=== PATIENT | female | born 1995 | race Caucasian/White ===

== ENCOUNTER 2017-12-28 11:54 | Emergency (ER) | payer OTHER ==
[2017-12-28] MEDS ORDERED: TRAMADOL HCL 50 MG TAB ONE (13:04)
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
[2017-12-28 14:42] VITALS: TEMP 97.6
[2017-12-28 14:45] VITALS: BP 138/78; O2SAT 97
== END 2017-12-28 14:22 | disposition home or self-care (01) ==
LOC: ER 11:54
DX: S43.402A Unspecified sprain of left shoulder joint, initial encounter (principal); S50.12XA Contusion of left forearm, initial encounter; Y08.89XA Assault by other specified means, initial encounter; Y93.9 Activity, unspecified; Y92.9 Unspecified place or not applicable
CPT/HCPCS: 99284

== ENCOUNTER 2018-05-11 20:25 | Emergency (ER) | payer OTHER ==
[2018-05-11 21:06] LABS: Urine Specific Gravity >1.030 (1.005-1.030)
[2018-05-11 21:06] LABS: Urine Blood 2+ (NEG); Urine Glucose NEGATIVE (NEG); Urine Protein 1+ (NEG); Urine Specific Gravity >1.030 (1.005-1.030); Urine pH 5.5 (5.0-7.0)
[2018-05-11] MEDS ORDERED: ONDANSETRON 4 MG/2 ML VIAL ONE (21:12)
[2018-05-11] MEDS ORDERED: NA CHLORIDE 0.9% 1,000 ML ONE (21:12)
[2018-05-11 21:21] LABS: Absolute Lymphocytes (CBC) 0.9 K/uL (0.7-4.9); Absolute Monocytes 0.4 K/uL (0.1-1.3); Absolute Neutrophil 8.8 K/uL (1.8-8.0); Basophils % 0.4 % (0-1.3); Eosinophils % 0.3 % (0-4.4); Hematocrit 40.9 % (36.0-45.0); Lymphocytes % 8.4 % (15.3-44.8); MCV 81.4 fL (80-100); Monocytes % 3.9 % (3.3-12.3); RBC Red Blood Cell Count 5.03 M/uL (3.86-4.86)
[2018-05-11 21:50] LABS: Anisocytosis SLIGHT; Blood Morphology Comment NOTED (NOT SEEN); Platelet Estimate ADEQ; Urine White Blood Cell Casts OK
--- NOTE | 2018-05-11 22:09 | EDPHYS ---
Physician Documentation [facility] Name: Zaina Roberson Age: 22 yrs Sex: Female : 1995 Arrival Date: 05/11/2018 Time: 20:26 Bed 13 Private MD: ED Physician Young Law HPI: 05/11 20:41 This 22 yrs old Female presents to ER via Ambulatory with complaints of kav Vomiting. 20:41 The patient presents to the emergency department with nausea, that is moderate, kav vomiting. Onset: The symptoms/episode began/occurred acutely, 1 day(s) ago. Possible causes: . The symptoms are aggravated by nothing. The symptoms are alleviated by nothing. Severity of symptoms: At their worst the symptoms were moderate just prior to arrival. The patient has experienced similar episodes in the past, multiple times, and the symptoms today are exactly the same. The patient has been recently seen by a physician:. Patient reports that she has had the same symptoms with each of her other three pregnancies.. 20:55 Patient reports vomiting x 8 today and has been vomiting for the past 24 hours. kav RISK MANAGEMENT INTERNSHIP: 20:33 LMP 02/28/2018 bb 20:53 4, Full Term 3, Premature 0, 0, Living 3, LMP 02/28/2018, kav Verified, EDC 12/05/2018, Gestational age from LMP: 10 weeks 3 days Historical: - Allergies: 20:33 NKDA; bb - Home Meds: 20:33 None [Active]; bb - PMHx: 20:33 None; bb - PSHx: 20:33 Cholecystectomy; bb - Immunization history:: Flu vaccine is not up to date. - Social history:: Smoking status: Patient/guardian denies using tobacco. - Ebola Screening: : Patient denies travel to an Ebola-affected area in the 21 days before illness onset. - Family history:: not pertinent. - Hospitalizations: : No recent hospitalization is reported. ROS: 20:53 Constitutional: Negative for fever, chills, and weight loss, Eyes: Negative for injury, kav pain, redness, and discharge, ENT: Negative for injury, pain, and discharge, Neck: Negative for injury, pain, and swelling, Cardiovascular: Negative for chest pain, palpitations, and edema, Respiratory: Negative for shortness of breath, cough, wheezing, and pleuritic chest pain, Back: Negative for injury and pain, : Negative for injury, bleeding, discharge, and swelling, MS/Extremity: Negative for injury and deformity, Skin: Negative for injury, rash, and discoloration, Neuro: Negative for headache, weakness, numbness, tingling, and seizure, Psych: Negative for depression, anxiety, suicide ideation, homicidal ideation, and hallucinations, Allergy/Immunology: Negative for hives, rash, and allergies, Endocrine: Negative for neck swelling, polydipsia, polyuria, polyphagia, and marked weight changes, Hematologic/Lymphatic: Negative for swollen nodes, abnormal bleeding, and unusual bruising. 20:53 Abdomen/GI: Positive for vomiting, Negative for diarrhea, abdominal cramps. Exam: 20:53 Constitutional: This is a well developed, well nourished patient who is awake, alert, kav and in no acute distress. Head/Face: Normocephalic, atraumatic. Eyes: Pupils equal round and reactive to light, extra-ocular motions intact. Lids and lashes normal. Conjunctiva and sclera are non-icteric and not injected. Cornea within normal limits. Periorbital areas with no swelling, redness, or edema. ENT: Nares patent. No nasal discharge, no septal abnormalities noted. Tympanic membranes are normal and external auditory canals are clear. Oropharynx with no redness, swelling, or masses, exudates, or evidence of obstruction, uvula midline. Mucous membranes moist. Neck: Trachea midline, no thyromegaly or masses palpated, and no cervical lymphadenopathy. Supple, full range of motion without nuchal rigidity, or vertebral point tenderness. No Meningismus. Chest/axilla: Normal chest wall appearance and motion. Nontender with no deformity. No lesions are appreciated. Cardiovascular: Regular rate and rhythm with a normal S1 and S2. No gallops, murmurs, or rubs. Normal PMI, no JVD. No pulse deficits. Respiratory: Lungs have equal breath sounds bilaterally, clear to auscultation and percussion. No rales, rhonchi or wheezes noted. No increased work of breathing, no retractions or nasal flaring. Back: No spinal tenderness. No costovertebral tenderness. Full range of motion. Skin: Warm, dry with normal turgor. Normal color with no rashes, no lesions, and no evidence of cellulitis. MS/ Extremity: Pulses equal, no cyanosis. Neurovascular intact. Full, normal range of motion. Neuro: Awake and alert, GCS 15, oriented to person, place, time, and situation. Cranial nerves II-XII grossly intact. Motor strength 5/5 in all extremities. Sensory grossly intact. Cerebellar exam normal. Normal gait. Psych: Awake, alert, with orientation to person, place and time. Behavior, mood, and affect are within normal limits. 20:53 Abdomen/GI: Inspection: abdomen appears normal, Bowel sounds: normal, Palpation: abdomen is soft and non-tender, in all quadrants. Vital Signs: 20:33 BP 131 / 91; Pulse 115; Resp 20; Temp 98.2; Pulse Ox 98% on R/A; Weight 114.31 kg (R); bb Height 5 ft. 5 in. (165.10 cm) (R); Pain 10/10; 22:01 BP 115 / 70; Pulse 88; Resp 18; Pulse Ox 100% on R/A; tl2 20:33 Body Mass Index 41.93 (114.31 kg, 165.10 cm) bb MDM: 20:36 Medical screening is not applicable. ka 22:09 Data reviewed: vital signs, nurses notes, lab test result(s). Counseling: I had a [facility] detailed discussion with the patient and/or guardian regarding: the historical points, exam findings, and any diagnostic results supporting the discharge/admit diagnosis, lab results, the need for outpatient follow up, an OB/Gyne specialist. 05/11 20:40 Order name: Quantitative Hcg; Complete Time: 22:08 [facility] 05/11 20:40 Order name: Abo/rh Typing; Complete Time: 21:55 [facility] 05/11 20:40 Order name: Basic Metabolic Panel; Complete Time: 22:08 [facility] 05/11 20:40 Order name: CBC with Diff; Complete Time: 21:55 [facility] 05/11 20:51 Order name: Urine Dipstick--Ancillary (enter results); Complete Time: 21:21 ok 05/11 20:58 Order name: Urine --Ancillary (enter results); Complete Time: 21:21 ok 05/11 20:40 Order name: Urine Test (obtain specimen); Complete Time: 20:58 kav 05/11 20:40 Order name: IV Saline Lock; Complete Time: 20:58 kav 05/11 20:40 Order name: Labs collected and sent; Complete Time: 20:59 kav 05/11 20:40 Order name: NPO; Complete Time: 20:59 kav 05/11 21:25 Order name: CBC Smear Scan; Complete Time: 21:55 [facility] 05/11 20:40 Order name: Urine Dipstick-Ancillary (obtain specimen); Complete Time: 21:02 kav Administered Medications: 21:10 Drug: NS 0.9% 1000 ml Route: IV; Rate: 1000 ml; Site: right antecubital; tl2 22:37 Follow up: IV Status: Completed infusion; IV Intake: 1000ml tl2 21:10 Drug: Zofran 4 mg Route: IVP; Site: right antecubital; tl2 21:30 Follow up: Response: No adverse reaction; Nausea is decreased tl2 22:15 Drug: Phenergan 25 mg Route: IVP; Site: right antecubital; tl2 22:37 Follow up: Response: No adverse reaction; Nausea is decreased tl2 Disposition: 05/12 06:41 Co-signature as Attending Physician, Young Law MD I agree with the assessment and riley plan of care. PA/ALLIANCE CONSULTANT's history reviewed, patient interviewed, and examined. Disposition: 05/11/18 22:08 Discharged to Home. Impression: Hyperemesis gravidarum with metabolic disturbance. - Condition is Stable. - Discharge Instructions: Hyperemesis Gravidarum, Eating Plan for Hyperemesis Gravidarum. - Prescriptions for Diclegis 10- 10 mg Oral tablet,delayed release (DR/EC) - take 1 tablet by ORAL route once daily; 30 tablet. - Medication Reconciliation Form, Thank You Letter form. - Follow up: Zay Sher; When: 2 - 3 days; Reason: Recheck today's complaints, Continuance of care, Re-evaluation by your physician. - Problem is new. - Symptoms have improved. Signatures: Dispatcher [employer] Young Santoyo MD MD cha Vern, Katherine, RIB TRIM SEPARATOR RIB TRIM SEPARATOR kaYasmine Melvin RN RN Beatriz Guerrero RN RN tl2 Corrections: (The following items were deleted from the chart) 05/11 20:53 20:51 4, Full Term 3, Premature 0, 0, Living 3 kav kav 20:54 20:52 4, Full Term 3, Premature 0, 0, Living 3, LMP 02/28/2018 kav kav 22:38 22:08 05/11/2018 22:08 Discharged to Home. Impression: Hyperemesis gravidarum with tl2 metabolic disturbance. Condition is Stable. Discharge Instructions: Hyperemesis Gravidarum, Eating Plan for Hyperemesis Gravidarum. Forms are Medication Reconciliation Form, Thank You Letter, Antibiotic Education, Prescription Opioid Use. Follow up: Zay Sher; When: 2 - 3 days; Reason: Recheck today's complaints, Continuance of care, Re-evaluation by your physician. Problem is new. Symptoms have improved. kav
--- NOTE | 2018-05-11 22:09 | ER ---
Nurse's Notes [facility] Name: Zaina Roberson Age: 22 yrs Sex: Female : 1995 Arrival Date: 05/11/2018 Time: 20:26 Bed 13 Private MD: Diagnosis: Hyperemesis gravidarum with metabolic disturbance Presentation: 05/11 20:31 Presenting complaint: Patient states: "I started throwing up yesterday after breakfast bb and it's been non-stop, its getting progressively worse and now its just stomach acid and I have diarrhea now." Reports upper abdominal pain "from throwing up" Reports fever last night of 102.3, but has not run fever since. Patients states that she is currently 11 weeks . Reports that she has had some spotting since she started vomiting. Transition of care: patient was not received from another setting of care. Onset of symptoms was May 10, 2018. Risk Assessment: Do you want to hurt yourself or someone else? Patient reports no desire to harm self or others. Initial Sepsis Screen: Does the patient meet any 2 criteria? No. Patient's initial sepsis screen is negative. Does the patient have a suspected source of infection? Yes: Acute abdominal pain. Care prior to arrival: None. 20:31 Method Of Arrival: Ambulatory bb 20:31 Acuity: SAFIA 3 bb Triage Assessment: 20:33 General: Appears in no apparent distress. uncomfortable, Behavior is calm, cooperative, bb appropriate for age. Pain: Complains of pain in right upper quadrant and left upper quadrant Pain currently is 10 out of 10 on a pain scale. Neuro: Level of Consciousness is awake, alert, obeys commands. Cardiovascular: Patient's skin is warm and dry. Respiratory: Airway is patent Respiratory effort is even, unlabored, Respiratory pattern is regular, symmetrical. GI: Reports upper abdominal pain, diarrhea, nausea, vomiting. 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 - Social history:: Smoking status: Patient/guardian denies using tobacco. - Ebola Screening: : Patient denies travel to an Ebola-affected area in the 21 days before illness onset. - Family history:: not pertinent. - Hospitalizations: : No recent hospitalization is reported. Screenin:00 Abuse screen: Denies threats or abuse. Nutritional screening: No deficits noted. tl2 Tuberculosis screening: No symptoms or risk factors identified. Fall Risk None identified. Assessment: 21:00 General: Appears in no apparent distress. uncomfortable, Behavior is calm, cooperative, tl2 appropriate for age. Pain: Denies pain. Neuro: Level of Consciousness is awake, alert, obeys commands, Oriented to person, place, time, situation. Cardiovascular: Denies chest pain. Respiratory: Airway is patent Respiratory effort is even, unlabored, Respiratory pattern is regular, symmetrical. GI: Reports diarrhea, nausea, vomiting. GI: Abdomen is non-distended. : No signs and/or symptoms were reported regarding the genitourinary system. Derm: Skin is pink, warm \\T\\ dry. 22:01 Reassessment: Patient appears in no apparent distress at this time. Pt c/o nausea has tl2 returned and she feels light headed. VSS. Will notify DIRECTOR OF ELEMENTARY EDUCATION. 22:36 Reassessment: Patient appears in no apparent distress at this time. Patient and/or tl2 family updated on plan of care and expected duration. Pain level reassessed. Patient is alert, oriented x 3, equal unlabored respirations, skin warm/dry/pink. Pt verbalized understanding of discharge instructions, need for follow up and prescription usage Patient states feeling better. Vital Signs: 20:33 BP 131 / 91; Pulse 115; Resp 20; Temp 98.2; Pulse Ox 98% on R/A; Weight 114.31 kg (R); bb Height 5 ft. 5 in. (165.10 cm) (R); Pain 10/10; 22:01 BP 115 / 70; Pulse 88; Resp 18; Pulse Ox 100% on R/A; tl2 20:33 Body Mass Index 41.93 (114.31 kg, 165.10 cm) bb ED Course: 20:26 Patient arrived in ED. ag3 20:32 Triage completed. bb 20:33 Arm band placed on Patient placed in an exam room. bb 20:36 [facility] kav 20:36 Young Law MD is Attending Physician. kav 20:58 Beatriz Golden, IRVING is Primary Nurse. tl2 21:00 Patient has correct armband on for positive identification. Bed in low position. Call tl2 light in reach. Side rails up X 1. 21:00 Inserted saline lock: 22 gauge in right antecubital area, using aseptic technique. tl2 Blood collected. 22:08 Zay Sher MD is Referral Physician. kav 22:36 No provider procedures requiring assistance completed. IV discontinued, intact, tl2 bleeding controlled, No redness/swelling at site. Pressure dressing applied. Administered Medications: 21:10 Drug: NS 0.9% 1000 ml Route: IV; Rate: 1000 ml; Site: right antecubital; tl2 22:37 Follow up: IV Status: Completed infusion; IV Intake: 1000ml tl2 21:10 Drug: Zofran 4 mg Route: IVP; Site: right antecubital; tl2 21:30 Follow up: Response: No adverse reaction; Nausea is decreased tl2 22:15 Drug: Phenergan 25 mg Route: IVP; Site: right antecubital; tl2 22:37 Follow up: Response: No adverse reaction; Nausea is decreased tl2 Intake: 22:37 IV: 1000ml; Total: 1000ml. tl2 Outcome: 22:08 Discharge ordered by MD. kav 22:36 Discharged to home ambulatory, with family. tl2 22:36 Condition: stable 22:36 Discharge instructions given to patient, Instructed on discharge instructions, follow up and referral plans. medication usage, Demonstrated understanding of instructions, follow-up care, medications, Prescriptions given X 1. 22:38 Patient left the ED. tl2 Signatures: Christine Boateng FNP FNP kav Ballard, Brenda, RN RN bb Knox, Taylor, RN RN tl2 Salina Duran ag3 Corrections: (The following items were deleted from the chart) 20:34 20:31 Presenting complaint: Patient states: "I started throwing up yesterday after bb breakfast and it's been non-stop, its getting progressively worse and now its just stomach acid and I have diarrhea now." Reports upper abdominal pain "from throwing up" Reports fever last night of 102.3, but has not run fever since bb 20:53 20:51 4, Full Term 3, Premature 0, 0, Living [address] [facility] 20:54 20:52 4, Full Term 3, Premature 0, 0, Living 3, LMP 02/28/2018 [facility]
[2018-05-11] MEDS ORDERED: PROMETHAZINE 25 MG/ML VIAL ONE (22:22)
[2018-05-11 22:46] VITALS: TEMP 98.2
[2018-05-11 22:47] VITALS: BP 115/70; O2SAT 100
== END 2018-05-11 22:38 | disposition home or self-care (01) ==
LOC: ER 20:25
DX: O21.1 Hyperemesis gravidarum with metabolic disturbance (principal); Z3A.10 10 weeks gestation of pregnancy
CPT/HCPCS: 36415; 80048; 81003; 81025; 84702; 85025; 86900; 86901; 96361; 96374; 96375; 99284; J2405; J2550; J7030

== ENCOUNTER 2018-11-16 20:40 | Inpatient (IN) | payer OTHER ==
[2018-11-16] MEDS ORDERED: HYDRALAZINE HCL 20 MG/ML VIAL IV PRN (23:15)
[2018-11-17] MEDS ORDERED: LIDOCAINE 1% MPF 30 ML VIAL ONE (00:48)
[2018-11-17] MEDS ORDERED: OXYTOCIN/LR 20 UNIT/1,000 ML BAG IV ONE (00:49)
[2018-11-17] MEDS ORDERED: CARBOPROST TROME 250 MCG/ML IM ONE (00:49)
[2018-11-17] MEDS ORDERED: DOCUSATE NA/SENNA CONC 1 TAB PO PRN (00:52)
[2018-11-17] MEDS ORDERED: BISACODYL 10 MG RECTAL SUPP RECT PRN (00:52)
[2018-11-17] MEDS ORDERED: Oxycodone HCl/Acetaminophen 1 TAB TAB PO PRN ×2 (00:52)
[2018-11-17] MEDS ORDERED: ACETAMINOPHEN 500 MG TAB PO PRN (00:52)
[2018-11-17] MEDS ORDERED: DIPHENHYDRAMINE 25 MG TAB/CAP PO PRN (00:52)
[2018-11-17] MEDS ORDERED: OXYTOCIN/LR 20 UNIT/1,000 ML BAG IV SCH (01:00)
[2018-11-17] MEDS ORDERED: MEPERIDINE HCL 25 MG/0.5 ML ONE (01:01)
[2018-11-17 01:51] LABS: Urine Appearance CLOUDY; Urine Bilirubin NEGATIVE (NEG); Urine Blood 1+ (NEG); Urine Color YELLOW; Urine Glucose NEGATIVE (NEG); Urine Protein 3+ (NEG); Urine Urobilinogen 0.2 mg/dL (0.2-1.0); Urine pH 5.5 (5.0-7.0)
[2018-11-17 01:56] LABS: Urine Microscopic Reflex ORDER UMIC; Urine Protein 3+ (NEG)
[2018-11-17 01:57] LABS: Absolute Lymphocytes (CBC) 2.2 K/uL (0.7-4.9); Basophils % 0.6 % (0-1.3); Eosinophils % 0.8 % (0-4.4); Hematocrit 36.7 % (36.0-45.0); Lymphocytes % 15.5 % (15.3-44.8); MPV 10.9 fL (7.6-11.3); Monocytes % 4.7 % (3.3-12.3); RBC Red Blood Cell Count 4.22 M/uL (3.86-4.86)
[2018-11-17 01:57] LABS: Urine Blood ND (NEG); Urine Glucose ND (NEG)
[2018-11-17 02:32] LABS: Urine Bacteria 20-50 /HPF (<20); Urine Culture Reflex Order REFLEXED
[2018-11-17] MEDS ORDERED: HYDRALAZINE HCL 20 MG/ML VIAL IV ONE (02:44)
[2018-11-17] MEDS: IBUPROFEN 200 MG TAB PO PRN ×2 (03:55→11:18)
[2018-11-17 04:58] VITALS: BMI 46.7
--- NOTE | 2018-11-17 05:11 | PREOPHP ---
Date of Admission: 11/16/2018 A 23-year-old multiparous female, scheduled for induction on ; came in early labor; 3.5 to 4 cm; after 2 hours of observation, was admitted. Sharath irregularly at that time. Noted to have initial blood pressure of 165 systolic on admission. Rh positive. Immune to Rubella. Negative bet a strep screen. FHTs normal, reactive. All other situations without change. Family History: Noncontributory. Allergies: NO ALLERGIES. Physical Examination: Basically unchanged. Admitted for delivery. ALVERTO/BRAYDEN Voice ID: [id number]
--- NOTE | 2018-11-17 05:20 | DN ---
Surgeon: Zay Sher MD A 23-year-old multiparous female scheduled for induction later this week. Came in, in early labor. Went through a very active labor phase. Went from 4 cm to complete and precipitously delivered of a 6 pound 12 ounce female, Apgars 9 and 10. Very small first-degree laceration requiring 1 stitch of 2 -0 chromic, local infiltration. Schultze delivery of the placenta, which was inspected and noted to be intact and normal. Less than 200 cc blood loss. The patient reported severe cramping and was giv en 25 mg of Demerol. After delivery, the baby clamped in the cord. Tolerated all procedures well. Rh positive. Immune to Rubella. Negative beta strep screen. Final Diagnoses: Term intrauterine . Vaginal delivery. ALVERTO/BRAYDEN Voice ID: [id number] Report ID: [id number]
[2018-11-17] MEDS ORDERED: Ringers Lactate 1,000 ML IV ONE ×3 (06:04→12:26)
[2018-11-17] MEDS: PHENOBARBITAL 32.4 MG TABLET PO SCH ×2 (06:10→13:58)
[2018-11-17] MEDS ORDERED: OXYTOCIN 10 UNIT/ML ML IV ONE (07:14)
[2018-11-17] MEDS ORDERED: MORPHINE SULFATE/PF 1 MG/ML (10 ML AMP) ONE (07:14)
[2018-11-17] MEDS ORDERED: Phenylephrine HCl 10 MG/ML 1 ML VIAL ONE (07:14)
[2018-11-17] MEDS ORDERED: FENTANYL CITR 250 MCG/5 ML ONE (07:14)
[2018-11-17] MEDS ORDERED: NS 0.9% VIAL 0 ML ONE (07:15)
[2018-11-17] MEDS: HYDRALAZINE HCL 20 MG/ML VIAL IV PRN ×3 (07:16→20:25)
[2018-11-17] MEDS ORDERED: PROMETHAZINE 25 MG/ML VIAL IM ONE ×2 (08:03→21:10)
[2018-11-17] MEDS ORDERED: cloNIDine HCl 0.1 MG TAB PO ONE (08:21)
[2018-11-17] MEDS ORDERED: PROMETHAZINE 25 MG/ML VIAL ONE (08:25)
[2018-11-17] MEDS ORDERED: KETOROLAC 30 MG/ML INJ IV ONE (11:59)
--- NOTE | 2018-11-17 14:12 | PN ---
The patient did quite well after the delivery, which is at 12:24 but then around 2 o'clock last night began to have a headache. She says headache has intensified. Her blood pressure is now better afte r the clonidine 0.1 mg but the headache persists. She was given 25 mg Demerol at the time of deliver y because of cramping. She has been given Motrin. She has also been given Toradol 30 mg IV and her headache continues. We have ordered 2 Percocet and if that does not help, we will get a neurology co nsult. Neurologically she looks fine. Her pupils are equally round, reactive to light and accommoda tion. All of her facial muscles are normal. She has no complaints of chest pain, leg pain or any ot her type of problems. Mild nausea. She is quite conversant and alert. She has no history of migrai carlos, nonetheless we will get a neurology consult if her headache persist. It is frontal, bilateral. No visual disturbances. As I said there are no problems with her facial nerves and she can speak wi thout any problems. Followup according to response to treatment. ALVERTO/BRAYDEN Voice ID: [id number] Report ID: [id number]
--- NOTE | 2018-11-17 14:27 | PN ---
Subjective: The patient continues to show mild blood pressure elevation. No RELAY ADJUSTER symptoms. Her refl exes are normal. There was minimal pretibial edema. This is the same other pregnancies. Whether or not she has 2 preeclampsia remains to be seen but we discussed this morning and we will k eep her on phenobarbital for 3-4 days, probably let her go home tomorrow and then come to my office o n Friday for blood pressure check. She has no complaints or problems this morning. Full dismissal i nstructions given but will go over it again tomorrow. She still has her IV, will keep that until she ambulates and see what her blood pressure does. She may need another dose of Apresoline if she need s something on a continual basis. We will probably put her on Aldomet for the next week or so until her blood pressure is moderate, but right now, the last blood pressure was under 160 systolic and she seems to be doing quite well. ALVERTO/BRAYDEN Voice ID: [id number] Report ID: [id number]
[2018-11-17 14:37] LABS: Absolute Lymphocytes (CBC) 2.1 K/uL (0.7-4.9); Basophils % 0.6 % (0-1.3); Eosinophils % 0.8 % (0-4.4); Hematocrit 31.3 % (36.0-45.0); Lymphocytes % 20.2 % (15.3-44.8); MPV 9.5 fL (7.6-11.3); Monocytes % 4.7 % (3.3-12.3); RBC Red Blood Cell Count 3.65 M/uL (3.86-4.86)
[2018-11-17 14:48] LABS: Protime INR 0.85
[2018-11-17 14:51] LABS: Potassium 4.7 mmol/L (3.5-5.1)
--- NOTE | 2018-11-17 15:11 | P.CNS ---
Date of Consult: 11/17/18 Reason for Consult: Right sided Numbness Requesting Physician: Christiano Centeno Primary Care Provider: Dr Sher Chief Complaint: Right leg Numbness History of Present Illness: This is a 23-year-old female, who was admitted to the hospital in labor and delivery, status post at 12:15pm, with 1st degree tear. Pt did not receive any epidural during delivery, now with left-sided leg numbness that started around 2 o'clock. Patient was getting infusion of phenobarbital right before which she started noticing that she was having some left-sided numbness to the leg. Patient has been getting treated for preeclampsia during this . Initially on presentation her blood pressure was elevated and patient was given a pass away in and clonidine which brought her blood pressure down to less than 120/80 At around 10 o'clock. Patient delivered her baby at around 12:15 p.m. without any epidural and was spontaneous vaginal delivery. Patient did have first-degree laceration here which was repaired at bedside. Patient was given local anesthesia for that. Blood loss was 500 mL for last. Patient was doing fine until she started having some left-sided numbness on the leg starting at 2 o'clock p.m.. Denies any other associated symptoms. Allergies No Known Drug Allergies Allergy (Verified 11/17/18 05:42) Unknown No Known Allergies Allergy (Uncoded 08/21/15 00:09) Unknown Home Medications: NK [No Home Meds] 11/17/18 - Past Medical/Surgical History Diabetic: No -: Gallstones -: [facility] 04/2014 lap kody -: NVD 08/27/13, 06/28/15, 01/11/17 - Family History Mother Medical History: Hypertension, Lung disease, Diabetes Notes: has insulin pump - Social History Smoking Status: Never smoker Alcohol use: No CD- Drugs: No Caffeine use: Yes Place of Residence: Home Review of Systems 10-point ROS is otherwise unremarkable Physical Examination Temp Pulse Resp BP Pulse Ox 98.0 F 69 18 132/74 11/17/18 14:00 11/17/18 14:00 11/17/18 14:00 11/17/18 14:00 General: Alert, In no apparent distress HEENT: Atraumatic, PERRLA, Mucous membr. moist/pink, EOMI, Sclerae nonicteric Neck: Supple, 2+ carotid pulse no bruit, No LAD, Without JVD or thyroid abnormality Respiratory: Clear to auscultation bilaterally, Normal air movement Cardiovascular: Regular rate/rhythm, Normal S1 S2 Gastrointestinal: Normal bowel sounds, Tenderness Musculoskeletal: No tenderness Integumentary: No rashes Neurological: Normal speech, Normal strength at 5/5 x4 extr, Normal tone, Sensation intact, Normal affect, Other (Shakes noted and Unable to asscess gait as pt recently delievered Baby) Lymphatics: No axilla or inguinal lymphadenopathy Laboratory Data (last 24 hrs) 11/17/18 14:25: PT 10.1, INR 0.85, APTT 26.1 11/17/18 14:25: Sodium 142, Potassium 4.7, BUN 13, Creatinine 0.85, Glucose 75 11/17/18 14:25: WBC 10.3 D, Hgb 10.1 L, Hct 31.3 L, Plt Count 262 11/17/18 00:15: WBC 13.9 H, Hgb 11.8 L, Hct 36.7, Plt Count 302 - Problems (1) Left leg numbness Current Visit: Yes Status: Acute Plan: Patient left leg numbness status post delivery. Possible CVA versus TIA -with history of preeclampsia with elevated blood pressure, thalamic stroke is a high on the differential -head CT pending at this time. Code stroke was called. -will get brain MRI, carotid Doppler, ESR and CRP -Consult neurology at this time. Appreciate recommendation -patient started on aspirin, Lipitor, no TPA due to contraindications due to recent vaginal delivery -will await further recommendations at this time (2) Preeclampsia Current Visit: Yes Status: Acute Plan: Patient with history of preeclampsia. -currently blood pressure within normal ranges -patient status post spontaneous vaginal delivery -will hold phenobarbital as patient's symptoms got worse after phenobarbital administration Qualifiers: Trimester: unspecified trimester Qualified Code(s): O14.90 - Unspecified pre-eclampsia, unspecified trimester (3) (spontaneous vaginal delivery) Current Visit: Yes Status: Acute Plan: Patient is currently status post vaginal delivery states that her delivery was complicated with preeclampsia with elevated blood pressure and headaches. Conclusions/Impression: Will rule out acute CVA versus TIA versus medication side effect. Patient given aspirin 325 x 1 and then 81 mg after that along with Lipitor and folic acid. No TPA given his NIH scale 1 and patient has medical contraindication to TPA at this time. Will await results from brain MRI and carotid Doppler further treatment. Permissive HTN with Goal BP of 160/90
--- NOTE | 2018-11-17 15:42 | RAD REPORT ---
EXAM DESCRIPTION: MRI - Brain W/Wo Cont - 11/17/2018 3:30 pm CLINICAL HISTORY: headache and numbness Headache, drowsiness, CVA symptomology COMPARISON: MRA Head Wo Cont dated 11/17/2018; MRA Neck W/Wo Cont dated 11/17/2018 TECHNIQUE: Multi-sequence, multiplanar MR imaging of the brain was performed with contrast. FINDINGS: No intracranial hemorrhage, hydrocephalus, or extra-axial fluid collection. No edema or sh ift of midline structures. No intracranial mass. DWI is negative for acute CVA. The midline structures are normally formed. Small mucous retention cyst versus polyps are present in both maxillary antra. Post-contrast images show no abnormal enhancement to suggest tumor or infection. IMPRESSION: Negative for acute CVA or other acute intracranial abnormality. No pathologic post-contrast enhancement suspected.
--- NOTE | 2018-11-17 15:46 | RAD REPORT ---
EXAM DESCRIPTION: MRI - MRA Head Wo Cont - 11/17/2018 3:31 pm CLINICAL HISTORY: headache and numbness CVA COMPARISON: HEAD BRAIN W O CONTRAST dated 10/05/2013 FINDINGS: 3D noncontrast [id number] MR angiography of the skull [place] of [place] was performed. No aneurysm, flow-limiting stenosis or vascular malformation is seen. Forward flow seen in left-sided dominant vertebral arteries. The visualized dural venous sinuses appear patent. IMPRESSION: No significant flow abnormality of the [place] of [place] is identified.
--- NOTE | 2018-11-17 15:50 | RAD REPORT ---
EXAM DESCRIPTION: MRI - MRA Neck W/Wo Cont - 11/17/2018 3:30 pm CLINICAL HISTORY: headache and numbness Headache, drowsiness, CVA symptomology. COMPARISON: No comparisons FINDINGS: Contrast enhance 2D [id number] MR angiography of the neck vessels was performed. A left aortic arch is noted with a 3 vessel origins of the great vessels. Both common carotid arteries and subclavian arteries are widely patent. Both internal carotid arteries are normal without evidence of flow abnormality or stenosis. IMPRESSION: No flow abnormality of the neck vessels identified.
--- NOTE | 2018-11-17 16:02 | RAD REPORT ---
EXAM DESCRIPTION: US - CP - 11/17/2018 3:55 pm CLINICAL HISTORY: Right Sided Numbness Headache, drowsiness CVA symptomology COMPARISON: <Comparisons> TECHNIQUE: Real-time sonographic evaluation of both carotid systems was performed. Doppler interroga tion was performed with waveform tracing bilaterally. FINDINGS: Normal high resistance waveforms are noted in both external carotid arteries. The common c arotid arteries and internal carotid arteries show normal low resistance waveforms. No significant plaque formation is seen. Peak systolic and end diastolic velocity values and the ICA/ CCA ratios are in the non-hemodynamically significant range. Antegrade flow seen in both vertebral arteries. IMPRESSION: No significant atherosclerotic changes noted. No evidence of a hemodynamically significant stenosis.
--- NOTE | 2018-11-17 16:20 | RAD REPORT ---
EXAM DESCRIPTION: RAD - Chest Single View - 11/17/2018 4:01 pm CLINICAL HISTORY: CODE STROKE Chest pain. COMPARISON: <Comparisons> FINDINGS: Portable technique limits examination quality. The lungs are grossly clear. Cardiac silhouette is mildly prominent. No displaced fractures.
[2018-11-17] MEDS ORDERED: MORPHINE 4 MG/ML SYR IV ONE (16:25)
--- NOTE | 2018-11-17 16:28 | EKG ---
Test Date: 2018-11-17 Test Time: 14:26:15 Paper Sealer: LEONID-Kenny MEASUREMENT RESULTS: Intervals: Rate: 75 AL: 124 QRSD: 62 QT: 372 QTc: 415 [place]: P: 31 AL: 124 QRS: 78 T: 53 INTERPRETIVE STATEMENTS: Normal sinus rhythm with sinus arrhythmia Low voltage QRS Borderline ECG Compared to ECG 10/30/2014 22:48:48 Low QRS voltage now present Electronically Signed On 11-17-18 16:27:16 CDT by Miles George
[2018-11-17] MEDS ORDERED: MORPHINE 4 MG/ML SYR ONE (16:34)
[2018-11-17] MEDS: AMLODIPINE 10 MG TAB PO SCH (17:18)
--- NOTE | 2018-11-17 17:20 | PN ---
The patient has had a complete neurological workup. Hospitalist, Dr. Hassan has seen the patient. Ap parently at this point, it is not thought the patient has any type of neoplasm or stroke. Numbness h as apparently gone now. She is quite conversant. Does not seem to be any pain, but says that her he adache is still extreme. We will give her 4 mg of morphine IV. If she is still having problems afte r this, we have already called Dr. Centeno who had the nurses call a code stroke, which apparently h as been called off now. The patient was moved out of the unit, now is back on the unit. Her blood p ressures have started to creep back up slightly, so we will see what the effect of morphine has, but if still no benefit, I thinks she needs to be seen by neurologist, which we asked for in the first pl valentin. ALVERTO/BRAYDEN Voice ID: [id number] Report ID: [id number]
[2018-11-17] MEDS ORDERED: HYDRALAZINE HCL 20 MG/ML VIAL ONE (20:31)
[2018-11-17] MEDS ORDERED: ATORVASTATIN 40 MG TAB PO SCH (21:00)
[2018-11-17] MEDS ORDERED: METHYLDOPA 250 MG TABLET PO SCH (21:00)
[2018-11-17] MEDS ORDERED: OXYTOCIN/LR 1,000 ML IV SCH (23:15)
[2018-11-18] MEDS: IBUPROFEN 200 MG TAB PO PRN (01:06)
[2018-11-18] MEDS ORDERED: Ringers Lactate 1,000 ML IV ONE (01:17)
[2018-11-18 07:12] VITALS: BP 136/81; TEMP 97.8
--- NOTE | 2018-11-18 07:50 | DS ---
Zaina Roberson is a 23-year-old, 4, para 3, at approximately 38 weeks and 2/3 days, came in a ctive labor, rapidly advancing, precipitously delivered a 5 pounds, 12 ounces female. Apgars 9 and 1 0. No episiotomy. Small first-degree laceration requiring 1 suture of 2-0 chromic under local infil tration. Rh positive, immune to Rubella. Negative beta strep screen. Was given 25 mg after deliver y the baby and delivery of the placenta as she says she was having cramping. within the n ext few hours developed a severe headache, was noted also to have elevated blood pressures. Was give n apresoline twice then clonidine at 0.1 one time. Headache persisted when the patient then started complaining of arm tingling and numbness. Dr. Ezio Centeno was consulted, he said to call a Code stroke, this was done. The patient subsequently had MRI, CAT scan, everything negative. Blood press ures have moderated. Headache is gone, numbness is gone. The patient seemed to be fully resolved. She seemed to have the same problem with the last only she was complaining of leg numbness at that point. In any event, we will dismiss the patient this morning to return to my office Friday, which is approximately 48 hours from now. For blood pressure determination, she is on Norvasc 10 mg a day. She is pumping her breast and discarding the milk, which she was doing previously anyway. S he is also dismissed with tramadol, although she may elect to take Motrin instead. No complaints or problems voiced by the patient this morning. Final Diagnoses: Term intrauterine , precipitous vaginal delivery, headache of unknown etio logy, hypertension not thought to be preeclampsia, now resolving. LULIC/MODL Voice ID: [id number] Report ID: [id number]
[2018-11-18] MEDS ORDERED: ASPIRIN 325 MG TAB PO SCH (09:00)
[2018-11-18] MEDS: AMLODIPINE 10 MG TAB PO SCH (09:00)
[2018-11-18] MEDS ORDERED: FOLIC ACID 1 MG TABLET PO SCH (09:00)
[2018-11-18] MEDS ORDERED: ASPIRIN EC 81 MG TAB PO SCH (09:00)
[2018-11-18] MEDS ORDERED: AMLODIPINE 10 MG TAB PO SCH (09:00)
--- NOTE | 2018-11-18 14:58 | CON ---
Reason For Consultation: Consultation called by Dr. Sher because of headache and right leg numbness . History Of Present Illness: Ms. Roberson is a 23-year-old patient who just delivered by spont aneous vaginal delivery a healthy baby at 12:15 on 11/16/2018. Prior to delivery, she had preeclamps ia with blood pressures significantly elevated over 160 systolic and she did have medications which a ctually dropped her blood pressure to less than 120/80 within a short time. She did not receive an e pidural and she delivered the baby. She did okay until she developed the left-sided numbness which w as around 2 p.m. after delivery was at 12:15 and her blood pressure dropped around 10. She does give a history of migraines, typically one-sided perhaps left head with nausea and occasional vomiting an d pounding pain rated 8-10/10. She was given morphine 4 mg. She did receive Percocet as well and To radol and blood pressure was managed with Norvasc. She has been on aspirin 81 mg daily along with Li pitor 4 mg for stroke risk reduction. She does report today that her headache is still there, but mu ch improved from yesterday. At around 7 this morning, pain was rated at 0/10. She actually was disc harged from the hospital and is told to follow up with Dr. Centeno in 1 month. Past Medical History: Gallstones. Past Surgical History: Laparoscopic cholecystectomy in 2013, spontaneous vaginal delivery in 2013, 2 , and 2017. Family History: Positive for hypertension, lung disease, diabetes mellitus. Social History: No alcohol, tobacco, or IV drug use. Allergies: NO KNOWN DRUG ALLERGIES. Medications: She is currently on the aspirin and statin for stroke risk reduction, but prior to hosp italization, she was on no medications. Review of Systems: A 10-point review of systems is negative. Physical Examination: Vital Signs: Blood pressure 136/81, pulse 76, respiratory rate 18, temperature 97.8, oxygen saturati on 97% room air. General: Ms. Roberson is standing in her room, ready to be discharged. She is in no acute distress. HEENT: She is normocephalic, atraumatic. Sclerae anicteric. Oropharynx is pink and moist. Neck: Supple. Chest: Clear. Heart: Regular. Extremities: Show no clubbing, cyanosis, or edema. Neuro: She is morbidly obese with a BMI of 46.8, height of 5 feet 5 inches, weight 281 pounds. Ms. Roberson has no focal cranial nerves, motor, sensory, coordination, gait, or reflex deficits. Laboratory Studies: Complete blood count with differential is remarkable for a slightly low hemoglob in of 10.1, white blood cell count 10.3, platelets are 262. INR 0.85. Chemistries show slightly low calcium of 8.2, glucose 75, chloride 111, otherwise unremarkable. Urinalysis shows 3+ protein under preeclampsia, white blood cells are 5-10, blood +1. Her brain MRI was unremarkable for any acute is chemic or hemorrhagic event. MRA of the head was unremarkable. She had a carotid artery ultrasound, which showed no evidence of hemodynamically significant stenosis and neck MR angiogram was also unre markable. Assessment: Ms. Roberson is a 23-year-old patient with preeclampsia, history of migraine that is uncha nged and blood pressure from a very high level to a less than 120 systolic and likely precipitated ce rebral arterial spasms and a transient focal neurological deficit. She is now resolved in her defici t but still has a slight headache with her history of migraine, not unexpected. Plan: 1.After discharge, followup [facility] in 1 month. Will evaluate and treat for migraine accordingly with prophylactic medication and abortive medication as needed. 2.Continue aspirin and Lipitor. Will re-evaluate in 1 month followup. 3.The patient was instructed to maintain a blood pressure diary and bring that back to clinic in followup and follow up in clinic in 1 month. MEGHAN/BRAYDEN Voice ID: [id number] Report ID: [id number]
[2018-11-19 12:06] LABS: HBsAG Nonreactive (Nonreactive)
== END 2018-11-18 09:00 | disposition home or self-care (01) | DRG 807 ==
LOC: L&D 20:40 → 2ND-WC 23:34
PROVIDERS: ADMIT Specialist; ATTEND Specialist
PROC: 10E0XZZ Delivery of Products of Conception, External Approach (ICD-10-PCS; principal; 2018-11-17)
PROC: 0HQ9XZZ Repair Perineum Skin, External Approach (ICD-10-PCS; 2018-11-17)
DX: O70.0 First degree perineal laceration during delivery (principal); Z37.0 Single live birth; O16.4 Unspecified maternal hypertension, complicating childbirth; Z3A.38 38 weeks gestation of pregnancy; O75.89 Other specified complications of labor and delivery; R51 Headache; R20.0 Anesthesia of skin
CPT/HCPCS: 36415; 70544; 70549; 70553; 71045; 80048; 81003; 81015; 85025; 85610; 85730; 86901; 87086; 87088; 87340; 93005; 93880; A9577; J0360; J2175; J2370; J2550; J2590; J3010

== ENCOUNTER 2019-06-14 13:19 | Emergency (ER) | payer OTHER, SELFPAY ==
[2019-06-14 14:06] LABS: Urine Blood NEGATIVE (NEG); Urine Glucose NEGATIVE (NEG); Urine Protein NEGATIVE (NEG); Urine Specific Gravity 1.025 (1.005-1.030)
--- NOTE | 2019-06-14 14:26 | RAD REPORT ---
EXAM DESCRIPTION: RAD - Foot Left 3 View - 06/14/2019 2:13 pm CLINICAL HISTORY: Left Foot pain FINDINGS: No fracture or dislocation is seen.
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
[2019-06-14] MEDS ORDERED: KETOROLAC 30 MG/ML INJ ONE (14:43)
[2019-06-14 16:53] VITALS: TEMP 97.8; O2SAT 99
[2019-06-14 16:55] VITALS: BP 142/97
== END 2019-06-14 15:02 | disposition home or self-care (01) ==
LOC: ER 13:19 → EEVIPCON 13:19 → ER 15:02
DX: S90.32XA Contusion of left foot, initial encounter (principal); S93.602A Unspecified sprain of left foot, initial encounter; Y04.8XXA Assault by other bodily force, initial encounter; Y93.89 Activity, other specified; Y92.9 Unspecified place or not applicable; Z04.71 Encounter for examination and observation following alleged adult physical abuse
CPT/HCPCS: 81003; 81025; 96372; 99284

== ENCOUNTER 2020-01-20 09:45 | Emergency (ER) | payer OTHER, SELFPAY ==
--- OUTSIDE RECORDS SUMMARY | 2020-01-20 09:51 | XMS REPORT | Summary of Care ---
:1995 Author Organization [facility] Address [address] [place] [id number] Care Team Providers Name Role Phone Anthony White Primary Care Provider Reason for Visit Reason Onset Date Comments Abdominal Pain 01/11/2020 Vomiting 01/11/2020 Dizziness 01/11/2020 Encounter Details Date Type Department Care Team Description 01/11/2020 Nurse Triage [facility] Libia Sheikh, RN Abdominal Pain; [address] [place] [address] Vomiting; [place] [phone] Allergies No Known Allergiesdocumented as of this encounter (statuses as of 01/11/2020) Medications No known medicationsdocumented as of this encounter (statuses as of 01/11/2020) Active Problems No known active problemsdocumented as of this encounter (statuses as of 01/11/2020) Social History Tobacco Use Types Packs/Day Years Used Date Never Assessed Sex Assigned at Date Recorded Not on file documented as of this encounter Last Filed Vital Signs Not on filedocumented in this encounter Miscellaneous Notes Telephone Encounter - Libia Sheikh, RN - 01/11/2020 12:11 PM CDT Reason for Disposition Lightheadedness or dizziness (e.g., feels like passing out) Protocols used: - ABDOMINAL PAIN LESS THAN 20 WEEKS [id number] Telephone Encounter - Libia Sheikh, RN - 01/11/2020 12:11 PM CDTNurse's Note: "dizziness" per patient. 1211 Called patient. States she was supposed to be seen on . Today at work she has been having lightheadedness and dizziness. She's also been throwing up and having abdominal pain. After assessment and triage, patient advised to be taken to the ER for evaluation. Triage Assessment Last Clinic Visit: 12/06/2019 for vaginal bleeding Primary Symptom: dizziness (intermittent) Onset / Duration: this morning Location / Description: neuro Pain / Severity: 12/09, lower abdomen Associated Symptoms: vomiting x 5 today Fever / Method: denies Hydration: has had to drink 6-16 oz water bottles/last void at 1130 Treatment so far: denies Effect on ADL's: some change Gestational Weeks: lmp 2018, bled on December 05 for 2 days, has tested positive since November 27 Rupture Membranes: n/a Bleeding / Spotting / Pads per hour: denies Movement: n/a Para / : EDC: n/a Pre-existing condition / Immunocompromised: denies [facility] Access Center HERMELINDA Day, RN- Telephone Encounter - Libia Sheikh RN - 01/11/2020 12:11 PM CDTRegarding: Pt 5 weeks , cramping, light headed, dizzy ----- Message from Lydnsey Novoa sent at 01/11/2020 12:05 PM CDT ----- Zaina Roberson is a 24 year old female documented in this encounter Plan of Treatment Date Type Specialty Care Team Description 01/13/2020 [facility] Initial Visit [facility] Margot Rodriguez, ELECTROMECHANICAL INSPECTOR [address] [place], [place] [address] [phone] Health Maintenance Due Date Last Done Comments VARICELLA VACCINES (1 of 2 - 1995 2-dose childhood series) HPV VACCINES (1 - 2-dose series) 2005 Depression Screening 2006 DTaP,Tdap,and Td Vaccines (1 - 2013 Tdap) PAP SMEAR 2015 INFLUENZA VACCINE (#1) 2020 PNEUMOCOCCAL 0-64 YEARS COMBINED Aged Out No longer eligible based on SERIES patient's age to complete this topic documented as of this encounter Results Not on filedocumented in this encounter Insurance Payer Benefit Plan / Subscriber ID Effective Dates Phone Addre ss Type Group [employer] MEDICAID OF [id number] 2020-Present [phone] Medicaid [place] [id number] [place] [phone] documented as of this encounter
--- OUTSIDE RECORDS SUMMARY | 2020-01-20 09:51 | XMS REPORT | Summary of Care ---
:1995 Author Organization [facility] Address [address] [place] [id number] Care Team Providers Name Role Phone Anthony White Primary Care Provider Reason for Referral (Routine) Status Reason Specialty Diagnoses / Referred By Referred To Procedures Contact Contact New Request Maternal Diagnoses Nausea and vomiting during History of pre-eclampsia in prior , currently History of delivery, currently Margot Rodriguez Medicine Procedures CONSULT/REFERRAL MATERNAL MEDICINE FACULTY/FELLOW Preferred location: [facility] [address] [place] [address] [place] [phone] (Routine) Status Reason Specialty Diagnoses / Referred By Referred To Procedures Contact Contact New Request Maternal Diagnoses Supervision of high risk in first trimester Margot Rodriguez Medicine Procedures CONSULT MATERNAL MEDICINE ULTRASOUND Preferred Location: [facility] [address] [place] [address] [place] [phone] Reason for Visit Reason Comments Initial Visit (Routine) Status Reason Specialty Diagnoses / Referred By Referred To Procedures Contact Contact New Request OG-OBSTETRICS & Diagnoses Vaginal bleeding Agustina Ford, GYNECOLOGY / OB Procedures Discharge Follow-Up: Specialty Service OG-OBSTETRICS & GYNECOLOGY; 1 Week CONSULT/REFERRAL FINISHED STOCK INSPECTOR [facility] Satellites [address] [place] [address]. [place] [address] Encounter Details Date Type Department Care Team Description 01/13/2020 [facility] Margot Irnea pervision of high risk in first trimester (Primary Dx); Visit [place], LAYER OUT Multiparity; [address] Tubal ligation status; Street [address] Obesity affecting , antepartum; [place] Screening for v iral disease; [phone] Nausea and vomiting during ; [phone] History of pre-eclampsia in prior pregna ncy, currently ; [phone] History of pret erm delivery, currently (Fax) Allergies No Known Allergiesdocumented as of this encounter (statuses as of 01/13/2020) Medications Medication Sig Dispensed Refills Start Date End Date Status vit Take by 0 Active calc,iron,folic mouth. ( VITAMIN ORAL) ondansetron (ZOFRAN Take 1 tablet 14 tablet 0 01/11/202001/12 Discontinued ODT) 4 mg by mouth every 0 disintegrating 8 (eight) tabletIndications: hours as Nausea needed for Nausea and Vomiting (N/V). documented as of this encounter (statuses as of 01/13/2020) Active Problems Estimated Date of Delivery Comments Yes 09/11/2020 Based on last menstr ual period of 12/06/2019 (Within Days) No known active problemsdocumented as of this encounter (statuses as of 01/13/2020) Social History Tobacco Use Types Packs/Day Years Used Date Former Smoker Started: 2013 Smokeless Tobacco: Never Used Tobacco Cessation: Counseling Given: Yes Alcohol Use Drinks/Week oz/Week Comments Not Currently Estimated Date of Delivery Comments Yes 09/11/2020 Based on last menstr ual period of 12/06/2019 (Within Days) Sex Assigned at Date Recorded Not on file COVID-19 Exposure Response Date Recorded In the last month, have you been in contact with No / Unsure 01/13/2020 10:10 AM CDT someone who was confirmed or suspected to have Coronavirus / COVID-19? documented as of this encounter Last Filed Vital Signs Vital Sign Reading Time Taken Comments Blood Pressure 117/86 01/13/2020 10:14 AM CDT Pulse 78 01/13/2020 10:09 AM CDT Temperature 36.7 C (98 F) 01/13/2020 10:09 AM CDT Respiratory Rate 16 01/13/2020 10:09 AM CDT Oxygen Saturation - - Inhaled Oxygen Concentration - - Weight 123.1 kg (271 lb 6 oz) 01/13/2020 10:09 AM CDT Height 172.7 cm (5' 8") 01/13/2020 10:09 AM CDT Body Mass Index 41.26 01/13/2020 10:09 AM CDT documented in this encounter Progress Notes Margot Rodriguez, LAYER OUT - 01/13/2020 9:45 AM CDT Chief complaint: Chief Complaint Patient presents with Initial Visit CC: Initial Visit Zaina Roberson is a 24 year old, , /White female. Patient's last menstrual period was 12/06/2019 (within days). Unsure of exact LMP, was nursing and no regular menses. She is 5w3d with a susptected intrauterine . Her Estimated Date of Delivery: 09/11/20. She is being seen today for her first obstetrical visit. She complains today of nausea, vomiting, dizziness. Was seen in ER and prescribed zofran. Has not been taking. Able to keep down water but no appetite for food. Reports with previous pregnancies she only had relief from nausea with scopolamine patch. H/o preeclampsia with last . H/o PPROM at 36 weeks. Denies current physical, emotional or sexual abuse. Patient denies recent foreign travel. OB History T3 L4 SAB0 TAB0 Ectopic0 Multiple0 Live Births4 Name of Baby 1: Not recorded Date: 08/27/13 GA: 37w0d Delivery: Normal Spontaneous Vaginal Apgar1: Not recorded Apgar5: Not recorded Living: Living Name of Baby 2: Not recorded Date: 06/28/15 GA: 37w0d Delivery: Normal Spontaneous Vaginal Apgar1: Not recorded Apgar5: Not recorded Living: Living Name of Baby 3: Not recorded Date: 01/11/17 GA: 36w6d Delivery: Normal Spontaneous Vaginal Apgar1: Not recorded Apgar5: Not recorded Living: Living Name of Baby 4: Not recorded Date: 11/17/18 GA: 37w0d Delivery: Normal Spontaneous Vaginal Apgar1: Not recorded Apgar5: Not recorded Living: Living Name of Baby 5: Not recorded Date: Not recorded GA: Not recorded Delivery: Not recorded Apgar1: Not recorded Apgar5: Not recorded Living: Not recorded Histories OB History Para Term AB Living 5 4 3 1 4 SAB TAB Ectopic Multiple Live Births 4 # Outcome Date GA Lbr Gold/2nd Weight Sex Delivery Anes PTL Lv 5 Current 4 Term 11/17/18 37w0d 5 lb 12 oz (2.608 kg) F NORMAL SPONT TOR Complications: Preeclampsia 3 01/11/17 36w6d 6 lb 2 oz (2.778 kg) F NORMAL SPONT TOR 2 Term 06/28/15 37w0d 7 lb 1 oz (3.204 kg) M NORMAL SPONT TOR 1 Term 08/27/13 37w0d 7 lb 3 oz (3.26 kg) F NORMAL SPONT TOR Past Medical History: Diagnosis Date Asthma as a child Depression 2019 Pap smear abnormality of cervix 2013 Family History Problem Relation Age of Onset Asthma Mother Depression Mother Diabetes Mother No Significant Medical Problems Father Asthma Sister ADHD Brother Other - see comments Maternal Aunt liver disease Family Status Relation Name Status Mo Alive Fa Alive Sis Alive Bro Alive MAunt Past Surgical History: Procedure Laterality Date CHOLECYSTECTOMY 2012 REMOVAL OF KIDNEY STONE 2016 Social History Socioeconomic History Marital status: Spouse name: Not on file Number of children: Not on file Years of education: Not on file Highest education level: Not on file Occupational History Not on file Social Needs Financial resource strain: Not on file Food insecurity Worry: Not on file Inability: Not on file Transportation needs Medical: Not on file Non-medical: Not on file Tobacco Use Smoking status: Former Smoker Start date: 2013 Smokeless tobacco: Never Used Substance and Sexual Activity Alcohol use: Not Currently Drug use: Never Sexual activity: Not on file Lifestyle Physical activity Days per week: Not on file Minutes per session: Not on file Stress: Not on file Relationships Social connections Talks on phone: Not on file Gets together: Not on file Attends confucianism service: Not on file Active member of club or organization: Not on file Attends meetings of clubs or organizations: Not on file Relationship status: Not on file Intimate partner violence Fear of current or ex partner: Not on file Emotionally abused: Not on file Physically abused: Not on file Forced sexual activity: Not on file Other Topics Concern Not on file Social History Narrative Patient lives with mother and children. Gnosticist preference is Yazidism. Patient has 2 inside dogs. Social History Substance and Sexual Activity Sexual Activity Not on file Genetic Screen Autism / Mental Retardation: No Edy Disease: No Congenital Heart Defect: No Cystic Fibrosis: No Down Syndrome: No Familial Dysautonomia: No Hemophilia or other Blood Disorders: No [place] Chorea: No Maternal Metabolic Disorder--specify (eg. Type 1 Diabetes, PKU): No Muscular Dystrophy: No Neural Tube Defect: No Recurrent Loss or a Stillbirth: No Sickle Cell Disease or Trait: No Hector Sachs: No Teratological Substances (specify type & strength/dose) since LMP: No Thalassemia: No Other Inherited Genetic or Chromosomal Disorder (specify): No No Significant History of Genetic Disorders: No Significant History of Genetic Disorders Labs Labs are pending. Radiology Radiology pending. Allergies Zaina has No Known Allergies. Medications Zaina has a current medication list which includes the following prescription(s): vit calc,iron,folic. Review of Systems Constitutional: Negative. Negative for appetite change, fatigue and fever. HENT: Negative. Eyes: Negative. Negative for visual disturbance. Respiratory: Negative. Breasts: Negative. Cardiovascular: Negative. Negative for palpitations and leg swelling. Gastrointestinal: Positive for nausea and vomiting. Negative for abdominal pain, constipation and diarrhea. Genitourinary: Negative. Negative for dysuria, vaginal bleeding, vaginal discharge and pelvic pain. Musculoskeletal: Negative. Skin: Negative. Negative for rash. Neurological: Positive for dizziness and light-headedness. Negative for headaches. Psychiatric/Behavioral: Negative. Endocrine: Endocrine negative BP 117/86 | Pulse 78 | Temp 36.7 C (98 F) (Oral) | Resp 16 | Ht 5' 8" (1.727 m) | Wt 271 lb6 oz (123.1 kg) | LMP 12/06/2019 (Within Days) | BMI 41.26 kg/m Pregravid BMI: 41.22 Physical Exam Vitals reviewed. Constitutional: She is oriented to person, place, and time. She appears well- developed and well-nourished. Her body habitus is obese. See flowsheet Neck: No thyroid nodules and no thyromegaly palpated. Cardiovascular: Regular rate and rhythm. No murmur auscultated. No peripheral edema present. Pulmonary/Chest: Breath sounds clear to auscultation. Normal inspiratory effort. Abdominal: Abdomen is soft. No mass palpated. No tenderness present. There is no hepatosplenomegaly. Neuro/Psychiatric: She has a normal mood and affect. She is oriented to person, place, and time. Skin: Skin normal. No lesion and no rash present. Breast: Right breast exhibits no mass, no nipple discharge and no tenderness. Left breast exhibits no mass, no nipple discharge and no tenderness. Normal left breast and normal right breast External genitalia: Normal external genitalia appropriate for age. No labial lesion. Bladder: No tenderness. Normal bladder Vagina:Normal vagina. No lesion inspected. No abnormal vaginal discharge found. No lesions in thevagina. Cervix: Normal cervix. No lesion. No tenderness and no discharge present. Uterus: Uterus is normal size, normal position and non-tender. Normal uterus Adnexa: Right adnexa without tenderness. Left adnexa without tenderness. Normal left adnexa and normal right adnexa PHYSICAL: General Exam: HEENT: Normal Thyroid: Normal Lymph Node: Normal Neurological: Normal Heart: Normal Lungs: Normal Breasts: Normal Abdomen: Normal Skin: Normal Extremities: Normal Pelvic Exam: Vulva: Normal Vagina: Normal Cervix: Normal Membrane status: Intact Uterus: 6 Weeks Adnexa: Normal Rectum: Normal Spines: Average Subpubic Arch: Normal Assessment/Plan 1. Supervision of high risk in first trimester 5w3d by estimated LMP New OB packet reviewed TWG discussed Discussed recommendation for social distancing and PPE use Initiate Vitamins Increase Fluid Intake. Minimum of 8 water bottles daily. Dating US ordered - GLUCOSE 1 HOUR POST PRANDIAL; Future - POCT TEST - POCT URINALYSIS W/O SPECIFIC GRAVITY - GLUCOSE 1 HOUR POST PRANDIAL - CBC WITH DIFF - HEPATITIS B SURFACE ANTIGEN - HIV 1/2 AG-AB WITH REFLEX - WORKUP, BLOOD BANK - GALV ONLY - SYPHILIS IGG/IGM - RUBELLA SCREEN (CARMENZA) IGG - URINE CULTURE - VZV ANTIBODY SCREEN - POCT URINALYSIS W/O SPECIFIC GRAVITY; Standing - CONSULT MATERNAL MEDICINE ULTRASOUND Preferred Location: [place] - PAP Smear-Liquid Based - GC & CHLAMYDIA AMPLIFIED ASSAY 2. Multiparity Desires BTL 3. Tubal ligation status Sign consents at 28 weeks 4. Obesity affecting , antepartum The patient is asked to make an attempt to improve diet and exercise patterns to aid in medical management of this problem. 5. Screening for viral disease Per guidelines - SARS-COV-2 IGG 6. Nausea and vomiting during Home remedies reviewed and Rx sent. Instructed to take OTC vitamin B6 and doxylamine BID. Referral to [facility] for request for scopolamine patch - CONSULT/REFERRAL MATERNAL MEDICINE FACULTY/FELLOW Preferred location: [place] 7. History of pre-eclampsia in prior , currently Baseline PIH labs ordered Referral to [facility] for consult on daily LDA - COMP. METABOLIC PANEL (53090) - CREATININE U 24 HR; Future - PROTEIN QUANT U/24H; Future - CONSULT/REFERRAL MATERNAL MEDICINE FACULTY/FELLOW Preferred location: [place] 8. History of delivery, currently 2/2 PPROM at 36 weeks Referral to [facility] for consult on kenny and serial cervical lengths - CONSULT/REFERRAL MATERNAL MEDICINE FACULTY/FELLOW Preferred location: [place] Return to clinic in 4 weeks. Discussed treatment options. Reviewed patient instructions and provided printed copy. at 5w3d This visit did not involve counseling and coordination that comprised more than 50% of the visit time. Florecita Haro LVN - 01/13/2020 9:45 AM CDTPatient is 24 year old female here for current . Patient is . 1) Previous delivery methods vaginal 2) Patient is experiencing mild cramping 3) Patient is not experiencing bleeding. 4) LMP 12/06/2019 5) Last Pap was:2017 ROR signed today Results:abnormal 6) Have you had a flu vaccine this season?yes 7) PPD candidate? no 8) Patient complains of nausea. 9) Patient denies history of physical, emotional, or sexual abuse. Patient states she currently feels safe at home. NOB packet given and reviewed with patient. documented in this encounter Plan of Treatment Name Type Priority Associated Diagnoses Order S chedule GLUCOSE 1 HOUR POST LAB Routine Supervision of high r isk Expected: 01/13/2020, PRANDIAL in first Expires: 01/12/2021 trimester CBC WITH DIFF LAB Routine Supervision of high risk Or dered: 01/13/2020 in first trimester HEPATITIS B SURFACE LAB Routine Supervision of high r isk Ordered: 01/13/2020 ANTIGEN in first trimester HIV 1/2 AG-AB WITH LAB Routine Supervision of high ri sk Ordered: 01/13/2020 REFLEX in first trimester WORKUP, BLOOD LAB Routine Supervision of hig h risk Ordered: 01/13/2020 BANK in first trimester GALV ONLY - SYPHILIS LAB Routine Supervision of high risk Ordered: 01/13/2020 IGG/IGM in first trimester RUBELLA SCREEN (CARMENZA) LAB Routine Supervision of hig h risk Ordered: 01/13/2020 IGG in first trimester URINE CULTURE LAB Routine Supervision of high risk Or dered: 01/13/2020 in first trimester VZV ANTIBODY SCREEN LAB Routine Supervision of high r isk Ordered: 01/13/2020 in first trimester POCT URINALYSIS W/O LAB Routine Supervision of high r isk 20 Occurrences starting SPECIFIC GRAVITY in first 01/12 until trimester 01/12/2021 SARS-COV-2 IGG LAB Routine Screening for viral Ordere d: 01/13/2020 disease COMP. METABOLIC PANEL LAB Routine History of pre-ecla mpsia Ordered: 01/13/2020 (20257) in prior , currently CREATININE U 24 HR LAB Routine History of pre-eclamps ia Expected: 01/13/2020, in prior , Expires: 01/12/2021 currently PROTEIN QUANT U/24H LAB Routine History of pre-eclamp juan j Expected: 01/13/2020, in prior , Expires: 01/12/2021 currently PAP Smear-Liquid Based LAB Routine Supervision of hig h risk Ordered: 01/13/2020 in first trimester GC & CHLAMYDIA LAB Routine Supervision of high risk O rdered: 01/13/2020 AMPLIFIED ASSAY in first trimester Health Maintenance Due Date Last Done Comments PAP SMEAR 2015 INFLUENZA VACCINE (#1) 2020 HPV VACCINES (1 - 2-dose series) 01/03/2021 Postponed from 2005 ( or Ekta astfeeding) DTaP,Tdap,and Td Vaccines (1 - 01/12/2021 P ostponed from 2013 Tdap) (Alternative Johnathon delines) Depression Screening 01/12/2021 01/13/2020 VARICELLA VACCINES (1 of 2 - 01/12/2021 Pos tponed from 1995 2-dose childhood series) (Pregna nt or ) PNEUMOCOCCAL 0-64 YEARS COMBINED Aged Out No longer eligible based on SERIES patient's age to complete this topic documented as of this encounter Procedures Procedure Name Priority Date/Time Associated Diagnosis Comme nts POCT URINALYSIS W/O Routine 01/13/2020 10:11 Supervision of hi gh Results for this SPECIFIC GRAVITY AM CDT risk in proced ure are in first trimester the results section. POCT TEST Routine 01/13/2020 10:11 Supervision of hi gh Results for this AM CDT risk in procedure are in first trimester the results section. documented in this encounter Results POCT URINALYSIS W/O SPECIFIC GRAVITY (01/13/2020 10:11 AM CDT) Pathologist Sig nature POCT PH U 7 5 - 8 mg/dl POCT U LEUK EST trace Negative - Negative POCT U NIT neg Negative - Negative POCT U PROT trace Negative - Negative POCT U GLU neg Negative - Negative POCT U KETONE neg Negative - Negative POCT U BLD trace Negative - Negative Specimen Urine - URINE, CLEAN CATCH POCT TEST (01/13/2020 10:11 AM CDT) Pathologist Sig nature POCT PREG Positive On board controls acceptable Yes with C Line POCT PREG LOT # POCT PREG TEST DATE Specimen Urine - URINE, CLEAN CATCH documented in this encounter Visit Diagnoses Diagnosis Supervision of high risk in fi rst trimester - Primary Unspecified high-risk Multiparity Tubal ligation status Obesity affecting , antepartum Screening for viral disease Special screening examination for unspec ified viral disease Nausea and vomiting during History of pre-eclampsia in prior pregna ncy, currently with other poor obstetric hist ory History of delivery, currently p regnant with history of pre-term labor documented in this encounter Insurance Payer Benefit Plan / Subscriber ID Effective Dates Phone Addre ss Type Group [facility] MEDICAID OF [id number] 2020-Present [phone] [address] Medicaid [place] [address] [place] [address] documented as of this encounter Advance Directives Name Relationship Healthcare Agent Relationship Co mmunication Keke Dang Mother Health Care Agent
--- OUTSIDE RECORDS SUMMARY | 2020-01-20 09:51 | XMS REPORT | Continuity of Care Document ---
:1995 Author Organization [facility] t Address [address] [place] [address] Care Team Providers Name Role Phone Lab Attending Clinician Unavailable Michael ZUNIGA, Leslie Attending Clinician Ina Rodriguez DO Attending Clinician Aguilar VILLATORO D Attending Clinician Unavailable Logan ZUNIGA Attending Clinician Problems This patient has no known problems. Allergies, Adverse Reactions, Alerts This patient has no known allergies or adverse reactions. Medications This patient has no known medications. Procedures This patient has no known procedures. Encounters Start End Encounter Admission Attending Care Care Encounter Source Date/Time Date/Time Type Type Clinicians Facility Department ID 2020-01-17 2020-01-17 M[facility], [facility] [id number] 09:51:45 10:06:45 Visit [facility] HEEL CASER [id number] [facility] [id number] MATERNAL [id number] & CHILD 107 [facility] 2020-01-13 2020-01-13 [facility] [id number] 09:53:02 10:23:02 Margot Nelson HEEL CASER [id number] Visit [facility] [id number] MATERNAL [id number] & CHILD 107 [facility] 2020-01-11 2020-01-11 [facility] [id number] 14:45:00 18:12:00 Nancy Woodson [id number] [place] [id number] 2020-01-11 2020-01-11 Nurse BRISA Sheikh [id number] 00:00:00 00:00:00 Triage Libia FIERRO [id number] [facility] [id number] 2019-12-06 2019-12-06 Emergency Logan [facility] [id number] 12:49:46 14:26:00 Agustina Woodson [id number] [place] [id number] [place] [id number] Results This patient has no known results.
--- OUTSIDE RECORDS SUMMARY | 2020-01-20 09:51 | XMS REPORT | Summary of Care ---
:1995 Author Organization [facility] Address [address] [place] [address] Care Team Providers Name Role Phone Anthony White Primary Care Provider Reason for Visit Reason Comments LAB Encounter Details Date Type Department Care Team Description 01/17/2020 [facility], FORGING DIE SINKER [address] [place], [place] [id number] [facility] [address] prior pre gnancy, [place] [address] Allergies No Known Allergiesdocumented as of this encounter (statuses as of 01/17/2020) Medications Medication Sig Dispensed Refills Start Date End Date Status vit Take by mouth. 0 A ctive calc,iron,folic ( VITAMIN ORAL) documented as of this encounter (statuses as of 01/17/2020) Active Problems Estimated Date of Delivery Comments Yes 09/11/2020 Based on last menstr ual period of 12/06/2019 (Within Days) No known active problemsdocumented as of this encounter (statuses as of 01/17/2020) Social History Tobacco Use Types Packs/Day Years Used Date Former Smoker Started: 2013 Smokeless Tobacco: Never Used Alcohol Use Drinks/Week oz/Week Comments Not Currently Estimated Date of Delivery Comments Yes 09/11/2020 Based on last menstr ual period of 12/06/2019 (Within Days) Sex Assigned at Date Recorded Not on file COVID-19 Exposure Response Date Recorded In the last month, have you been in contact with No / Unsure 01/17/2020 10:19 AM CDT someone who was confirmed or suspected to have Coronavirus / COVID-19? documented as of this encounter Last Filed Vital Signs Not on filedocumented in this encounter Plan of Treatment Date Type Specialty Care Team Description 01/31/2020 Routine Visit [facility]ell[facility] Bartolo, Pato Padgett p Mfm 02/10/2020 Routine Visit [facility]ell[facility] Margot Rodriguez , FORGING DIE SINKER [address] [place], [place] [address] [phone] 02/14/2020 [place] R[place] Visit Maternal Medicine Name Type Priority Associated Diagnoses Date/Ti me CREATININE U 24 HR LAB Routine History of pre-eclamps ia in 01/17/2020 10:02 AM CDT prior , currently PROTEIN QUANT U/24H LAB Routine History of pre-eclamp juan j in 01/17/2020 10:02 AM CDT prior , currently Health Maintenance Due Date Last Done Comments PAP SMEAR 2015 INFLUENZA VACCINE (#1) 2020 HPV VACCINES (1 - 2-dose series) 01/03/2021 Postponed from 2005 ( or Ekta astfeeding) DTaP,Tdap,and Td Vaccines (1 - 01/12/2021 P ostponed from 2013 Tdap) (Alternative Johnathon delines) Depression Screening 01/12/2021 01/13/2020 PNEUMOCOCCAL 0-64 YEARS COMBINED Aged Out No longer eligible based on SERIES patient's age to complete this topic documented as of this encounter Results Not on filedocumented in this encounter Visit Diagnoses Diagnosis History of pre-eclampsia in prior pregna ncy, currently with other poor obstetric hist ory documented in this encounter Insurance Payer Benefit Plan / Subscriber ID Effective Dates Phone Addre ss Type Group [facility] MEDICAID OF [id number] 2020-Present [phone] [address] Medicaid [place] [id number] [place] [id number] documented as of this encounter Advance Directives Name Relationship Healthcare Agent Relationship Co mmunication Keke Dang Mother Health Care Agent
--- OUTSIDE RECORDS SUMMARY | 2020-01-20 09:51 | XMS REPORT | Summary of Care ---
:1995 Author Organization [facility] - [facility] Address [address] [place], [place] [id number] Care Team Providers Name Role Phone Anthony White Primary Care Provider Reason for Visit Reason Comments Nausea Auth/Cert Status Reason Specialty Diagnoses / Referred By Referred To Procedures Contact Contact Emergency Medicine Adc Em ergency Dept [address] [place] [address] Fax: Encounter Details Date Type Department Care Team Description 01/11/2020 Emergency ADC-Emergency Nancy Rodriguez DO Nausea (Primary Dx) Department [address] [place], [place] [id number] Drive [phone] [place] [id number] [phone] Allergies No Known Allergiesdocumented as of this encounter (statuses as of 01/11/2020) Medications Medication Sig Dispensed Refills Start Date End Date Status ondansetron (ZOFRAN Take 1 tablet by 14 tablet 0 01/11/2020 Active ODT) 4 mg mouth every 8 disintegrating (eight) hours as tabletIndications: needed for Nausea Nausea and Vomiting (N/V). documented as of [...] been in contact with No / Unsure 01/11/2020 2:41 PM CDT someone who was confirmed or suspected to have Coronavirus / COVID-19? documented as of this encounter Last Filed Vital Signs Vital Sign Reading Time Taken Comments Blood Pressure 148/99 01/11/2020 2:43 PM CDT Pulse 99 01/11/2020 2:43 PM CDT Temperature 37.2 C (99 F) 01/11/2020 2:43 PM CDT Respiratory Rate 17 01/11/2020 2:43 PM CDT Oxygen Saturation 99% 01/11/2020 2:43 PM CDT Inhaled Oxygen Concentration - - Weight 124.3 kg (274 lb) 01/11/2020 2:43 PM CDT Height - - Body Mass Index 45.6 12/06/2019 12:42 PM CDT documented in this encounter ED Notes Khushboo Obrien RN - 01/11/2020 2:41 PM CDTNausea since this morning. States she has positive home tests. She [facility] states "they are using December 05 as my LMP because I bled a little that day only. I haven't been able to get an ultrasound yet." She does not appear in any distress. ancy Rodriguez DO - 01/11/2020 2:30 PM CDT [facility] Emergency Department Note Patient Name: Zaina Roberson Date of : 1995 24 year old female Treatment Room: [address] Primary Care Physician: Ayesha White Patient Escorted by: Self [9] Mode of Arrival: Personal means [1] EMS Treatment Prior to ED Arrival: Travel and Exposure Screening: Symptoms Does patient have any of these symptoms?: (not recorded) Exposure Screening Has patient had contact with someone with a communicable disease in the last month?: (not recorded) Diseases exposed to:: (not recorded) Is Patient ?: (not recorded) Exposure Date: (not recorded) Chief Complaint: Chief Complaint Patient presents with Nausea History of Present Illness: Patient presents for eval for nausea for several days. Now feeling lightheaded and weak with no energy. No vaginal bleeding or discharge. Unsure about LMP - states had a baby in 2019 and has not had a menstrual cycle since. States she recently took a test and it was positive. No abdominal pain. No cough or URI sx. No sick contacts. Here for eval. Past Medical History/Immunizations: History reviewed. No pertinent past medical history. Tetanus received in last 5 years: Yes Childhood immunizations: Up-to-date Allergies: No Known Allergies Past Social History: Substance & Sexual Activity No substance use or sexual activity history on file. Past Surgical History: History reviewed. No pertinent surgical history. Review of Systems: Review of Systems Constitutional: Negative for chills and fever. Respiratory: Negative for shortness of breath. Cardiovascular: Negative for chest pain. Gastrointestinal: Positive for nausea and vomiting. Negative for abdominal pain. Genitourinary: Negative for dysuria, vaginal bleeding and vaginal discharge. Musculoskeletal: Negative for arthralgias, neck pain and neck stiffness. Skin: Negative for wound. Neurological: Negative for dizziness. Psychiatric/Behavioral: Negative for agitation. Physical Exam: ED Triage Vitals [01/11/20 1443] Weight 124.3 kg (274 lb) Actual or estimated Actual Height BP (!) 148/99 Pulse 99 Resp 17 Temp 37.2 C (99 F) Temp source Oral SpO2 99 % Measured on Room air Physical Exam Vitals signs and nursing note reviewed. Constitutional: Appearance: Normal appearance. She is obese. Comments: obese HENT: Head: Normocephalic and atraumatic. Cardiovascular: Rate and Rhythm: Normal rate. Pulmonary: Effort: Pulmonary effort is normal. No respiratory distress. Abdominal: General: Abdomen is flat. There is no distension. Palpations: There is no mass. Tenderness: There is no abdominal tenderness. Hernia: No hernia is present. Musculoskeletal: Normal range of motion. Skin: General: Skin is warm. Neurological: General: No focal deficit present. Mental Status: She is alert and oriented to person, place, and time. Radiology: No results found for this visit on 01/11/20. Lab Results (24h): Recent Results (from the past 24 hour(s)) POCT Test Collection Time: 01/11/20 2:51 PM Result Value Ref Range POCT PREG positive On board controls acceptable with C Line present POCT PREG LOT # [id number] POCT PREG TEST DATE 12-30-2020 Orders and Treatments: Orders Placed This Encounter Procedures POCT Test Urinalysis Orders Placed This Encounter Medications ondansetron (ZOFRAN-ODT) disintegrating tablet 4 mg ED COURSE patient presents for eval for n/v for several days. Last vomited at 1130 and had food at 1400. Novaginal bleeding or abdominal pain. Unsure of LMP but states she had a positive test at home. VSS here in the EC. Abdomen obese but soft and not tender. UPT negative on 12/05 and positive today 01/10. Will check UA. Will give zofran. Anticipate discharge home later. 1739 - patient states she is feeling better. Given po challenge and she vomited it up. Will give IV fluids and reglan. 1809 - patient states she needs to go and get her daughter. Has not received IV fluids yet. Is going AMA. MDM: Coding Diagnosis/Impression: ICD-10-CM ICD-9-CM 1. Nausea R11.0 787.02 Disposition/Condition: ED Disposition None Discharge Medications: Patient's Medications No medications on file Follow-up: Electronically signed by: Nancy Rodriguez DO 01/11/2020 3:17 PM documented in this encounter Miscellaneous Notes ED Nurse Note - Vaughn Paez, RN - 01/11/2020 6:11 PM CDTStates "My daughter got hurt at daycare and I am the only one who can pick her up so I got to go". Signed AMA paper work. documented in this encounter Plan of Treatment Date Type Specialty Care Team Description 01/13/2020 Office Visit [facility] [place] Room 01/13/2020 Initial Visit [facility] Margot Rodriguez, AUTOMATIC LATHE SETTER [address] [place], [place] [address] [phone] Name Type Priority Associated Diagnoses Date/Ti me TOTAL [facility] (QUANTITATIVE) LAB STAT Nausea 5:51 PM CDT Name Type Priority Associated Diagnoses Order S chedule [facility] Routine Nausea ONCE for 1 Occu rrences (QUANTITATIVE) starting 12/31 until 01/11/2020 Health Maintenance Due Date Last Done Comments [...] encounter Procedures Procedure Name Priority Date/Time Associated Comments Diagnosis URINALYSIS STAT 01/11/2020 2:59 PM Nausea Results for this CDT procedure are i n the results section. POCT TEST ERICKA 01/11/2020 2:51 PM Nausea R esults for this CDT procedure are i n the results section. documented in this encounter Results Urinalysis (01/11/2020 2:59 PM CDT) Pathologist Sig nature APPEARANCE Hazy (A) Clear [facility] COLOR Yellow Yellow [facility] PH 5.0 4.8 - 8.0 [facility] SP GRAVITY 1.029 1.003 - 1.030 [facility] GLU U QUAL Normal Normal [facility] BLOOD Negative Negative [facility] KETONES Negative Negative [facility] PROTEIN Negative Negative [facility] UROBILIN Normal Normal [facility] BILIRUBIN Negative Negative [facility] NITRITE Negative Negative [facility] LEUK HEIDI Negative Negative [facility] RBC/HPF 2 0 - 3 HPF [facility] WBC/HPF 2 0 - 5 HPF [facility] BACTERIA Negative Negative [facility] MUCOUS Marked (A) Negative LPF [facility] SQ EPITH 5 HPF [facility] Specimen Urine - URINE, CLEAN CATCH Performing Organization Address City/State/Zipcode Phone Number [facility] CLIA: [id number] [place], [place] [id number] LABORAT[address] POCT Test (01/11/2020 2:51 PM CDT) Pathologist Sig nature POCT PREG positive On board controls acceptable present with C Line POCT PREG LOT # [id number] POCT PREG TEST DATE 12-30-2020 Specimen Urine - URINE, CLEAN CATCH documented in this encounter Visit Diagnoses Diagnosis Nausea - Primary Nausea alone documented in this encounter Administered Medications Medication Order MAR Action Action Date Dose Rate Site metoclopramide HCl (REGLAN) Given 01/11/2020 5:50 PM CDT 10 mg injection 10 mg 10 mg, Slow IV Push, ONCE, 1 dose, 01/11/20 at 1845, ERICKA NaCl 0.9% (NS) bolus infusion New Bag 01/11/2020 5:51 PM CDT 1,000 mL 999 mL/hr 1,000 mL at 999 mL/hr, 1,000 mL, IV Infusion, ONCE, 1 dose, 01/11/20 at 1745, ERICKA ondansetron (ZOFRAN-ODT) disintegrating tablet Given 0 01/11/2020 2:58 PM CDT 4 mg 4 mg 4 mg, Oral, ONCE, 1 dose, 01/11/20 at 1600, Routine documented in this encounter Insurance Payer Benefit Plan / Subscriber ID Effective Dates Phone Addre ss Type Group [facility] MEDICAID OF [id number] 2020-Present [phone] [place] [address] [place] [address] documented as of this encounter
--- OUTSIDE RECORDS SUMMARY | 2020-01-20 09:51 | XMS REPORT | Summary of Care ---
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 (Primary Dx) [address] [place], [place] [address] [phone] [place] [address] Allergies No Known Allergiesdocumented as of this encounter (statuses as of 12/06/2019) Medications No known medicationsdocumented as of this encounter (statuses as of 12/06/2019) Active Problems No known active problemsdocumented as of this encounter (statuses as of 12/06/2019) Social History Tobacco Use Types Packs/Day Years Used Date Never Assessed Sex Assigned at Date Recorded Not on file Job Start Date Occupation Industry Not on file Not on file Not on file Travel History Travel Start Travel End No recent travel history available. COVID-19 Exposure Response Date Recorded In the last month, have you been in contact with No / Unsure 12/06/2019 12:28 PM CDT someone who was confirmed or suspected to have Coronavirus / COVID-19? documented as of this encounter Last Filed Vital Signs Vital Sign Reading Time Taken Comments Blood Pressure 139/105 12/06/2019 12:42 PM CDT Pulse 78 12/06/2019 12:42 PM CDT Temperature 36.9 C (98.4 F) 12/06/2019 12:42 PM CDT Respiratory Rate 16 12/06/2019 12:42 PM CDT Oxygen Saturation - - Inhaled Oxygen Concentration - - Weight 113.4 kg (250 lb) 12/06/2019 12:42 PM CDT Height 165.1 cm (5' 5") 12/06/2019 12:42 PM CDT Body Mass Index 41.6 12/06/2019 12:42 PM CDT documented in this encounter Discharge Instructions Agustina Clarke FNP - 12/06/2019DIAGNOSIS 1. Vaginal bleeding NO LIFE-THREATENING FINDINGS ON TODAY'S EXAM. PROCEDURES IN THE ER TODAY: MEDICATIONS ADMINISTERED IN THE ER TODAY: none YOUR PRESCRIPTIONS AND EBGQ-ALI-OOPHIVA MEDICATION RECOMMENDATIONS: Motrin or Tylenol for cramping SPECIAL CARE INSTRUCTIONS: Follow up with OBGYN FOLLOW-UP RECOMMENDATIONS: RECOMMEND FOLLOW-UP WITH A PRIMARY CARE PROVIDER OR SPECIALIST IN 2-5 DAYS, ESPECIALLY IF NO IMPROVEMENT IN SYMPTOMS. TO FOLLOW-UP WITHIN THE [facility], TRY THESE OPTIONS (CLINIC APPOINTMENTS AVAILABLE ON [id number] BASIS): 1. SCHEDULE AN APPOINTMENT ONLINE AT [email or web address] 2. OR CALL THE [facility] AT OR 3. OR CALL YOUR [facility] PHYSICIAN'S OFFICE DIRECTLY IF YOU ARE ALREADY AN ESTABLISHED [facility] PATIENT. OR, YOU MAY FOLLOW-UP WITH A PROVIDER OF YOUR CHOICE, SUCH : 1. A PHYSICIAN OF YOUR CHOICE 2. [facility], . LOCATIONS IN [facility] 3. [facility], [address] [facility], [place], [place]; [phone] RETURN TO ER FOR WORSENING OF SYMPTOMS. documented in this encounter Plan of Treatment Health Maintenance Due Date Last Done Comments VARICELLA VACCINES (1 of 2 - 1995 2-dose childhood series) DTaP,Tdap,and Td Vaccines (1 - 2005 Tdap) HPV VACCINES (1 - Female 2-dose 2005 series) Depression Screening 2006 PAP SMEAR 2015 INFLUENZA VACCINE (#1) 2020 PNEUMOCOCCAL 0-64 YEARS COMBINED Aged Out No longer eligible based on SERIES patient's age to complete this topic documented as of this encounter Procedures Procedure Name Priority Date/Time Associated Diagnosis Comme nts POCT TEST ERICKA 12/06/2019 12:50 PM Vaginal bleedi ng Results for this CDT procedure are i n the results section. NOTICE OF PRIVACY Routine 12/06/2019 12:28 PM PRACTICES CDT documented in this encounter Results POCT TEST (12/06/2019 12:50 PM CDT) Pathologist Sig nature POCT PREG negative On board controls acceptable present with C Line POCT PREG LOT # [id number] POCT PREG TEST DATE 12/30/2020 Specimen Urine - URINE, CLEAN CATCH documented in this encounter Visit Diagnoses Diagnosis Vaginal bleeding - Primary Other specified noninflammatory disorder of vagina documented in this encounter
[2020-01-20] MEDS ORDERED: PROMETHAZINE INJ 25 MG/ML AMP ONE (10:49)
[2020-01-20] MEDS ORDERED: NA CHLORIDE 0.9% 1,000 ML ONE (10:50)
[2020-01-20 11:10] LABS: Absolute Lymphocytes (CBC) 1.8 K/uL (0.7-4.9); Basophils % 0.7 % (0-1.3); Hematocrit 39.4 % (36.0-45.0); Lymphocytes % 23.5 % (15.3-44.8); RBC Red Blood Cell Count 4.88 M/uL (3.86-4.86)
--- NOTE | 2020-01-20 11:32 | RAD REPORT ---
EXAM DESCRIPTION: US - Transvaginal OB - 01/20/2020 11:18 am CLINICAL HISTORY: Abd cramping, ;Vaginal bleeding COMPARISON: OB Complete dated 09/23/2018 FINDINGS: A single gestational sac is seen within the uterus. The shape of the sac is within normal limits for gestational age. Within the sac is a single pole with crown-rump length of 2 mm, cor relating to estimated gestational age of 6 weeks 0 days. Estimated date of delivery is 09/14/2020. Heart rate is 104 BPM. The placenta is not yet developed due to early gestational age. The maternal adnexa are within normal limits. Right ovary shows normal blood flow. Left ovary obscure d by bowel gas. IMPRESSION: Single live early intrauterine gestation with estimated gestational age of 6 weeks 0 day s, ISH 09/14/2020. Nonvisualization of the left ovary due to bowel gas.
[2020-01-20 12:11] LABS: Urine Blood TRACE (NEG); Urine Glucose NEGATIVE (NEG); Urine Protein NEGATIVE (NEG); Urine Specific Gravity >1.030 (1.005-1.030); Urine pH 5.5 (5.0-7.0)
--- NOTE | 2020-01-20 12:16 | EDPHYS ---
Physician Documentation [facility] Name: Zaina Roberson Age: 24 yrs Sex: Female : 1995 Arrival Date: 01/20/2020 Time: 09:48 Bed 6 Private MD: ED Physician Young Law HPI: 01/19 12:33 This 24 yrs old Female presents to ER via Ambulatory with complaints of kb Vaginal Bleeding, Abdominal Cramping. 12:33 The patient presents with vaginal bleeding that is spotting. The patient has kb experienced similar episodes in the past. The patient has not recently seen a physician. 12:33 The patient presents to the emergency department with abdominal pain, of the right kb lower quadrant and left lower quadrant, that started today, described as crampy, nausea and vomiting, vaginal bleeding, described as spotting. course: care: at a clinic, Leakage of Fluid: none appreciated, Ultrasound: the patient has not had an ultrasound. Previous pregnancies: in previous pregnancies patient has had. Associated signs and symptoms: Pertinent positives: abdominal pain, nausea, vaginal bleeding, vomiting. Pt reports nausea and vomiting for a while. States its the same as all of her previous pregnancies and zofran isn't helping. States she woke up with spotting and lower abd cramping this morning so she came to get checked out. Number of weeks is unknown. Pt has been her child at home so her cycles have not been regular. States she has an US scheduled for 02/10/20 by OB to determine gestational age. PHYSICAL METEOROLOGIST: 12:33 5, 0, Living 4, LMP 12/06/2019 kb Historical: - Allergies: 10:21 NKDA; em - Home Meds: 10:21 None [Active]; em - PMHx: 10:21 None; em - PSHx: 10:21 Cholecystectomy; kidney stone removal; em - Immunization history:: Adult Immunizations up to date. - Social history:: Smoking status: Patient denies any tobacco usage or history of. ROS: 12:32 Constitutional: Negative for fever, chills, and weight loss, Cardiovascular: Negative kb for chest pain, palpitations, and edema, Respiratory: Negative for shortness of breath, cough, wheezing, and pleuritic chest pain, Back: Negative for injury and pain, MS/Extremity: Negative for injury and deformity, Skin: Negative for injury, rash, and discoloration, Neuro: Negative for headache, weakness, numbness, tingling, and seizure. 12:32 Abdomen/GI: Positive for abdominal pain, nausea and vomiting. 12:32 : Positive for vaginal bleeding. Exam: 12:32 Constitutional: This is a well developed, well nourished patient who is awake, alert, kb and in no acute distress. Head/Face: Normocephalic, atraumatic. Chest/axilla: Normal chest wall appearance and motion. Nontender with no deformity. No lesions are appreciated. Cardiovascular: Regular rate and rhythm with a normal S1 and S2. No gallops, murmurs, or rubs. Normal PMI, no JVD. No pulse deficits. Respiratory: Lungs have equal breath sounds bilaterally, clear to auscultation and percussion. No rales, rhonchi or wheezes noted. No increased work of breathing, no retractions or nasal flaring. Back: No spinal tenderness. No costovertebral tenderness. Full range of motion. Skin: Warm, dry with normal turgor. Normal color with no rashes, no lesions, and no evidence of cellulitis. MS/ Extremity: Pulses equal, no cyanosis. Neurovascular intact. Full, normal range of motion. Neuro: Awake and alert, GCS 15, oriented to person, place, time, and situation. Cranial nerves II-XII grossly intact. Motor strength 5/5 in all extremities. Sensory grossly intact. Cerebellar exam normal. Normal gait. 12:32 Abdomen/GI: Inspection: abdomen appears normal, Bowel sounds: normal, in all quadrants, Palpation: soft, in all quadrants, moderate abdominal tenderness, in the right lower quadrant and left lower quadrant. Vital Signs: 10:16 BP 118 / 74; Pulse 96; Resp 20; Temp 98.7; Pulse Ox 97% on R/A; Weight 122.92 kg; em Height 5 ft. 6 in. (167.64 cm); Pain 0/10; 11:30 BP 112 / 68; Pulse 87; Resp 18; Temp 98.2; Pulse Ox 99% on R/A; ph 10:16 Body Mass Index 43.74 (122.92 kg, 167.64 cm) em MDM: 10:04 Patient medically screened. [facility] 12:32 Data reviewed: vital signs, nurses notes. Data interpreted: Pulse oximetry: on room air kb is 97 %. Interpretation: normal. Counseling: I had a detailed discussion with the patient and/or guardian regarding: the historical points, exam findings, and any diagnostic results supporting the discharge/admit diagnosis, lab results, radiology results, the need for outpatient follow up, an OB/Gyne specialist, to return to the emergency department if symptoms worsen or persist or if there are any questions or concerns that arise at home. ED course: Pt has follow up with Dr Saravia on Friday. 01/19 10:30 Order name: Quantitative Hcg; Complete Time: 11:49 kb 01/19 10:30 Order name: Abo/rh Typing; Complete Time: 11:49 kb 01/19 10:30 Order name: Basic Metabolic Panel; Complete Time: 11:49 kb 01/19 10:30 Order name: CBC with Diff; Complete Time: 11:13 kb 01/19 10:51 Order name: Urine Dipstick--Ancillary (enter results); Complete Time: 12:13 dh3 01/19 10:51 Order name: Urine --Ancillary (enter results); Complete Time: 12:13 dh3 01/19 09:51 Order name: Urine Test (obtain specimen); Complete Time: 10:27 kb 01/19 09:51 Order name: Urine Dipstick-Ancillary (obtain specimen); Complete Time: 10:27 kb 01/19 10:30 Order name: IV Saline Lock; Complete Time: 10:54 kb 01/19 10:30 Order name: Labs collected and sent; Complete Time: 10:54 kb 01/19 10:30 Order name: NPO; Complete Time: 10:41 kb 01/19 10:30 Order name: US Transvaginal Ob; Complete Time: 11:40 kb Administered Medications: 10:54 Drug: Phenergan 6.25 mg Route: IVP; Site: right antecubital; ph 12:46 Follow up: Response: No adverse reaction; Nausea is decreased ph 10:54 Drug: NS 0.9% 1000 ml Route: IV; Rate: 1000 ml; Site: right antecubital; ph 12:46 Follow up: Response: No adverse reaction; IV Status: Completed infusion; IV Intake: ph 1000ml Disposition: 01/20 10:51 Co-signature as Attending Physician, Young Thanh MD I agree with the assessment and riley plan of care. Disposition: 01/20/20 12:15 Discharged to Home. Impression: Less than 8 weeks gestation of , Threatened , Vomiting of , unspecified. - Condition is Stable. - Discharge Instructions: Morning Sickness, Jhhv-lr-Nooz, First Trimester of , Ukyo-[id number], Threatened Miscarriage, Eobi-az-Cajh. - Medication Reconciliation Form, Thank You Letter, Antibiotic Education, Prescription Opioid Use, Work release form form. - Follow up: Emergency Department; When: As needed; Reason: Worsening of condition. Follow up: Private Physician; When: 2 - 3 days; Reason: Recheck today's complaints, Continuance of care, Re-evaluation by your physician. Signatures: Dispatcher [employer] EDAna Caldera, FORESTRY ENGINEER-C EFRAIN-Young Adame MD MD cha Munoz, Edgar, RN RN Lynda Mcghee RN RN Corrections: (The following items were deleted from the chart) 01/19 12:48 12:15 01/20/2020 12:15 Discharged to Home. Impression: Less than 8 weeks gestation of ph ; Threatened ; Vomiting of , unspecified. Condition is Stable. Forms are Medication Reconciliation Form, Thank You Letter, Antibiotic Education, Prescription Opioid Use. Follow up: Emergency Department; When: As needed; Reason: Worsening of condition. Follow up: Private Physician; When: 2 - 3 days; Reason: Recheck today's complaints, Continuance of care, Re-evaluation by your physician. kb
--- NOTE | 2020-01-20 12:16 | ER ---
Nurse's Notes [facility] Name: Zaina Roberson Age: 24 yrs Sex: Female : 1995 Arrival Date: 01/20/2020 Time: 09:48 Bed 6 Private MD: Diagnosis: Less than 8 weeks gestation of ;Threatened ;Vomiting of , unspecified Presentation: 01/19 10:16 Chief complaint: Patient states: was seen at [facility] for morning sickness on , discharged home with zofran but has not helped, nausea has not improved, also reports spotting that started today, also reports cramping, denies pain. Coronavirus screen: Client denies travel out of the [place] in the last 14 days. Ebola Screen: Patient negative for fever greater than or equal to 101.5 degrees Fahrenheit, and additional compatible Ebola Virus Disease symptoms Patient denies exposure to infectious person. Patient denies travel to an Ebola-affected area in the 21 days before illness onset. No symptoms or risks identified at this time. Initial Sepsis Screen: Does the patient meet any 2 criteria? No. Patient's initial sepsis screen is negative. Does the patient have a suspected source of infection? No. Patient's initial sepsis screen is negative. Risk Assessment: Do you want to hurt yourself or someone else? Patient reports no desire to harm self or others. Onset of symptoms was January 20, 2020. 10:16 Method Of Arrival: Ambulatory em 10:16 Acuity: SAFIA 3 em GRISTMILLER: 12:33 5, 0, Living 4, LMP 12/06/2019 kb Historical: - Allergies: 10:21 NKDA; em - Home Meds: 10:21 None [Active]; em - PMHx: 10:21 None; em - PSHx: 10:21 Cholecystectomy; kidney stone removal; em - Immunization history:: Adult Immunizations up to date. - Social history:: Smoking status: Patient denies any tobacco usage or history of. Screenin:21 Abuse screen: Denies threats or abuse. Nutritional screening: No deficits noted. em Tuberculosis screening: No symptoms or risk factors identified. Fall Risk None identified. Assessment: 10:52 General: Appears in no apparent distress. comfortable, well groomed, Behavior is calm, ph cooperative, appropriate for age, Denies fever, feeling ill. Pain: Complains of pain in suprapubic area Quality of pain is described as crampy. Neuro: Level of Consciousness is awake, alert, obeys commands, Oriented to person, place, time, situation, Reports dizziness. Cardiovascular: Capillary refill < 3 seconds in bilateral fingers Patient's skin is warm and dry. Respiratory: Airway is patent Respiratory effort is even, unlabored. GI: Reports nausea, vomiting. : Reports cramping, vaginal bleeding that is light flow, spotty. Derm: Skin is intact, is healthy with good turgor, Skin is pink, warm \T\ dry. Musculoskeletal: Circulation, motion, and sensation intact. Range of motion: intact in all extremities. 12:00 Reassessment: Patient appears in no apparent distress at this time. Patient and/or ph family updated on plan of care and expected duration. Pain level reassessed. Patient is alert, oriented x 3, equal unlabored respirations, skin warm/dry/pink. Vital Signs: 10:16 BP 118 / 74; Pulse 96; Resp 20; Temp 98.7; Pulse Ox 97% on R/A; Weight 122.92 kg; em Height 5 ft. 6 in. (167.64 cm); Pain 0/10; 11:30 BP 112 / 68; Pulse 87; Resp 18; Temp 98.2; Pulse Ox 99% on R/A; ph 10:16 Body Mass Index 43.74 (122.92 kg, 167.64 cm) em ED Course: 09:48 Patient arrived in ED. ds1 09:50 Ana Curry FNP-C [facility]. kb 09:50 Young Law MD is Attending Physician. kb 10:11 Darren Almeida, [place] is Primary Nurse. em 10:21 Triage completed. em 10:21 Arm band placed on. em 10:21 Patient has correct armband on for positive identification. em 10:45 Initial lab(s) drawn, by me, sent to lab. Inserted saline lock: 20 gauge in right ph antecubital area, using aseptic technique. Blood collected. 10:54 Lynda Mcghee, RN is Primary Nurse. ph 11:19 US Transvaginal Ob In Process Unspecified. EDMS 12:40 No provider procedures requiring assistance completed. IV discontinued, intact, ph bleeding controlled, No redness/swelling at site. Pressure dressing applied. Administered Medications: 10:54 Drug: Phenergan 6.25 mg Route: IVP; Site: right antecubital; ph 12:46 Follow up: Response: No adverse reaction; Nausea is decreased ph 10:54 Drug: NS 0.9% 1000 ml Route: IV; Rate: 1000 ml; Site: right antecubital; ph 12:46 Follow up: Response: No adverse reaction; IV Status: Completed infusion; IV Intake: ph 1000ml Intake: 12:46 IV: 1000ml; Total: 1000ml. ph Outcome: 12:15 Discharge ordered by . kb 12:48 Discharged to home ambulatory. ph 12:48 Condition: good 12:48 Discharge instructions given to patient, Instructed on discharge instructions, follow up and referral plans. Demonstrated understanding of instructions, follow-up care. 12:48 Patient left the ED. ph Signatures: Dispatcher [employer] Ana Duke, SEAN ZUNIGA-Darren Iqbal, RN RN Lucy Ballard ds1 Lynda Mcghee RN RN ph
[2020-01-20 13:08] VITALS: BP 118/74; TEMP 98.7; O2SAT 97
== END 2020-01-20 12:48 | disposition home or self-care (01) ==
LOC: ER 09:45
DX: O20.0 Threatened abortion (principal); Z3A.01 Less than 8 weeks gestation of pregnancy
CPT/HCPCS: 36415; 76817; 80048; 81003; 81025; 84702; 85025; 86900; 86901; 96361; 96374; 99284; J2550; J7030

== ENCOUNTER 2021-09-01 18:30 | Emergency (ER) | payer OTHER ==
--- OUTSIDE RECORDS SUMMARY | 2021-09-01 18:40 | XMS REPORT | Continuity of Care Document ---
:1995 Author Organization [facility] t Address [address] [place] [address] Care Team Providers Name Role Phone Pcp, Does Not Have A Primary Care Physician RAMON HUBER Attending Clinician Unavailable Ramon Huber MD Attending Clinician Pob, Lab Main Attending Clinician Unavailable PERCY Attending Clinician Unavailable NA GRAVES Attending Clinician Unavailable LINDA GENE Attending Clinician Unavailable LINDA GENE Attending Clinician Unavailable BRIDGETT Attending Clinician Unavailable Anthony YA Attending Clinician Unavailable GELA Attending Clinician Unavailable KAVITA Attending Clinician Unavailable PADDY Attending Clinician Unavailable Nik BRANDON Attending Clinician Unavailable Leslie SANDOVAL Attending Clinician Unavailable Yael Attending Clinician Unavailable Lori ZUNIGA, N Attending Clinician Ina Sandoval DO Attending Clinician Ina SANDOVAL Attending Clinician Unavailable Kenny Sheikh RN Attending Clinician Unavailable Logan ZUNIGA Attending Clinician RAMON HUBER Admitting Clinician Unavailable Mary BENTON Admitting Clinician Unavailable KEESHA Admitting Clinician Unavailable Payers Payer Name Policy Type Policy Number Effective Date Expiration Date [facility] [id number] 2020 [facility] MEDICAID 00:00:00 [place]ID OF [place] [id number] 2020 00:00:00 Advance Directives Directive Decision Effective Termination Comments Source Date Date Healthcare Agents on N/A [facility] Agent Medical RelationshipCommunicationTracy Branch Hi[facility]sMetherHealth [facility] [phone] (Mobile) Problems Condition Condition Condition Status Onset Resolution Last Treating Co mments Source Name Details Category Date Date Treatment Clinician Date Disease Active U nivers depression depression 4-19 it y of 00:00: [place] [address] Medical Branch Headache Headache Disease Active Unive rs due to due to 3-12 ity of intracran[place] disease 00 Me dical Branch 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 00:00: [place] ventricle ventricle 00 Medi asad Branch Other Other Disease Active Univers headache headache 2-27 ity of syndrome syndrome 00:00: [place] [address] Medical [place] Chronic Chronic Disease Active Univers hypertensi hypertensi 2-01 it y of on on 00:00: [address] Papanicola Papanicola Disease Active U nivers ou smear ou smear 8-31 ity of of cervix [place] low with low 00 Medica l 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) Morbid Morbid Disease Active Univers obesity obesity 8-24 ity of with body [place] mass index mass index 00 Me dical of of Branch 40.0-49.9 40.0-49.9 Multiparit Multiparit Disease Active 2019- U nivers y y 8-18 ity of 00:00: [address] Allergies, Adverse Reactions, Alerts Allergy Allergy Status Severity Reaction(s) Onset Inactive Treating Comm ents Source Name Type Date Date Clinician NO KNOWN Drug Active Univers ALLERGIE Class ity of S [facility] Social History Social Habit Start Date Stop Date Quantity Comments Source Exposure to [facility] sure [facility] SARS-CoV-2 [facility] (event) Branch History of Smoker Almo of tobacco use [facility] Alcohol intake 2021-03-21 2021-03-21 Ex-drinker University 00:00:00 00:00:00 (finding) [facility] Tobacco use and 2020-01-13 2020-01-13 Never used Universit y of exposure 00:00:00 00:00:00 [facility] Sex Ass[birth year] At [birth year] Universit y of 00:00:00 00:00:00 [facility] Smoking Status Start Date Stop Date Source Former smoker 2020-01-13 00:00:00 2020-01-13 00:00:00 [facility] Medications Ordered Filled Start Stop Current Ordering Indication Dosage Frequency Signature Comments Components Source Medication Medication Date Date Medication? Clinician (SIG) Name Name cassandrax:diph 2020- No [id number] 15mL Take 15 mL Univers enhydrAMINE 7-31 10-20 by mouth 4 i ty of :lidocaine 00:00[place] 2 % viscous 00 :00 times Medical 1:1:1 daily as Branch needed (pharyngit is). SERTraline Yes [id number] 25mg Take 1 U nivers (ZOLOFT) 25 5-26 tablet by ity of mg tablet 00:00: mouth [place] 00 daily. Medical Branch SERTraline Yes [id number] 25mg Take 1 U nivers (ZOLOFT) 25 5-26 tablet by ity of mg tablet 00:00: [facility] 00 daily. Medical Branch SERTraline Yes [id number] 25mg Take 1 U nivers (ZOLOFT) 25 5-26 tablet by ity of mg tablet 00:00: mouth [place] 00 daily. Medical Branch 2020- No [id number] 1{tbl} Take 1 Univers vitamin 3-18 10-20 tablet by ity of w/FA tablet 00:00[place] daily. [facility] Immunizations Ordered Filled Immunization Date Status Comments Sourc e Immunization Name Name TDAP 2020-06-21 Completed University of 00:00:00 [facility] TDAP 2020-06-21 Completed University 00:00:00 [facility] TDAP 2020-06-21 [facility] Vital Signs Vital Name Observation Time Observation Value Comments Source Systolic blood 2021-03-21 20:11:00 129 mm[Hg] Univer sity of pressure [facility] Diastolic blood 2021-03-21 20:11:00 87 mm[Hg] Unive rsity of pressure [facility] Heart rate 2021-03-21 20:11:00 88 /min [facility] Body temperature 2021-03-21 20:11:00 36.89 Crissy [facility] Respiratory rate 2021-03-21 20:11:00 18 /min [facility] Body height 2021-03-21 20:11:00 165.1 cm [facility] Body weight 2021-03-21 20:11:00 124.286 kg [facility] BMI 2021-03-21 20:11:00 45.60 kg/m2 [facility] Procedures This patient has no known procedures. 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 2021-04-01 Outpatient P [facility] [id number] Univers 06:10:40 ity of [facility] 2021-04-01 Outpatient P [facility] [id number] Univers 05:44:28 ity of [facility] 2021-04-01 Outpatient P [facility] [id number] Univers 01:55:36 ity of [facility] 2021-04-01 Outpatient [facility] [id number] Univers 01:36:48 ity of [facility] 2021-04-01 Outpatient P [facility] [id number] Univers 01:30:33 ity of [facility] 2021-03-31 Outpatient P [facility] [id number] Univers 19:31:52 ity of [facility] 2021-03-31 Outpatient P [facility] [id number] Univers 19:22:14 ity of [facility] 2021-03-31 Outpatient P [facility] [id number] Univers 11:20:46 ity of [facility] 2021-03-31 Outpatient P [facility] [id number] Univers 11:16:36 ity of [facility] 2021-04-05 2021-04-05 Outpatient R [facility] [id number] Univers 15:15:00 15:15:[id number] [facility] 2021-04-03 2021-04-03 Outpatient THOMAS HUBER [facility] [id number] Univers 14:30:00 14:30:[id number] [facility] 2021-03-26 2021-03-26 Telephone Thomas Huber [facility] [id number] Univers 00:00:00 00:00:00 Ramon Woodson [id number] i ty of [id number] Profess[place] [phone] Ar dical nal 134 [facility] 2021-03-21 2021-03-21 [employer] Yessi, Adc Lab Main [facility] [id number] Univers 16:11:30 16:26:30 Visit Thomas Huber Ramon Woodson [id number] ity of [place] [id number] [phone] Ar dical nal 353 [facility] 2021-03-21 2021-03-21 Office Naomi HuberFormerly [facility] [id number] Univers 14:49:10 15:45:16 Visit Ramon Woodson [id number] i ty of [place] [id number] [phone] Ar dical nal [address] [place] [address] 2021-03-21 2021-03-21 Outpatient R THOMAS HUBER [facility] [id number] Univers 15:00:00 15:00:[id number] [facility] 2021-03-21 2021-03-21 Outpatient R THOMAS HUBER [facility] [id number] Univers 15:00:00 15:00:[address] [facility] 2021-01-24 2021-01-24 Outpatient Frida GREER [facility] [id number] Univers 08:15:00 08:15:00 JODI [id number] [facility] [place] [facility] 2021-01-24 2021-01-24 Outpatient Frida GREER [facility] [id number] Univers 08:15:00 08:15:00 [facility] 2020-11-23 2020-11-23 Outpatient THOMAS HUBER [facility] [id number] Univers 09:30:00 09:30:[id number] [facility] 2020-11-23 2020-11-23 Outpatient R THOMAS HUBER [facility] [id number] Univers 09:30:00 09:30:[address] [facility] 2020-10-25 2020-10-25 Outpatient R CECILE [facility] [id number] Univers 15:00:00 15:00:[id number] [facility] 2020-10-25 2020-10-25 Outpatient R CECILE [facility] [id number] Univers 15:00:00 15:00:[address] [facility] 2020-10-16 2020-10-16 Outpatient R CECILE [facility] [id number] Univers 15:00:00 15:00:[id number] [facility] 2020-10-16 2020-10-16 Outpatient R CECILE [facility] [id number] Univers 15:00:00 15:00:[address] [facility] 2020-10-09 2020-10-09 Outpatient R ELY [facility] [id number] Univers 09:00:00 09:00:00 CATHY [id number] [facility] 2020-10-09 2020-10-09 Outpatient R CECILE [facility] [id number] Univers 08:15:00 08:15:[address] [facility] 2020-10-03 2020-10-03 Outpatient ROBY PIZANO [facility] [id number] Univers 09:40:00 09:40:[id number] [facility] 2020-10-03 2020-10-03 Outpatient ROBY PIZANO [facility] [id number] Univers 09:40:00 09:40:00 [facility] 2020-09-27 2020-09-27 Outpatient Frida GREER [facility] [id number] Univers 08:15:00 08:15:[id number] [facility] 2020-09-27 2020-09-27 Outpatient Frida PERCY [facility] [id number] Univers 08:15:00 08:15:[address] [facility] 2020-09-21 2020-09-21 [id number] Univers 14:15:00 14:15:[id number] [facility] 2020-09-21 2020-09-21 [id number] Univers 14:15:00 14:15:[address] [facility] 2020-09-19 2020-09-19 Outpatient Frida HUBERTHOMAS [facility] [id number] Univers 08:00:00 08:00:[id number] [facility] 2020-09-19 2020-09-19 Outpatient Frida HUBER THOMAS [facility] [id number] Univers 08:00:00 08:00:[address] [facility] 2020-09-18 2020-09-18 Outpatient R CECILE THOMAS [facility] [id number] Univers 13:15:00 13:15:[id number] [facility] 2020-09-18 2020-09-18 Outpatient Frida HUBERTHOMAS [facility] [id number] Univers 13:15:00 13:15:[address] [facility] 2020-09-11 2020-09-11 Outpatient R CECILETHOMAS [facility] [id number] Univers 13:00:00 13:00:[id number] [facility] 2020-09-11 2020-09-11 Outpatient R CECILE THOMAS [facility] [id number] Univers 13:00:00 13:00:[address] [facility] 2020-09-01 2020-09-01 Outpatient [facility] [id number] Univers 15:00:00 15:00:[id number] [facility] 2020-08-28 2020-08-28 Outpatient ROBY PIZANO [facility] [id number] Univers 10:00:00 10:00:[id number] [facility] 2020-08-28 2020-08-28 Outpatient ROBY PIZANO [facility] [id number] Univers 10:00:00 10:00:00 LINDA, [facility] 2020-08-25 2020-08-25 Outpatient Frida GREER [facility] [id number] Univers 08:00:00 08:00:[id number] [facility] 2020-08-25 2020-08-25 Outpatient Frida GREER [facility] [id number] Univers 08:00:00 [facility]00[facility] [place] [facility] 2020-08-14 2020-08-14 Outpatient Frida HUBER THOMAS [facility] [id number] Univers 14:30:00 14:30:00 [facility] 2020-08-10 2020-08-10 Outpatient Frida HUBER THOMAS [facility] [id number] Univers 09:00:00 09:00:00 [id number] [facility] 2020-08-10 2020-08-10 Outpatient Frida HUBER THOMAS [facility] [id number] Univers 09:00:00 09:00:00 [facility] 2020-08-09 2020-08-09 Outpatient Frida GREER [facility] [id number] Univers 14:45:00 14:45:00 General acute hospital 2020-08-09 2020-08-09 Outpatient Frida GREER [facility] [id number] Univers 08:30:00 08:30:00 HUMAIR [id number] [facility] 2020-08-08 2020-08-08 Outpatient BHAKTI [facility] [id number] Univers 11:00:00 11:00:00 JANNIE [id number] [facility] 2020-08-07 2020-08-07 Outpatient PITA CAM [facility] [id number] Univers 13:15:00 13:15:00 [facility] 2020-08-07 2020-08-07 Outpatient [facility] [id number] Univers 10:00:00 10:00:00 [id number] ity of [facility] 2020-08-04 2020-08-04 Outpatient [facility] [id number] Univers 15:00:00 15:00:00 [id number] ity of [facility] 2020-08-04 2020-08-04 Outpatient R [facility] [id number] Univers 15:00:00 15:00:00 ity of [facility] 2020-08-03 2020-08-03 Outpatient [facility] [id number] Univers 09:00:00 09:00:00 [id number] ity of [facility] 2020-08-03 2020-08-03 Outpatient R THOMAS HUBER [facility] [id number] Univers 09:00:00 09:00:00 ity of [facility] 2020-07-31 2020-07-31 Outpatient R [facility] [id number] Univers 09:00:00 09:00:00 [id number] ity of [facility] 2020-07-31 2020-07-31 Outpatient R [facility] [id number] Univers 09:00:00 09:00:00 ity of [facility] 2020-07-27 2020-07-27 Outpatient R [facility] [id number] Univers 15:00:00 15:00:[id number] [facility] 2020-07-27 2020-07-27 Outpatient R [facility] [id number] Univers 15:00:00 15:00:00 ity of [facility] 2020-07-24 2020-07-24 Outpatient R [facility] [id number] Univers 10:00:00 10:00:00 [id number] ity of [facility] 2020-07-24 2020-07-24 Outpatient R [facility] [id number] Univers 10:00:00 10:00:00 ity of [facility] 2020-07-19 2020-07-19 Outpatient R [facility] [id number] Univers 08:00:00 08:00:[id number] [facility] 2020-07-17 2020-07-17 Outpatient R [facility] [id number] Univers 08:00:00 08:00:[id number] [facility] 2020-07-17 2020-07-17 Outpatient R [facility] [id number] Univers 08:00:00 08:00:[address] [facility] 2020-07-10 2020-07-10 Outpatient R GELA, [facility] [id number] Univers 15:45:00 15:45:[id number] [facility] 2020-07-07 2020-07-07 Outpatient R [facility] [id number] Univers 15:00:00 15:00:[id number] [facility] 2020-07-07 2020-07-07 Outpatient P [facility] [id number] Univers 15:00:00 15:00:[address] [facility] 2020-07-03 2020-07-03 Outpatient R CECILE THOMAS [facility] [id number] Univers 13:00:00 13:00:[id number] [facility] 2020-07-03 2020-07-03 Outpatient R CECILE THOMAS [facility] [id number] Univers 13:00:00 13:00:[address] [facility] 2020-06-30 2020-06-30 Outpatient R [facility] [id number] Univers 16:00:00 16:00:[id number] [facility] 2020-06-30 2020-06-30 Outpatient R KAVITA [facility] [id number] Univers 16:00:00 16:00:00 HAY ity o f [facility] 2020-06-21 2020-06-21 Outpatient R GELA [facility] [id number] Univers 09:00:00 09:00:[id number] [facility] 2020-06-21 2020-06-21 Outpatient R GELA [facility] [id number] Univers 09:00:00 09:00:00 [facility] 2020-06-07 2020-06-07 Outpatient R PERCY [facility] [id number] Univers 13:30:00 13:30:[id number] [facility] 2020-06-07 2020-06-07 Outpatient R PERCY [facility] [id number] Univers 13:30:00 13:30:00 HUMAIR ity of [facility] 2020-06-05 2020-06-05 Outpatient R [facility] [id number] Univers 09:00:00 09:00:00 [id number] ity of [facility] 2020-06-05 2020-06-05 Outpatient P [facility] [id number] Univers 09:00:00 09:00:00 ity of [facility] 2020-05-24 2020-05-24 Outpatient R CECILE THOMAS [facility] [id number] Univers 09:45:00 09:45:00 [id number] ity of [facility] 2020-05-24 2020-05-24 Outpatient R CECILE THOMAS [facility] [id number] Univers 09:45:00 09:45:00 ity of [facility] 2020-05-18 2020-05-18 Outpatient R [facility] [id number] Univers 13:45:00 13:45:00 [id number] ity of [facility] 2020-05-18 2020-05-18 Outpatient P [facility] [id number] Univers 13:45:00 13:45:00 ity of [facility] 2020-04-26 2020-04-26 Outpatient R [facility] [id number] Univers 10:00:00 10:00:00 ity of [facility] 2020-04-26 2020-04-26 Outpatient R [facility] [id number] Univers 09:40:00 09:40:00 [id number] ity of [facility] 2020-04-26 2020-04-26 Outpatient R PADDY [facility] [id number] Univers 09:40:00 09:40:[address] [facility] 2020-04-25 2020-04-25 Outpatient R GELA [facility] [id number] Univers 11:15:00 11:15:[address] [facility] 2020-04-25 2020-04-25 Outpatient R GELA [facility] [id number] Univers 11:15:00 11:15:00 ROBERT [id number] ity of [facility] 2020-04-24 2020-04-24 Outpatient R [facility] [id number] Univers 09:15:00 09:15:00 [id number] ity of [facility] 2020-04-24 2020-04-24 Outpatient P [facility] [id number] Univers 09:15:00 09:15:00 ity of [facility] 2020-04-03 2020-04-03 Outpatient R [facility] [id number] Univers 10:30:00 10:30:00 ity of [facility] 2020-04-03 2020-04-03 Outpatient P PHIL BRANDON [facility] [id number] Univers 10:30:00 10:30:00 ity of [facility] 2020-03-28 2020-03-28 Outpatient R [facility] [id number] Univers 09:45:00 09:45:00 [id number] ity of [facility] 2020-03-28 2020-03-28 Outpatient R [facility] [id number] Univers 09:45:00 09:45:00 ity of [facility] 2020-03-27 2020-03-27 Outpatient R GELA, [facility] [id number] Univers 11:15:00 11:15:[id number] [facility] 2020-03-27 2020-03-27 Outpatient R JETAYDEE, [facility] [id number] Univers 11:15:00 11:15:[address] [facility] 2020-03-22 2020-03-22 Outpatient R GELA, [facility] [id number] Univers 09:15:00 09:15:[id number] [facility] 2020-03-22 2020-03-22 Outpatient R GELA [facility] [id number] Univers 09:15:00 09:15:[address] [facility] 2020-03-13 2020-03-13 Outpatient R [facility] [id number] Univers 08:30:00 08:30:[id number] [facility] 2020-03-13 2020-03-13 Outpatient R THOMAS HUBER [facility] [id number] Univers 08:30:00 08:30:[address] [facility] 2020-03-08 2020-03-08 Outpatient R GELA [facility] [id number] Univers 10:15:00 10:15:00 ROBERT ity of [facility] 2020-03-08 2020-03-08 Outpatient R GELA [facility] [id number] Univers 10:15:00 10:15:[address] [facility] 2020-02-28 2020-02-28 Outpatient R CECILE THOMAS [facility] [id number] Univers 08:30:00 08:30:00 [id number] ity of [facility] 2020-02-28 2020-02-28 Outpatient R CECILE [facility] [id number] Univers 08:30:00 08:30:[address] [facility] 2020-02-14 2020-02-14 Outpatient R [facility] [id number] Univers 13:30:00 13:30:[id number] [facility] 2020-02-14 2020-02-14 Outpatient P [facility] [id number] Univers 13:30:00 13:30:00 ity of [facility] 2020-02-10 2020-02-10 Outpatient R LORI [facility] [id number] Univers 08:45:00 08:45:[address] [facility] 2020-02-10 2020-02-10 Outpatient R LORI [facility] [id number] Univers 08:45:00 08:45:[address] [facility] 2020-01-31 2020-01-31 Outpatient R [facility] [id number] Univers 08:00:00 08:00:[id number] [facility] 2020-01-31 2020-01-31 Outpatient R [facility] [id number] Univers 08:00:00 08:00:00 ity of [facility] 2020-01-24 2020-01-24 Outpatient R CECILE THOMAS [facility] [id number] Univers 08:00:00 08:00:[id number] [facility] 2020-01-24 2020-01-24 Outpatient R CECILE [facility] [id number] Univers 08:00[facility]00 [facility] 2020-01-19 Outpatient R CECILE THOMAS [facility] [id number] Univers 10:00:00 10:00:00 [id number] [facility] 2020-01-19 2020-01-19 Outpatient R THOMAS HUBER [facility] [id number] Univers 10:00:00 10:00:00 [facility] 2020-01-17 2020-01-17 Vp [employer] [facility], [facility] [id number] 09:51:45 10:06:[address] [facility]BU[facility] SPECIAL[facility] [id number] REGIONAL [id number] MATERNAL [id number] & CHILD 107 [facility] 2020-01-17 2020-01-17 Outpatient R [facility] [id number] Univers 08:15:00 08:15:00 [id number] [facility] 2020-01-17 2020-01-17 [facility] [id number] Univers 08:15:00 08:15:[address] [facility] 2020-01-13 2020-01-13 [facility] [id number] 09:53:02 10:23:02 Margot Nelson CARBURETOR SPECIALIST [id number] Visit REGIONAL [id number] MATERNAL [id number] & CHILD 107 [facility] 2020-01-13 2020-01-13 Outpatient [facility] [id number] Univers 09:45:00 09:45:[address] [facility] 2020-01-11 2020-01-11 Emergency [facility] [id number] 14:45:00 18:12:00 Nancy Woodson [id number] [place] [id number] [place] [id number] 2020-01-11 2020-01-11 Emergency X [facility] ERT [id number] Univers 14:45:00 14:45:[address] [facility] 2020-01-11 2020-01-11 Nurse BRISA Sheikh [id number] 00:00:00 00:00:00 Triage Libia FIERRO [id number] [facility] [id number] 2019-12-06 2019-12-06 Emergency [place], [facility] [id number] 12:49:46 14:26:00 Agustina [place] [id number] [place] [id number] [place] [id number] 2019-12-06 2019-12-06 Emergency X [facility] ERT [id number] Univers 12:28:00 12:28:00 [facility] Results This patient has no known results.
[2021-09-01 20:41] LABS: SARS-COV-2 RT PCR POSITIVE (NEGATIVE)
--- NOTE | 2021-09-01 20:44 | EDPHYS ---
Physician Documentation [facility] Name: Zaina Roberson Age: 26 yrs Sex: Female : 1995 Arrival Date: 09/01/2021 Time: 18:42 Bed 1 Private MD: ED Physician Ashok Ramos HPI: 09/01 19:17 This 26 yrs old Female presents to ER via Ambulatory with complaints of covid exposure. kb 19:17 The patient or guardian reports rhinorrhea. Onset: The symptoms/episode began/occurred kb yesterday. Severity of symptoms: At their worst the symptoms were very mild, in the emergency department the symptoms are unchanged. Modifying factors: The symptoms are alleviated by nothing, the symptoms are aggravated by nothing. Associated signs and symptoms: Pertinent positives: rhinorrhea, Pertinent negatives: chest pain, diarrhea, ear ache, fever, nausea, sore throat, vomiting. The patient has not experienced similar symptoms in the past. The patient has not recently seen a physician. Pt reports covid exposure. states she has had runny nose and congestion since yesterday. 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 - Social history:: Smoking status: Patient denies any tobacco usage or history of. Patient/guardian denies using alcohol. ROS: 19:17 Constitutional: Negative for fever, chills, and weight loss. kb 19:17 ENT: Positive for rhinorrhea, sinus congestion. 19:17 All other systems are negative. Exam: 19:17 Constitutional: This is a well developed, well nourished patient who is awake, alert, kb and in no acute distress. Head/Face: Normocephalic, atraumatic. ENT: Moist Mucous membranes Cardiovascular: Regular rate and rhythm with a normal S1 and S2. No gallops, murmurs, or rubs. No pulse deficits. Respiratory: Respirations even and unlabored. No increased work of breathing. Talking in full sentences Skin: Warm, dry with normal turgor. Normal color. MS/ Extremity: Pulses equal, no cyanosis. Neurovascular intact. Full, normal range of motion. Neuro: Awake and alert, GCS 15, oriented to person, place, time, and situation. Moves all extremities. Normal gait. Psych: Awake, alert, with orientation to person, place and time. Behavior, mood, and affect are within normal limits. Vital Signs: 18:47 Pulse 98; Resp 18; Temp 97.0; Pulse Ox 100% ; Weight 102.06 kg; Height 5 ft. 5 in. ss (165.10 cm); Pain 0/10; 18:47 Body Mass Index 37.44 (102.06 kg, 165.10 cm) ss MDM: 18:56 Patient medically screened. kb 19:17 Data reviewed: vital signs, nurses notes. Data interpreted: Pulse oximetry: on room air kb is 100 %. Interpretation: normal. 19:38 Transition of care: After a detail discussion of the patient's case, care is kb transferred to Patrick Rosa NP. 20:43 Counseling: I had a detailed discussion with the patient and/or guardian regarding: the pm1 historical points, exam findings, and any diagnostic results supporting the discharge/admit diagnosis, lab results, the need for outpatient follow up, to return to the emergency department if symptoms worsen or persist or if there are any questions or concerns that arise at home. 09/01 18:58 Order name: COVID-19/FLU A+B (Document "Date of Onset" if Symptomatic); Complete Time: kb 20:43 Administered Medications: No medications were administered Disposition: 09/02 10:50 Co-signature as Attending Physician, Ashok Ramos MD. rn Disposition Summary: 09/01/21 20:44 Discharge Ordered Location: Home pm1 Problem: new pm1 Symptoms: have improved pm1 Condition: Stable pm1 Diagnosis - Coronavirus infection, unspecified pm1 Followup: kb - With: Emergency Department - When: As needed - Reason: Worsening of condition Followup: kb - With: Private Physician - When: 2 - 3 days - Reason: Recheck today's complaints, Continuance of care, Re-evaluation by your physician Discharge Instructions: - Discharge Summary Sheet pm1 - COVID-19 pm1 - COVID-19 Frequently Asked Questions pm1 - 10 Things You Can Do to Manage Your COVID-19 Symptoms at Home - [facility] pm1 - COVID-19: Quarantine vs. Isolation - [facility] pm1 Forms: - Medication Reconciliation Form pm1 - Thank You Letter pm1 - Antibiotic Education pm1 - Prescription Opioid Use pm1 Signatures: Dispatcher [employer] EDAna Caldera, HOT DOG VENDER-C EFRAIN-Ashok Cordoba MD MD rn Smirch, Shelby, RN RN ss Marinas, Patrick, PAOLA GARMENT MENDER pm1
--- NOTE | 2021-09-01 20:44 | ER ---
Nurse's Notes [facility] Name: Zaina Roberson Age: 26 yrs Sex: Female : 1995 Arrival Date: 09/01/2021 Time: 18:42 Bed 1 Private MD: Diagnosis: Coronavirus infection, unspecified Presentation: 09/01 18:46 Chief complaint: Patient states: COVID exposure - congestion, runny nose, coughing. ss Coronavirus screen: Client presents with at least one sign or symptom that may indicate coronavirus-19. Standard/surgical mask placed on the client. Ebola Screen: No symptoms or risks identified at this time. Initial Sepsis Screen: Does the patient meet any 2 criteria? No. Patient's initial sepsis screen is negative. Does the patient have a suspected source of infection? No. Patient's initial sepsis screen is negative. Risk Assessment: Do you want to hurt yourself or someone else? Patient reports no desire to harm self or others. Onset of symptoms was September 01, 2021. 18:46 Method Of Arrival: Ambulatory ss 18:46 Acuity: SAFIA 4 Triage Assessment: 18:47 General: Appears in no apparent distress. comfortable, Behavior is calm, cooperative, ss appropriate for age. Pain: Denies pain. EENT: No signs and/or symptoms were reported regarding the EENT system. Neuro: Level of Consciousness is awake, alert, obeys commands, Oriented to person, place, time, situation. Respiratory: Airway is patent Respiratory effort is even, unlabored, Respiratory pattern is regular, symmetrical. 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 - Social history:: Smoking status: Patient denies any tobacco usage or history of. Patient/guardian denies using alcohol. Screenin:19 Abuse screen: Denies threats or abuse. Nutritional screening: No deficits noted. ag7 Tuberculosis screening: No symptoms or risk factors identified. Fall Risk No fall in past 12 months (0 pts). No secondary diagnosis (0 pts). No IV (0 pts). Ambulatory Aid- None/Bed Rest/Nurse Assist (0 pts). Gait- Normal/Bed Rest/Wheelchair (0 pts) Mental Status- Oriented to own ability (0 pts). Total Brewster Fall Scale indicates No Risk (0-24 pts). Assessment: 19:16 General: Appears in no apparent distress. obese, well nourished, Behavior is calm, ag7 cooperative, appropriate for age. Pain: Denies pain. Neuro: Level of Consciousness is awake, alert, obeys commands, Oriented to person, place, time, situation, Appropriate for age. Cardiovascular: Heart tones S1 S2 present Respiratory: Airway is patent Trachea midline Respiratory effort is even, unlabored, Respiratory pattern is regular, symmetrical. EENT: no reported symptoms, The patient state, she may have been exposed from her .. Reports coughing. 20:13 Reassessment: No changes from previously documented assessment. Patient and/or family ag7 updated on plan of care and expected duration. Pain level reassessed. Patient is alert, oriented x 3, equal unlabored respirations, skin warm/dry/pink. Vital Signs: 18:47 Pulse 98; Resp 18; Temp 97.0; Pulse Ox 100% ; Weight 102.06 kg; Height 5 ft. 5 in. ss (165.10 cm); Pain 0/10; 18:47 Body Mass Index 37.44 (102.06 kg, 165.10 cm) ED Course: 18:42 Patient arrived in ED. am2 18:47 Triage completed. ss 18:47 Arm band placed on right wrist. ss 18:56 Ana Curry FNP-C is PHCP. kb 18:56 Ashok Ramos MD is Attending Physician. kb 19:03 Fadumo Walter, IRVING is Primary Nurse. ag7 19:19 Patient has correct armband on for positive identification. Bed in low position. Call ag7 light in reach. 19:40 PHCP role handed off by Ana Curry FNP-C kb 19:40 Patrick Rosa NP is PHCP. kb Administered Medications: No medications were administered Outcome: 20:44 Discharge ordered by MD. pm1 21:02 Patient left the ED. tw5 Signatures: Ana Curry FNP-C FNP-Ckb Smirch, Shelby, IRVING RN Patrick Rosa, PAOLA MORTGAGE OPERATIONS MANAGER pm1 Kya Webber am2 Zaina Tsang tw5 Fadumo Walter RN RN ag7 Corrections: (The following items were deleted from the chart) 18:54 18:47 Temp 97.0F; 102.06 kg; Height 5 ft. 5 in.; BMI: 37.4; Pain 0/10; [facility] [place] 19:31 19:16 EENT: no reported symptoms, The patient state, she may have been exposed from her ag7 .. ag7
[2021-09-01 21:18] VITALS: TEMP 97; O2SAT 100
== END 2021-09-01 21:02 | disposition home or self-care (01) ==
LOC: ER 18:30
DX: U07.1 COVID-19 (principal)
CPT/HCPCS: 0240U; 99281

== ENCOUNTER 2022-07-21 10:53 | Emergency (ER) | payer BC, OTHER ==
[2022-07-21 11:56] LABS: SARS-COV-2 RT PCR NEGATIVE (NEGATIVE)
--- NOTE | 2022-07-21 12:17 | EDPHYS ---
Physician Documentation [facility] Name: Zaina Roberson Age: 27 yrs Sex: Female : 1995 Arrival Date: 07/21/2022 Time: 10:56 Bed 12 Private MD: ED Physician True Sal HPI: 07/21 11:00 This 27 yrs old Female presents to ER via Ambulatory with complaints of Nasal jh7 Congestion, Sinus Pain, hoarse voice. 11:00 The patient or guardian reports cough, hoarse voice. Onset: The symptoms/episode jh7 began/occurred 2 day(s) ago. Associated signs and symptoms: Pertinent positives: rhinorrhea, sore throat, Pertinent negatives: chest pain, diarrhea, fever, vomiting. Historical: - Allergies: 11:04 NKDA; aa5 - PMHx: 11:04 None; aa5 - PSHx: 11:04 Cholecystectomy; tubal ligation; aa5 - Immunization history:: Adult Immunizations unknown. - Social history:: Smoking status: Patient denies any tobacco usage or history of. ROS: 11:00 Constitutional: Negative for fever, chills, and weight loss, Eyes: Negative for injury, jh7 pain, redness, and discharge, Neck: Negative for injury, pain, and swelling, Cardiovascular: Negative for chest pain, palpitations, and edema, Abdomen/GI: Negative for abdominal pain, nausea, vomiting, diarrhea, and constipation, Back: Negative for injury and pain, MS/Extremity: Negative for injury and deformity, Skin: Negative for injury, rash, and discoloration, Neuro: Negative for headache, weakness, numbness, tingling, and seizure. 11:00 ENT: Positive for hoarseness, nasal discharge, sore throat. 11:00 Respiratory: Positive for cough, Negative for shortness of breath, wheezing. 11:00 All other systems are negative. Exam: 11:00 Constitutional: This is a well developed, well nourished patient who is awake, alert, jh7 and in no acute distress. Head/Face: Normocephalic, atraumatic. Eyes: Pupils equal round and reactive to light, extra-ocular motions intact. Lids and lashes normal. Conjunctiva and sclera are non-icteric and not injected. Cornea within normal limits. Periorbital areas with no swelling, redness, or edema. Cardiovascular: Regular rate and rhythm with a normal S1 and S2. No gallops, murmurs, or rubs. Normal PMI, no JVD. No pulse deficits. Respiratory: Lungs have equal breath sounds bilaterally, clear to auscultation and percussion. No rales, rhonchi or wheezes noted. No increased work of breathing, no retractions or nasal flaring. Skin: Warm, dry with normal turgor. Normal color with no rashes, no lesions, and no evidence of cellulitis. MS/ Extremity: Pulses equal, no cyanosis. Neurovascular intact. Full, normal range of motion. Neuro: Awake and alert, GCS 15, oriented to person, place, time, and situation. Normal gait. 11:00 ENT: Nose: nasal drainage, that is clear, Posterior pharynx: post nasal drainage, Voice: is hoarse. Vital Signs: 11:03 BP 127 / 73; Pulse 92; Resp 18 S; Temp 98.2(TE); Pulse Ox 100% on R/A; Weight 108.86 kg aa5 (R); Height 5 ft. 6 in. (167.64 cm) (R); 11:03 Body Mass Index 38.74 (108.86 kg, 167.64 cm) aa5 MDM: 10:[address] [facility] 12:15 Differential Diagnosis: Influenza Upper Respiratory Infection Pharyngitis Viral 7 Syndrome. Data reviewed: vital signs, nurses notes. I considered the following discharge prescriptions or medication management in the emergency department I discussed and recommended Over The Counter medications. Counseling: I had a detailed discussion with the patient and/or guardian regarding: the historical points, exam findings, and any diagnostic results supporting the discharge/admit diagnosis, to return to the emergency department if symptoms worsen or persist or if there are any questions or concerns that arise at home. 07/21 11:05 Order name: Strep 7 07/21 11:05 Order name: COVID-19/FLU A+B 7 07/21 11:50 Order name: Group A Streptococcus Rapid Sc; Complete Time: 12:10 EDMS 07/21 11:56 Order name: COVID-19/FLU A+B; Complete Time: 12:10 EDMS Administered Medications: No medications were administered Disposition: 13:38 Co-signature as Attending Physician, True Sal MD I agree with the assessment and kdr plan of care. Disposition Summary: 07/21/22 12:16 Discharge Ordered Location: Home [facility] Problem: [facility] Symptoms: are unchanged [facility] Condition: Stable [facility] Diagnosis - Acute upper respiratory infection, unspecified [facility] Followup: [facility] - With: Private Physician - When: 2 - 3 days - Reason: Recheck today's complaints Discharge Instructions: - Discharge Summary Sheet [facility] - Upper Respiratory Infection, Adult [facility] Forms: - Medication Reconciliation Form 7 - Work release form iw - Thank You Letter [facility] Prescriptions: - ProAir HFA 90 mcg/actuation Inhalation HFA aerosol inhaler - inhale 2 puff by INHALATION route every 4-6 hours As needed; 1 Inhaler; [facility] Refills: 0, Product Selection Permitted - Tessalon Perles 100 mg Oral Capsule - take 1 capsule by ORAL route every 8 hours As needed; 15 capsule; Refills: 0, jh7 Product Selection Permitted Signatures: Dispatcher [employer] EDTrue Waller MD MD [facility] Daniela Bartlett RN RN aa5 Leidy Gonzalez FNP NEUROLOGY SPECIALIST [facility]
--- NOTE | 2022-07-21 12:17 | ER ---
Nurse's Notes [facility] Name: Zaina Roberson Age: 27 yrs Sex: Female : 1995 Arrival Date: 07/21/2022 Time: 10:56 Bed 12 Private MD: Diagnosis: Acute upper respiratory infection, unspecified Presentation: 07/21 11:03 Chief complaint: Patient states: nasal congestion, cough, sore throat x 2 days. Pt aa5 denies fever. Coronavirus screen: congestion, cough unrelated to allergies. Ebola Screen: Patient denies travel to an Ebola-affected area in the 21 days before illness onset. Risk Assessment: Do you want to hurt yourself or someone else? Patient reports no desire to harm self or others. Onset of symptoms was July 2022. 11:03 Acuity: SAFIA 4 aa5 11:03 Method Of Arrival: Ambulatory aa5 11:03 Initial Sepsis Screen: Does the patient meet any 2 criteria? No. Patient's initial aa5 sepsis screen is negative. Does the patient have a suspected source of infection? No. Patient's initial sepsis screen is negative. Historical: - Allergies: 11:04 NKDA; aa5 - PMHx: 11:04 None; aa5 - PSHx: 11:04 Cholecystectomy; tubal ligation; aa5 - Immunization history:: Adult Immunizations unknown. - Social history:: Smoking status: Patient denies any tobacco usage or history of. Screenin:14 [facility] ED Fall Risk Assessment (Adult) History of falling in the last 3 months, mb9 including since admission No falls in past 3 months (0 pts) Confusion or Disorientation No (0 pts) Intoxicated or Sedated No (0 pts) Impaired Gait No (0 pts) Mobility Assist Device Used No (0 pt) Altered Elimination No (0 pt) Score/Fall Risk Level 0 - 2 = Low Risk Oriented to surroundings, Maintained a safe environment, Educated pt \T\ family on fall prevention, incl call for assistance when getting out of bed. Abuse screen: Denies threats or abuse. Nutritional screening: No deficits noted. Tuberculosis screening: No symptoms or risk factors identified. Assessment: 12:14 General: Appears in no apparent distress. Behavior is calm, cooperative. Pain: mb9 Complains of pain in throat Quality of pain is described as throbbing, Is intermittent. Neuro: Level of Consciousness is awake, alert, obeys commands. Cardiovascular: Capillary refill < 3 seconds is brisk Patient's skin is warm and dry. Respiratory: Reports cough that is non-productive, pain with cough Airway is patent Respiratory effort is even, unlabored, Respiratory pattern is regular, symmetrical. EENT: Throat is reddened. Derm: Skin is pink, warm \T\ dry. Musculoskeletal: Range of motion: intact in all extremities. Vital Signs: 11:03 BP 127 / 73; Pulse 92; Resp 18 S; Temp 98.2(TE); Pulse Ox 100% on R/A; Weight 108.86 kg aa5 (R); Height 5 ft. 6 in. (167.64 cm) (R); 11:03 Body Mass Index 38.74 (108.86 kg, 167.64 cm) [facility] ED Course: 10:56 Patient arrived in ED. am2 10:57 Leidy Gonzalez [facility]NP [facility] 10:57 True Sal MD is Attending Physician. [facility] 11:01 Arm band placed on. [facility] 11:04 Triage completed. [facility] 12:00 Bed in low position. Call light in reach. Side rails up X 1. Client placed on mb9 continuous cardiac and pulse oximetry monitoring. NIBP monitoring applied. 12:16 No provider procedures requiring assistance completed. Patient did not have IV access mb9 during this emergency room visit. 12:35 Olga Rodriguez, RN is Primary Nurse. iw Administered Medications: No medications were administered Medication: 12:16 VIS not applicable for this client. mb9 Outcome: 12:16 Discharge ordered by . [facility] 12:35 Patient left the ED. iw Signatures: Olga Rodriguez, RN RN iw Daniela Bartlett RN RN 5 Kya Webber formerly [facility] Leidy Gonzalez FNP MARKETING PROGRAM COORDINATOR [facility] Ivette Arita RN RN mb9 Corrections: (The following items were deleted from the chart) 11:06 11:03 108.86 kg Reported; Height 5 ft. 6 in. Reported; BMI: 38.7; 5 5 11:07 11:03 Pulse 92bpm; Resp 18bpm; Spontaneous; Pulse Ox 100% RA; Temp 98.2F Temporal; aa5 108.86 kg Reported; Height 5 ft. 6 in. Reported; BMI: 38.7; aa5
[2022-07-21 12:46] VITALS: BP 127/73; TEMP 98.2; O2SAT 100
== END 2022-07-21 12:35 | disposition home or self-care (01) ==
LOC: ER 10:53
DX: J06.9 Acute upper respiratory infection, unspecified (principal); Z20.822 Contact with and (suspected) exposure to COVID-19
CPT/HCPCS: 87070; 87081; 0240U; 99281

== ENCOUNTER 2022-12-31 20:50 | Emergency (ER) | payer OTHER ==
--- OUTSIDE RECORDS SUMMARY | 2022-12-31 20:53 | XMS REPORT | Continuity of Care Document ---
:1995 Author Organization [facility] t Address [address] [facility] [place] [address] Care Team Providers Name Role Phone THOMAS HUBER Primary Care Physician Unavailable THOMAS HUBER Attending Clinician Unavailable Thomas Huber MD Attending Clinician Pob, [facility] Lab Main Attending Clinician Unavailable Doctor Unassigned, [place] Attending Clinician Unavailable WOODY HAGEN Attending Clinician Unavailable Nicho SILVER RECOVERY OPERATOR, Danette Snell Attending Clinician Marcial Muñoz CRNA Attending Clinician Poli Massey MD, Laz Attending Clinician Only, [facility] Test Attending Clinician Unavailable ABEL SHEPPARD Attending Clinician Unavailable ABEL SHEPPARD Attending Clinician Unavailable Woody Hagen MD Attending Clinician Pita Urias MD Attending Clinician PITA URIAS Attending Clinician Unavailable Abel Sheppard MD Attending Clinician Evan Orellana DO Attending Clinician Zully Campos MD Attending Clinician Celso Ch MD Attending Clinician CELSO CH Attending Clinician Unavailable CELSO CH Attending Clinician Unavailable Room, [facility] Nst Attending Clinician Unavailable Ultrasound, [facility] Mfm Attending Clinician Unavailable Jerome Paul MD, [place] Attending Clinician [phone] Lisa Naidu MD Attending Clinician Robert Ren PA-C Attending Clinician Visit, [facility] Nurse Attending Clinician Unavailable Satish Walls MD Attending Clinician SATISH WALLS Attending Clinician Unavailable ROBERT REN Attending Clinician Unavailable 1, [facility] Usg Room Attending Clinician Unavailable Alanna Graves Attending Clinician Unavailable Lab, [facility] Fam Pob I Attending Clinician Unavailable Ivana Valverde Attending Clinician PERLITA THOMASON Attending Clinician Unavailable GARRY MENDEZ Attending Clinician Unavailable Garry Mendez MD Attending Clinician 2, [facility] Lab Attending Clinician Unavailable ALEXIS SANDOVAL Attending Clinician Unavailable Alexis Price Attending Clinician Lab, [facility] Attending Clinician Unavailable Nancy Sandoval DO Attending Clinician NANCY SANDOVAL Attending Clinician Unavailable Aguilar VILLATORO, Libia Cox Attending Clinician Unavailable Agustina Ruelas Attending Clinician THOMAS HUBER Admitting Clinician Unavailable ZULLY CAMPOS Admitting Clinician Unavailable Thomas Huber MD Admitting Clinician Zully Campos MD Admitting Clinician Lisa Naidu MD Admitting Clinician Payers Payer Name Policy Type Policy Number Effective Date Expiration Date Formerly [facility] [id number] 2020 [facility] MEDICAID 00:00:00 [place]ICAID OF [place] [id number] 2020 00:00:00 Problems Condition Condition Condition Status Onset Resolution Last Treating Co mments Source Name Details Category Date Date Treatment Clinician Date Disease Active U nivers depression depression 4-19 it y of 00:00: [place] 00 Medical Branch Headache Headache Disease Active Unive rs due to due to 3-12 [place] of [place] 00 Mi dical Branch 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 00:00: [place] ventricle ventricle 00 Medi asad Branch Other Other Disease Active Univers headache headache 2-27 ity of syndrome syndrome 00:00: [address] Chronic Chronic Disease Active Univers hypertensi hypertensi 2-01 it y of on on 00:00: [address] Papanicola Papanicola Disease Active U nivers [...] Branch 40.0-49.9 40.0-49.9 Multiparit Multiparit Disease Active U nivers y y 8-18 ity of 00:00: [address] Allergies, Adverse Reactions, Alerts Allergy Allergy Status Severity Reaction(s) Onset Inactive Treating Comm ents Source Name Type Date Date Clinician NO KNOWN Drug Active Univers ALLERGIE Class ity of S [facility] Social History Social Habit Start Date Stop Date Quantity Comments Source Exposure to Not sure [place] of SARS-CoV-2 [facility] (event) Branch History of Smoker University of tobacco use [facility] Alcohol intake 2021-03-21 2021-03-21 Ex-drinker University 00:00:00 00:00:00 (finding) [facility] Tobacco use and 2020-01-13 2020-01-13 Never used Universit y of exposure 00:00:00 00:00:00 [facility] Sex Ass[birth year] At [birth year] Universit y of 00:00:00 00:00:00 [facility] Smoking Status Start Date Stop Date Source Former smoker 2020-01-13 00:00:00 2020-01-13 00:00:00 Universi ty [facility] Medications Ordered Filled Start Stop Current Ordering Indication Dosage Frequency Signature Comments Components Source Medication Medication Date Date Medication? Clinician (SIG) Name Name maalox:diph 2020- No [id number] 15mL Take 15 mL Univers enhydrAMINE 7-31 10-20 by mouth 4 i ty of :lidocaine 00:00[place] 00[place] 2 % viscous 00 :00 times Medical 1:1:1 daily as Branch needed (pharyngit is). SERTraline Yes [id number] 25mg Take 1 U nivers (ZOLOFT) 25 5-26 tablet by ity of mg tablet 00:00: mouth [place] 00 daily. Medical Branch SERTraline Yes [id number] 25mg Take 1 U nivers (ZOLOFT) 25 5-26 tablet by ity of mg tablet 00:00: mouth [place] 00 daily. Medical Branch SERTraline Yes [id number] 25mg Take 1 U nivers (ZOLOFT) 25 5-26 tablet by ity of mg tablet 00:00: mouth [place] 00 daily. Medical Branch 202- No [id number] 1{tbl} Take 1 Univers vitamin 3-18 10-20 tablet by ity of w/FA tablet 00:00[place] :00 daily. [facility] Immunizations Ordered Filled Immunization Date Status Comments [facility] Immunization Name Name TDAP 2020-06-21 Completed [facility] 00:00:00 [facility] TDAP 2020-06-21 Completed [facility] 00:00:00 [facility] TDAP 2020-06-21 Completed [facility] 00:00:00 [facility] Vital Signs Vital Name Observation Time Observation Value Comments Source Systolic blood 2021-03-21 20:11:00 129 mm[Hg] Univer sity of pressure [facility] Diastolic blood 2021-03-21 20:11:00 87 mm[Hg] [facility] Heart rate 2021-03-21 20:11:00 88 /min [facility] Body temperature 2021-03-21 20:11:00 36.89 [facility] Respiratory rate 2021-03-21 20:11:00 18 /min [facility] Body height 2021-03-21 20:11:00 165.1 cm [facility] Body weight 2021-03-21 20:11:00 124.286 kg [facility] BMI 2021-03-21 20:11:00 45.60 kg/m2 Universi ty of [facility] Procedures This patient has no known procedures. Encounters Start End Encounter Admission Attending Care Care Encounter Source Date/Time Date/Time Type Type Clinicians Facility Department ID 2021-04-02 Emergency [facility] [id number] Univers 12:12:16 ity of [facility] 2021-04-01 Outpatient R THOMAS HUBER [facility] CHIEF SERVICE DISPATCHER [id number] Univers 16:27:17 ity of [facility] 2021-04-01 Outpatient P [facility] [id number] Univers 06:10:40 ity of [facility] 2021-04-01 Outpatient P [facility] [id number] Univers 05:44:28 ity of [facility] 2021-04-01 Outpatient [facility] [id number] Univers 01:36:48 ity of [facility] 2021-03-31 Outpatient P [facility] [id number] Univers 19:31:52 ity [facility] 2021-03-31 Outpatient P [facility] [id number] Univers 19:22:14 ity of [facility] 2021-03-31 Outpatient P [facility] [id number] Univers 11:20:46 ity of [facility] 2021-03-31 Outpatient P [facility] [id number] Univers 11:16:36 ity [facility] 2021-03-26 2021-03-26 Telephone Thomas Huber [facility] 1.2.840.114 [id number] Univers 00:00:00 00:00:00 Yosef Woodson 350.1.13.10 i ty [place] [phone] Mi dical nal [address] [facility] 2021-03-21 2021-03-21 Cuff Setter Overlock Yessi, Prabhakar Lab Main [facility] 1.2.8 40.114 [id number] Univers 16:11:30 16:26:30 Visit Thomas Huber [id number] ity of [place] [id number] [phone] Mi dical nal [address] [facility] 2021-03-21 2021-03-21 Office Thomas Huber [facility] 1.2.265.981 [id number] Univers 14:49:10 15:45:16 Visit Yosef Kandice 350.1.13.10 i ty [id number] Profess[place] [phone] [facility] [address] [facility] 2021-03-21 2021-03-21 Outpatient R THOMAS HUBER [facility] [id number] Univers 15:00:00 15:00:00 ity of [facility] 2021-03-21 2021-03-21 Orders Doctor BRISA 1.2.840.114 [id number] Univers 00:00:00 00:00:00 Only Unassigned, SRI 350.1.13.10 ity of [facility] 4.2.7.2.686 Ravindra as [phone] [facility] [address] [place] 2021-01-24 2021-01-24 Outpatient R PERCY [facility] [id number] Univers 08:15:00 08:15:00 HUMAIR ity [facility] 2020-12-30 2020-12-30 Emergency [facility] 1.2.614.043 [id number] Univers 13:10:00 15:36:00 Danette Snell Kandice [id number] ity [facility] 4.2.7.2.686 [place] [phone] [facility] [address] [place] 2020-11-23 2020-11-23 Outpatient R THOMAS HUBER [facility] [id number] Univers 09:30:00 09:30:00 ity of [facility] 2020-10-25 2020-10-25 Office [facility] [id number] Univers 14:39:08 16:21:33 Visit Yosef Kandice 350.1.13.10 i ty [place] 4[place] Profess[place] [phone] [address] 2020-10-25 2020-10-25 Outpatient R THOMAS HUBER [facility] [id number] Univers 15:00:00 15:00:00 ity [facility] 2020-10-20 2020-10-20 Case Thomas Hbuer [facility] [id number] Univers 00:00:00 00:00:00 Management [place] [id number] ity [place] 4[place].7.2.[place] [phone] [address] 2020-10-18 2020-10-18 Orders Doctor BRISA 1.2.840.114 [id number] Univers 00:00:00 00:00:00 Only Unassigned, SRI 350.1.13.10 ity of [place] [facility] 4.2.7.2.686 Ravindra as [phone] [address] 2020-10-16 2020-10-16 Outpatient R THOMAS HUBER [facility] [id number] Univers 15:00:00 15:00:00 ity of [facility] 2020-10-13 2020-10-13 Telephone Thomas Huber [facility] 1.2.840.114 [id number] Univers 00:00:00 00:00:00 Cam [place] [id number] i ty [place] 4[place] [phone] Mi dic[address] 2020-10-12 2020-10-12 Telephone Thomas Huber [facility] 1.2.840.114 [id number] Univers 00:00:00 00:00:00 Cam [place] 350.1.13.10 i ty [place] 4[place].2.[place] [phone] Mi dic[address] 2020-10-10 2020-10-10 [facility] 1.2.840.114 [id number] Univers 06:27:00 10:28:00 Encounter Cam [place] [id number] ity [place] 4[place]2.[place].2.[place] Surgical [phone] [address] 2020-10-10 2020-10-10 Surgery [facility] 1.2.532.888 [id number] Univers 07:30:00 09:35:00 Cam [place] 350.1.13.10 i ty [place] 4[place].2.[place] [phone] [facility] 020 Branch 2020-10-10 2020-10-10 Anesthesia Marcial Muñoz [facility] 1.2.840.11 [id number] Univers 07:19:00 08:45:00 Event Laz [place] 350.1.13.10 ity [place] 4[place]2.[place].2.[place] [phone] [facility] 020 Branch 2020-10-09 2020-10-09 Cuff Setter Overlock Yessi, Adc Lab Main [facility] 1.2.8 40.114 [id number] Univers 08:15:53 08:30:53 Visit Thomas Huber 350.1.13.10 ity of [place] 4[place].7.2.[place] [phone] Mi dical [facility] 2020-10-09 2020-10-09 Laboratory Only, Adc Test [facility] 1.2.840. 114 [id number] Univers 08:14:50 08:29:50 Only Thomas Huber [id number] ity [place] 4.2.7.2.686 [place] [phone] [facility] [address] [place] 2020-10-09 2020-10-09 Outpatient R THOMAS HUBER [facility] [id number] Univers 08:15:00 08:15:00 ity of [facility] 2020-10-09 2020-10-09 Orders Doctor BRISA 1.2.840.114 [id number] Univers 00:00:00 00:00:00 Only Unassigned, SRI 350.1.13.10 ity of [place] [facility] 4.2.7.2.686 Ravindra as [phone] [facility] 009 Branch 2020-10-06 2020-10-06 Telephone Thomas Huber [facility] 1.2.840.114 [id number] Univers 00:00:00 00:00:00 Yosef Woodson 350.1.13.10 i ty [place] 4[place] [phone] Mi dical nal [address] [place] [address] 2020-10-03 2020-10-03 Outpatient R ABEL SHEPPARD [facility] [id number] Univers 09:40:00 09:40:00 ABEL SHEPPARD ity of [facility] 2020-10-03 2020-10-03 Telephone Thomas Huber [facility] 1.2.840.114 [id number] Univers 00:00:00 00:00:00 Cam [place] 350.1.13.10 i ty of [place] 4[place].7.2.[place] [phone] Mi dical nal [address] [place] [address] 2020-10-02 2020-10-02 Telephone Thomas Huber [facility] 1.2.840.114 [id number] Univers 00:00:00 00:00:00 Cam [place] 350.1.13.10 i ty [place] 4[place]2.7.2.[place] [phone] Mi dic[address] 2020-09-27 2020-09-27 Office Thomas Huber [facility] 1.2.363.226 [id number] Univers 15:09:45 16:42:32 Visit Cam [place] 350.1.13.10 i ty [place] 4[place]2.7.2.[place] [phone] [address] 2020-09-27 2020-09-27 Office Percy [facility] 1.2.840.114 [id number] Univers 08:09:42 09:39:41 Visit [facility] 350.1.13.10 it y of [place] 4.2.7.2.[place] C[place] [phone] [address] 2020-09-27 2020-09-27 Outpatient R PERCY [facility] [id number] Univers 08:15:00 08:15:00 HUMAIR ity of [facility] 2020-09-27 2020-09-27 Orders Doctor LEDEZMA 1.2.840.114 [id number] Univers 00:00:00 00:00:00 Only Unassigned, SRI 350.1.13.10 ity of [place] [facility] 4.2.7.2.686 Ravindra as [phone] [facility] 009 Branch 2020-09-21 2020-09-21 Office [facility] 1.2.840.114 [id number] Univers 14:15:57 14:30:57 Visit Health 350.1.13.10 it y of [place]2.7.2.[place] [phone] [facility] [address] [place] Office Building 2020-09-21 2020-09-21 [facility] [id number] Univers 14:15:00 14:15:00 ity of [facility] 2020-09-21 2020-09-21 Telephone [facility] 1.2.840.114 [id number] Univers 00:00:00 00:00:00 Health 350.1.13.10 it [place] of [place]2.[place].2.[place] [phone] [facility] [address] [place] Office Building 2020-09-19 2020-09-19 Hospital Thomas Huber [facility] 1.2.840.114 [id number] Univers 07:56:23 23:59:00 Encounter Cam [place] 350.1.13.10 ity of [place] 4.2.7.2.686 [place] [phone] [facility] [address] [place] 2020-09-19 2020-09-19 Outpatient R THOMAS HUBER [facility] [id number] Univers 08:00:00 08:00:00 ity of [facility] 2020-09-18 2020-09-18 Routine [facility] 1.2.695.954 [id number] Univers 12:58:14 13:45:31 Cam [place] 350.1.13.10 ity of Visit [place].2.7.2.[address] [facility] [phone] [facility] 134 Branch Building 2020-09-18 2020-09-18 Outpatient R THOMAS HUBER [facility] [id number] Univers 13:15:00 13:15:00 ity of [facility] 2020-09-18 2020-09-18 Telephone Thomas Huber [facility] 1.2.840.114 [id number] Univers 00:00:00 00:00:00 Yosef [place] 350.1.13.10 i ty of [place] 4[place]2.[place].2.[place] [phone] Mi dical nal 134 [facility] 2020-09-11 2020-09-11 Outpatient R THOMAS HUBER [facility] [id number] Univers 13:00:00 13:00:00 ity of [facility] 2020-08-28 2020-08-28 Office Silver [facility] 1.2.840.114 [id number] Univers 09:49:56 10:44:06 Visit Abel Woodson 350.1.13.10 ity of [place] 4.2.7.2.[place] [phone] [facility] nal 092 [facility] 2020-08-28 2020-08-28 Outpatient R ABEL SHEPPARD [facility] [id number] Univers 10:00:00 10:00:00 ABEL SHEPPARD [facility] 2020-08-28 2020-08-28 Orders Doctor BRISA 1.2.840.114 [id number] Univers 00:00:00 00:00:00 Only Unassigned, SRI 350.1.13.10 ity of [place] [facility] 4.2.7.2.686 Ravindra as [phone] [facility] [address] [place] 2020-08-25 2020-08-25 Office Percy [facility] 1.2.840.114 [id number] Univers 07:55:02 09:02:52 Visit [facility] 350.1.13.10 it y of [place] 4[place]2.7.2.[place] [phone] [facility] 136 [address] 2020-08-25 2020-08-25 Outpatient R PERCY [facility] [id number] Univers 08:00:00 08:00:00 [facility] 2020-08-23 2020-08-23 Telephone Cecile Thomas [facility] 1.2.840.114 [id number] Univers 00:00:00 00:00:00 Cam [place] 350.1.13.10 i ty [place] 4.2.7.2.[place] [phone] Mi dical nal 134 [facility] 2020-08-23 2020-08-23 Case Thomas Huber [facility] 1.2.468.345 [id number] Univers 00:00:00 00:00:00 Management Cam [place] 350.1.13.10 ity of [place] 4.2.7.2.[place] [phone] Mi dical nal 134 [facility] 2020-08-22 2020-08-22 Telephone Thomas Huber [facility] 1.2.840.114 [id number] Univers 00:00:00 00:00:00 Cam [place] 350.1.13.10 i ty of [place] 4[place]2.7.2.[place] [phone] Mi dical nal 134 [facility] 2020-08-22 2020-08-22 Patient Esteban [facility] 1.2.840.114 [id number] Univers 00:00:00 00:00:00 Outreach Evan PRIMARY 350.1.13.10 i ty of [facility] 4.2.7.2.[place] [phone] Mi dical [address] [place] 2020-08-19 2020-08-19 Refill Thomas Huber [facility] 1.2.269.794 [id number] Univers 00:00:00 00:00:00 Cam [place] 350.1.13.10 i ty of [place] 4.2.7.2.[place] [phone] Mi dical nal 134 [facility] 2020-08-14 2020-08-17 [facility] 1.2.840.114 [id number] Univers 16:59:00 11:45:00 Encounter Cam [place] 350.1.13.10 ity of [place] 4.2.7.2.686 [place] [phone] [facility] [address] [place] 2020-08-17 2020-08-17 Case Thomas Huber [facility] 1.2.248.690 [id number] Univers 00:00:00 00:00:00 Management Cam [place] 350.1.13.10 ity of [place] 4.2.7.2.[place] [phone] Mi dical nal [address] [place] [address] 2020-08-15 2020-08-15 Telephone Thomas Huber [place] 1.2.840.114 [id number] Univers 00:00:00 00:00:00 Cam [place] 350.1.13.10 i ty of [place] 4.2.7.2.[place] [phone] Mi dical nal [address] [place] [address] 2020-08-14 2020-08-14 [facility] 1.2.057.733 [id number] Univers 14:05:11 16:10:05 [place] 350.1.13.10 ity of Visit [place] 4.2.7.2.[place] [phone] [address] 2020-08-14 2020-08-14 Outpatient R THOMAS HUBER [facility] [id number] Univers 14:30:00 14:30:00 ity of [facility] 2020-08-14 2020-08-14 Orders Doctor BRISA 1.2.840.114 [id number] Univers 00:00:00 00:00:00 Only Unassigned, SRI 350.1.13.10 ity of [place] [facility] 4.2.7.2.686 Ravindra as [phone] [facility] [address] [place] 2020-08-10 2020-08-11 [facility] 1.[facility].840 .114 [id number] Univers 12:29:00 21:17:00 Encounter Celso Ch 350.1.13.10 ity of HOSPITAL 4.2.7.2.686 Ravindra as [phone] [facility] [address] [place] 2020-08-10 2020-08-11 Outpatient P CELSO CH [facility] SHARYN [id number] Univers 12:29:00 21:17:00 CELSO CH ity of [facility] 2020-08-11 2020-08-11 Telephone [facility] 1.2.840.114 [id number] Univers 00:00:00 00:00:00 Cam [place] 350.1.13.10 i ty of [place] 4.2.7.2.[place] [phone] Mi dical nal [address] [place] [address] 2020-08-11 2020-08-11 Telephone Thomas Huber [facility] 1.2.840.114 [id number] Univers 00:00:00 00:00:00 Cam [place] 350.1.13.10 i ty of [place] 4.2.7.2.[place] [phone] Mi dical [address] 2020-08-11 2020-08-11 Telephone Thomas Huber [facility] 1.2.840.114 [id number] Univers 00:00:00 00:00:00 Cam [place] 350.1.13.10 i ty of [place] 4.2.7.2.[place] [phone] [address] 2020-08-10 2020-08-10 Outpatient R THOMAS HUBER [facility] [id number] Univers 09:00:00 09:00:00 ity of [facility] 2020-08-10 2020-08-10 Case [facility] [id number] Univers 00:00:00 00:00:00 Management Cam [place] 350.1.13.10 ity of [place] 4.2.7.2.[place] [phone] Mi dic[address] 2020-08-10 2020-08-10 Orders Doctor BRISA 1.2.840.114 [id number] Univers 00:00:00 00:00:00 Only Unassigned, SRI 350.1.13.10 ity of [place] [facility] 4.2.7.2.686 Ravindra as [phone] [address] 2020-08-09 2020-08-09 Office Percy [facility] 1.2.840.114 [id number] Univers 14:34:33 15:43:43 Visit [facility] 350.1.13.10 it y of [place].2.[place] [phone] [facility] [address] 2020-08-09 2020-08-09 Outpatient R PERCY [facility] [id number] Univers 14:45:00 14:45:00 HUMAIR ity of [facility] 2020-08-07 2020-08-07 Office [facility] 1.2.840.114 [id number] Univers 13:12:16 14:08:38 Visit Health 350.1.13.10 it y [place].2.[place] [phone] [place] [address] [address] Office Building 2020-08-07 2020-08-07 Outpatient R BIRD URIASHI [facility] [id number] Univers 13:15:00 13:15:00 ity of [facility] 2020-08-07 2020-08-07 Routine Room, [facility] 1.2.840.1 [id number] Univers 09:46:28 10:52:33 Thomas Huber 350.1.13.10 ity of Visit [place] 4.2.7.2.[place] [phone] Mi dical nal [address] [place] [address] 2020-08-04 2020-08-04 Cuff Setter Overlock Ultrasound, [facility] 1.2 .840.114 [id number] Univers 14:50:34 15:20:34 Visit Jacque Kebede 350.1 .13.10 ity of [place] 4.2.7.2.[place] [phone] Mi dical nal [facility] Branch Building 2020-08-04 2020-08-04 Outpatient R [facility] [id number] Univers 15:00:00 15:00:00 ity of [facility] 2020-08-04 2020-08-04 Case Thomas Huber [facility] 1.2.632.452 [id number] Univers 00:00:00 00:00:00 Management Yosef Woodson 350.1.13.10 ity of [place] 4.2.7.2.[place] [phone] Mi dical nal 134 [address] Building 2020-08-03 2020-08-03 Routine Room, [facility] 1.2.840.1 [id number] Univers 08:42:32 10:10:58 Thomas Huber Yosef [place] 350.1.13.10 ity of [place] [phone] Mi dical nal 134 [facility] 2020-08-03 2020-08-03 Outpatient R THOMAS HUBER [facility] [id number] Univers 09:00:00 09:00:00 ity of [facility] 2020-08-02 2020-08-02 Telephone [facility] 1.2.840.114 [id number] Univers 00:00:00 00:00:00 Cam Kandice 350.1.13.10 i ty of [place] [phone] Mi dical nal 134 [facility] 2020-08-02 2020-08-02 Orders Doctor BRISA 1.2.840.114 [id number] Univers 00:00:00 00:00:00 Only Unassigned, SRI 350.1.13.10 ity of [place] [facility] 4.2.7.2.686 Ravindra as [phone] [facility] [address] [place] 2020-07-31 2020-07-31 [facility] 1.2.840.114 [id number] Univers 11:15:27 23:59:00 Encounter Yosef [place] 350.1.13.10 ity of [place] [phone] [facility] [address] [place] 2020-07-31 2020-07-31 Outpatient R THOMAS HUBER [facility] [id number] Univers 11:15:27 23:59:00 ity of [facility] 2020-07-31 2020-07-31 Routine Room, [facility] 1.2.840.1 14 [id number] Univers 08:58:13 10:44:17 Thomas Huber Yosef [place] 350.1.13.10 ity of [place] [phone] Mi dical nal 134 [facility] 2020-07-31 2020-07-31 Orders Doctor BRISA 1.2.840.114 [id number] Univers 00:00:00 00:00:00 Only Unassigned, SRI 350.1.13.10 ity of [place] [facility] 4.2.7.2.686 Ravindra as [phone] [facility] [address] [place] 2020-07-28 2020-07-30 [facility] Thomas Huber [facility] 1.2.840.114 [id number] Univers 09:50:00 11:30:00 Encounter Fish, Lisaabdirashid [place] 350.1.13.10 ity of [place] [phone] [facility] [address] [place] 2020-07-28 2020-07-28 Telephone [facility] 1.2.840.114 [id number] Univers 00:00:00 00:00:00 Cam [place] 350.1.13.10 i ty of [place] [phone] Mi dical nal [address] [place] [address] 2020-07-28 2020-07-28 Telephone [facility] 1.2.840.114 [id number] Univers 00:00:00 00:00:00 Cam [place] 350.1.13.10 i ty of [place] [phone] Mi dical nal 134 [facility] 2020-07-28 2020-07-28 Telephone [facility] 1.2.840.114 82 [id number] Univers 00:00:00 00:00:00 Cam [place] 350.1.13.10 i ty of [place] [phone] Mi dical nal 134 [facility] 2020-07-27 2020-07-27 [facility] Thomas Huber [facility] 1.2.840.114 [id number] Univers 16:44:00 23:55:00 Encounter Yosef [place] 350.1.13.10 ity of [place] [phone] [facility] [address] [place] 2020-07-27 2020-07-27 Outpatient P THOMAS HUBER [facility] SHARYN [id number] Univers 16:44:00 23:55:00 ity of [facility] 2020-07-27 2020-07-27 Routine Room, [facility] 1.2.840.1 14 [id number] Univers 14:50:23 16:18:54 Robert Ren 350.1.13.10 ity of [place] [phone] Mi dical nal 134 [facility] 2020-07-27 2020-07-27 Outpatient R [facility] [id number] Univers 15:00:00 15:00:00 ity of [facility] 2020-07-24 2020-07-24 Routine Thomas Huber [facility] 1.2.772.737 [id number] Univers 09:34:57 10:48:17 Yosef [place] 350.1.13.10 ity of [place] [phone] Mi dical nal [address] [place] [address] 2020-07-24 2020-07-24 Outpatient R [facility] [id number] Univers 10:00:00 10:00:00 ity of [facility] 2020-07-21 2020-07-21 Orders Doctor LEDEZMA 1.2.840.114 [id number] Univers 00:00:00 00:00:00 Only Unassigned, SRI 350.1.13.10 ity of [place] [facility] 4.2.7.2.686 Ravindra as [phone] [facility] [address] [place] 2020-07-21 2020-07-21 Case Thomas Huber [facility] 1.2.823.746 [id number] Univers 00:00:00 00:00:00 Management Yosef [place] 350.1.13.10 it[place] of [place] [phone] Mi dical nal 134 [facility] 2020-07-17 2020-07-17 Outpatient R [facility] [id number] Univers 08:00:00 08:00:00 ity of [facility] 2020-07-13 2020-07-13 Telephone Thomas Huber [facility] 1.2.840.114 [id number] Univers 00:00:00 00:00:00 Cam [place] 350.1.13.10 i ty of [place] [phone] Mi dical nal 134 [facility] 2020-07-10 2020-07-10 Orders Doctor BRISA 1.2.840.114 [id number] Univers 00:00:00 00:00:00 Only Unassigned, SRI 350.1.13.10 ity of [place] [facility] 4.2.7.2.686 Ravindra as [phone] [address] 2020-07-07 2020-07-07 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 Overlock Freddy, Adc [facility] 1.2 .840.114 [id number] Univers 14:48:36 15:18:36 Visit Thomas Huber Yosef [place] 350.1.13.10 ity of [place] [phone] Mi dical nal 134 [facility] 2020-07-07 2020-07-07 Outpatient P [facility] [id number] Univers 15:00:00 15:00:00 ity of [facility] 2020-07-03 2020-07-03 Routine Thomas Huber [facility] 1.2.298.200 [id number] Univers 13:00:47 13:40:01 Cam [place] 350.1.13.10 ity of [place] [phone] Mi dical nal 134 [facility] 2020-07-03 2020-07-03 Cuff Setter Overlock Yessi, Adc [facility] Main [facility] 1.2.8 40.114 [id number] Univers 12:51:19 13:06:19 Visit Thomas Huber Yosef [place] 350.1.13.10 ity of [place] [phone] Mi dical nal 353 [facility] 2020-07-03 2020-07-03 Outpatient R THOMAS HUBER [facility] [id number] Univers 13:00:00 13:00:00 ity of [facility] 2020-06-30 2020-06-30 Nurse Visit, [facility] Nurse [facility] 1.2.840.1 14 [id number] Univers 15:40:48 16:10:48 Visit Satish Walls 350.1.13.10 ity of [place] [phone] [facility] nal 059 [facility] 2020-06-30 2020-06-30 Outpatient R KAVITA [facility] [id number] Univers 16:00:00 16:00:00 SATISH guevara o f [facility] 2020-06-26 2020-06-26 Hospital Thomas Huber [facility] 1.2.840.114 [id number] Univers 12:05:00 17:49:00 Encounter Yosef [place] 350.1.13.10 ity of [place] [phone] [facility] [address] [place] 2020-06-26 2020-06-26 Telephone Thomas Huber [facility] 1.2.840.114 [id number] Univers 00:00:00 00:00:00 Yosef [place]son 350.1.13.10 i ty of [place] [phone] Mi dical nal 134 [facility] 2020-06-21 2020-06-21 Cuff Setter Overlock Yessi, Prabhakar Lab Main [facility] 1.2.8 40.114 [id number] Univers 10:23:29 10:38:29 Visit Robert Ren 350.1.13.10 it[place] of [place] [phone] Mi dical nal 353 [facility] 2020-06-21 2020-06-21 Routine Gela [facility] 1.2.575.438 [id number] Univers 09:04:16 09:51:29 Robert [place] 350.1.13.10 ity of [place] [phone] Mi dical nal 134 [facility] 2020-06-21 2020-06-21 Outpatient R GELA [facility] [id number] Univers 09:00:00 09:00:00 ROBERT ity of [facility] 2020-06-21 2020-06-21 Orders Doctor BRISA 1.2.840.114 [id number] Univers 00:00:00 00:00:00 Only Unassigned, SRI 350.1.13.10 ity of [place] [facility] 4.2.7.2.686 Ravindra as [phone] [facility] [address] [place] 2020-06-07 2020-06-07 Office Percy [facility] 1.2.840.114 [id number] Univers 13:17:24 14:20:00 Visit [facility] 350.1.13.10 it y of [place] [phone] [facility] [address] [place] 2020-06-07 2020-06-07 Outpatient R PERCY [facility] [id number] Univers 13:30:00 13:30:00 [facility] 2020-06-05 2020-06-05 Cuff Setter Overlock 1, [facility] Us Room UNIVERSIT 1 .2.840.114 [id number] Univers 08:57:30 09:57:30 Visit Zully Campos [facility] 350.1.13.10 ity of CL[place] [phone] [facility] [address] 2020-06-05 2020-06-05 Outpatient P [facility] [id number] Univers 09:00:00 09:00:00 ity of [facility] 2020-05-24 2020-05-24 Routine Thomas Huber [facility] 1.2.289.473 [id number] Univers 09:41:08 10:44:24 Cam [place] 350.1.13.10 ity of [place] [phone] Mi dical nal 134 [facility] 2020-05-24 2020-05-24 Outpatient R THOMAS HUBER [facility] [id number] Univers 09:45:00 09:45:00 ity of [facility] 2020-05-24 2020-05-24 Orders Doctor BRISA 1.2.840.114 [id number] Univers 00:00:00 00:00:00 Only Unassigned, SRI 350.1.13.10 ity of [place] [facility] 4.2.7.2.686 Ravindra as [phone] [facility] [address] [place] 2020-05-18 2020-05-18 [facility] 1.2.840.114 [id number] Univers 13:45:00 14:00:00 ne Visit Alanna DIRECTOR OF REGULATORY AFFAIRS 350.1.13.10 i ty of [facility] 4.2.7.2.686 Ravindra as MATERNAL [phone] Med ical & CHILD 109 [facility] 2020-05-18 2020-05-18 Outpatient P [facility] [id number] Univers 13:45:00 13:45:00 ity of [facility] 2020-05-16 2020-05-16 [facility] Thomas Huber [facility] 1.2.840.114 [id number] Univers 06:48:00 10:10:00 Encounter Cam Kandice 350.1.13.10 ity of [place] 4.2.7.2.686 [facility] [phone] [facility] [address] [place] 2020-04-26 2020-04-26 Laboratory Lab, Adc Fam Pob I [facility] 1.2. 840.114 [id number] Univers 09:55:06 10:15:06 Only [facility] 350.1.13.10 ity of [place] 4.2.7.2.686 Ravindra as Professio [phone] Mi dical nal [address] [place] [address] 2020-04-26 2020-04-26 Outpatient R [facility] [id number] Univers 10:00:00 10:00:00 ity of [facility] 2020-04-26 2020-04-26 [facility] [id number] Univers 09:40:00 09:40:00 PERLITA ity of [facility] 2020-04-25 2020-04-25 Routine Gela [facility] 1.2.732.826 [id number] Univers 11:09:08 11:46:35 Robert [place] 350.1.13.10 ity of [place] [phone] [address] 2020-04-25 2020-04-25 Outpatient R GELA [facility] [id number] Univers 11:15:00 11:15:00 ROBERT ity Formerly [facility] 2020-04-24 2020-04-24 Cuff Setter Overlock 1, [facility] Us Room UNIVERSIT 1 .2.840.114 [id number] Univers 09:00:59 10:53:51 Visit Celso Ch [facility] 350.1.13.10 ity of CL[place] [phone] [address] 2020-04-24 2020-04-24 Outpatient P [facility] [id number] Univers 09:15:00 09:15:00 ity of [facility] 2020-04-19 2020-04-19 Telephone Cecile Thomas [facility] 1.2.840.114 [id number] Univers 00:00:00 00:00:00 Cam [place] 350.1.13.10 i ty of [place] [phone] [address] 2020-04-05 2020-04-05 Telephone Thomas Huber [facility] 1.2.840.114 [id number] Univers 00:00:00 00:00:00 Cam [place] 350.1.13.10 i ty of [place] [phone] [address] 2020-04-03 2020-04-03 Outpatient P GARRY MENDEZ [facility] [id number] Univers 10:30:00 10:30:00 ity [facility] 2020-04-03 2020-04-03 Telemedici Alanna Graves [facility] 1.2.8 40.114 [id number] Univers 10:00:14 10:15:14 ne Visit Garry Mendez Nik DIRECTOR OF REGULATORY AFFAIRS 350.1.13.10 ity of [facility] 4.2.7.2.686 Ravindra as MATERNAL [phone] [facility] ical & CHILD [address] [place] [address] 2020-03-29 2020-03-29 Telephone Naomi Huberen [facility] 1.2.840.114 [id number] Univers 00:00:00 00:00:00 Yosef Woodson 350.1.13.10 i ty of [place] [phone] Mi dical nal 134 [facility] 2020-03-28 2020-03-28 Cuff Setter Overlock 2, Adc Lab [facility] 1.2.840.114 [id number] Univers 10:36:42 10:51:42 Visit HuberNaomiartem [place] 350.1.13.10 ity of [place] [phone] Mi dical nal 353 [facility] 2020-03-28 2020-03-28 Outpatient R [facility] [id number] Univers 09:45:00 09:45:00 ity of [facility] 2020-03-27 2020-03-27 Office [facility] 1.2.337.946 [id number] Univers 14:52:43 16:31:25 Visit Yosef Woodson 350.1.13.10 i ty of [place] [phone] Mi dical nal [address] [place] [address] 2020-03-27 2020-03-27 Outpatient R GELA [facility] [id number] Univers 11:15:00 11:15:00 ROBERT ity of [facility] 2020-03-27 2020-03-27 Orders Doctor BRISA 1.2.840.114 [id number] Univers 00:00:00 00:00:00 Only Unassigned, SRI 350.1.13.10 ity of [place] [facility] 4.2.7.2.686 Ravindra as [phone] [address] 2020-03-24 2020-03-24 Telephone Naomi Huberen [facility] 1.2.840.114 [id number] Univers 00:00:00 00:00:00 Yosef [place]son 350.1.13.10 i ty of [place] [phone] Mi dic[address] 2020-03-24 2020-03-24 Telephone Gela [facility] 1.2.840.114 79 [id number] Univers 00:00:00 00:00:00 Robert [place] 350.1.13.10 i ty of [place] [phone] [address] 2020-03-22 2020-03-22 Routine [facility] 1.2.840.425 [id number] Univers 08:50:58 09:46:40 Robert [place] 350.1.13.10 ity of [place] [phone] [address] 2020-03-22 2020-03-22 Outpatient R GELA [facility] [id number] Univers 09:15:00 09:15:00 ROBERT ity of [facility] 2020-03-20 2020-03-20 Telephone Thomas Huber [facility] 1.2.840.114 [id number] Univers 00:00:00 00:00:00 Yosef [place]son 350.1.13.10 i ty of [place] [phone] [address] 2020-03-13 2020-03-13 Outpatient R THOMAS HUBER [facility] [id number] Univers 08:30:00 08:30:00 ity of [facility] 2020-03-13 2020-03-13 Orders Doctor BRISA 1.2.840.114 [id number] Univers 00:00:00 00:00:00 Only Unassigned, SRI 350.1.13.10 ity of [place] [facility] 4.2.7.2.686 Ravindra as [phone] [address] 2020-03-08 2020-03-08 Routine [facility] 1.2.964.479 [id number] Univers 10:13:22 10:51:38 Robert [place] 350.1.13.10 ity of [place] [phone] Mi dical nal 134 [facility] 2020-03-08 2020-03-08 Outpatient Frida REN [facility] [id number] Univers 10:15:00 10:15:00 ROBERT ity of [facility] 2020-03-08 2020-03-08 Telephone [facility] 1.2.840.114 [id number] Univers 00:00:00 00:00:00 Cam [place] 350.1.13.10 i ty of [place].2.[place] [phone] Mi dical nal [address] [place] [address] 2020-03-06 2020-03-06 Telephone Thomas Huber [facility] 1.2.840.114 [id number] Univers 00:00:00 00:00:00 Cam [place] 350.1.13.10 i ty of [place].2.[place] [phone] Mi dical nal 134 [facility] 2020-02-29 2020-02-29 Telephone Thomas Huber [facility] 1.2.840.114 [id number] Univers 00:00:00 00:00:00 Cam [place] 350.1.13.10 i ty of [place].2.[place] [phone] Mi dical nal 134 [facility] 2020-02-28 2020-02-28 Cuff Setter Overlock 2, Adc Lab [facility] 1.2.840.114 [id number] Univers 09:13:47 09:28:47 Visit Thomas Huber [place] 350.1.13.10 ity of [place].2.[place] [phone] Mi dicgaby nal 353 [facility] 2020-02-28 2020-02-28 Routine Thomas Huber [facility] 1.2.972.359 [id number] Univers 08:29:25 09:10:07 Yosef [place] 350.1.13.10 ity of [place].2.[place] [phone] Mi dic[address] 2020-02-28 2020-02-28 Outpatient R THOMAS HUBER [facility] [id number] Univers 08:30:00 08:30:00 ity Formerly [facility] 2020-02-28 2020-02-28 Orders Doctor BRISA 1.2.840.114 [id number] Univers 00:00:00 00:00:00 Only Unassigned, SRI 350.1.13.10 ity of [place] [facility] 4.2.7.2.686 Ravindra as [phone] [address] 2020-02-16 2020-02-16 Orders Doctor BRISA 1.2.840.114 [id number] Univers 00:00:00 00:00:00 Only Unassigned, SRI 350.1.13.10 ity of [place] [facility] 4.2.7.2.686 Ravindra as [phone] [address] 2020-02-14 2020-02-14 Outpatient P [facility] [id number] Univers 13:30:00 13:30:00 ity Formerly [facility] 2020-02-10 2020-02-10 [facility] [id number] Univers 08:45:00 08:45:00 ALEXIS ity Formerly [facility] 2020-02-03 2020-02-03 Telephone [facility] 1.2.840.114 [id number] Univers 00:00:00 00:00:00 Cam [place] 350.1.13.10 i ty of [place] [phone] [address] 2020-02-03 2020-02-03 Refill [facility] 1.2.009.781 [id number] Univers 00:00:00 00:00:00 Cam [place] 350.1.13.10 i ty of [place].2.[place] [phone] [address] 2020-01-31 2020-01-31 Outpatient R [facility] [id number] Univers 08:00:00 08:00:00 ity [facility]ly [facility] 2020-01-31 2020-01-31 Telephone [facility] 1.2.840.114 [id number] Univers 00:00:00 00:00:00 Alexis Nelson DIRECTOR OF REGULATORY AFFAIRS 350.1.13.10 it y of REGIONAL 4.2.7.2.686 Ravindra as MATERNAL [phone] Med ical & CHILD [address] [place] [address] 2020-01-24 2020-01-24 Cuff Setter Overlock 2, Adc Lab [facility] 1.2.840.114 [id number] Univers 09:15:54 09:30:54 Visit Thomas Huber Yosef [place] 350.1.13.10 ity of [place] [phone] [facility] 353 [facility] 2020-01-24 2020-01-24 Initial [facility] 1.2.279.349 [id number] Univers 08:03:13 09:12:06 Yosef Woodson 350.1.13.10 ity of [place] [phone] [facility] 134 [facility] 2020-01-24 2020-01-24 Outpatient R THOMAS HUBER [facility] [id number] Univers 08:00:00 08:00:00 ity of [facility] 2020-01-24 2020-01-24 Orders Doctor BRISA 1.2.840.114 [id number] Univers 00:00:00 00:00:00 Only Unassigned, SRI 350.1.13.10 ity of [place] [facility] 4.2.7.2.686 Ravindra as [phone] [address] 2020-01-24 2020-01-24 Telephone [facility] 1.2.840.114 [id number] Univers 00:00:00 00:00:00 Yosef [place] 350.1.13.10 i ty of [place] [phone] [facility] 134 [facility] 2020-01-19 2020-01-[address] [facility] [id number] Univers 10:00:00 10:00:00 ity of [facility] 2020-01-17 2020-01-17 Cuff Setter Overlock Lab, [facility] 1.2.840. 114 [id number] Univers 09:51:45 10:06:45 Visit Alexis Sandoval DIRECTOR OF REGULATORY AFFAIRS 350.1.13.10 ity of [facility] 4.2.7.2.686 Ravindra as MATERNAL [phone] Med ical & CHILD [address] [place] [address] 2020-01-17 2020-01-17 Cuff Setter Overlock Lab, [facility] 1.2.840.114 [id number] 09:51:45 10:06:45 [facility]OR OF REGUL[facility] AFFAIRS 350.1.13.10 REGIONAL 4.2.7.2.686 MATERNAL [phone] & CHILD [address] [place] [address] 2020-01-17 2020-01-17 [facility] [id number] Univers 08:15:00 08:15:00 ALEXIS guevara [facility] 2020-01-13 2020-01-13 Initial [facility] 1.2.904.442 [id number] Univers 09:53:02 10:23:02 Alexis Nelson DIRECTOR OF REGULATORY AFFAIRS 350.1.13.10 i ty of Visit [facility] 4.2.7.2.686 Ravindra as MATERNAL [phone] Med ical & CHILD [address] [place] [address] 2020-01-13 2020-01-13 Initial [facility] 1.2.560.552 [id number] 09:53:02 10:23:02 Alexis N DIRECTOR OF REGULATORY AFFAIRS 350.1.13.10 Visit [facility] 4.2.7.2.686 MATERNAL [phone] & CHILD [address] [place] [address] 2020-01-13 2020-01-13 [facility] [id number] Univers 09:45:00 09:45:00 ALEXIS guevara [facility] 2020-01-11 2020-01-11 Emergency [facility] 1.2.840.114 [id number] Univers 14:45:00 18:12:00 Nancy Woodson 350.1.13.10 ity [facility] 4.2.7.2.686 [place] [phone] [address] 2020-01-11 2020-01-11 Emergency [facility] 1.2.840.114 [id number] 14:45:00 18:12:00 Nancy Woodson [id number] [place] 4.2.7.2.686 [place] [id number] 082020-01-11 2020-01-11 Emergency [facility] E[facility] [id number] Univers 14:45:00 14:45:00 NANCY guevara [facility] 2020-01-11 2020-01-11 BRISA Cooper [id number] Univers 00:00:00 00:00:00 Triage Libia Cox SRI [id number] i ty of [place] [id number] [place] [address] [id number] 2020-01-11 2020-01-11 BRISA Cooper 1.2.840.114 [id number] 00:00:00 00:00:00 Triage Libiaglenroy FIERRO [id number] [place] [address]..[id number] 2019-12-06 2019-12-06 Emergency [facility] [id number] [facility] 12:49:46 14:26:00 Agustinamiguel Woodson 350.1.13.10 i ty [facility] 4.2.7.2.686 [facility] [phone] [address] 2019-12-06 2019-12-06 [facility] [id number] 12:49:46 14:26:00 Agustina Woodson 350.1.13.10 [place] 4.2.7.2.686 [place] [id number] [facility] 2019-12-06 2019-12-06 Emergency X [facility] ERT [id number] Univers 12:28:00 12:28:00 [facility] This patient has no known results.
--- NOTE | 2022-12-31 22:38 | RAD REPORT ---
EXAM DESCRIPTION: CT - Abdomen Pelvis W Contrast - 12/31/2022 10:20 pm CLINICAL HISTORY: Abdominal pain COMPARISON: none. TECHNIQUE: Computed axial tomography of the abdomen pelvis was obtained. 100 cc Isovue-300 was admin istered intravenously. Oral contrast was not requested which limits evaluation of bowel and appendix All CT scans are performed using dose optimization technique as appropriate and may include automated exposure control or mA/KV adjustment according to patient size. FINDINGS: Fatty liver. Cholecystectomy. Borderline splenomegaly. Pancreas, adrenals and kidneys are unremarkable. No evidence of diverticulitis. An abnormal appendix is not seen. No adnexal mass. Tiny umbilical hernia IMPRESSION: No acute abnormality is displayed.
[2022-12-31 22:51] LABS: Specific Gravity 1.027 (1.005-1.030)
[2022-12-31] MEDS ORDERED: KETOROLAC 30 MG/ML INJ ONE (22:51)
[2022-12-31] MEDS ORDERED: METOCLOPRAMIDE 10 MG/2mL INJ ONE (22:51)
[2022-12-31] MEDS ORDERED: MORPHINE 4 MG/ML SYR ONE (22:51)
[2022-12-31] MEDS ORDERED: NA CHLORIDE 0.9% 1,000 ML ONE (22:52)
[2022-12-31] MEDS ORDERED: DICYCLOMINE HCL 20 MG/2 ML AMP IM ONE (22:52)
[2022-12-31 22:54] LABS: Absolute Lymphocytes (CBC) 2.5 K/uL (0.7-4.9); Hematocrit 31.2 % (36.0-45.0); Lymphocytes % 28.7 % (15.3-44.8); MCV 75.9 fL (80-100); MPV 8.4 fL (7.6-11.3); RBC Red Blood Cell Count 4.11 M/uL (3.86-4.86)
[2022-12-31 23:00] LABS: Specific Gravity 1.027 (1.005-1.030); Urine Bacteria None Seen /HPF (<20); Urine Bilirubin NEGATIVE (Negative); Urine Blood Negative (Negative); Urine Clarity Extremely Turbid (Clear); Urine Color Yellow (Yellow); Urine Glucose NEGATIVE (Negative); Urine Mucus Slight /HPF (None Seen); Urine Protein TRACE (Negative); Urine Urobilinogen Normal (Normal)
[2022-12-31 23:04] LABS: Albumin 2.9 g/dL (3.4-5.0); Bilirubin Total 0.3 mg/dL (0.2-1.0); Potassium 3.7 mEq/L (3.5-5.1); Protein, Total 6.6 g/dL (6.4-8.2)
--- NOTE | 2022-12-31 23:43 | EDPHYS ---
Physician Documentation [facility] Name: Zaina Roberson Age: 27 yrs Sex: Female : 1995 Arrival Date: 12/31/2022 Time: 20:50 Bed 7 Private MD: ED Physician William Light HPI: 12/31 20:56 This 27 yrs old Female presents to ER via Unassigned with complaints of sp4 Headache, Abdominal Pain. 21:19 27-year-old female with past medical history cholecystectomy bilateral tubal ligation sp4 as well in 2020 presents with a cute onset of right lower quadrant abdominal pain associated with right flank and right back pain for the past 3 days associated with nausea. Patient states she has prior history of kidney stones as well. No known drug allergies. Patient reports pain is constant moderate to severe. Pain is worse with ambulation. Historical: - Allergies: 21:03 NKDA; cm10 - PSHx: 21:03 Cholecystectomy; tubal ligation; cm10 - Immunization history:: Adult Immunizations up to date. - Social history:: Smoking status: Reported history of juuling and/or vaping. - Family history:: not pertinent. ROS: 21:19 Constitutional: Negative for fever, chills, and weight loss, Abdomen/GI: Negative sp4 vomiting, diarrhea, and constipation, positive for right lower abdominal pain, positive right flank pain, positive nausea 21:19 All other systems are negative. Exam: 21:19 Constitutional: This is a well developed, well nourished patient who is awake, alert, sp4 and in no acute distress. Uncomfortable appearing but nontoxic-appearing Head/Face: Normocephalic, atraumatic. Eyes: Pupils equal round and reactive to light, extra-ocular motions intact. Lids and lashes normal. Conjunctiva and sclera are not injected. Cornea within normal limits. Periorbital areas with no swelling, redness, or edema. ENT: Nares patent. No nasal discharge, no septal abnormalities noted. Tympanic membranes are normal and external auditory canals are clear. Oropharynx with no redness, swelling, or masses, exudates, or evidence of obstruction, uvula midline. Mucous membranes moist. Neck: Trachea midline, no thyromegaly or masses palpated, and no cervical lymphadenopathy. Supple, full range of motion without nuchal rigidity, or vertebral point tenderness. Chest/axilla: Normal chest wall appearance and motion. Nontender with no deformity. No lesions are appreciated. Cardiovascular: Regular rate and rhythm with a normal S1 and S2. No gallops, murmurs, or rubs. Normal PMI, no JVD. No pulse deficits. Respiratory: Lungs have equal breath sounds bilaterally, clear to auscultation and percussion. No rales, rhonchi or wheezes noted. No increased work of breathing, no retractions or nasal flaring. Abdomen/GI: Soft, with normal bowel sounds. No distension or tympany. No guarding or rebound. Positive right lower quadrant abdominal tenderness, body habitus limits examination Back: No spinal tenderness. No costovertebral tenderness. Skin: Warm, dry with normal turgor. Normal color with no rashes, no lesions, and no evidence of cellulitis. MS/ Extremity: Pulses equal, no cyanosis. Neurovascular intact. Full, normal range of motion. Neuro: Awake and alert, GCS 15, oriented to person, place, time, and situation. Cranial nerves II-XII grossly intact. Motor strength 5/5 in all extremities. Sensory grossly intact. Psych: Awake, alert, with orientation to person, place and time. Behavior, mood, and affect are within normal limits Vital Signs: 21:01 BP 144 / 100; Pulse 100; Resp 18; Temp 98.2; Pulse Ox 100% ; Weight 109.77 kg; Height 5 cm10 ft. 6 in. ; Pain 10/10; 01/01 00:04 BP 139 / 82; Pulse 79; Resp 18 S; Pulse Ox 99% on R/A; as6 12/31 21:01 Body Mass Index 39.06 (109.77 kg, 167.64 cm) cm10 12/31 21:01 Pain Scale: Adult cm10 [place] Coma Score: 12/31 23:39 Eye Response: spontaneous(4). Motor Response: obeys commands(6). Verbal Response: sp4 oriented(5). Total: 15. MDM: 20:57 Patient medically screened. sp4 23:39 Differential diagnosis: hypoglycemia, migraine, tension headache, vasomotor headache, sp4 Kidney stone. Data reviewed: vital signs, nurses notes, old medical records, lab test result(s), radiologic studies, CT scan. Consideration of Admission/Observation Escalation of care including admission/observation considered. ED course: CT abdomen pelvis with IV contrast is normal today.. ED course: Labs fairly unremarkable patient has asymptomatic bacteriuria. Patient on repeat assessment states that pain is worse with movement and is mostly in the right lower back. Patient likely has lumbar strain with pain radiation to right lower quadrant. ED course: No sign of emergent or dangerous medical problem. At this time patient is stable for discharge home. 12/31 20:57 Order name: CBC with Diff; Complete Time: 23:41 sp4 12/31 20:57 Order name: CMP; Complete Time: 23:25 sp4 12/31 20:57 Order name: Lipase; Complete Time: 23:25 sp4 12/31 20:57 Order name: Test, Urine; Complete Time: 23:25 sp4 12/31 20:57 Order name: Urinalysis w/ reflexes; Complete Time: 23:25 4 12/31 23:03 Order name: Urine Culture [facility] 12/31 23:07 Order name: CREATININE WHOLE BLOOD; Complete Time: 23:25 [facility] 12/31 21:18 Order name: CT Abd/Pelvis - IV Contrast Only; Complete Time: 22:54 sp4 12/31 20:57 Order name: IV Saline Lock; Complete Time: 22:38 sp4 12/31 20:57 Order name: Labs collected and sent; Complete Time: 22:38 sp4 Administered Medications: 22:54 Drug: Ketorolac IVP 30 mg Route: IVP; Site: right antecubital; 01/01 00:02 Follow up: Response: No adverse reaction 12/31 22:54 Drug: metoCLOPramide IVP 10 mg Route: IVP; Site: right antecubital; 01/01 00:02 Follow up: Response: No adverse reaction as12/31 22:54 Drug: NS 0.9% IV 1000 ml Route: IV; Rate: 1 bolus; Site: right antecubital; 01/01 00:02 Follow up: IV Status: Completed infusion; IV Intake: 1000ml as 00:02 Follow up: Response: No adverse reaction as12/31 22:54 Drug: Dicyclomine IM 20 mg Route: IM; Site: right deltoid; 01/01 00:02 Follow up: Response: No adverse reaction as6 12/31 22:55 Drug: morphine IVP or IV 4 mg Route: IVP; Infused Over: 4 mins; Site: right antecubital;lg3 01/01 00:02 Follow up: Response: No adverse reaction as 00:02 Drug: Cyclobenzaprine PO 10 mg Route: PO; as6 00:03 Follow up: Response: No adverse reaction as 00:02 Drug: Ibuprofen PO 800 mg Route: PO; as 00:03 Follow up: Response: No adverse reaction as6 Disposition Summary: 12/31/22 23:42 Discharge Ordered Location: Home sp4 Problem: new sp4 Symptoms: have improved sp4 Condition: Stable sp4 Diagnosis - Lumbar sprain, acute back pain, asymptomatic bacteriuria, sp4 Followup: sp4 - With: Private Physician - When: 5 - 6 days - Reason: Discharge Instructions: - Discharge Summary Sheet sp4 - Acute Back Pain, Adult sp4 Forms: - Work release form vc1 - Patient Portal Instructions sp4 Prescriptions: - naproxen 250 mg Oral tablet - take 2 tablet by ORAL route every 12 hours PRN pain; 30 tablet; Refills: 0, sp4 Product Selection Permitted - Cyclobenzaprine 10 mg Oral Tablet - take 1 tablet by ORAL route every 8 hours As needed PRN muscle soreness; 30 sp4 tablet; Refills: 0, Product Selection Permitted Signatures: Dispatcher [employer] Rosie Cantrell RN RN lg3 Clinton Ingram, RN RN as6 William Light MD MD sp4 Maeve Hall RN RN cm10
--- NOTE | 2022-12-31 23:43 | ER ---
Nurse's Notes [facility] Name: Zaina Roberson Age: 27 yrs Sex: Female : 1995 Arrival Date: 12/31/2022 Time: 20:50 Bed 7 Private MD: Diagnosis: Lumbar sprain, acute back pain, asymptomatic bacteriuria, Presentation: 12/31 21:01 Chief complaint: Patient states: RLQ abdominal pain that radiates to back onset 3 days cm10 ago. Pt states that walking makes the pain worse. Pt also reports migraine X3 days that has not been getting better. Pt states blurred vision, vomiting and and dizziness. Coronavirus screen: Vaccine status: Patient reports being unvaccinated. Ebola Screen: No symptoms or risks identified at this time. Initial Sepsis Screen: Does the patient meet any 2 criteria? No. Patient's initial sepsis screen is negative. Does the patient have a suspected source of infection? No. Patient's initial sepsis screen is negative. Risk Assessment: Do you want to hurt yourself or someone else? Patient reports no desire to harm self or others. Onset of symptoms was December 31, 2022. 21:01 Method Of Arrival: Ambulatory cm10 21:01 Acuity: SAFIA 3 cm10 Historical: - Allergies: 21:03 NKDA; cm10 - PSHx: 21:03 Cholecystectomy; tubal ligation; cm10 - Immunization history:: Adult Immunizations up to date. - Social history:: Smoking status: Reported history of juuling and/or vaping. - Family history:: not pertinent. Screenin:55 [facility] ED Fall Risk Assessment (Adult) History of falling in the last 3 months, lg3 including since admission No falls in past 3 months (0 pts). Abuse screen: Denies threats or abuse. Denies injuries from another. Nutritional screening: No deficits noted. Tuberculosis screening: No symptoms or risk factors identified. Assessment: 22:55 General: Appears in no apparent distress. uncomfortable, Behavior is calm, cooperative. lg3 Pain: Complains of pain in head, abdomen and back. Neuro: No deficits noted. [place] Agitation-Sedation Scale (RASS): 0 - Alert and Calm Level of Consciousness is awake, alert, obeys commands, Oriented to person, place, time, situation. Cardiovascular: No deficits noted. Denies chest pain, shortness of breath, Capillary refill < 3 seconds Clubbing of nail beds is absent JVD is absent Patient's skin is warm and dry. Respiratory: No deficits noted. Airway is patent Respiratory effort is even, unlabored, Respiratory pattern is regular, symmetrical. GI: Abdomen is round non-distended, obese, Reports lower abdominal pain, cramping, nausea. : No deficits noted. No signs and/or symptoms were reported regarding the genitourinary system. EENT: No deficits noted. No signs and/or symptoms were reported regarding the EENT system. Derm: No deficits noted. No signs and/or symptoms reported regarding the dermatologic system. Skin is intact, is healthy with good turgor, Skin is dry, Skin is normal, Skin temperature is warm. Musculoskeletal: No deficits noted. No signs and/or symptoms reported regarding the musculoskeletal system. Circulation, motion, and sensation intact. Range of motion: intact in all extremities. Vital Signs: 21:01 BP 144 / 100; Pulse 100; Resp 18; Temp 98.2; Pulse Ox 100% ; Weight 109.77 kg; Height 5 cm10 ft. 6 in. ; Pain 10/10; 01/01 00:04 BP 139 / 82; Pulse 79; Resp 18 S; Pulse Ox 99% on R/A; as6 12/31 21:01 Body Mass Index 39.06 (109.77 kg, 167.64 cm) cm10 08 21:01 Pain Scale: Adult cm10 [place] Coma Score: 12/31 23:39 Eye Response: spontaneous(4). Motor Response: obeys commands(6). Verbal Response: sp4 oriented(5). Total: 15. ED Course: 20:54 Patient arrived in ED. ag3 20:56 William Light MD is Attending Physician. sp4 21:03 Triage completed. cm10 21:03 Arm band placed on Patient placed in waiting room. cm10 22:22 CT Abd/Pelvis - IV Contrast Only In Process Unspecified. EDMS 22:47 Inserted saline lock: 22 gauge in right antecubital area, using aseptic technique. lg3 Blood collected. 22:47 CBC with Diff Sent. lg3 22:47 CMP Sent. lg3 22:47 Lipase Sent. lg3 22:47 Test, Urine Sent. lg3 22:47 Urinalysis w/ reflexes Sent. lg3 22:54 Rosie Downey, RN is Primary Nurse. lg3 22:55 Patient has correct armband on for positive identification. Placed in gown. Bed in low lg3 position. Call light in reach. Side rails up X 1. Client placed on continuous cardiac and pulse oximetry monitoring. NIBP monitoring applied. Door closed. Noise minimized. Warm blanket given. Family accompanied patient. 22:55 Patient maintains SpO2 saturation greater than 95% on room air. 3 01/01 00:03 Provided Education on: discharge teaching. as6 00:04 No provider procedures requiring assistance completed. IV discontinued, intact, as6 bleeding controlled, No redness/swelling at site. Pressure dressing applied. Administered Medications: 12/31 22:54 Drug: Ketorolac IVP 30 mg Route: IVP; Site: right antecubital; [facility] 01/01 00:02 Follow up: Response: No adverse reaction as6 12/31 22:54 Drug: metoCLOPramide IVP 10 mg Route: IVP; Site: right antecubital; [facility] 01/01 00:02 Follow up: Response: No adverse reaction as6 12/31 22:54 Drug: NS 0.9% IV 1000 ml Route: IV; Rate: 1 bolus; Site: right antecubital; 3 01/01 00:02 Follow up: IV Status: Completed infusion; IV Intake: 1000ml as6 00:02 Follow up: Response: No adverse reaction as6 12/31 22:54 Drug: Dicyclomine IM 20 mg Route: IM; Site: right deltoid; [facility] 01/01 00:02 Follow up: Response: No adverse reaction as6 12/31 22:55 Drug: morphine IVP or IV 4 mg Route: IVP; Infused Over: 4 mins; Site: right antecubital;[facility] 01/01 00:02 Follow up: Response: No adverse reaction as6 00:02 Drug: Cyclobenzaprine PO 10 mg Route: PO; as6 00:03 Follow up: Response: No adverse reaction as6 00:02 Drug: Ibuprofen PO 800 mg Route: PO; as6 00:03 Follow up: Response: No adverse reaction as6 Medication: 00:03 VIS not applicable for this client. as6 Intake: 00:02 IV: 1000ml; Total: 1000ml. as6 Outcome: 12/31 23:42 Discharge ordered by . sp4 01/01 00:03 Discharged to home ambulatory, with significant other. as6 Condition: stable Discharge instructions given to patient, Instructed on discharge instructions, follow up and referral plans. medication usage, Demonstrated understanding of instructions, follow-up care, medications, Prescriptions given X 2. 00:04 Patient left the ED. as6 Signatures: Dispatcher [employer] EDMS Salina Duran 3 Rosie Downey, IRVING RN lg3 Clinton Ingram RN RN as6 Carlyn Mcghee eh4 William Light MD MD sp4 Maeve Hall, RN RN cm10 Corrections: (The following items were deleted from the chart) 12/31 21:48 21:20 Radiology exam delayed due to lab results not completed at this time. eh4 (BUN/Creatinine) test not completed at this time. IV insertion attempt and/or patient not having appropriate IV at this time. eh4
[2022-12-31] MEDS ORDERED: IBUPROFEN 400 MG TAB ONE (23:56)
[2022-12-31] MEDS ORDERED: CYCLOBENZAPRINE 10 MG TAB ONE (23:56)
[2023-01-01 00:27] VITALS: TEMP 98.2
[2023-01-01 00:29] VITALS: BP 139/82; O2SAT 99
== END 2023-01-01 00:04 | disposition home or self-care (01) ==
LOC: ER 20:50
DX: S33.5XXA Sprain of ligaments of lumbar spine, initial encounter (principal); R82.71 Bacteriuria; R10.31 Right lower quadrant pain
CPT/HCPCS: 96361; 87088; 85025; 81001; 87086; 36415; 81025; 82565; 83690; 80053; 74177; 96375; 96372; 96374; 99285; Q9967; J2765; J0500; J7030

== ENCOUNTER 2023-01-13 13:38 | Emergency (ER) | payer OTHER ==
--- OUTSIDE RECORDS SUMMARY | 2023-01-13 13:48 | XMS REPORT | Continuity of Care Document ---
:1995 Author Organization [facility] t Address [address] [place] [address] Care Team Providers Name Role Phone THOMAS HUBER Primary Care Physician Unavailable THOMAS HUBER Attending Clinician Unavailable Thomas Huber MD Attending Clinician Pob, [facility] Lab Main Attending Clinician Unavailable Doctor Unassigned, [place] Attending Clinician Unavailable WOODY HAGEN Attending Clinician Unavailable Nicho INDUSTRIAL ELECTRICIAN JOURNEYMAN, Danette Snell Attending Clinician Marcial Muñoz CRNA Attending Clinician Poli Massey MD, Laz Attending Clinician Only, [facility] Test Attending Clinician Unavailable ABEL SHEPPARD Attending Clinician Unavailable ABEL SHEPPARD Attending Clinician Unavailable Woody Hagen MD Attending Clinician Pita Urias MD Attending Clinician PITA URIAS Attending Clinician Unavailable Abel Sheppard MD Attending Clinician Evan Orellana DO Attending Clinician Zully Campos MD Attending Clinician Celso Ch MD Attending Clinician CELSO CH Attending Clinician Unavailable CELSO CH Attending Clinician Unavailable Room, [facility] Nst Attending Clinician Unavailable Ultrasound, [facility] Mfm Attending Clinician Unavailable Jerome Paul MD, [place] Attending Clinician [phone] Lisa Naidu MD Attending Clinician Robert Ren PA-C Attending Clinician Visit, [facility] Nurse Attending Clinician Unavailable Satish Walls MD Attending Clinician SATISH WALLS Attending Clinician Unavailable ROBERT REN Attending Clinician Unavailable 1, [facility] Usg Room Attending Clinician Unavailable Alanna Graves Attending Clinician Unavailable Lab, [facility] Fam Pob I Attending Clinician Unavailable Ivana Valverde Attending Clinician PERLITA THOMASON Attending Clinician Unavailable GARRY MENDEZ Attending Clinician Unavailable Garry Mendez MD Attending Clinician 2, [facility] Lab Attending Clinician Unavailable ALEXIS SANDOVAL Attending Clinician Unavailable Alexis Price Attending Clinician Lab, [facility] Attending Clinician Unavailable Nancy Sandoval DO Attending Clinician NANCY SANDOVAL Attending Clinician Unavailable Aguilar VILLATORO, Libia Cox Attending Clinician Unavailable Agustina Ruelas Attending Clinician THOMAS HUBER Admitting Clinician Unavailable ZULLY CAMPOS Admitting Clinician Unavailable Thomas Huber MD Admitting Clinician Zully Campos MD Admitting Clinician Lisa Naidu MD Admitting Clinician Payers Payer Name Policy Type Policy Number Effective Date Expiration Date [facility] [id number] 2020 [facility] MEDICAID 00:00:00 [place]ID OF [place] [id number] 2020 00:00:00 Problems Condition Condition Condition Status Onset Resolution Last Treating Co mments Source Name Details Category Date Date Treatment Clinician Date Disease Active U nivers depression depression 4-19 it y of 00:00: [place] 00 Medical Branch Headache Headache Disease Active Unive rs due to due to 3-12 [place] of [place] 00 Vt dical Branch 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 00:00: [place] ventricle ventricle 00 Medi asad Branch Other Other Disease Active Univers headache headache 2-27 ity of syndrome syndrome 00:00: [address] Chronic Chronic Disease Active Univers hypertensi hypertensi 2-01 it y of on on 00:00: [address] Papanicola Papanicola Disease Active U nivers [...] nivers y y 8-18 ity of 00:00: [address] Allergies, Adverse Reactions, Alerts Allergy Allergy Status Severity Reaction(s) Onset Inactive Treating Comm ents Source Name Type Date Date Clinician NO KNOWN Drug Active Univers ALLERGIE Class ity of S [facility] Social History Social Habit Start Date Stop Date Quantity Comments Source Exposure to Not sure [place] of SARS-CoV-2 [facility] (event) Branch History of Smoker University of tobacco use [facility] Alcohol intake 2021-03-21 2021-03-21 Ex-drinker University 00:00:00 00:00:00 (finding) [facility] Tobacco use and 2020-01-13 2020-01-13 Never used Universit y of exposure 00:00:00 00:00:00 [facility] Sex Assigned At [birth year] Universit y of 00:00:00 00:00:00 [facility] Smoking Status Start Date Stop Date Source Former smoker 2020-01-13 00:00:00 2020-01-13 00:00:00 Universi ty [facility] Medications Ordered Filled Start Stop Current Ordering Indication Dosage Frequency Signature Comments Components Source Medication Medication Date Date Medication? Clinician (SIG) Name Name maalox:diph 2020- No [id number] 15mL Take 15 mL Univers enhydrAMINE 7-31 10-20 by mouth 4 i ty of :lidocaine 00:00[place] 00[place]four[place] 2 % viscous 00 :00 times Medical 1:1:1 daily as Branch needed (pharyngit is). SERTraline Yes [id number] 25mg Take 1 U nivers (ZOLOFT) 25 5-26 tablet by ity of mg tablet 00:00: mouth [place] 00 daily. Medical Branch SERTraline Yes [id number] 25mg Take 1 U nivers (ZOLOFT) 25 5-26 tablet by ity of mg tablet 00:00: mouth [place] 00 daily. Medical Branch SERTraline Yes [id number] 25mg Take 1 U nivers (ZOLOFT) 25 5-26 tablet by ity of mg tablet 00:00: mouth [place] 00 daily. Medical Branch 202- No [id number] 1{tbl} Take 1 Univers vitamin 3-18 10-20 tablet by ity of w/FA tablet 00:00[place] daily. [facility] Immunizations Ordered Filled Immunization Date Status Comments [facility] e Immunization Name Name TDAP 2020-06-[address] [facility] 00:00:00 [facility] TDAP 2020-06-[address] [facility] 00:00:00 [facility] TDAP 2020-06-[address] [facility] 00:00:00 [facility] Vital Signs Vital Name Observation Time Observation Value Comments Source Systolic blood 2021-03-21 20:11:00 129 mm[Hg] Univer sity of pressure [facility] Diastolic blood 2021-03-21 20:11:00 87 mm[Hg] [facility] Heart rate 2021-03-21 20:11:00 88 /min [facility] Body temperature 2021-03-21 20:11:00 36.89 [facility] Respiratory rate 2021-03-21 20:11:00 18 /min [facility] Body height 2021-03-21 20:11:00 165.1 cm [facility] Body weight 2021-03-21 20:11:00 124.286 kg [facility] BMI 2021-03-21 20:11:00 45.60 kg/m2 Universi ty of [facility] Procedures This patient has no known procedures. Encounters Start End Encounter Admission Attending Care Care Encounter Source Date/Time Date/Time Type Type Clinicians Facility Department ID 2021-04-02 Emergency [facility] [id number] Univers 12:12:16 ity of [facility] 2021-04-01 Outpatient R THOMAS HUBER [facility] RN RADIATION ONCOLOGY [id number] Univers 16:27:17 ity of [facility] 2021-04-01 Outpatient P [facility] [id number] Univers 06:10:40 ity of [facility] 2021-04-01 Outpatient P [facility] [id number] Univers 05:44:28 ity of [facility] 2021-04-01 Outpatient [facility] [id number] Univers 01:36:48 ity of [facility] 2021-03-31 Outpatient P [facility] [id number] Univers 19:31:52 ity [facility] 2021-03-31 Outpatient P [facility] [id number] Univers 19:22:14 ity of [facility] 2021-03-31 Outpatient P [facility] [id number] Univers 11:20:46 ity of [facility] 2021-03-31 Outpatient P [facility] [id number] Univers 11:16:36 ity [facility] 2021-03-26 2021-03-26 Telephone Thomas Huber [facility] 1.2.840.114 [id number] Univers 00:00:00 00:00:00 Yosef Woodson [id number] [id number] Profess[place] [phone] Vt dical nal [address] [facility] 2021-03-21 2021-03-21 Geology Associate Yessi, Prabhakar Lab Main [facility] 1.2.8 40.114 [id number] Univers 16:11:30 16:26:30 Visit Thomas Huber [id number] [id number] [phone] Vt dical nal 353 [facility] 2021-03-21 2021-03-21 Office Thomas Huber [facility] 1.2.241.316 [id number] Univers 14:49:10 15:45:16 Visit Yosef Kandice [id number] [id number] [phone] [facility] [address] [facility] 2021-03-21 2021-03-21 Outpatient R THOMAS HUBER [facility] [id number] Univers 15:00:00 15:00:00 ity of [facility] 2021-03-21 2021-03-21 Orders Doctor BRISA 1.2.840.114 [id number] Univers 00:00:00 00:00:00 Only Unassigned, SRI 350.1.13.10 [facility]y of [facility] 4.2.7.2.686 Ravindra as [phone] [facility] [address] 2021-01-24 2021-01-24 Outpatient R PERCY [facility] [id number] Univers 08:15:00 08:15:00 HUMAIR ity [facility] 2020-12-30 2020-12-30 Emergency [facility] [id number] Univers 13:10:00 15:36:00 Danette Snlel Kandice 350.1.13.10 ity [facility] [id number] [place] [phone] [facility] [address] 2020-11-23 2020-11-23 Outpatient R THOMAS HUBER [facility] [id number] Univers 09:30:00 09:30:00 ity of [facility] 2020-10-25 2020-10-25 Office [facility] [id number] Univers 14:39:08 16:21:33 Visit Yosef Kandice 350.1.13.10 [place] [phone] [address] 2020-10-25 2020-10-25 Outpatient R THOMAS HUBER [facility] [id number] Univers 15:00:00 15:00:00 ity [facility] 2020-10-20 2020-10-20 Case Thomas Huber [facility] 1.2.265.555 [id number] Univers 00:00:00 00:00:00 Management [place] [id number] [place] [phone] [address] 2020-10-18 2020-10-18 Orders Doctor BRISA 1.2.840.114 [id number] Univers 00:00:00 00:00:00 Only Unassigned, SRI 350.1.13.10 ity of [place] [facility] 4.2.7.2.686 Ravindra as [phone] [address] 2020-10-16 2020-10-16 Outpatient R THOMAS HUBER [facility] [id number] Univers 15:00:00 15:00:00 ity of [facility] 2020-10-13 2020-10-13 Telephone Thomas Huber [facility] 1.2.840.114 [id number] Univers 00:00:00 00:00:00 [place] 350.1.13.10 [id number] [phone] Vt dic[address] 2020-10-12 2020-10-12 Telephone Thomas Huber [facility] 1.2.840.114 [id number] Univers 00:00:00 00:00:00 [place] 350.1.13.10 i [id number] [phone] Vt dic[address] 2020-10-10 2020-10-10 [facility] 1.2.840.114 [id number] Univers 06:27:00 10:28:00 Encounter [place] [id number] [place] Surgical [phone] [address] 2020-10-10 2020-10-10 Surgery [facility] 1.2.747.851 [id number] Univers 07:30:00 09:35:00 Cam [place] 350.1.13.10 [place] Surgical [phone] [facility] 020 Branch 2020-10-10 2020-10-10 Anesthesia Marcial Muñoz [facility] 1.2.840.11 [id number] Univers 07:19:00 08:45:00 Event Laz [place] 350.1.13.10 [place] Surgical [phone] [facility] 020 Branch 2020-10-09 2020-10-09 Geology Associate Yessi, Adc Lab Main [facility] 1.2.8 40.114 [id number] Univers 08:15:53 08:30:53 Visit Thomas Huber 350.1.13.10 [place] [phone] Vt dical formerly [facility] 353 [facility] 2020-10-09 2020-10-09 Laboratory Only, Adc Test [facility] 1.2.840. 114 [id number] Univers 08:14:50 08:29:50 Only Thomas Huber 350.1.13.10 [place] [phone] [facility] [address] 2020-10-09 2020-10-09 Outpatient R THOMAS HUBER [facility] [id number] Univers 08:15:00 08:15:00 ity of [facility] 2020-10-09 2020-10-09 Orders Doctor BRISA 1.2.840.114 [id number] Univers 00:00:00 00:00:00 Only Unassigned, SRI 350.1.13.10 ity of [place] [facility] 4.2.7.2.686 Ravindra as [phone] [facility] 009 Branch 2020-10-06 2020-10-06 Telephone Thomas Huber [facility] 1.2.840.114 [id number] Univers 00:00:00 00:00:00 Yosef Woodson 350.1.13.10 [place] [phone] Vt dical nal [address] [place] [address] 2020-10-03 2020-10-03 Outpatient R ABEL SHEPPARD [facility] [id number] Univers 09:40:00 09:40:00 ABEL SHEPPARD ity of [facility] 2020-10-03 2020-10-03 Telephone Thomas Huber [facility] 1.2.840.114 [id number] Univers 00:00:00 00:00:00 Cam [place] 350.1.13.10 [id number] [phone] Vt dical nal [address] [place] [address] 2020-10-02 2020-10-02 Telephone Thomas Huber [facility] 1.2.840.114 [id number] Univers 00:00:00 00:00:00 Cam [place] 350.1.13.10 [place] [phone] Vt dic[address] 2020-09-27 2020-09-27 Office Thomas Huber [facility] 1.2.629.268 [id number] Univers 15:09:45 16:42:32 Visit Cam [place] 350.1.13.10 [place] [phone] [address] 2020-09-27 2020-09-27 Office Percy [facility] 1.2.840.114 [id number] Univers 08:09:42 09:39:41 Visit [facility] [id number] it y of [place].2.[place].2.[place] C[place] [phone] [address] 2020-09-27 2020-09-27 Outpatient R PERCY [facility] [id number] Univers 08:15:00 08:15:00 HUMAIR ity of [facility] 2020-09-27 2020-09-27 Orders Doctor LEDEZMA 1.2.840.114 [id number] Univers 00:00:00 00:00:00 Only Unassigned, SRI 350.1.13.10 ity of [place] [facility] 4.2.7.2.686 Ravindra as [phone] [facility] 009 Branch 2020-09-21 2020-09-21 [facility] 1.2.840.114 [id number] Univers 14:15:57 14:30:57 Visit Health 350.1.13.10 it [place] [phone] [facility] [address] Office Building 2020-09-21 2020-09-21 Out[facility] [id number] Univers 14:15:00 14:15:00 ity of [facility] 2020-09-21 2020-09-21 Telephone Kasandra [facility] 1.2.840.114 [id number] Univers 00:00:00 00:00:00 Health 350.1.13.10 it [place] [phone] [facility] [address] Office [address] 2020-09-19 2020-09-19 Hospital Thomas Huber [facility] 1.2.840.114 [id number] Univers 07:56:23 23:59:00 Encounter Cam [place] 350.1.13.10 ity [place] [phone] [facility] [address] 2020-09-19 2020-09-19 Outpatient R THOMSA HUBER [facility] [id number] Univers 08:00:00 08:00:00 ity of [facility] 2020-09-18 2020-09-18 Routine [facility] 1.2.161.336 [id number] Univers 12:58:14 13:45:31 Cam [place] 350.1.13.10 ity of Visit [place] 4[place].7.2.[address] [place] [address] [facility] [address] [facility] [phone] [facility] [address] Building 2020-09-18 2020-09-18 Outpatient R THOMAS HUBER [facility] [id number] Univers 13:15:00 13:15:00 ity of [facility] 2020-09-18 2020-09-18 Telephone Thomas Huber [facility] 1.2.840.114 [id number] Univers 00:00:00 00:00:00 [place] 350.1.13.10 i ty [place].2.[place] [phone] Vt dical nal 134 [facility] 2020-09-11 2020-09-11 Outpatient R THOMAS HUBER [facility] [id number] Univers 13:00:00 13:00:00 ity of [facility] 2020-08-28 2020-08-28 Office Silver [facility] 1.2.840.114 [id number] Univers 09:49:56 10:44:06 Visit Abel Woodson 350.1.13.10 [place] [phone] [facility] nal 092 [facility] 2020-08-28 2020-08-28 Outpatient R ABEL SHEPPARD [facility] [id number] Univers 10:00:00 10:00:00 ABEL SHEPPARD [facility] 2020-08-28 2020-08-28 Orders Doctor BRISA 1.2.840.114 [id number] Univers 00:00:00 00:00:00 Only Unassigned, SRI 350.1.13.10 ity of [place] [facility] 4.2.7.2.686 Ravindra as [phone] [facility] [address] 2020-08-25 2020-08-25 Office Percy [facility] 1.2.840.114 [id number] Univers 07:55:02 09:02:52 Visit [facility] 350.1.13.10 it y of [place] 4[place]2.7.2.[place] [phone] [facility] [address] 2020-08-25 2020-08-25 Outpatient R PERCY [facility] [id number] Univers 08:00:00 08:00:00 [facility] ity [facility] 2020-08-23 2020-08-23 Telephone Cecile Thomas [facility] 1.2.840.114 [id number] Univers 00:00:00 00:00:00 [place] 350.1.13.10 i [place] [phone] Vt dical nal 134 [facility] 2020-08-23 2020-08-23 Case Thomas Huber [facility] 1.2.968.697 [id number] Univers 00:00:00 00:00:00 Management Cam [place] 350.1.13.10 [place] [phone] Vt dical nal 134 [facility] 2020-08-22 2020-08-22 Telephone Thomas Huber [facility] 1.2.840.114 [id number] Univers 00:00:00 00:00:00 Cam [place] 350.1.13.10 [place] [phone] Vt dical nal 134 [facility] 2020-08-22 2020-08-22 Patient Esteban [facility] 1.2.840.114 [id number] Univers 00:00:00 00:00:00 Outreach Evan PRIMARY 350.1.13.10 i ty of [facility] 4.2.7.2.[place] [phone] Vt dical [address] 2020-08-19 2020-08-19 Refill Thomas Huber [facility] 1.2.794.565 [id number] Univers 00:00:00 00:00:00 [place] 350.1.13.10 [place] [phone] Vt dical nal 134 [facility] 2020-08-14 2020-08-17 [facility] Thomas Huber [facility] 1.2.840.114 [id number] Univers 16:59:00 11:45:00 Encounter Cam [place] 350.1.13.10 ity [place] [phone] [facility] [address] 2020-08-17 2020-08-17 Case Thomas Huber [facility] 1.2.110.223 [id number] Univers 00:00:00 00:00:00 Management Cam [place] 350.1.13.10 [place] [phone] Vt dical nal [address] [place] [address] 2020-08-15 2020-08-15 Telephone Thomas Huber [facility] 1.2.840.114 [id number] Univers 00:00:00 00:00:00 Cam [place] 350.1.13.10 i ty [place] [phone] Vt dical nal [address] [place] [address] 2020-08-14 2020-08-14 [facility] 1.2.336.108 [id number] Univers 14:05:11 16:10:05 Cam [place] 350.1.13.10 ity of [place] [phone] [address] 2020-08-14 2020-08-14 Outpatient R THOMAS HUBER [facility] [id number] Univers 14:30:00 14:30:00 ity of [facility] 2020-08-14 2020-08-14 Orders Doctor BRISA 1.2.840.114 [id number] Univers 00:00:00 00:00:00 Only Unassigned, SRI 350.1.13.10 ity of [place] [facility] 4.2.7.2.686 Ravindra as [phone] [facility] [address] 2020-08-10 2020-08-11 [facility] SsdZully li 1.2.840 .114 [id number] Univers 12:29:00 21:17:00 Encounter Celso Ch 350.1.13.10 ity of HOSPITAL 4.2.7.2.686 Ravindra as [phone] [facility] [address] 2020-08-10 2020-08-11 Outpatient P CELSO CH [facility] SHARYN [id number] Univers 12:29:00 21:17:00 CELSO CH ity of [facility] 2020-08-11 2020-08-11 Telephone [facility] 1.2.840.114 [id number] Univers 00:00:00 00:00:00 [place] 350.1.13.10 [place] [phone] Vt dical nal [address] [place] [address] 2020-08-11 2020-08-11 Telephone Thomas Huber [facility] 1.2.840.114 [id number] Univers 00:00:00 00:00:00 Cam [place] 350.1.13.10 i [place] [phone] Vt dical [address] 2020-08-11 2020-08-11 Telephone Thomas Huber [facility] 1.2.840.114 [id number] Univers 00:00:00 00:00:00 Cam [place] 350.1.13.10 i ty [place] [phone] [address] 2020-08-10 2020-08-10 Outpatient R THOMAS HUBER [facility] [id number] Univers 09:00:00 09:00:00 ity of [facility] 2020-08-10 2020-08-10 [facility] 1.2.182.467 [id number] Univers 00:00:00 00:00:00 Management Cam [place] 350.1.13.10 [place]y [place] [phone] Vt dic[address] 2020-08-10 2020-08-10 Orders Doctor BRISA 1.2.840.114 [id number] Univers 00:00:00 00:00:00 Only Unassigned, SRI 350.1.13.10 ity of [place] [facility] 4.2.7.2.686 Ravindra as [phone] [address] 2020-08-09 2020-08-09 Office Percy [facility] 1.2.840.114 [id number] Univers 14:34:33 15:43:43 Visit [facility] 350.1.13.10 it y of [place] C[place] [phone] [facility] [address] 2020-08-09 2020-08-09 Outpatient R PERCY [facility] [id number] Univers 14:45:00 14:45:00 HUMAIR ity of [facility] 2020-08-07 2020-08-07 [facility] 1.2.840.114 [id number] Univers 13:12:16 14:08:38 Visit Health 350.1.13.10 it y [place] [phone] [place] [address] [address] Office Building 2020-08-07 2020-08-07 Outpatient R BIRD URIASHI [facility] [id number] Univers 13:15:00 13:15:00 ity of [facility] 2020-08-07 2020-08-07 Routine Room, [facility] 1.2.840.1 [id number] Univers 09:46:28 10:52:33 Thomas Huber 350.1.13.10 ity of [place] [phone] Vt dical nal [address] [place] [address] 2020-08-04 2020-08-04 Geology Associate Ultrasound, [facility] 1.2 .840.114 [id number] Univers 14:50:34 15:20:34 Visit Jacque Kebede 350.1 .13.10 [place] [phone] Vt dical nal [facility] 2020-08-04 2020-08-04 Outpatient R [facility] [id number] Univers 15:00:00 15:00:00 ity of [facility] 2020-08-04 2020-08-04 Case Thomas Huber [facility] 1.2.416.874 [id number] Univers 00:00:00 00:00:00 Management Yosef Woodson 350.1.13.10 [place] [phone] Vt dical nal [address] 2020-08-03 2020-08-03 Routine Room, [facility] 1.2.840.1 14 [id number] Univers 08:42:32 10:10:58 Thomas Hbuer Yosef Woodson 350.1.13.10 [place] [phone] Vt dical nal 134 [facility] 2020-08-03 2020-08-03 Outpatient R THOMAS HUBER [facility] [id number] Univers 09:00:00 09:00:00 ity of [facility] 2020-08-02 2020-08-02 Telephone [facility] 1.2.840.114 [id number] Univers 00:00:00 00:00:00 Cam Kandice 350.1.13.10 [place] [phone] Vt dical nal 134 [facility] 2020-08-02 2020-08-02 Orders Doctor BRISA 1.2.840.114 [id number] Univers 00:00:00 00:00:00 Only Unassigned, SRI 350.1.13.10 ity of [place] [facility] 4.2.7.2.686 Ravindra as [phone] [facility] [address] 2020-07-31 2020-07-31 [facility] 1.2.840.114 [id number] Univers 11:15:27 23:59:00 Encounter Yosef Woodson 350.1.13.10 [place] [phone] [facility] [address] 2020-07-31 2020-07-31 Outpatient R THOMAS HUBER [facility] [id number] Univers 11:15:27 23:59:00 ity of [facility] 2020-07-31 2020-07-31 Routine Room, [facility] 1.2.840.1 14 [id number] Univers 08:58:13 10:44:17 Thomas Huber Yosef Woodson 350.1.13.10 [place] [phone] Vt dical nal 134 [facility] 2020-07-31 2020-07-31 Orders Doctor BRISA 1.2.840.114 [id number] Univers 00:00:00 00:00:00 Only Unassigned, SRI 350.1.13.10 ity of [place] [facility] 4.2.7.2.686 Ravindra as [phone] [facility] [address] 2020-07-28 2020-07-30 [facility] Thomas Huber [facility] 1.2.840.114 [id number] Univers 09:50:00 11:30:00 Encounter Fish, Lisaabdirashid Woodson 350.1.13.10 [place] [phone] [facility] [address] 2020-07-28 2020-07-28 Telephone [facility] 1.2.840.114 [id number] Univers 00:00:00 00:00:00 Cam [place] 350.1.13.10 i [place] [phone] Vt dical nal [address] [place] [address] 2020-07-28 2020-07-28 Telephone [facility] 1.2.840.114 [id number] Univers 00:00:00 00:00:00 Cam [place] 350.1.13.10 [place] [phone] Vt dical nal 134 [facility] 2020-07-28 2020-07-28 Telephone [facility] 1.2.840.114 [id number] Univers 00:00:00 00:00:00 Cam [place] 350.1.13.10 i [place] [phone] Vt dical nal 134 [facility] 2020-07-27 2020-07-27 [facility] Thomas Huber [facility] 1.2.840.114 [id number] Univers 16:44:00 23:55:00 Encounter Yosef [place] 350.1.13.10 [place] [phone] [facility] [address] 2020-07-27 2020-07-27 Outpatient P THOMAS HUBER [facility] SHARYN [id number] Univers 16:44:00 23:55:00 ity of [facility] 2020-07-27 2020-07-27 Routine Room, [facility] 1.2.840.1 14 [id number] Univers 14:50:23 16:18:54 Robert Ren 350.1.13.10 [place] [phone] Vt dical nal 134 [facility] 2020-07-27 2020-07-27 Outpatient R [facility] [id number] Univers 15:00:00 15:00:00 ity of [facility] 2020-07-24 2020-07-24 Routine Thomas Huber [facility] 1.2.123.313 [id number] Univers 09:34:57 10:48:17 Yosef Woodson 350.1.13.10 [place] [phone] Vt dical nal [address] [place] [address] 2020-07-24 2020-07-24 Outpatient R [facility] [id number] Univers 10:00:00 10:00:00 ity of [facility] 2020-07-21 2020-07-21 Orders Doctor LEDEZMA 1.2.840.114 [id number] Univers 00:00:00 00:00:00 Only Unassigned, SRI 350.1.13.10 ity of [place] [facility] 4.2.7.2.686 Ravindra as [phone] [facility] [address] 2020-07-21 2020-07-21 Case Thomas Huber [facility] 1.2.936.435 [id number] Univers 00:00:00 00:00:00 Management Yosef Woodson 350.1.13.10 [place] [phone] Vt dical nal 134 [facility] 2020-07-17 2020-07-17 Outpatient R [facility] [id number] Univers 08:00:00 08:00:00 ity of [facility] 2020-07-13 2020-07-13 Telephone Thomas Huber [facility] 1.2.840.114 [id number] Univers 00:00:00 00:00:00 Cam [place] 350.1.13.10 [place] [phone] Vt dical nal 134 [facility] 2020-07-10 2020-07-10 Orders Doctor BRISA 1.2.840.114 [id number] Univers 00:00:00 00:00:00 Only Unassigned, SRI 350.1.13.10 ity of [place] [facility] 4.2.7.2.686 Ravindra as [phone] [address] 2020-07-07 2020-07-07 Geology Associate Freddy, Adc [facility] 1.2 .840.114 [id number] Univers 14:48:36 15:18:36 Visit Thomas Huber Yosef Woodson 350.1.13.10 [place] [phone] Vt dical nal 134 [facility] 2020-07-07 2020-07-07 Outpatient P [facility] [id number] Univers 15:00:00 15:00:00 ity of [facility] 2020-07-03 2020-07-03 Routine Thomas Huber [facility] 1.2.544.793 [id number] Univers 13:00:47 13:40:01 Cam [place] 350.1.13.10 [place] [phone] Vt dical nal 134 [facility] 2020-07-03 2020-07-03 Geology Associate Yessi, Adc [facility] Main [facility] 1.2.8 40.114 [id number] Univers 12:51:19 13:06:19 Visit Thomas Huber Yosef Woodson 350.1.13.10 [place] [phone] Vt dical nal 353 [facility] 2020-07-03 2020-07-03 Outpatient R THOMAS HUBER [facility] [id number] Univers 13:00:00 13:00:00 ity of [facility] 2020-06-30 2020-06-30 Nurse Visit, [facility] Nurse [facility] 1.2.840.1 14 [id number] Univers 15:40:48 16:10:48 Visit Satish Walls 350.1.13.10 [place] [phone] [facility] nal 059 [facility] 2020-06-30 2020-06-30 Outpatient R KAVITA [facility] [id number] Univers 16:00:00 16:00:00 SATISH guevara o f [facility] 2020-06-26 2020-06-26 Hospital Thomas Huber [facility] 1.2.840.114 [id number] Univers 12:05:00 17:49:00 Encounter Yosef Woodson 350.1.13.10 [place] [phone] [facility] [address] 2020-06-26 2020-06-26 Telephone Thomas Huber [facility] 1.2.840.114 [id number] Univers 00:00:00 00:00:00 Yosef Woodson 350.1.13.10 i ty of [place] [phone] Vt dical nal 134 [facility] 2020-06-21 2020-06-21 Geology Associate Yessi, Prabhakar Lab Main [facility] 1.2.8 40.114 [id number] Univers 10:23:29 10:38:29 Visit Robert Ren 350.1.13.10 [place] [phone] Vt dical nal 353 [facility] 2020-06-21 2020-06-21 Routine Gela [facility] 1.2.638.101 [id number] Univers 09:04:16 09:51:29 Robert Woodson 350.1.13.10 [place] [phone] Vt dical nal 134 [facility] 2020-06-21 2020-06-21 Outpatient R GELA [facility] [id number] Univers 09:00:00 09:00:00 ROBERT ity of [facility] 2020-06-21 2020-06-21 Orders Doctor BRISA 1.2.840.114 [id number] Univers 00:00:00 00:00:00 Only Unassigned, SRI 350.1.13.10 ity of [place] [facility] 4.2.7.2.686 Ravindra as [phone] [facility] [address] 2020-06-07 2020-06-07 Office Percy [facility] 1.2.840.114 [id number] Univers 13:17:24 14:20:00 Visit [facility] 350.1.13.10 it y of [place] [phone] [facility] [address] 2020-06-07 2020-06-07 Outpatient R PERCY [facility] [id number] Univers 13:30:00 13:30:00 [facility] ity [facility] 2020-06-05 2020-06-05 Geology Associate 1, [facility] Us Room [facility] 1 .2.840.114 [id number] Univers 08:57:30 09:57:30 Visit Zully Campos [facility] 350.1.13.10 ity of CL[place] [phone] [facility] [address] 2020-06-05 2020-06-05 Outpatient P [facility] [id number] Univers 09:00:00 09:00:00 ity of [facility] 2020-05-24 2020-05-24 Routine Thomas Huber [facility] 1.2.423.525 [id number] Univers 09:41:08 10:44:24 Cam [place] 350.1.13.10 [place] [phone] Vt dical nal 134 [facility] 2020-05-24 2020-05-24 Outpatient R THOMAS HUBER [facility] [id number] Univers 09:45:00 09:45:00 ity of [facility] 2020-05-24 2020-05-24 Orders Doctor BRISA 1.2.840.114 [id number] Univers 00:00:00 00:00:00 Only Unassigned, SRI 350.1.13.10 ity of [place] [facility] 4.2.7.2.686 Ravindra as [phone] [facility] [address] 2020-05-18 2020-05-18 [facility]ici [facility] 1.2.840.114 [id number] Univers 13:45:00 14:00:00 ne Visit Alanna VENDING MACHINE FILLER 350.1.13.10 i ty of [facility] 4.2.7.2.686 Ravindra as MATERNAL [phone] Med ical & CHILD 109 [facility] 2020-05-18 2020-05-18 Outpatient P [facility] [id number] Univers 13:45:00 13:45:00 ity of [facility] 2020-05-16 2020-05-16 [facility] Thomas Huber [facility] 1.2.840.114 [id number] Univers 06:48:00 10:10:00 Encounter Cam Kandice 350.1.13.10 [place] of [place] 4[facility]2.7.2.686 [facility] [phone] [facility] [address] 2020-04-26 2020-04-26 Laboratory Lab, Adc Fam Pob I [facility] 1.2. 840.114 [id number] Univers 09:55:06 10:15:06 Only Ivana Fernandez [facility] 350.1.13.10 ity of [place] 4.2.7.2.686 Ravindra as Professio [phone] Vt dical nal [address] One 2020-04-26 2020-04-26 Outpatient R [facility] [id number] Univers 10:00:00 10:00:00 ity of [facility] 2020-04-26 2020-04-26 Outpatient [facility] [id number] Univers 09:40:00 09:40:00 PERLITA ity of [facility] 2020-04-25 2020-04-25 Routine Gela [facility] 1.2.157.182 [id number] Univers 11:09:08 11:46:35 Robert Woodson 350.1.13.10 [place] [phone] [address] 2020-04-25 2020-04-25 Outpatient R GELA [facility] [id number] Univers 11:15:00 11:15:00 ROBERT ity [facility] 2020-04-24 2020-04-24 Geology Associate 1, [facility] Us Room [facility] 1 .2.840.114 [id number] Univers 09:00:59 10:53:51 Visit Celso Ch [facility] 350.1.13.10 ity of [place] [phone] [address] 2020-04-24 2020-04-24 Outpatient P [facility] [id number] Univers 09:15:00 09:15:00 ity of [facility] 2020-04-19 2020-04-19 Telephone Cecile Thomas [facility] 1.2.840.114 [id number] Univers 00:00:00 00:00:00 Cam [place] 350.1.13.10 [place] [phone] [address] 2020-04-05 2020-04-05 Telephone Thomas Huber [facility] 1.2.840.114 [id number] Univers 00:00:00 00:00:00 Cam [place] 350.1.13.10 [place] [phone] [address] 2020-04-03 2020-04-03 Outpatient P GARRY MENDEZ [facility] [id number] Univers 10:30:00 10:30:00 ity [facility] 2020-04-03 2020-04-03 Telemedici Alanna Graves [facility] 1.2.8 40.114 [id number] Univers 10:00:14 10:15:14 ne Visit Garry Mendez Nik VENDING MACHINE FILLER 350.1.13.10 ity of [facility] 4.2.7.2.686 Ravindra as MATERNAL [phone] [facility] ical & CHILD [address] [place] [address] 2020-03-29 2020-03-29 Telephone Naomi Huberen [facility] 1.2.840.114 [id number] Univers 00:00:00 00:00:00 Yosef Woodson 350.1.13.10 i [place] [phone] Vt dical nal 134 [facility] 2020-03-28 2020-03-28 Geology Associate 2, Adc Lab [facility] 1.2.840.114 [id number] Univers 10:36:42 10:51:42 Visit HuberNaomiartem [place]son 350.1.13.10 [place] [phone] Vt dical nal 353 [facility] 2020-03-28 2020-03-28 Outpatient R [facility] [id number] Univers 09:45:00 09:45:00 ity of [facility] 2020-03-27 2020-03-27 Office [facility] 1.2.003.306 [id number] Univers 14:52:43 16:31:25 Visit Yosef Woodson 350.1.13.10 i [place] [phone] Vt dical nal [address] [place] [address] 2020-03-27 2020-03-27 Outpatient R GELA [facility] [id number] Univers 11:15:00 11:15:00 ROBERT ity of [facility] 2020-03-27 2020-03-27 Orders Doctor BRISA 1.2.840.114 [id number] Univers 00:00:00 00:00:00 Only Unassigned, SRI 350.1.13.10 ity of [place] [facility] 4.2.7.2.686 Ravindra as [phone] [address] 2020-03-24 2020-03-24 Telephone Naomi Huberen [facility] 1.2.840.114 [id number] Univers 00:00:00 00:00:00 Yosef [place]son 350.1.13.10 i [place] [phone] Vt dic[address] 2020-03-24 2020-03-24 Telephone Gela [facility] 1.2.840.114 [id number] Univers 00:00:00 00:00:00 Robert Woodson 350.1.13.10 i [place] [phone] [address] 2020-03-22 2020-03-22 Routine [facility] 1.2.452.605 [id number] Univers 08:50:58 09:46:40 Robert Woodson 350.1.13.10 ity [place] [phone] [address] 2020-03-22 2020-03-22 Outpatient R GELA [facility] [id number] Univers 09:15:00 09:15:00 ROBERT ity of [facility] 2020-03-20 2020-03-20 Telephone Thomas Huber [facility] 1.2.840.114 [id number] Univers 00:00:00 00:00:00 Yosef Woodson 350.1.13.10 i [place] [phone] [address] 2020-03-13 2020-03-13 Outpatient R THOMAS HUBER [facility] [id number] Univers 08:30:00 08:30:00 ity of [facility] 2020-03-13 2020-03-13 Orders Doctor BRISA 1.2.840.114 [id number] Univers 00:00:00 00:00:00 Only Unassigned, SRI 350.1.13.10 ity of [place] [facility] 4.2.7.2.686 Ravindra as [phone] [address] 2020-03-08 2020-03-08 Routine [facility] 1.2.557.319 [id number] Univers 10:13:22 10:51:38 Robert [place] 350.1.13.10 [place] [phone] Vt dical nal 134 [facility] 2020-03-08 2020-03-08 Outpatient Frida REN [facility] [id number] Univers 10:15:00 10:15:00 ROBERT ity of [facility] 2020-03-08 2020-03-08 Telephone [facility] 1.2.840.114 [id number] Univers 00:00:00 00:00:00 Cam [place] 350.1.13.10 i [place] [phone] Vt dical nal [address] [place] [address] 2020-03-06 2020-03-06 Telephone Thomas Huber [facility] 1.2.840.114 [id number] Univers 00:00:00 00:00:00 Cam [place] 350.1.13.10 i [place] [phone] Vt dical nal 134 [facility] 2020-02-29 2020-02-29 Telephone Thomas Huber [facility] 1.2.840.114 [id number] Univers 00:00:00 00:00:00 Cam [place] 350.1.13.10 i [place] [phone] Vt dical nal 134 [facility] 2020-02-28 2020-02-28 Geology Associate 2, Adc Lab [facility] 1.2.840.114 [id number] Univers 09:13:47 09:28:47 Visit Thomas Huber [place] 350.1.13.10 [place] [phone] Vt dicgaby nal 353 [facility] 2020-02-28 2020-02-28 Routine Thomas Huber [facility] 1.2.049.585 [id number] Univers 08:29:25 09:10:07 Yosef [place] 350.1.13.10 [place]y [place] [phone] Vt dic[address] 2020-02-28 2020-02-28 Outpatient R THOMAS HUBER [facility] [id number] Univers 08:30:00 08:30:00 ity [facility] 2020-02-28 2020-02-28 Orders Doctor BRISA 1.2.840.114 [id number] Univers 00:00:00 00:00:00 Only Unassigned, SRI 350.1.13.10 ity of [place] [facility] 4.2.7.2.686 Ravindra as [phone] [address] 2020-02-16 2020-02-16 Orders Doctor BRISA 1.2.840.114 [id number] Univers 00:00:00 00:00:00 Only Unassigned, SRI 350.1.13.10 ity of [place] [facility] 4.2.7.2.686 Ravindra as [phone] [address] 2020-02-14 2020-02-14 Outpatient P [facility] [id number] Univers 13:30:00 13:30:00 ity [facility] 2020-02-10 2020-02-10 [facility]patient [facility] [id number] Univers 08:45:00 08:45:00 ALEXIS ity [facility] 2020-02-03 2020-02-03 Telephone [facility] 1.2.840.114 [id number] Univers 00:00:00 00:00:00 Cam [place] 350.1.13.10 [place] [phone] [address] 2020-02-03 2020-02-03 Refill [facility] 1.2.912.472 [id number] Univers 00:00:00 00:00:00 Cam [place] 350.1.13.10 i [place] [phone] [address] 2020-01-31 2020-01-31 Outpatient R [facility] [id number] Univers 08:00:00 08:00:00 ity [facility] 2020-01-31 2020-01-31 Telephone [facility] 1.2.840.114 [id number] Univers 00:00:00 00:00:00 Alexis Nelson VENDING MACHINE FILLER 350.1.13.10 it y of REGIONAL 4.2.7.2.686 Ravindra as MATERNAL [phone] Med ical & CHILD [address] [place] [address] 2020-01-24 2020-01-24 Geology Associate 2, Adc Lab [facility] 1.2.840.114 [id number] Univers 09:15:54 09:30:54 Visit Thomas Huber Yosef [place] 350.1.13.10 [place] [phone] [facility] 353 [facility] 2020-01-24 2020-01-24 Initial [facility] 1.2.259.299 [id number] Univers 08:03:13 09:12:06 Yosef Woodson 350.1.13.10 [place]y [place] [phone] [facility] 134 [facility] 2020-01-24 2020-01-24 Outpatient R THOMAS HUBER [facility] [id number] Univers 08:00:00 08:00:00 ity of [facility] 2020-01-24 2020-01-24 Orders Doctor BRISA 1.2.840.114 [id number] Univers 00:00:00 00:00:00 Only Unassigned, SRI 350.1.13.10 ity of [place] [facility] 4.2.7.2.686 Ravindra as [phone] [address] 2020-01-24 2020-01-24 Telephone [facility] 1.2.840.114 [id number] Univers 00:00:00 00:00:00 Yosef [place] 350.1.13.10 i [place] [phone] [facility] 134 [facility] 2020-01-19 2020-01-19 Outpatient R CECILE [facility] [id number] Univers 10:00:00 10:00:00 ity of [facility] 2020-01-17 2020-01-17 Geology Associate Lab, [facility] 1.2.840. 114 [id number] Univers 09:51:45 10:06:45 Visit Alexis Sandoval VENDING MACHINE FILLER 350.1.13.10 ity of [facility] 4.2.7.2.686 Ravindra as MATERNAL [phone] Med ical & CHILD [address] [place] [address] 2020-01-17 2020-01-17 Geology Associate Lab, [facility] 1.2.840.114 [id number] 09:51:45 10:06:45 [facility]ENDING [facility]ACH[facility] FILLER 350.1.13.10 REGIONAL 4.2.7.2.686 MATERNAL [phone] & CHILD [address] [place] [address] 2020-01-17 2020-01-17 Outpatient [facility] [id number] Univers 08:15:00 08:15:00 ALEXIS guevara [facility] 2020-01-13 2020-01-13 Initial [facility] 1.2.797.905 [id number] Univers 09:53:02 10:23:02 Alexis Nelson VENDING MACHINE FILLER 350.1.13.10 i ty of Visit [facility] 4.2.7.2.686 Rvaindra as MATERNAL [phone] Med ical & CHILD [address] [place] [address] 2020-01-13 2020-01-13 Initial [facility] 1.2.050.693 [id number] 09:53:02 10:23:02 Alexis N VENDING MACHINE FILLER 350.1.13.10 Visit [facility] 4.2.7.2.686 MATERNAL [phone] & CHILD [address] [place] [address] 2020-01-13 2020-01-13 [facility] [id number] [facility] 09:45:00 09:45:00 ALEXIS guevara [facility] 2020-01-11 2020-01-11 Emergency [facility] [id number] Univers 14:45:00 18:12:00 Nancy Woodson 350.1.13.10 ity [facility] 4.2.7.2.686 [place] [id number] [address] 2020-01-11 2020-01-11 Emergency [facility] 1.2.840.114 [id number] 14:45:00 18:12:00 Nancy Woodson 350.1.13.10 [place] 4.2.7.2.686 [place] [id number] 082020-01-11 2020-01-11 Emergency [facility] ERT [id number] [facility] 14:45:00 14:45:00 NANCY guevara [facility] 2020-01-11 2020-01-11 BRISA Cooper [id number] Univers 00:00:00 00:00:00 Triage Libia Cox SRI 350.1.13.10 i ty of [place] [id number] [place] [id number] 2020-01-11 2020-01-11 BRISA Cooper 1.2.840.114 [id number] 00:00:00 00:00:00 Triage Libiaglenroy FIERRO 350.1.13.10 [place] [address]..2.68 [id number] 2019-12-06 2019-12-06 Emergency [facility] [id number] [facility] 12:49:46 14:26:00 Agustinamiguel [place] [id number] i ty [facility] [id number] [facility] [id number] [address] 2019-12-06 2019-12-06 [facility] [id number] 12:49:46 14:26:00 Agustina [place] [id number] [place] [id number] [place] [id number] [facility] 2019-12-06 2019-12-06 Emergency X [facility] ERT [id number] 12:28:00 12:28:00 [facility] This patient has no known results.
[2023-01-13 14:30] LABS: Absolute Lymphocytes (CBC) 1.9 K/uL (0.7-4.9); Hematocrit 33.6 % (36.0-45.0); Lymphocytes % 18.9 % (15.3-44.8); MCV 75.3 fL (80-100); MPV 8.3 fL (7.6-11.3); Platelets 335 thou/uL (152-406); RBC Red Blood Cell Count 4.46 M/uL (3.86-4.86)
[2023-01-13] MEDS ORDERED: NA CHLORIDE 0.9% 1,000 ML ONE (14:30)
[2023-01-13] MEDS ORDERED: FAMOTIDINE 20 MG/2 ML VIAL IV ONE (14:30)
[2023-01-13 14:45] LABS: Albumin 3.4 g/dL (3.4-5.0); Bilirubin Total 0.5 mg/dL (0.2-1.0); Potassium 4.2 mEq/L (3.5-5.1); Protein, Total 7.1 g/dL (6.4-8.2); Troponin High Sensitivity 5.1 pg/mL (<58.9)
--- NOTE | 2023-01-13 14:54 | EDPHYS ---
Physician Documentation [facility] Name: Zaina Roberson Age: 27 yrs Sex: Female : 1995 Arrival Date: 01/13/2023 Time: 13:38 Bed 13 Private MD: ED Physician Gopi Crowder HPI: 01/13 14:04 This 27 yrs old Female presents to ER via EMS with complaints of Heat Exposure. 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 Onset: The symptoms/episode began/occurred just prior to arrival. It is unknown whether or not the patient has had similar symptoms in the past. It is unknown whether or not the patient has recently seen a physician. SAFETY REPRESENTATIVE: 16:38 LMP N/A - control method db Historical: - Allergies: 13:40 NKDA; bp - PSHx: 13:40 Cholecystectomy; tubal ligation; bp - Immunization history:: Adult Immunizations up to date. - Social history:: Smoking status: unknown. ROS: 14:03 Eyes: Negative for injury, pain, redness, and discharge, ENT: Negative for injury, snw pain, and discharge, Neck: Negative for injury, pain, and swelling, Cardiovascular: Negative for chest pain, palpitations, and edema, Respiratory: Negative for shortness of breath, cough, wheezing, and pleuritic chest pain, Abdomen/GI: Negative for abdominal pain, nausea, vomiting, diarrhea, and constipation, Back: Negative for injury and pain, : Negative for injury, bleeding, discharge, and swelling. 14:03 Skin: Negative for injury, rash, and discoloration, Neuro: Negative for headache, weakness, numbness, tingling, and seizure, Psych: Negative for depression, anxiety, suicide ideation, homicidal ideation, and hallucinations. 14:03 Constitutional: Positive for body aches, fatigue, malaise. 14:03 MS/extremity: Positive for muscle spasm to back. Exam: 14:03 Constitutional: This is a well developed, well nourished patient who is awake, alert, snw and in no acute distress. Head/Face: Normocephalic, atraumatic. Eyes: Pupils equal round and reactive to light, extra-ocular motions intact. Lids and lashes normal. Conjunctiva and sclera are non-icteric and not injected. Cornea within normal limits. Periorbital areas with no swelling, redness, or edema. ENT: Nares patent. No nasal discharge, no septal abnormalities noted. Tympanic membranes are normal and external auditory canals are clear. Oropharynx with no redness, swelling, or masses, exudates, or evidence of obstruction, uvula midline. Mucous membranes moist. Neck: Trachea midline, no thyromegaly or masses palpated, and no cervical lymphadenopathy. Supple, full range of motion without nuchal rigidity, or vertebral point tenderness. No Meningismus. Chest/axilla: Normal chest wall appearance and motion. Nontender with no deformity. No lesions are appreciated. Cardiovascular: Regular rate and rhythm with a normal S1 and S2. No gallops, murmurs, or rubs. Normal PMI, no JVD. No pulse deficits. Respiratory: Lungs have equal breath sounds bilaterally, clear to auscultation and percussion. No rales, rhonchi or wheezes noted. No increased work of breathing, no retractions or nasal flaring. Abdomen/GI: Soft, non-tender, with normal bowel sounds. No distension or tympany. No guarding or rebound. No evidence of tenderness throughout. Back: No spinal tenderness. No costovertebral tenderness. Full range of motion. Skin: Warm, dry with normal turgor. Normal color with no rashes, no lesions, and no evidence of cellulitis. MS/ Extremity: Pulses equal, no cyanosis. Neurovascular intact. Full, normal range of motion. Neuro: Awake and alert, GCS 15, oriented to person, place, time, and situation. Cranial nerves II-XII grossly intact. Motor strength 5/5 in all extremities. Sensory grossly intact. Cerebellar exam normal. Normal gait. Psych: Awake, alert, with orientation to person, place and time. Behavior, mood, and affect are within normal limits. Vital Signs: 13:39 BP 127 / 76; Pulse 104; Resp 20; Temp 98.8; Pulse Ox 100% ; bp 14:19 BP 128 / 79; Pulse 86; Resp 16; Pulse Ox 100% on R/A; db 15:30 BP 136 / 83; Pulse 78; Resp 18; Pulse Ox 100% on R/A; db MDM: 13:54 Patient medically screened. snw 15:09 Differential Diagnosis heat exhaustion, syncope, muscle spasm. Data reviewed: vital snw signs, nurses notes. I considered the following discharge prescriptions or medication management in the emergency department Medications were administered in the Emergency Department. See MAR. Historians other than the Patient: EMS: Jacky Arreola. Counseling: I had a detailed discussion with the patient and/or guardian regarding: the historical points, exam findings, and any diagnostic results supporting the discharge/admit diagnosis, lab results, the need for outpatient follow up, for definitive care, to return to the emergency department if symptoms worsen or persist or if there are any questions or concerns that arise at home. Response to treatment: the patient's symptoms have markedly improved after treatment. Special discussion: Based on the history and exam findings, there is no indication for further emergent testing or inpatient evaluation. I discussed with the patient/guardian the need to see the primary care provider for further evaluation of the symptoms. 01/13 13:43 Order name: CBC with Diff; Complete Time: 14:43 snw 01/13 13:43 Order name: CMP; Complete Time: 14:50 snw 01/13 13:43 Order name: Lipase; Complete Time: 14:50 snw 01/13 13:43 Order name: CPK; Complete Time: 14:50 snw 01/13 13:43 Order name: Troponin High Sensitivity; Complete Time: 14:50 snw 01/13 13:43 Order name: IV Saline Lock; Complete Time: 14:26 snw 01/13 13:43 Order name: Labs collected and sent; Complete Time: 14:26 snw Administered Medications: 14:20 Drug: NS 0.9% IV 1000 ml Route: IV; Rate: 1 bolus; Site: right antecubital; db 16:39 Follow up: IV Status: Completed infusion; IV Intake: 1000ml db 14:20 Drug: Famotidine IVP 20 mg Route: IVP; Site: right antecubital; db 16:39 Follow up: Response: No adverse reaction db Disposition: 14:52 Co-signature as Attending Physician, Gopi Crowder DO I was immediately available on-site ms3 in the Emergency Department for consultation in the care of the patient. Disposition Summary: 01/13/23 14:54 Discharge Ordered Location: Home snw Condition: Stable snw Diagnosis - Heat fatigue, transient snw - Heat cramp snw - Volume depletion, unspecified snw Followup: snw - With: Emergency Department - When: As needed - Reason: Worsening of condition Followup: snw - With: Private Physician - When: 2 - 3 days - Reason: Recheck today's complaints, Continuance of care, Re-evaluation by your physician Discharge Instructions: - Discharge Summary Sheet snw - Dehydration, Adult snw - Near-Syncope snw - Heat Exhaustion snw - Rehydration, Adult snw - Preventing Heat Exhaustion, Adult snw Forms: - Work release form snw - Medication Reconciliation Form snw - Thank You Letter snw - Antibiotic Education snw - Prescription Opioid Use snw - Patient Portal Instructions snw - Leadership Thank You Letter snw Signatures: Dispatcher [employer] EDMS Nany Linda, BELT MACHINE OPERATOR-C BELT MACHINE OPERATOR-Csnw Marcial Lepe, RN RN Gopi Sethi DO DO ms3 Ros Nunez, RN RN db
--- NOTE | 2023-01-13 14:54 | ER ---
Nurse's Notes [facility] Name: Zaina Roberson Age: 27 yrs Sex: Female : 1995 Arrival Date: 01/13/2023 Time: 13:38 Bed 13 Private MD: Diagnosis: Heat fatigue, transient;Heat cramp;Volume depletion, unspecified Presentation: 01/13 13:39 Chief complaint: EMS states: HEAT EXHAUSTION WHILE MOVING [employer] AT [facility] [facility]. bp Coronavirus screen: At this time, the client does not indicate any symptoms associated with coronavirus-19. Ebola Screen: No symptoms or risks identified at this time. Initial Sepsis Screen: Does the patient meet any 2 criteria? HR > 90 bpm. No. Patient's initial sepsis screen is negative. Does the patient have a suspected source of infection? No. Patient's initial sepsis screen is negative. Risk Assessment: Do you want to hurt yourself or someone else? Patient reports no desire to harm self or others. Onset of symptoms was January 13, 2023. Care prior to arrival: IV initiated. 22 GA, in the right antecubital area, Glucose check: 97. 13:39 Method Of Arrival: EMS: [facility] bp 13:39 Acuity: SAFIA 3 bp Triage Assessment: 13:40 General: Appears in no apparent distress. obese, Behavior is calm, cooperative, bp appropriate for age. Pain: Complains of pain in chest. EENT: No deficits noted. Neuro: No deficits noted. Cardiovascular: Rhythm is sinus tachycardia. Respiratory: No deficits noted. GI: No signs and/or symptoms were reported involving the gastrointestinal system. : No signs and/or symptoms were reported regarding the genitourinary system. Derm: No deficits noted. Musculoskeletal: No deficits noted. 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 - Social history:: Smoking status: unknown. Screenin:41 [facility] ED Fall Risk Assessment (Adult) History of falling in the last 3 months, bp including since admission No falls in past 3 months (0 pts). Abuse screen: Denies threats or abuse. Denies injuries from another. Nutritional screening: No deficits noted. Tuberculosis screening: No symptoms or risk factors identified. Assessment: 13:41 General: SEE TRIAGE NOTE. bp 14:19 Reassessment: Patient appears in no apparent distress at this time. Patient and/or db family updated on plan of care and expected duration. Pain level reassessed. Patient is alert, oriented x 3, equal unlabored respirations, skin warm/dry/pink. patient states felt dizzy after working today. Neuro: Level of Consciousness is awake, alert, obeys commands, Oriented to person, place, time, situation. Respiratory: Airway is patent Respiratory effort is even, unlabored, Respiratory pattern is regular, symmetrical. 15:35 Reassessment: PROVIDER REQUEST PATIENT FINISH IV FLUIDS PRIOR TO DC. DISCHARGE PENDING db IV FLUIDS FINISH. PT AMBULATORY TO RESTROOM. 15:58 Reassessment: Patient appears in no apparent distress at this time. Patient and/or db family updated on plan of care and expected duration. Pain level reassessed. Patient is alert, oriented x 3, equal unlabored respirations, skin warm/dry/pink. 16:30 Reassessment: Patient appears in no apparent distress at this time. Patient and/or db family updated on plan of care and expected duration. Pain level reassessed. Patient is alert, oriented x 3, equal unlabored respirations, skin warm/dry/pink. Vital Signs: 13:39 BP 127 / 76; Pulse 104; Resp 20; Temp 98.8; Pulse Ox 100% ; bp 14:19 BP 128 / 79; Pulse 86; Resp 16; Pulse Ox 100% on R/A; db 15:30 BP 136 / 83; Pulse 78; Resp 18; Pulse Ox 100% on R/A; db ED Course: 13:39 Patient arrived in ED. bp 13:40 Triage completed. bp 13:40 Arm band placed on. bp 13:41 Patient has correct armband on for positive identification. Bed in low position. Call bp light in reach. Side rails up X2. 13:41 Maintain EMS IV. Dressing intact. Good blood return noted. Site clean \T\ dry. Gauge \T\ bp site: 20 GA R AC. 13:42 Nany Linda FNP-C [facility]. snw 13:43 Gopi Crowder DO is Attending Physician. snw 13:53 Ros Nunez, RN is Primary Nurse. db 16:37 Provided Education on: DISCHARGE. db 16:37 No provider procedures requiring assistance completed. IV discontinued, intact, db bleeding controlled, No redness/swelling at site. Administered Medications: 14:20 Drug: NS 0.9% IV 1000 ml Route: IV; Rate: 1 bolus; Site: right antecubital; db 16:39 Follow up: IV Status: Completed infusion; IV Intake: 1000ml db 14:20 Drug: Famotidine IVP 20 mg Route: IVP; Site: right antecubital; db 16:39 Follow up: Response: No adverse reaction db Medication: 16:37 VIS not applicable for this client. db Intake: 16:39 IV: 1000ml; Total: 1000ml. db Outcome: 14:54 Discharge ordered by MD. snw 16:37 Discharged to home ambulatory. db 16:37 Condition: stable 16:37 Discharge instructions given to patient, Instructed on discharge instructions, follow up and referral plans. 16:39 Patient left the ED. db Signatures: Nany Linda, ESTHETICIAN/SKIN THERAPIST-C ESTHETICIAN/SKIN THERAPIST-Csnw Marcial Lepe, RN RN Ros Nunez, RN RN db Corrections: (The following items were deleted from the chart) 16:30 15:35 Reassessment: DISCHARGE PENDING IV FLUIDS FINISH. PT AMBULATORY TO RESTROOM db db
[2023-01-13 17:14] VITALS: TEMP 98.8; O2SAT 100
[2023-01-13 17:34] VITALS: BP 136/83
== END 2023-01-13 16:39 | disposition home or self-care (01) ==
LOC: ER 13:38
DX: T67.6XXA Heat fatigue, transient, initial encounter (principal); T67.2XXA Heat cramp, initial encounter; E86.9 Volume depletion, unspecified; R42 Dizziness and giddiness; R07.9 Chest pain, unspecified
CPT/HCPCS: 85025; 36415; 82550; 84484; 83690; 80053; J7030

== ENCOUNTER → 2023-07-07 | Emergency (ER) | payer OTHER ==
--- OUTSIDE RECORDS SUMMARY | 2023-07-07 22:22 | XMS REPORT | Continuity of Care Document ---
Author Name Unknown Address [address] [place] [address] [facility] Address [address] [place] [address] Care Team Providers Care Clerk Telegraph Service Name Role Phone No MD, Pcp Primary Care Physician Unavailab THOMAS Bruce Attending Clinician Unavailable Demraio Win MD Attending Clinician [phone] Robe Luis OD Attending Clinician [phone] Thomas Huber MD Attending Clinician [phone] Pob, Adc Lab Main Attending Clinician Unavailabl e Doctor Unassigned, [place] Attending Clinician U JODI Jones Attending Clinician Unavailable Nicho EXPERIMENTAL MACHINING LAB MANAGER, Danette Snell Attending Clinician [phone] Marcial Muñoz CRNA Attending Clinician [phone] Poli Massey MD, Leonard Attending Clinician + [phone] Only, Adc Test Attending Clinician Unavailable ABEL SHEPPARD Attending Clinician Unavail able ABEL SHEPPARD Attending Clinician Unavail able Jodi Hagen MD Attending Clinician [phone] Pita Urias MD Attending Clinician [phone] PITA URIAS Attending Clinician Unavailable Abel Sheppard MD Attending Clinician [phone] Evan Orellana DO Attending Clinician [phone] Jeferson Campos MD Attending Clinician [phone] Celso Ch MD Attending Clinician [phone] CELSO CH Attending Clinician Unavailable CELSO CH Attending Clinician Unavailable Room, [facility] Attending Clinician Unavailable Ultrasound, [facility] Attending Clinician Unavaila vnaessa Paul MD, [place] Attending Clinician + iLsa Naidu MD Attending Clinician [phone] Zully Ren PA-C Attending Clinician [phone] Visit, [facility] Nurse Attending Clinician Unavailable Satish Walls MD Attending Clinician [phone] SATISH WLALS Attending Clinician Unavailable ZULLY REN Attending Clinician Unavailable 1, [facility] Room Attending Clinician UnavailAlanna Noel Attending Clinician Unavailabl e Lab, [facility] Fam Pob I Attending Clinician Unavailab Ivana Ross Attending Clinician [phone] PERLITA THOMASON Attending Clinician Unavailable GARRY MENDEZ Attending Clinician Unavailable Garry Mendez MD Attending Clinician [phone] 2, [facility] Lab Attending Clinician Unavailable MARGOT SANDOVAL Attending Clinician UnavailMargot Samano Attending Clinician [phone] [facility] Unavailable Nancy Sandoval DO Attending Clinician [phone] NANCY SANDOVAL Attending Clinician Unavailab Libia Roberts RN Attending Clinician Unavaila Agustina Salguero Attending Clinician [phone] THOMAS HUBER Admitting Clinician Unavailable JEFERSON CAMPOS Admitting Clinician UnavailThomas Alvarez MD Admitting Clinician [phone] Jeferson Campos MD Admitting Clinician [phone] Lisa Naidu MD Admitting Clinician [phone] Payers Payer Name Policy Type Policy Number Effective Date Expirati on Date Source [employer] MEDICAID [id number] 2020 00:00:00 [place] [id number] 2020 00:00:00 Problems Condition Name Condition Details Condition Category Status Onset Date Resolution Date Last Treatment Date Treating Clinician Comments Source BMI 50.0-59.9, adult BMI 50.0-59.9, adult Disease Active 2022-06 00:00: 00 [facility] Dietary counseling Dietary counseling Disease Active 2022-06 00:00: 00 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 Papilledem a Papilledem a Disease Active 2022-06 00:00: 00 [facility] Other visual disturbanc es Other visual disturbanc es Disease Active 2022-06 00:00: 00 Last Assessmen t & Plan: Formattin g of this note might be different from the original. VF unreliabl e, Retina is flat and intactRef to Neuro and Neuro-Oph [facility] Generalize d headaches Generalize d headaches Disease Active 2022-06 00:00: 00 Last Assessmen t & Plan: Formattin g of this note might be different from the original. Ref to Neuro for MRI [facility] Ocular hypertensi on, bilateral Ocular hypertensi on, bilateral Disease Active 2022-06 00:00: 00 Last Assessmen t & Plan: Formattin g of this note might be different from the original. Refer to OMD for evaluatio n due to high pressures 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 Nerve swelling seen on DFEGrade 1 out of 5 OD and OSRef to Neuro and Neuro-oph thalmolog y 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 Chronic hypertensi on Chronic hypertensi on Disease Active 2-01 00:00: 00 [facility] Papanicola ou smear of cervix with low grade squamous intraepith elial lesion (LGSIL) Papanicola ou smear of cervix with low grade squamous intraepith elial lesion (LGSIL) Disease Active 8-31 00:00: 00 [facility] Morbid obesity with body mass index of 40.0-49.9 Morbid obesity with body mass index of 40.0-49.9 Disease Active 8-24 00:00: 00 [facility] Multiparit y Multiparit y Disease Active 818 00:00: 00 [facility] Allergies, Adverse Reactions, Alerts Allergy Name Allergy Type Status Severity Reaction(s) Onset Date Inactive Date Treating Clinician Comments Source NO KNOWN ALLERGIE S Drug Class Active [facility] Social History Social Habit Start Date Stop Date Quantity Comments Source ASSERTION [facility] History of tobacco use Cigarette Smoker [facility] Sexual orientation [facility] Tobacco use and exposure 2023-03-26 00:00:00 2023-03-26 00:00:00 User of smokeless tobacco [facility] Alcohol intake 2023-03-26 00:00:00 2023-03-26 00:00:00 Lifetime non-drinker (finding) [facility] History of Social function 2023-03-26 00:00:00 2023-03-26 00:00:00 [facility] Tobacco Comment 2023-03-26 00:00:00 2023-03-26 00:00:[address] [facility] Exposure to SARS-CoV-2 (event) 2021-02-18 00:00:00 2021-03-20 10:03:00 Not sure [facility] Sex Assigned At 1995 00:00:00 1995 00:00:00 F [facility] Smoking Status Start Date Stop Date Source Tobacco smoking consumption unknown [facility] Never smoked tobacco [facility] Ex-smoker 2020-01-13 00:00:00 2020-01-13 00:00:00 [facility] Medications Ordered Medication Name Filled Medication Name Start Date Stop Date Current Medication? Ordering Clinician Indication Dosage Frequency Signature (SIG) Comments Components Source Atogepant (Qulipta) 60 MG tablet 2022-06 0 00:00: 00 09-22 04:59 :00 No [id number] 60mg QD Take 60 mg by mouth 1 (one) time each day. [facility] Atogepant (Qulipta) 60 MG tablet 2022-06 0 00:00: 00 09-22 04:59 :00 No [id number] 60mg QD Take 60 mg by mouth 1 (one) time each day. [facility] SUMAtriptan (Imitrex) 50 MG tablet 2022-06 00:00: 00 05-26 05:59 :00 No [id number] 50mg Take 1 tablet (50 mg total) by mouth 1 (one) time if needed for migraine (may repeat x1). May repeat dose once in 2 hours if no relief. Do not exceed 2 doses in [address] [facility] SUMAtriptan (Imitrex) 50 MG tablet 2022-06 00:00: 00 05-26 05:59 :00 No [id number] 50mg Take 1 tablet (50 mg total) by mouth 1 (one) time if needed for migraine (may repeat x1). May repeat dose once in 2 hours if no relief. Do not exceed 2 doses in [address] [facility] maalox:diph enhydrAMINE :lidocaine 2 % viscous 1:1:1 12-30 00:00: 00 03-21 00:00 :00 No [id number] 15mL Take 15 mL by mouth 4 (four) times daily as needed (pharyngit is). [facility] maalox:diph enhydrAMINE :lidocaine 2 % viscous 1:1:1 12-30 00:00: 00 03-21 00:00 :00 No [id number] 15mL Take 15 mL by mouth 4 (four) times daily as needed (pharyngit is). [facility] SERTraline (ZOLOFT) 25 mg tablet 10-25 00:00: 00 Yes [id number] 25mg Take 1 tablet by mouth daily. [facility] SERTraline (ZOLOFT) 25 mg tablet 10-25 00:00: 00 Yes [id number] 25mg Take 1 tablet by mouth daily. [facility] SERTraline (ZOLOFT) 25 mg tablet 10-25 00:00: 00 Yes [id number] 25mg Take 1 tablet by mouth daily. [facility] SERTraline (ZOLOFT) 25 mg tablet 10-25 00:00: 00 Yes [id number] 25mg Take 1 tablet by mouth daily. [facility] SERTraline (ZOLOFT) 25 mg tablet 10-25 00:00: 00 Yes [id number] 25mg Take 1 tablet by mouth daily. [facility] vit calc,iron,f olic ( VITAMIN ORAL) 09-18 13:40: 23 09-18 00:00 :00 No Take by mouth. [facility] acetaminoph en-caff-but albital (ESGIC) per capsule 08-22 00:00: 00 12-30 00:00 :00 No [id number] 1{capsu le} Take 1 capsule by mouth every 4 (four) hours as needed for Pain. [facility] vitamin w/FA tablet 08-17 00:00: 00 03-21 00:00 :00 No [id number] 1{tbl} Take 1 tablet by mouth daily. [facility] vitamin w/FA tablet 08-17 00:00: 00 03-21 00:00 :00 No [id number] 1{tbl} Take 1 tablet by mouth daily. [facility] vitamin w/FA tablet 08-17 00:00: 00 03-21 00:00 :00 No [id number] 1{tbl} Take 1 tablet by mouth daily. [facility] ibuprofen 600 mg tablet 08-17 00:00: 00 10-25 00:00 :00 No [id number] 600mg Take 1 tablet by mouth every 6 (six) hours as needed (Pain). Take with food or milk. [facility] ferrous sulfate 325 mg (65 mg iron) tablet 08-17 00:00: 00 09-27 00:00 :00 No [id number] 325mg Take 1 tablet by mouth 2 (two) times daily. [facility] docusate calcium 240 mg capsule 08-17 00:00: 00 09-18 00:00 :00 No [id number] 240mg Take 1 capsule by mouth once daily as needed for Constipati on. [facility] acetaZOLAMI DE 250 mg tablet 08-11 00:00: 00 09-18 00:00 :00 No [id number] 500mg Take 2 tablets by mouth 2 (two) times daily. [facility] proCHLORper azine 10 mg tablet 08-04 00:00: 00 10-25 00:00 :00 No [id number] 5mg Take 0.5 tablets by mouth every 6 (six) hours as needed (headache) . [facility] magnesium oxide 400 mg (241.3 mg magnesium) tablet 06-21 00:00: 00 09-18 00:00 :00 No [id number] 400mg Take 1 tablet by mouth daily. [facility] albuterol 90 mcg/actuati on inhaler 01-23 00:00: 00 09-18 00:00 :00 No [id number] 2{puff} Inhale 2 Puffs every 6 (six) hours as needed for Wheezing, Shortness of Breath, Bronchospa sm or Chest tightness. [facility] Immunizations Ordered Immunization Name Filled Immunization Name Date Status Comments Source TDAP 2020-06-21 00:00:00 Completed [facility] TDAP 2020-06-21 00:00:00 Completed [facility] TDAP 2020-06-21 00:00:00 Completed [facility] TDAP Unknown Completed [facility] TDAP Unknown Completed [facility] TDAP Unknown Completed [facility] Vital Signs Vital Name Observation Time Observation Value Comments S ource Systolic blood pressure 2023-03-26 15:20:00 134 mm[Hg] [facility] Diastolic blood pressure 2023-03-26 15:20:00 89 mm[Hg] [facility] Heart rate 2023-03-26 15:20:00 92 /min [facility] Body height 2023-03-26 15:20:00 167.6 cm [facility] Body weight 2023-03-26 15:20:00 141.976 [facility] BMI 2023-03-26 15:20:00 50.52 kg/m2 [facility] Systolic blood pressure 2021-03-21 20:11:00 129 mm[Hg] [facility] Diastolic blood pressure 2021-03-21 20:11:00 87 mm[Hg] [facility] Heart rate 2021-03-21 20:11:00 88 /min [facility] Body temperature 2021-03-21 20:11:00 36.89 [facility] Respiratory rate 2021-03-21 20:11:00 18 /min [facility] Body height 2021-03-21 20:11:00 165.1 cm [facility] Body weight 2021-03-21 20:11:00 124.286 kg [facility] BMI 2021-03-21 20:11:00 45.60 kg/m2 [facility] Procedures Procedure Date / Time Performed Performing Clinicia n Source OCT, OPTIC NERVE - OU - BOTH EYES 2023-03-24 13:35:[address] [facility] OCT, RETINA - OU - BOTH EYES 2023-03-24 13:35:[address] [facility] GONZALES VISUAL FIELD - OU - BOTH EYES 2023-03-24 13:35:[address] [facility] Encounters Start Date/Time End Date/Time Encounter Type Admission Type Attending Clinicians Care Facility Care Department Encounter ID Source 2021-04-02 12:12:16 Emergency [facility] [id number] [facility] 2021-04-01 16:27:17 Outpatient R THOMAS HUBER [facility] MAKE READY WORKER [id number] [facility] 2021-04-01 06:10:40 Outpatient P [facility] SHARYN [id number] [facility] 2021-04-01 05:44:28 Outpatient P [facility] SHARYN [id number] [facility] 2021-04-01 01:36:48 Outpatient [facility] SHARYN [id number] [facility] 2021-03-31 19:31:52 Outpatient P [facility] SHARYN [id number] [facility] 2021-03-31 19:22:14 Outpatient P [facility] SHARYN [id number] [facility] 2021-03-31 11:20:46 Outpatient P [facility] SHARYN [id number] [facility] 2021-03-31 11:16:36 Outpatient P [facility] SHARYN [id number] [facility] 2023-03-26 10:30:00 2023-03-26 11:18:06 Consult Demario Win [facility] 2 1..840.114 350.1.13.58 9.2.7.2.[id number] [facility] 2023-03-24 09:00:00 2023-03-24 14:16:28 Outpatient [facility] [id number] [facility] 2023-03-24 08:35:00 2023-03-24 11:43:42 Outpatient [facility] [id number] [facility] 2023-03-24 08:30:00 2023-03-24 11:43:21 Outpatient [facility] [id number] [facility] 2023-03-24 08:15:00 2023-03-24 09:22:32 Office Visit Robe Luis [facility] [address] [facility] 1.2.840.114 350.1.13.58 9.2.7.2.[id number] [facility] 2021-03-26 00:00:00 2021-03-26 00:00:00 [facility]phone [facility] 1.2.840.114 350.1.13.10 4.2.7.2.[id number] [facility] 2021-03-21 16:11:30 2021-03-21 16:26:30 Folder Machine Operator Visit Pob, Adc Lab Main Thomas Huber [facility] 1.2.114 350.1.13.10 4.2.7.2.[id number] [facility] 2021-03-21 14:49:10 2021-03-21 15:45:16 Office Visit Thomas Huber [facility] 1.2.114 350.1.13.10 4.2.7.2.[id number] [facility] 2021-03-21 15:00:00 2021-03-21 15:00:00 Outpatient R CECILE THOMAS [facility] [id number] [facility] 2021-03-21 00:00:00 2021-03-21 00:00:00 Orders Only Doctor Unassigned, [place] [facility] 1..114 350.1.13.10 4.2.7.2.[id number] [facility] 2021-03-06 00:00:00 2021-03-06 00:00:00 Patient Secure Msg Thomas Huber [facility] 1.284.114 350.1.13.10 4.2.7.2.[id number] [facility] 2021-03-05 00:00:00 2021-03-05 00:00:00 Patient Secure Msg Thomas Huber [facility] 1.284.114 350.1.13.10 4.2.7.2.[id number] [facility] 2021-01-24 08:15:00 2021-01-24 08:15:00 Outpatient JODI CARRINGTON [facility] [id number] [facility] 2020-12-30 13:10:00 2020-12-30 15:36:00 Emergency Danette Torre [facility] 1.2.840.114 350.1.13.10 4.2.7.2.[id number] [facility] 2020-11-23 09:30:00 2020-11-23 09:30:00 Outpatient R THOMAS HUBER [facility] [id number] [facility] 2020-10-25 14:39:08 2020-10-25 16:21:33 Office Visit Thomas Huber [facility] 1.2.840.114 350.1.13.10 4.2.7.2.[id number] [facility] 2020-10-25 15:00:00 2020-10-25 15:00:00 Outpatient R THOMAS HUBER [facility] [id number] [facility] 2020-10-20 00:00:00 2020-10-20 00:00:00 Case Management Thomas Huber [facility] 1.2.840.114 350.1.13.10 4.2.7.2.[id number] [facility] 2020-10-18 00:00:00 2020-10-18 00:00:00 Orders Only Doctor Unassigned, [place] [facility] 1.2.84.114 350.1.13.10 4.2.7.2.[id number] [facility] 2020-10-16 15:00:00 2020-10-16 15:00:00 Outpatient R THOMAS HUBER [facility] [id number] [facility] 2020-10-13 00:00:00 2020-10-13 00:00:00 Telephone Thomas Huber [facility] 1.2.840.114 350.1.13.10 4.2.7.2.[id number] [facility] 2020-10-12 00:00:00 2020-10-12 00:00:00 Telephone Thomas Huber [facility] 1.2.840.114 350.1.13.10 4.2.7.2.[id number] [facility] 2020-10-10 06:27:00 2020-10-10 10:28:00 Hospital Encounter Thomas Huber [facility] 1.2.840.114 350.1.13.10 4.2.7.2.[id number] [facility] 2020-10-10 07:30:00 2020-10-10 09:35:00 Surgery Thomas Huber [facility] [place] 1.2.840.114 350.1.13.10 4.2.7.2.[id number] [facility] 2020-10-10 07:19:00 2020-10-10 08:45:00 Anesthesia Event Marcial Muñoz [facility] 1.2840.114 350.1.13.10 4.2.7.2.[id number] [facility] 2020-10-09 08:15:53 2020-10-09 08:30:53 Folder Machine Operator Visit Pob, Adc Lab Main Thomas Huber [facility] 1.2840.114 350.1.13.10 4.2.7.2.[id number] [facility] 2020-10-09 08:14:50 2020-10-09 08:29:50 Laboratory Only Only, Adc Test Thomas Huber [facility] 1.2.840.114 350.1.13.10 4.2.7.2.[id number] [facility] 2020-10-09 08:15:00 2020-10-09 08:15:00 Outpatient R CECILE THOMAS [facility] [id number] [facility] 2020-10-09 00:00:00 2020-10-09 00:00:00 Orders Only Doctor Unassigned, [place] [facility] 1.2840.114 350.1.13.10 4.2.7.2.[id number] [facility] 2020-10-06 00:00:00 2020-10-06 00:00:00 Telephone Thomas Huber [facility] 1.284.114 350.1.13.10 4.2.7.2.[id number] [facility] 2020-10-03 09:40:00 2020-10-03 09:40:00 Outpatient ABEL PIZANO HOWARD [facility] [id number] [facility] 2020-10-03 00:00:00 2020-10-03 00:00:00 Telephone Thomas Huber [facility] 1.2.84.114 350.1.13.10 4.2.7.2.[id number] [facility] 2020-10-02 00:00:00 2020-10-02 00:00:00 Telephone Thomas Huber [facility] 1.2.840.114 350.1.13.10 4.2.7.2.[id number] [facility] 2020-09-27 15:09:45 2020-09-27 16:42:32 Office Visit Thomas Huber [facility] 1.2840.114 350.1.13.10 4.2.7.2.[id number] [facility] 2020-09-27 08:09:42 2020-09-27 09:39:41 Office Visit Jodi Hagen [facility] 1.2840.114 350.1.13.10 4.2.7.2.[id number] [facility] 2020-09-27 08:15:00 2020-09-27 08:15:00 Outpatient R JODI HAGEN [facility] [id number] [facility] 2020-09-27 00:00:00 2020-09-27 00:00:00 Orders Only Doctor Unassigned, [place] [facility] 1.2840.114 350.1.13.10 4.2.7.2.[id number] [facility] 2020-09-21 14:15:57 2020-09-21 14:30:57 [facility] 1.2.840.114 350.1.13.10 4.2.7.2.[id number] [facility] 2020-09-21 14:15:00 2020-09-21 14:15:00 Outpatient R BRIDGETT, [facility] [id number] [facility] 2020-09-21 00:00:00 2020-09-21 00:00:00 Telephone Bridgett [facility] Building 1.2.840.114 350.1.13.10 4.2.7.2.[id number] [facility] 2020-09-19 07:56:23 2020-09-19 23:59:00 Hospital Encounter Bernie Huberen Yose[facility] 1.2.840.114 350.1.13.10 4.2.7.2.[id number] [facility] 2020-09-19 08:00:00 2020-09-19 08:00:00 Outpatient R THOMAS HUBER [facility] [id number] [facility] 2020-09-18 12:58:14 2020-09-18 13:45:31 Routine Visit Thomas Huber [facility] 1.2.840.114 350.1.13.10 4.2.7.2.[id number] [facility] 2020-09-18 13:15:00 2020-09-18 13:15:00 Outpatient R THOMAS HUBER [facility] [id number] [facility] 2020-09-18 00:00:00 2020-09-18 00:00:00 Telephone Thomas Huber [facility] 1..840.114 350.1.13.10 4.2.7.2.[id number] [facility] 2020-09-11 13:00:00 2020-09-11 13:00:00 Outpatient R THOMAS HUBER [facility] [id number] [facility] 2020-08-28 09:49:56 2020-08-28 10:44:06 Office Visit Abel Sheppard [facility] 1..840.114 350.1.13.10 4.2.7.2.[id number] [facility] 2020-08-28 10:00:00 2020-08-28 10:00:00 Outpatient R ABEL SHEPPARD HOWARD [facility] [id number] [facility] 2020-08-28 00:00:00 2020-08-28 00:00:00 Orders Only Doctor Unassigned, [place] [facility] 1..840.114 350.1.13.10 4.2.7.2.[id number] [facility] 2020-08-25 07:55:02 2020-08-25 09:02:52 Office Visit Jodi Hagen [facility] 1.2840.114 350.1.13.10 4.2.7.2.[id number] [facility] [facility] 2020-08-25 08:00:00 2020-08-25 08:00:00 Outpatient R XIAO JODI [facility] [id number] [facility] 2020-08-23 00:00:00 2020-08-23 00:00:00 Telephone Thomas Huber [facility] 1.20.114 350.1.13.10 4.2.7.2.[id number] [facility] 2020-08-23 00:00:00 2020-08-23 00:00:00 Case Management Thomas Huber [facility] 1.2840.114 350.1.13.10 4.2.7.2.[id number] [facility] 2020-08-22 00:00:00 2020-08-22 00:00:00 Telephone Thomas Huber [facility] 1.2840.114 350.1.13.10 4.2.7.2.[id number] [facility] 2020-08-22 00:00:00 2020-08-22 00:00:00 Patient Outreach Evan Orellana [facility] 1.2.114 350.1.13.10 4.2.7.2.[id number] [facility] 2020-08-22 00:00:00 2020-08-22 00:00:00 Patient Secure Msg Doctor Unassigned, [place] [facility] 1.20.114 350.1.13.10 4.2.7.2.[id number] [facility] 2020-08-19 00:00:00 2020-08-19 00:00:00 Refill Thomas Huber [facility] 1.2.840.114 350.1.13.10 4.2.7.2.[id number] [facility] 2020-08-14 16:59:00 2020-08-17 11:45:00 Hospital Encounter Thomas Huber [facility] 1.2.840.114 350.1.13.10 4.2.7.2.[id number] [facility] 2020-08-17 00:00:00 2020-08-17 00:00:00 Case Management Thomas Huber [facility] 1.2.840.114 350.1.13.10 4.2.7.2.[id number] [facility] 2020-08-15 00:00:00 2020-08-15 00:00:00 Telephone Thomas Huber [facility] 1.2.840.114 350.1.13.10 4.2.7.2.[id number] [facility] 2020-08-14 14:05:11 2020-08-14 16:10:05 Routine Visit Thomas Huber [facility] 1.2.840.114 350.1.13.10 4.2.7.2.[id number] [facility] 2020-08-14 14:30:00 2020-08-14 14:30:00 Outpatient R THOMAS HUBER [facility] [id number] [facility] 2020-08-14 00:00:00 2020-08-14 00:00:00 Orders Only Doctor Unassigned, [place] [facility] 1.2.840.114 350.1.13.10 4.2.7.2.[id number] [facility] 2020-08-10 12:29:00 2020-08-11 21:17:00 Hospital Encounter [facility] 1.2.840.114 350.1.13.10 4.2.7.2.[id number] [facility] 2020-08-10 12:29:00 2020-08-11 21:17:00 Outpatient [facility] SHARYN [id number] [facility] 2020-08-11 00:00:00 2020-08-11 00:00:00 Telephone Thomas Huber [facility] 1.2.840.114 350.1.13.10 4.2.7.2.[id number] [facility] 2020-08-11 00:00:00 2020-08-11 00:00:00 Telephone Thomas Huber [facility] 1.2.840.114 350.1.13.10 4.2.7.2.[id number] [facility] 2020-08-11 00:00:00 2020-08-11 00:00:00 Telephone Thomas Huber [facility] 1.2.840.114 350.1.13.10 4.2.7.2.[id number] [facility] 2020-08-10 09:00:00 2020-08-10 09:00:00 Outpatient R THOMAS HUBER [facility] [id number] [facility] 2020-08-10 00:00:00 2020-08-10 00:00:00 Case Management Thomas Huber [facility] 1..840.114 350.1.13.10 4.2.7.2.[id number] [facility] 2020-08-10 00:00:00 2020-08-10 00:00:00 Orders Only Doctor Unassigned, [place] [facility] 1.2840.114 350.1.13.10 4.2.7.2.[id number] [facility] 2020-08-09 14:34:33 2020-08-09 15:43:43 Office Visit Xiao [facility] 1.284.114 350.1.13.10 4.2.7.2.[id number] [facility] 2020-08-09 14:45:00 2020-08-09 14:45:00 Outpatient R XIAO [facility] [id number] [facility] 2020-08-07 13:12:16 2020-08-07 14:08:38 [facility] 1..840.114 350.1.13.10 4.2.7.2.[id number] [facility] 2020-08-07 13:15:00 2020-08-07 13:15:00 [id number] 2020-08-07 09:46:28 2020-08-07 10:52:33 Routine Visit Room, Adc Nst Cecile Thomas [facility] Building 1..840.114 350.1.13.10 4.2.7.2.[id number] [facility] 2020-08-04 14:50:34 2020-08-04 15:20:34 Folder Machine Operator Visit Ultrasound, Adc Jacque Velez [facility] 1.2.840.114 350.1.13.10 4.2.7.2.[id number] [facility] 2020-08-04 15:00:00 2020-08-04 15:00:00 Outpatient R [facility] [id number] [facility] 2020-08-04 00:00:00 2020-08-04 00:00:00 Case Management Thomas Huber Yose[facility] 1.2.840.114 350.1.13.10 4.2.7.2.[id number] [facility] 2020-08-03 08:42:32 2020-08-03 10:10:58 Routine Visit Room, Counts Include [facility] 1.2840.114 350.1.13.10 4.2.7.2.[id number] [facility] 2020-08-03 09:00:00 2020-08-03 09:00:00 Outpatient R BERNIE HUBEREN [facility] [id number] [facility] 2020-08-02 00:00:00 2020-08-02 00:00:00 Telephone Thomas Huber [facility] 1.2840.114 350.1.13.10 4.2.7.2.[id number] [facility] 2020-08-02 00:00:00 2020-08-02 00:00:00 Orders Only Doctor Unassigned, [place] [facility] 1.2840.114 350.1.13.10 4.2.7.2.[id number] [facility] 2020-07-31 11:15:27 2020-07-31 23:59:00 Hospital Encounter HuberThomas Yosef [facility] 1.2.840.114 350.1.13.10 4.2.7.2.[id number] [facility] 2020-07-31 11:15:27 2020-07-31 23:59:00 Outpatient R THOMAS HUBER [facility] [id number] [facility] 2020-07-31 08:58:13 2020-07-31 10:44:17 Routine Visit Room, [facility] 1.2.840.114 350.1.13.10 4.2.7.2.[id number] [facility] 2020-07-31 00:00:00 2020-07-31 00:00:00 Orders Only Doctor Unassigned, [place] [facility] 1.2.840.114 350.1.13.10 4.2.7.2.[id number] [facility] 2020-07-28 09:50:00 2020-07-30 11:30:00 Hospital Encounter Thomas Huber [facility] 1.2.840.114 350.1.13.10 4.2.7.2.[id number] [facility] 2020-07-28 00:00:00 2020-07-28 00:00:00 Telephone Thomas Huber [facility] 1.2.840.114 350.1.13.10 4.2.7.2.[id number] [facility] 2020-07-28 00:00:00 2020-07-28 00:00:00 Telephone [facility] Hub[facility] 1.2.840.114 350.1.13.10 4.2.7.2.[id number] [facility] 2020-07-28 00:00:00 2020-07-28 00:00:00 Telephone Thomas Huber [facility] 1.2.840.114 350.1.13.10 4.2.7.2.[id number] [facility] 2020-07-27 16:44:00 2020-07-27 23:55:00 Hospital Encounter Thomas Huber [facility] 1.2840.114 350.1.13.10 4.2.7.2.[id number] [facility] 2020-07-27 16:44:00 2020-07-27 23:55:00 Outpatient P THOMAS HUBER [facility] SHARYN [id number] [facility] 2020-07-27 14:50:23 2020-07-27 16:18:54 Routine Visit Room, [facility] Nst Zully Ren [facility] 1.2.840.114 350.1.13.10 4.2.7.2.[id number] [facility] 2020-07-27 15:00:00 2020-07-27 15:00:00 Outpatient R [facility] [id number] [facility] 2020-07-24 09:34:57 2020-07-24 10:48:17 Routine Visit Thomas Huber [facility] 1.2.840.114 350.1.13.10 4.2.7.2.[id number] [facility] 2020-07-24 10:00:00 2020-07-24 10:00:00 Outpatient R [facility] [id number] [facility] 2020-07-21 00:00:00 2020-07-21 00:00:00 Orders Only Doctor Unassigned, [place] [facility] 1.2.840.114 350.1.13.10 4.2.7.2.[id number] [facility] 2020-07-21 00:00:00 2020-07-21 00:00:00 Case Management Thomas Huber [facility] 1.20.114 350.1.13.10 4.2.7.2.[id number] [facility] 2020-07-17 08:00:00 2020-07-17 08:00:00 Outpatient R [facility] [id number] [facility] 2020-07-13 00:00:00 2020-07-13 00:00:00 Telephone Thomas Huber [facility] 1.2.114 350.1.13.10 4.2.7.2.[id number] [facility] 2020-07-10 00:00:00 2020-07-10 00:00:00 Orders Only Doctor Unassigned, [place] [facility] 1.20.114 350.1.13.10 4.2.7.2.[id number] [facility] 2020-07-07 14:48:36 2020-07-07 15:18:36 Folder Machine Operator Visit Ultrasound, Adc Mfm Thomas Huber [facility] Building 1.20.114 350.1.13.10 4.2.7.2.[id number] [facility] 2020-07-07 15:00:00 2020-07-07 15:00:00 Outpatient P [facility] [id number] [facility] 2020-07-03 13:00:47 2020-07-03 13:40:01 Routine Visit Thomas Huber [facility] Building 1.20.114 350.1.13.10 4.2.7.2.[id number] [facility] 2020-07-03 12:51:19 2020-07-03 13:06:19 Folder Machine Operator Visit Pob, Adc Lab Main Thomas Huber [facility] 1.2840.114 350.1.13.10 4.2.7.2.[id number] [facility] 2020-07-03 13:00:00 2020-07-03 13:00:00 Outpatient R THOMAS HUBER [facility] [id number] [facility] 2020-06-30 15:40:48 2020-06-30 16:10:48 Nurse Visit Visit, Adc [facility] 1.284.114 350.1.13.10 4.2.7.2.[id number] [facility] 2020-06-30 16:00:00 2020-06-30 16:00:00 [facility] [id number] [facility] 2020-06-26 12:05:00 2020-06-26 17:49:00 Hospital Encounter Thomas Huber [facility] 1.2840.114 350.1.13.10 4.2.7.2.[id number] [facility] 2020-06-26 00:00:00 2020-06-26 00:00:00 Telephone Thomas Huber [facility] 1.2840.114 350.1.13.10 4.2.7.2.[id number] [facility] 2020-06-21 10:23:29 2020-06-21 10:38:29 Folder Machine Operator Visit Pob, Adc Lab Main Zully Ren [facility] Building 1.2840.114 350.1.13.10 4.2.7.2.[id number] [facility] 2020-06-21 09:04:16 2020-06-21 09:51:29 Routine Visit Zully [facility] 1.2.840.114 350.1.13.10 4.2.7.2.[id number] [facility] 2020-06-21 09:00:00 2020-06-21 09:00:00 Outpatient R ZULLY REN [facility] [id number] [facility] 2020-06-21 00:00:00 2020-06-21 00:00:00 Orders Only Doctor Unassigned, [place] [facility] 1.2.840.114 350.1.13.10 4.2.7.2.[id number] [facility] 2020-06-07 13:17:24 2020-06-07 14:20:00 Office Visit Xiao [facility] 1.2.840.114 350.1.13.10 4.2.7.2.[id number] [facility] 2020-06-07 13:30:00 2020-06-07 13:30:00 Outpatient R XIAO [facility] [id number] [facility] 2020-06-05 08:57:30 2020-06-05 09:57:30 Folder Machine Operator Visit 1, [facility] 1.2840.114 350.1.13.10 4.2.7.2.[id number] [facility] 2020-06-05 09:00:00 2020-06-05 09:00:00 Outpatient P [facility] [id number] [facility] 2020-05-24 09:41:08 2020-05-24 10:44:24 Routine Visit Thomas Huber [facility] 1.114 350.1.13.10 4.2.7.2.[id number] [facility] 2020-05-24 09:45:00 2020-05-24 09:45:00 [id number] 2020-05-24 00:00:00 2020-05-24 00:00:00 Orders Only Doctor Unassigned, [place] [facility] 1.114 350.1.13.10 4.2.7.2.[id number] [facility] 2020-05-18 13:45:00 2020-05-18 14:00:00 Telemedici ne Visit Alanna Graves [facility] CARTOGRAPHIC AIDE [facility] 1.114 350.1.13.10 4.2.7.2.[id number] [facility] 2020-05-18 13:45:00 2020-05-18 13:45:00 Outpatient P [facility] [id number] [facility] 2020-05-16 06:48:00 2020-05-16 10:10:00 Hospital Encounter Thomsa Huber [facility] 1.114 350.1.13.10 4.2.7.2.[id number] [facility] 2020-05-01 00:00:00 2020-05-01 00:00:00 Patient Secure Msg Thomas Huber [facility] BUILDING 1.114 350.1.13.10 4.2.7.2.[id number] [facility] 2020-04-26 09:55:06 2020-04-26 10:15:06 Laboratory Only Lab, Adc Fam Pob I Ivana Fernandez [facility] Office Building One 1.840.114 350.1.13.10 4.2.7.2.[id number] [facility] 2020-04-26 10:00:00 2020-04-26 10:00:00 Outpatient R [facility] [id number] [facility] 2020-04-26 09:40:00 2020-04-26 09:40:00 Outpatient R ELENI THOMASONTHIA [facility] [id number] [facility] 2020-04-25 11:09:08 2020-04-25 11:46:35 Routine Visit Zully Ren [facility] Building 1.840.114 350.1.13.10 4.2.7.2.[id number] [facility] 2020-04-25 11:15:00 2020-04-25 11:15:00 [id number] 2020-04-24 09:00:59 2020-04-24 10:53:51 Folder Machine Operator Visit 1, [facility] Us Room Ch [facility] 1.840.114 350.1.13.10 4.2.7.2.[id number] [facility] 2020-04-24 09:15:00 2020-04-24 09:15:00 Outpatient P [facility] [id number] [facility] 2020-04-19 00:00:00 2020-04-19 00:00:00 Telephone Thomas Huber [facility] 1.840.114 350.1.13.10 4.2.7.2.[id number] [facility] 2020-04-05 00:00:00 2020-04-05 00:00:00 Telephone Thomas Huber [facility] 1.2.840.114 350.1.13.10 4.2.7.2.[id number] [facility] 2020-04-03 10:30:00 2020-04-03 10:30:00 Outpatient P GARRY MENDEZ [facility] [id number] [facility] 2020-04-03 10:00:14 2020-04-03 10:15:14 Telemedici ne Visit Alanna Graves Joseph W [facility] CARTOGRAPHIC AIDE [facility] 1.2.840.114 350.1.13.10 4.2.7.2.[id number] [facility] 2020-03-29 00:00:00 2020-03-29 00:00:00 Telephone Thomas Huber [facility] 1.2.840.114 350.1.13.10 4.2.7.2.[id number] [facility] 2020-03-28 10:36:42 2020-03-28 10:51:42 Folder Machine Operator Visit 2, Adc Lab Thomas Huber [facility] 1.2.840.114 350.1.13.10 4.2.7.2.[id number] [facility] 2020-03-28 09:45:00 2020-03-28 09:45:00 Outpatient R [facility] [id number] [facility] 2020-03-27 14:52:43 2020-03-27 16:31:25 Office Visit Thomas Huber [facility] 1.2.840.114 350.1.13.10 4.2.7.2.[id number] [facility] 2020-03-27 11:15:00 2020-03-27 11:15:00 Outpatient R ZULLY REN [facility] [id number] [facility] 2020-03-27 00:00:00 2020-03-27 00:00:00 Orders Only Doctor Unassigned, [place] [facility] 1.2840.114 350.1.13.10 4.2.7.2.[id number] [facility] 2020-03-24 00:00:00 2020-03-24 00:00:00 Telephone [facility] Hub[facility] 1.2.840.114 350.1.13.10 4.2.7.2.[id number] [facility] 2020-03-24 00:00:00 2020-03-24 00:00:00 Telephone Contreras Zully [facility] nal Building 1.2.840.114 350.1.13.10 4.2.7.2.[id number] [facility] 2020-03-22 08:50:58 2020-03-22 09:46:40 Routine Visit Contreras Zully [facility] 1.2.840.114 350.1.13.10 4.2.7.2.[id number] [facility] 2020-03-22 09:15:00 2020-03-22 09:15:00 Outpatient R ZULLY REN [facility] [id number] [facility] 2020-03-20 00:00:00 2020-03-20 00:00:00 Telephone Thomas Huber [facility] 1.2.840.114 350.1.13.10 4.2.7.2.[id number] [facility] 2020-03-13 08:30:00 2020-03-13 08:30:00 Outpatient R THOMAS HUBER [facility] [id number] [facility] 2020-03-13 00:00:00 2020-03-13 00:00:00 Orders Only Doctor Unassigned, [place] [facility] 1.2.840.114 350.1.13.10 4.2.7.2.[id number] [facility] 2020-03-08 10:13:22 2020-03-08 10:51:38 Routine Visit Contreras Zully [facility] 1.2.840.114 350.1.13.10 4.2.7.2.[id number] [facility] 2020-03-08 10:15:00 2020-03-08 10:15:00 Outpatient R TENCORNELIUS ZULLY [facility] [id number] [facility] 2020-03-08 00:00:00 2020-03-08 00:00:00 Telephone Thomas Huber [facility] 1.2.840.114 350.1.13.10 4.2.7.2.[id number] [facility] 2020-03-06 00:00:00 2020-03-06 00:00:00 Telephone Thomas Huber [facility] 1.2.840.114 350.1.13.10 4.2.7.2.[id number] [facility] 2020-02-29 00:00:00 2020-02-29 00:00:00 Telephone Thomas Huber [facility] 1.2.840.114 350.1.13.10 4.2.7.2.[id number] [facility] 2020-02-28 09:13:47 2020-02-28 09:28:47 Folder Machine Operator Visit 2, Adc Lab Thomas Huber [facility] 1.2.840.114 350.1.13.10 4.2.7.2.[id number] [facility] 2020-02-28 08:29:25 2020-02-28 09:10:07 Routine Visit Thomas Huber [facility] 1.2840.114 350.1.13.10 4.2.7.2.[id number] [facility] 2020-02-28 08:30:00 2020-02-28 08:30:00 Outpatient R CEC[facility] [id number] [facility] 2020-02-28 00:00:00 2020-02-28 00:00:00 Orders Only Doctor Unassigned, [place] [facility] 1.20.114 350.1.13.10 4.2.7.2.[id number] [facility] 2020-02-16 00:00:00 2020-02-16 00:00:00 Orders Only Doctor Unassigned, [place] [facility] 1.20.114 350.1.13.10 4.2.7.2.[id number] [facility] 2020-02-14 13:30:00 2020-02-14 13:30:00 Outpatient P [facility] [id number] [facility] 2020-02-10 08:45:00 2020-02-10 08:45:00 Outpatient R MARGOT SANDOVAL [facility] [id number] [facility] 2020-02-03 00:00:00 2020-02-03 00:00:00 Telephone Thomas Huber [facility] 1.284.114 350.1.13.10 4.2.7.2.[id number] [facility] 2020-02-03 00:00:00 2020-02-03 00:00:00 Refill Thomas Huber [facility] 1.20.114 350.1.13.10 4.2.7.2.[id number] [facility] 2020-01-31 08:00:00 2020-01-31 08:00:00 Outpatient R [facility] [id number] [facility] 2020-01-31 00:00:00 2020-01-31 00:00:00 Telephone MichaelMargot Leslie [facility] CARTOGRAPHIC AIDE [facility] 1.2.840.114 350.1.13.10 4.2.7.2.[id number] [facility] 2020-01-27 00:00:00 2020-01-27 00:00:00 Patient Secure Msg Thomas Huber [facility] 1.2.840.114 350.1.13.10 4.2.7.2.[id number] [facility] 2020-01-24 09:15:54 2020-01-24 09:30:54 Folder Machine Operator Visit 2, [facility] Thomas Huber [facility] 1.2.840.114 350.1.13.10 4.2.7.2.[id number] [facility] 2020-01-24 08:03:13 2020-01-24 09:12:06 Initial Visit Thomas Huber [facility] 1.2.840.114 350.1.13.10 4.2.7.2.[id number] [facility] 2020-01-24 08:00:00 2020-01-24 08:00:00 Outpatient R BERNIE HUBEREN [facility] [id number] [facility] 2020-01-24 00:00:00 2020-01-24 00:00:00 Orders Only Doctor Unassigned, [place] [facility] 1.2.840.114 350.1.13.10 4.2.7.2.[id number] [facility] 2020-01-24 00:00:00 2020-01-24 00:00:00 Telephone Thomas Huber [facility] 1.2.840.114 350.1.13.10 4.2.7.2.[id number] [facility] 2020-01-19 10:00:00 2020-01-19 10:00:00 Outpatient R THOMAS HUBER [facility] [id number] [facility] 2020-01-17 09:51:45 2020-01-17 10:06:45 Folder Machine Operator Visit Lab, [facility] Margot Sandoval [facility] CARTOGRAPHIC AIDE [facility] & CHILD [facility] [id number] [id number] [id number] [facility] 2020-01-17 09:51:45 2020-01-17 10:06:45 Folder Machine Operator [facility] CHILD [facility] [id number] 350.1.13.10 4.2.7.2.686 [id number] 2020-01-17 08:15:00 2020-01-17 08:15:00 Outpatient R MARGOT SANDOVAL [facility] [id number] [facility] 2020-01-13 09:53:02 2020-01-13 10:23:02 Initial Visit Margot Sandoval [facility] CARTOGRAPHIC AIDE [facility] & CHILD [facility] [id number] [id number] [id number] [facility] 2020-01-13 09:53:02 2020-01-13 10:23:02 Initial Visit Margot Sandoval [facility] CARTOGRAPHIC AIDE [facility] & CHILD [facility] [id number] [id number] [id number] [id number] 2020-01-13 09:45:00 2020-01-13 09:45:00 Outpatient R MARGOT SANDOVAL [facility] [id number] [facility] 2020-01-11 14:45:00 2020-01-11 18:12:00 Emergency Nancy Sandoval [facility] [id number] [id number] [id number] [facility] 2020-01-11 14:45:00 2020-01-11 18:12:00 Emergency Nancy Sandoval [facility] [id number] [id number] 4.2.7.2.686 [id number] 2020-01-11 14:45:00 2020-01-11 14:45:00 Emergency NANCY SALCEDO [facility] [id number] [facility] 2020-01-11 00:00:00 2020-01-11 00:00:00 Nurse Triage [facility] [id number] [id number] 4.2.7.2.[id number] [facility] 2020-01-11 00:00:00 2020-01-11 00:00:00 Nurse Triage [facility] [id number] [id number] 4.2.7.2.686 [id number] 2019-12-06 12:49:46 2019-12-06 14:26:00 Emergency [facility] [id number] 350.1.13.10 4.2.7.2.[id number] [facility] 2019-12-06 12:49:46 2019-12-06 14:26:00 Emergency [facility] [id number] 350.1.13.10 4.2.7.2.686 [id number] 2019-12-06 12:28:00 2019-12-06 12:28:00 Emergency X [facility] ERT [id number] [facility]
[2023-07-07 23:23] LABS: Specific Gravity 1.022 (1.005-1.030)
[2023-07-07 23:27] LABS: Specific Gravity 1.022 (1.005-1.030); Urine Bacteria <20 /HPF (<20); Urine Bilirubin NEGATIVE (Negative); Urine Blood 1+ (Negative); Urine Clarity Turbid (Clear); Urine Color Light-Yellow (Yellow); Urine Glucose NEGATIVE (Negative); Urine Mucus Slight /HPF (None Seen); Urine Protein NEGATIVE (Negative); Urine Urobilinogen Normal (Normal); Urine pH 5.5 (5.0-7.0)
--- NOTE | 2023-07-08 00:12 | ER ---
Nurse's Notes [facility] Name: Zaian Roberson Age: 28 yrs Sex: Female : 1995 Arrival Date: 07/07/2023 Time: 22:18 Bed 17 Private MD: Diagnosis: SARS-associated coronavirus as the cause of diseases classified elsewhere Presentation: 07/07 22:29 Chief complaint: Patient states: Flu like symptoms, fever, and dizziness for the past 3 jb4 days and yesterday it felt like my left ear drum ruptured. Coronavirus screen: At this time, the client does not indicate any symptoms associated with coronavirus-19. Ebola Screen: No symptoms or risks identified at this time. Initial Sepsis Screen: Does the patient meet any 2 criteria? No. Patient's initial sepsis screen is negative. Does the patient have a suspected source of infection?. Risk Assessment: Do you want to hurt yourself or someone else? Patient reports no desire to harm self or others. Onset of symptoms was July 07, 2023. Transition of care: patient was not received from another setting of care. 22:29 Method Of Arrival: Ambulatory jb4 22:29 Acuity: SAFIA 3 jb4 Historical: - Allergies: 22:31 NKDA; jb4 - PMHx: 22:31 Kidney stones (tubal ligation); jb4 - PSHx: 22:31 Cholecystectomy; tubal ligation; jb4 - Immunization history:: Adult Immunizations up to date. - Social history:: Smoking status: Reported history of juuling and/or vaping. Screenin:01 [facility] ED Fall Risk Assessment (Adult) History of falling in the last 3 months, km8 including since admission No falls in past 3 months (0 pts) Confusion or Disorientation No (0 pts) Intoxicated or Sedated No (0 pts) Impaired Gait No (0 pts) Mobility Assist Device Used No (0 pt) Altered Elimination No (0 pt) Score/Fall Risk Level 0 - 2 = Low Risk Oriented to surroundings, Maintained a safe environment, Educated pt \T\ family on fall prevention, incl call for assistance when getting out of bed, Assessed \T\ reinforced patient's understanding of fall precautions. Abuse screen: Denies threats or abuse. Denies injuries from another. Nutritional screening: No deficits noted. Tuberculosis screening: No symptoms or risk factors identified. Assessment: 23:01 General: Appears in no apparent distress. comfortable, Behavior is calm, cooperative, km8 appropriate for age. Pain: Complains of pain in generalized Pain currently is 5 out of 10 on a pain scale. Quality of pain is described as aching. Neuro: Level of Consciousness is awake, alert, obeys commands, Oriented to person, place, time, situation, Reports dizziness. Cardiovascular: Denies chest pain, shortness of breath, Capillary refill < 3 seconds Patient's skin is warm and dry. Respiratory: Airway is patent Respiratory effort is even, unlabored, Respiratory pattern is regular, symmetrical. GI: No signs and/or symptoms were reported involving the gastrointestinal system. : No signs and/or symptoms were reported regarding the genitourinary system. EENT: bilateral ear pain. Derm: No signs and/or symptoms reported regarding the dermatologic system. Skin is intact, is healthy with good turgor, Skin is dry, Skin is pink, warm \T\ dry. normal, Skin temperature is warm. Musculoskeletal: No signs and/or symptoms reported regarding the musculoskeletal system. Circulation, motion, and sensation intact. Range of motion: intact in all extremities. Vital Signs: 22:29 BP 139 / 116; Pulse 105; Resp 20; Temp 98.2; Pulse Ox 98% on R/A; Weight 111.13 kg; jb4 Height 5 ft. 6 in. ; 23:01 BP 139 / 78; Pulse 94; Resp 16; Pulse Ox 100% on R/A; km8 07/08 00:00 BP 134 / 77; Pulse 82; Resp 16; Pulse Ox 97% on R/A; km8 07/07 22:29 Body Mass Index 39.54 (111.13 kg, 167.64 cm) jb4 [place] Coma Score: 07/07 23:01 Eye Response: spontaneous(4). Motor Response: obeys commands(6). Verbal Response: km8 oriented(5). Total: 15. ED Course: 22:23 Patient arrived in ED. gm2 22:25 Ana Curry FNP-C is [facility]. kb 22:25 William Light MD is Attending Physician. kb 22:31 Triage completed. jb4 22:31 Arm band placed on left wrist. jb4 23:01 Yaneth Thomas, RN is Primary Nurse. km8 23: Patient has correct armband on for positive identification. Bed in low position. Call km8 light in reach. Side rails up X 1. Pulse ox on. NIBP on. 23: Test, Urine Sent. km8 23: Urinalysis w/ reflexes Sent. km8 23: COVID-19 SARS RT PCR Sent. km8 23: Flu Sent. km8 23: No provider procedures requiring assistance completed. Patient maintains SpO2 km8 saturation greater than 95% on room air. 07/08 00:25 Provided Education on: d/c teaching. km8 00:25 Patient did not have IV access during this emergency room visit. km8 Administered Medications: No medications were administered Medication: 07/07 23: VIS not applicable for this client. km8 Outcome: 07/08 00:11 Discharge ordered by . kb 00:26 Discharged to home ambulatory, with significant other, km8 00:26 Condition: good 00:26 Discharge instructions given to patient, significant other, Instructed on discharge instructions, follow up and referral plans. Demonstrated understanding of instructions, follow-up care, 00:27 Patient left the ED. km8 Signatures: Ana Curry, REGRINDER OPERATOR-C REGRINDER OPERATOR-CkAusten Macias, RN RN jb4 Dara Quiroz gm2 Yaneth Thomas, RN RN km8 Corrections: (The following items were deleted from the chart) 07/07 23:03 23: General: Appears in no apparent distress. comfortable, Behavior is calm, km8 cooperative, appropriate for age, km8
--- NOTE | 2023-07-08 00:12 | EDPHYS ---
Physician Documentation [facility] Name: Zaina Roberson Age: 28 yrs Sex: Female : 1995 Arrival Date: 07/07/2023 Time: 22:18 Bed 17 Private MD: ED Physician William Light HPI: 07/08 00:11 This 28 yrs old Female presents to ER via Ambulatory with complaints of Flu Symptoms, kb Fever, Dizziness. 00:11 Pt is a 28-year-old female who presents for cough, congestion, sore throat, malaise, kb fatigue, fever, chills that started 3 days ago.. Historical: - Allergies: 07/07 22:31 NKDA; jb4 - PMHx: 22:31 Kidney stones (tubal ligation); jb4 - PSHx: 22:31 Cholecystectomy; tubal ligation; jb4 - Immunization history:: Adult Immunizations up to date. - Social history:: Smoking status: Reported history of juuling and/or vaping. ROS: 07/08 00:10 Abdomen/GI: Negative for abdominal pain, nausea, vomiting, diarrhea, and constipation, kb Constitutional: Positive for body aches, chills, fatigue, fever, malaise, ENT: Positive for rhinorrhea, sinus congestion, sore throat, Respiratory: Positive for cough, All other systems are negative, Exam: 00:10 Constitutional: This is a well developed, well nourished patient who is awake, alert, kb and in no acute distress. Head/Face: Normocephalic, atraumatic. ENT: Moist Mucous membranes Cardiovascular: Regular rate Respiratory: Respirations even and unlabored. No increased work of breathing. Talking in full sentences Abdomen/GI: Soft, non-tender. No distention Skin: Warm, dry with normal turgor. Normal color. MS/ Extremity: Pulses equal, no cyanosis. Neurovascular intact. Full, normal range of motion. Neuro: Awake and alert, GCS 15, oriented to person, place, time, and situation. Moves all extremities. Normal gait. Vital Signs: 07/07 22:29 BP 139 / 116; Pulse 105; Resp 20; Temp 98.2; Pulse Ox 98% on R/A; Weight 111.13 kg; jb4 Height 5 ft. 6 in. ; 23:01 BP 139 / 78; Pulse 94; Resp 16; Pulse Ox 100% on R/A; km8 07/08 00:00 BP 134 / 77; Pulse 82; Resp 16; Pulse Ox 97% on R/A; km8 07/07 22:29 Body Mass Index 39.54 (111.13 kg, 167.64 cm) jb4 [place] Coma Score: 07/07 23:01 Eye Response: spontaneous(4). Motor Response: obeys commands(6). Verbal Response: km8 oriented(5). Total: 15. MDM: 22:25 Patient medically screened. kb 07/08 00:10 Differential diagnosis: flu, covid, uri. Data reviewed: vital signs, nurses notes. kb Counseling: I had a detailed discussion with the patient and/or guardian regarding the historical points, exam findings, and any diagnostic results supporting the discharge/admit diagnosis, lab results, the need for outpatient follow up, a family practitioner, to return to the emergency department if symptoms worsen or persist or if there are any questions or concerns that arise at home. 07/07 22:29 Order name: Flu; Complete Time: 23:44 kb 07/07 22:29 Order name: COVID-19 SARS RT PCR; Complete Time: 00:10 kb 07/07 22:29 Order name: Test, Urine; Complete Time: 23:31 kb 07/07 22:29 Order name: Urinalysis w/ reflexes; Complete Time: 23:31 kb 07/07 23:31 Order name: Urine Culture EDMS Administered Medications: No medications were administered Disposition: 05:56 Co-signature as Attending Physician, William Light MD I agree with the assessment sp4 and plan of care. I reviewed the patient's care provided by the Advanced Practice Provider and agree with the diagnosis and treatment plan. Disposition Summary: 07/08/23 00:11 Discharge Ordered Notes: Location: Home kb Condition: Stable kb Diagnosis - SARS-associated coronavirus as the cause of diseases classified elsewhere kb Followup: kb - With: Private Physician - When: 2 - 3 days - Reason: Recheck today's complaints, Continuance of care, Re-evaluation by your physician Followup: kb - With: Emergency Department - When: As needed - Reason: Worsening of condition Discharge Instructions: - Discharge Summary Sheet kb - COVID-19 kb - Viral Illness, Adult kb Forms: - Medication Reconciliation Form kb - Thank You Letter kb - Antibiotic Education kb - Prescription Opioid Use kb - Patient Portal Instructions kb - Leadership Thank You Letter kb Signatures: Dispatcher [employer] Ana Duke, SENIOR PAYROLL MANAGER-C EFRAIN-Austen Morton RN RN jb4 William Light MD MD sp4
[2023-07-08 17:37] VITALS: TEMP 98.2
[2023-07-08 17:55] VITALS: BP 134/77; O2SAT 97
== END ==
LOC: ER 22:18
DX: U07.1 COVID-19 (principal)
CPT/HCPCS: 81001; 81025; 87086; 87088; 87635; 87804

== ENCOUNTER 2023-10-26 18:15 | Emergency (ER) | payer OTHER ==
--- OUTSIDE RECORDS SUMMARY | 2023-10-26 18:19 | XMS REPORT | Continuity of Care Document ---
Author Name Unknown Address [address] [facility] [place] [address] [facility] thconnect Address [address] [place] [address] Care Team Providers Care Housekeeper Name Role Phone Pcp, Patient Does Not Have A Primary Care Physic kira THOMAS HUBER Attending Clinician Unavailable Pcp, Patient Does Not Have A Attending Clinician Demario Win MD Attending Clinician [phone] Robe Luis OD Attending Clinician [phone] Thomas Huber MD Attending Clinician [phone] Pob, Adc Lab Main Attending Clinician Unavailabl e Doctor Unassigned, [place] Attending Clinician U JODI Jones Attending Clinician Unavailable Nicho GUEVARA, Danette Snell Attending Clinician [phone] Marcial Muñoz CRNA Attending Clinician [phone] Poli Massey MD, Leonard Attending Clinician + [phone] Only, Adc Test Attending Clinician Unavailable ABEL SHEPPARD Attending Clinician Unavail able ABEL SHEPPARD Attending Clinician Unavail able Xiao BEASLEY, Jodi Attending Clinician [phone] Kasandra BEASLEY, Pita Attending Clinician [phone] PITA URIAS Attending Clinician Unavailable Silver BEASLEY, Abel Smith Attending Clinician [phone] Evan Orellana DO Attending Clinician [phone] Jeferson Campos MD Attending Clinician [phone] Celso Ch MD Attending Clinician [phone] CELSO CH Attending Clinician Unavailable CELSO CH Attending Clinician Unavailable Room, [facility] Attending Clinician Unavailable Ultrasound, [facility] Attending Clinician Unavaila vanessa Paul MD, Santillan Attending Clinician + Lisa Naidu MD Attending Clinician [phone] Zully Ren PA-C Attending Clinician [phone] Visit, [facility] Nurse Attending Clinician Unavailable Satish Walls MD Attending Clinician [phone] SATISH WALLS Attending Clinician Unavailable ZULLY REN Attending Clinician Unavailable 1, [facility] Room Attending Clinician Unavaila Alanna Beck Attending Clinician Unavailabl e Lab, [facility] Fam Pob I Attending Clinician Unavailab Ivana Ross Attending Clinician [phone] PERLITA THOMASON Attending Clinician Unavailable GARRY MENDEZ Attending Clinician Unavailable Garry Mendez MD Attending Clinician [phone] 2, [facility] Lab Attending Clinician Unavailable MARGOT SANDOVAL Attending Clinician UnavailMargot Samano Attending Clinician [phone] Yael, [facility] Attending Clinician Unavailable Nancy Sandoval DO Attending Clinician [phone] NANCY SANDOVAL Attending Clinician Unavailab Libia Roberts RN Attending Clinician UnavailAgustina Bermudez Attending Clinician [phone] THOMAS HUBER Admitting Clinician Unavailable JEFERSON CAMPOS Admitting Clinician UnavailThomas Alvarez MD Admitting Clinician Beth BEASLEY, Jeferson Hernandez Admitting Clinician Evangelista BEASLEY, Lisa Admitting Clinician Payers Payer Name Policy Type Policy Number Effective Date Expirati on Date Source [employer] MEDICAID [id number] 2020 00:00:00 [place] [id number] 2020 00:00:00 Problems Condition Name Condition Details Condition Category Status Onset Date Resolution Date Last Treatment Date Treating Clinician Comments Source BMI 50.0-59.9, adult BMI 50.0-59.9, adult Disease Active 2022-06 00:00: [address] [facility] Dietary counseling Dietary counseling Disease Active 2022-06 00:00: 00 [facility] retinal migraine Intractabl e retinal migraine Disease Active 2022-06 00:00: [address] [facility] Papilledem a Papilledem a Disease Active 2022-06 00:00: [address] [facility] Other visual disturbanc es Other visual disturbanc es Disease Active 2022-06 00:00: 00 Last Assessmen t & Plan: Formattin g of this note might be different from the original. VF unreliabl e, Retina is flat and intactRef to Neuro and Neuro-Oph [facility] Generalize d headaches Generalize d headaches Disease Active 2022-06 00:00: 00 Last Assessmen t & Plan: Formattin g of this note might be different from the original. Ref to Neuro for MRI [facility] Ocular hypertensi on, bilateral Ocular hypertensi on, bilateral Disease Active 2022-06 00:00: 00 Last Assessmen t & Plan: Formattin g of this note might be different from the original. 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 Disease Active 2-28 00:00: 00 [facility] Other headache syndrome Other headache syndrome Disease Active 2-27 00:00: 00 [facility] Chronic hypertensi on Chronic hypertensi on Disease Active 2-01 00:00: 00 [facility] Papanicola ou smear of cervix with low grade squamous intraepith elial lesion (LGSIL) Papanicola ou smear of cervix with low grade squamous intraepith elial lesion (LGSIL) Disease Active 8-31 00:00: 00 [facility] Morbid obesity with body mass index of 40.0-49.9 Morbid obesity with body mass index of 40.0-49.9 Disease Active 8-24 00:00: 00 [facility] Multiparit y Multiparit y Disease Active 8-18 00:00: 00 [facility] Allergies, Adverse Reactions, Alerts Allergy Name Allergy Type Status Severity Reaction(s) Onset Date Inactive Date Treating Clinician Comments Source NO KNOWN ALLERGIE S Drug Class Active [facility] Social History Social Habit Start Date Stop Date Quantity Comments Source History of tobacco use Cigarette Smoker [facility] Tobacco use and exposure 2023-03-26 00:00:00 2023-03-26 00:00:[address] smokeless tobacco [facility] Tobacco Comment 2023-03-26 00:00:00 2023-03-26 00:00:[address] [facility] Alcohol intake 2021-03-21 00:00:00 2021-03-21 00:00:00 Ex-drinker (finding) [facility] Exposure to SARS-CoV-2 (event) 2021-02-18 00:00:00 2021-03-20 10:03:00 Not sure [facility] History of Social function 2020-10-10 00:00:2020-10-10 00:00:00 [facility] Sex Assigned At 1995 00:00:00 1995 00:00:00 [facility] Smoking Status Start Date Stop Date Source Tobacco smoking consumption unknown [facility] Never smoked tobacco [facility] Ex-smoker 2020-01-13 00:00:00 2020-01-13 00:00:00 [facility] Medications Ordered Medication Name Filled Medication Name Start Date Stop Date Current Medication? Ordering Clinician Indication Dosage Frequency Signature (SIG) Comments Components Source Atogepant (Qulipta) 60 MG tablet 2022-06 00:00: 00 09-22 04:59 :00 No [id number] 60mg QD Take 60 mg by mouth 1 (one) time each day. [facility] SUMAtriptan (Imitrex) 50 MG tablet 2022-06 00:00: 00 05-26 05:59 :00 No [id number] 50mg Take 1 tablet (50 mg total) by mouth 1 (one) time if needed for migraine (may repeat x1). May repeat dose once in 2 hours if no relief. Do not exceed 2 doses in [address] [facility] maalox:diph enhydrAMINE :lidocaine 2 % viscous 1:1:1 12-30 00:00: 00 03-21 00:00 :00 No [id number] 15mL Take 15 mL by mouth 4 (four) times daily as needed (pharyngit is). [facility] SERTraline (ZOLOFT) 25 mg tablet 10-25 00:00: 00 Yes [id number] 25mg Take 1 tablet by mouth daily. [facility] vit calc,iron,f olic ( VITAMIN ORAL) -19 13:40: 23 09-18 00:00 :00 No Take by mouth. [facility] acetaminoph en-caff-but albital (ESGIC) per capsule - 00:00: 00 12-30 00:00 :00 No [id number] 1{capsu le} Take 1 capsule by mouth every 4 (four) hours as needed for Pain. [facility] vitamin w/FA tablet 18 00:00: 03-21 00:00 :00 No [id number] 1{tbl} Take 1 tablet by mouth daily. [facility] vitamin w/FA tablet 08-17 00:00: 00 03-21 00:00 :00 No [id number] 1{tbl} Take 1 tablet by mouth daily. [facility] ibuprofen 600 mg tablet 08-17 00:00: 10-25 00:00 :00 No [id number] 600mg Take 1 tablet by mouth every 6 (six) hours as needed (Pain). Take with food or milk. [facility] ferrous sulfate 325 mg (65 mg iron) tablet 08-17 00:00: 00 09-27 00:00 :00 No [id number] 325mg Take 1 tablet by mouth 2 (two) times daily. [facility] docusate calcium 240 mg capsule 08-17 00:00: 00 09-18 00:00 :00 No [id number] 240mg Take 1 capsule by mouth once daily as needed for Constipati on. [facility] acetaZOLAMI DE 250 mg tablet 08-11 00:00: 00 09-18 00:00 :00 No [id number] 500mg Take 2 tablets by mouth 2 (two) times daily. [facility] proCHLORper azine 10 mg tablet 08-04 00:00: 00 10-25 00:00 :00 No [id number] 5mg Take 0.5 tablets by mouth every 6 (six) hours as needed (headache) . [facility] magnesium oxide 400 mg (241.3 mg magnesium) tablet 06-21 00:00: 00 09-18 00:00 :00 No [id number] 400mg Take 1 tablet by mouth daily. [facility] albuterol 90 mcg/actuati on inhaler 824 00:00: 00 09-18 00:00 :00 No [id number] 2{puff} Inhale 2 Puffs every 6 (six) hours as needed for Wheezing, Shortness of Breath, Bronchospa sm or Chest tightness. [facility] Immunizations Ordered Immunization Name Filled Immunization Name Date Status Comments Source TDAP 2020-06-21 00:00:00 Completed [facility] TDAP 2020-06-21 00:00:00 Completed [facility] TDAP 2020-06-21 00:00:00 Completed [facility] TDAP Unknown Completed [facility] TDAP Unknown Completed [facility] TDAP Unknown Completed [facility] TDAP Unknown Completed [facility] Vital Signs Vital Name Observation Time Observation Value Comments S ource Systolic blood pressure 2023-03-26 15:20:00 134 mm[Hg] [facility] Diastolic blood pressure 2023-03-26 15:20:00 89 mm[Hg] [facility] Heart rate 2023-03-26 15:20:00 92 /min [facility] Body height 2023-03-26 15:20:00 [facility]6 [facility] Body weight 2023-03-26 15:20:00 141[facility]976 [facility] BMI 2023-03-26 15:20:00 50.52 kg/m2 [facility] Systolic blood pressure 2021-03-21 20:11:00 129 mm[Hg] [facility] Diastolic blood pressure 2021-03-21 20:11:00 87 mm[Hg] [facility] Heart rate 2021-03-21 20:11:00 88 /min [facility] Body temperature 2021-03-21 20:11:00 36.89 Crissy [facility] Respiratory rate 2021-03-21 20:11:00 18 /min [facility] Body height 2021-03-21 20:11:00 165.1 cm [facility] Body weight 2021-03-21 20:11:00 124.286 kg [facility] BMI 2021-03-21 20:11:00 45.60 kg/m2 [facility] Procedures Procedure Date / Time Performed Performing Clinicia n Source OCT, OPTIC NERVE - OU - BOTH EYES 2023-03-24 13:35:[address] [facility] OCT, RETINA - OU - BOTH EYES 2023-03-24 13:35:[address] [facility] GONZALES VISUAL FIELD - OU - BOTH EYES 2023-03-24 13:35:[address] [facility] Encounters Start Date/Time End Date/Time Encounter Type Admission Type Attending [facility] Care Facility Care Department Encounter ID Source 2021-04-02 12:12:16 Emergency [facility] [id number] [facility] 2021-04-01 16:27:17 Outpatient R THOMAS HUBER [facility] 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 [id number] [facility] 2021-04-01 06:10:40 Outpatient P [facility] SHARYN [id number] [facility] 2021-04-01 05:44:28 Outpatient P [facility] SHARYN [id number] [facility] 2021-04-01 01:36:48 Outpatient [facility] SHARYN [id number] [facility] 2021-03-31 19:31:52 Outpatient P [facility] SHARYN [id number] [facility] 2021-03-31 19:22:14 Outpatient P [facility] SHARYN [id number] [facility] 2021-03-31 11:20:46 Outpatient P [facility] SHARYN [id number] [facility] 2021-03-31 11:16:36 Outpatient P [facility] SHARYN [id number] [facility] 2023-07-11 00:00:00 2023-07-11 00:00:00 Patient Secure Msg Pcp, Patient Does Not Have A [facility] 1.0.114 350.1.13.10 4.2.7.2.686 [id number] [facility] 2023-03-26 10:30:00 2023-03-26 11:18:06 Consult Demario Win [facility] [place] [facility] 2 1.840.114 350.1.13.58 9.2.7.2.[id number] [facility] 2023-03-24 09:00:00 2023-03-24 14:16:28 [address] [facility] [id number] [facility] 2023-03-24 08:35:00 2023-03-24 11:43:42 Outpatient [facility] [id number] [facility] 2023-03-24 08:30:00 2023-03-24 11:43:21 Outpatient [facility] [id number] [facility] 2023-03-24 08:15:00 2023-03-24 09:22:32 Office Visit Robe Luis [facility] [address] [facility] 1.2.840.114 350.1.13.58 9.2.7.2.[id number] [facility] 2021-03-26 00:00:00 2021-03-26 00:00:00 Telephone Thomas Huber [facility] 1.2.840.114 350.1.13.10 4.2.7.2.686 [id number] [facility] 2021-03-21 16:11:30 2021-03-21 16:26:30 Assisted Living Coordinator Visit Pob, Adc Lab Main Thomas Huber [facility] 1.2.840.114 350.1.13.10 4.2.7.2.686 [id number] [facility] 2021-03-21 14:49:10 2021-03-21 15:45:16 Office Visit Thomas Huber [facility] 1.2.840.114 350.1.13.10 4.2.7.2.686 [id number] [facility] 2021-03-21 15:00:00 2021-03-21 15:00:00 Outpatient R THOMAS HUBER [facility] [id number] [facility] 2021-03-21 00:00:00 2021-03-21 00:00:00 Orders Only Doctor Unassigned, [place] [facility] 1.2840.114 350.1.13.10 4.2.7.2.686 [id number] [facility] 2021-03-06 00:00:00 2021-03-06 00:00:00 Patient Secure Msg Thomas Huber [facility]ESS[facility] N[facility] BUILD[facility] 1.2.840.114 350.1.13.10 4.2.7.2.686 [id number] [facility] 2021-03-05 00:00:00 2021-03-05 00:00:00 Patient Secure Msg [facility] 1.2.84.114 350.1.13.10 4.2.7.2.686 [id number] [facility] 2021-01-24 08:15:00 2021-01-24 08:15:00 Outpatient JODI CARRINGTON [facility] [id number] [facility] 2020-12-30 13:10:00 2020-12-30 15:36:00 Emergency [facility] 1.2.840.114 350.1.13.10 4.2.7.2.686 [id number] [facility] 2020-11-23 09:30:00 2020-11-23 09:30:00 Outpatient R THOMAS HUBER [facility] [id number] [facility] 2020-10-25 14:39:08 2020-10-25 16:21:33 Office Visit Thomas Huber [facility] 1.2.840.114 350.1.13.10 4.2.7.2.686 [id number] [facility] 2020-10-25 15:00:00 2020-10-25 15:00:00 Outpatient R THOMAS HUBER [facility] [id number] [facility] 2020-10-20 00:00:00 2020-10-20 00:00:00 Case Management Thomas Huber [facility] 1.2.840.114 350.1.13.10 4.2.7.2.686 [id number] [facility] 2020-10-18 00:00:00 2020-10-18 00:00:00 Orders Only Doctor Unassigned, [place] [facility] 1.2.840.114 350.1.13.10 4.2.7.2.686 [id number] [facility] 2020-10-16 15:00:00 2020-10-16 15:00:00 Outpatient R THOMAS HUBER [facility] [id number] [facility] 2020-10-13 00:00:00 2020-10-13 00:00:00 Telephone Thomas Huber [facility] 1.2.840.114 350.1.13.10 4.2.7.2.686 [id number] [facility] 2020-10-12 00:00:00 2020-10-12 00:00:00 Telephone Thomas Huber [facility] 1.2.840.114 350.1.13.10 4.2.7.2.686 [id number] [facility] 2020-10-10 06:27:00 2020-10-10 10:28:00 Hospital Encounter Thomas Huber [facility] 1.2.840.114 350.1.13.10 4.2.7.2.686 [id number] [facility] 2020-10-10 06:27:00 2020-10-10 10:28:00 Outpatient R THOMAS HUBER [facility] 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 Ariel 1.2840.114 350.1.13.10 4.2.7.2.686 [id number] [facility] 2020-10-09 08:15:53 2020-10-09 08:30:53 Assisted Living Coordinator Visit Pob, Adc Lab Main Thomas Huber [facility] 1.2.114 350.1.13.10 4.2.7.2.686 [id number] [facility] 2020-10-09 08:14:50 2020-10-09 08:29:50 Laboratory Only Only, Adc Test Thomas Huber [facility] 1.2.114 350.1.13.10 4.2.7.2.686 [id number] [facility] 2020-10-09 08:15:00 2020-10-09 08:15:00 Outpatient R THOMAS HUBER [facility] [id number] [facility] 2020-10-09 00:00:00 2020-10-09 00:00:00 Orders Only Doctor Unassigned, [place] [facility] 1.2.114 350.1.13.10 4.2.7.2.686 [id number] [facility] 2020-10-06 00:00:00 2020-10-06 00:00:00 Telephone Thomas uHber [facility] 1.2.840.114 350.1.13.10 4.2.7.2.686 [id number] [facility] 2020-10-03 09:40:00 2020-10-03 09:40:00 Outpatient ABEL PIZANO HOWARD [facility] [id number] [facility] 2020-10-03 00:00:00 2020-10-03 00:00:00 Telephone Thomas Huber [facility] 1.2.840.114 350.1.13.10 4.2.7.2.686 [id number] [facility] 2020-10-02 00:00:00 2020-10-02 00:00:00 Telephone Thomas Huber [facility] 1.2.840.114 350.1.13.10 4.2.7.2.686 [id number] [facility] 2020-09-27 15:09:45 2020-09-27 16:42:32 Office Visit Thomas Huber [facility] 1.2.840.114 350.1.13.10 4.2.7.2.686 [id number] [facility] 2020-09-27 08:09:42 2020-09-27 09:39:41 Office Visit Jodi Hagen [facility] 1.2840.114 350.1.13.10 4.2.7.2.686 [id number] [facility] 2020-09-27 08:15:00 2020-09-27 08:15:00 Outpatient JODI CARRINGTON [facility] [id number] [facility] 2020-09-27 00:00:00 2020-09-27 00:00:00 Orders Only Doctor Unassigned, [place] [facility] 1.2840.114 350.1.13.10 4.2.7.2.686 [id number] [facility] 2020-09-21 14:15:57 2020-09-21 14:30:57 [facility] 1.2.840.114 350.1.13.10 4.2.7.2.686 [id number] [facility] 2020-09-21 14:15:00 2020-09-21 14:15:00 [id number] 2020-09-21 00:00:00 2020-09-21 00:00:00 Telephone Kasandra [facility] Office Building 1.2.840.114 350.1.13.10 4.2.7.2.686 [id number] [facility] 2020-09-19 07:56:23 2020-09-19 23:59:00 Hospital Encounter Thomas Huber [facility] 1.2.840.114 350.1.13.10 4.2.7.2.686 [id number] [facility] 2020-09-19 08:00:00 2020-09-19 08:00:00 Outpatient R THOMAS HUBER [facility] [id number] [facility] 2020-09-18 12:58:14 2020-09-18 13:45:31 Routine Visit Bernie Huberen Yosef [facility] Professio nal Building 1.2.840.114 350.1.13.10 4.2.7.2.686 [id number] [facility] 2020-09-18 13:15:00 2020-09-18 13:15:00 Outpatient R THOMAS HUBER [facility] [id number] [facility] 2020-09-18 00:00:00 2020-09-18 00:00:00 Telephone Huber, Thomas Cam [facility] Professio nal Building 1.2840.114 350.1.13.10 4.2.7.2.686 [id number] [facility] 2020-09-11 13:00:00 2020-09-11 13:00:00 Outpatient R THOMAS HUBER [facility] [id number] [facility] 2020-08-28 09:49:56 2020-08-28 10:44:06 Office Visit Abel Sheppard [facility] Professio nal Building 1.2840.114 350.1.13.10 4.2.7.2.686 [id number] [facility] 2020-08-28 10:00:00 2020-08-28 10:00:00 Outpatient R ABEL SHEPPARD HOWARD [facility] [id number] [facility] 2020-08-28 00:00:00 2020-08-28 00:00:00 Orders Only Doctor Unassigned, [place] [facility] 1.0.114 350.1.13.10 4.2.7.2.686 [id number] [facility] 2020-08-25 07:55:02 2020-08-25 09:02:52 Office Visit Jodi Hagen [facility] 1.840.114 350.1.13.10 4.2.7.2.686 [id number] [facility] 2020-08-25 08:00:00 2020-08-25 08:00:00 Outpatient R JODI HAGEN [facility] [id number] [facility] 2020-08-23 00:00:00 2020-08-23 00:00:00 Telephone Thomas Huber [facility] Professio nal Building 1.2840.114 350.1.13.10 4.2.7.2.686 [id number] [facility] 2020-08-23 00:00:00 2020-08-23 00:00:00 Case Management Thomas Huber [facility] 1.2.840.114 350.1.13.10 4.2.7.2.686 [id number] [facility] 2020-08-22 00:00:00 2020-08-22 00:00:00 Telephone Thomas Huber [facility] 1.2.840.114 350.1.13.10 4.2.7.2.686 [id number] [facility] 2020-08-22 00:00:00 2020-08-22 00:00:00 Patient Outreach Evan Orellana [facility] 1.2.840.114 350.1.13.10 4.2.7.2.686 [id number] [facility] 2020-08-22 00:00:00 2020-08-22 00:00:00 Patient Secure Msg Doctor Unassigned, [place] [facility] 1.2.840.114 350.1.13.10 4.2.7.2.686 [id number] [facility] 2020-08-19 00:00:00 2020-08-19 00:00:00 Refill Thomas Huber [facility] 1.2.840.114 350.1.13.10 4.2.7.2.686 [id number] [facility] 2020-08-14 16:59:00 2020-08-17 11:45:00 Hospital Encounter Thomas Huber [facility] 1.2.840.114 350.1.13.10 4.2.7.2.686 [id number] [facility] [facility] 2020-08-17 00:00:00 2020-08-17 00:00:00 Case Management Thomas Huber [facility] Building 1.2.840.114 350.1.13.10 4.2.7.2.686 [id number] 134 [id number] [facility] 2020-08-15 00:00:00 2020-08-15 00:00:00 Telephone Thomas Huber [facility] Building 1.2.840.114 350.1.13.10 4.2.7.2.686 [id number] 134 [id number] [facility] 2020-08-14 14:05:11 2020-08-14 16:10:05 Routine Visit Thomas Huber [facility] 1.2.840.114 350.1.13.10 4.2.7.2.686 [id number] 134 [id number] [facility] 2020-08-14 14:30:00 2020-08-14 14:30:00 Outpatient R THOMAS HUBER [facility] [id number] [facility] 2020-08-14 00:00:00 2020-08-14 00:00:00 Orders Only Doctor Unassigned, [place] [facility] 1.2.840.114 350.1.13.10 4.2.7.2.686 [id number] [id number] [facility] 2020-08-10 12:29:00 2020-08-11 21:17:00 Hospital Encounter [facility] 1.2.840.114 350.1.13.10 4.2.7.2.686 [id number] [facility] 2020-08-10 12:29:00 2020-08-11 21:17:00 [facility] [id number] [facility] 2020-08-11 00:00:00 2020-08-11 00:00:00 Telephone Thomas Huber [facility] 1.2.840.114 350.1.13.10 4.2.7.2.686 [id number] 134 [id number] [facility] 2020-08-11 00:00:00 2020-08-11 00:00:00 Telephone Thomas Huber [facility] 1.2.840.114 350.1.13.10 4.2.7.2.686 [id number] 134 [id number] [facility] 2020-08-11 00:00:00 2020-08-11 00:00:00 Telephone Thomas Huber [facility] 1.2.840.114 350.1.13.10 4.2.7.2.686 [id number] 134 [id number] [facility] 2020-08-10 09:00:00 2020-08-10 09:00:00 Outpatient R CECILE [facility] [id number] [facility] 2020-08-10 00:00:00 2020-08-10 00:00:00 Case Management Thomas Huber [facility] 1.2840.114 350.1.13.10 4.2.7.2.686 [id number] 134 [id number] [facility] 2020-08-10 00:00:00 2020-08-10 00:00:00 Orders Only Doctor Unassigned, [place] [facility] 1.2840.114 350.1.13.10 4.2.7.2.686 [id number] [id number] [facility] 2020-08-09 14:34:33 2020-08-09 15:43:43 Office Visit Jodi Hagen [facility] 1.2840.114 350.1.13.10 4.2.7.2.686 [id number] 136 [id number] [facility] 2020-08-09 14:45:00 2020-08-09 14:45:00 Outpatient R JODI HAGEN [facility] [id number] [facility] 2020-08-07 13:12:16 2020-08-07 14:08:38 Office Visit Pita Urias [facility] Building 1.2.840.114 350.1.13.10 4.2.7.2.686 [id number] [facility] 2020-08-07 13:15:00 2020-08-07 13:15:00 [facility] [id number] [facility] 2020-08-07 09:46:28 2020-08-07 10:52:33 Routine Visit Room, [facility] Thomas Huber [facility] Building 1.2.840.114 350.1.13.10 4.2.7.2.686 [id number] 134 [id number] [facility] 2020-08-04 14:50:34 2020-08-04 15:20:34 Assisted Living Coordinator Visit Ultrasound, Adc [facility] Jacque Paz [facility] Building 1.2.840.114 350.1.13.10 4.2.7.2.686 [id number] 134 [id number] [facility] 2020-08-04 15:00:00 2020-08-04 15:00:00 Outpatient R [facility] [id number] [facility] 2020-08-04 00:00:00 2020-08-04 00:00:00 Case Management Thomas Huber [facility] Building 1.2.840.114 350.1.13.10 4.2.7.2.686 [id number] 134 [id number] [facility] 2020-08-03 08:42:32 2020-08-03 10:10:58 Routine [facility] Hub[facility] Building 1.2.840.114 350.1.13.10 4.2.7.2.686 [id number] 134 [id number] [facility] 2020-08-03 09:00:00 2020-08-03 09:00:00 Outpatient R THOMAS HUBER [facility] [id number] [facility] 2020-08-02 00:00:00 2020-08-02 00:00:00 Telephone Thomas Huber [facility] 1.2.840.114 350.1.13.10 4.2.7.2.686 [id number] 134 [id number] [facility] 2020-08-02 00:00:00 2020-08-02 00:00:00 Orders Only Doctor Unassigned, [place] [facility] 1.2.840.114 350.1.13.10 4.2.7.2.686 [id number] [id number] [facility] 2020-07-31 11:15:27 2020-07-31 23:59:00 Hospital Encounter Thomas Huber [facility] 1.2.840.114 350.1.13.10 4.2.7.2.686 [id number] [facility] 2020-07-31 11:15:27 2020-07-31 23:59:00 Outpatient R THOMAS HUBER [facility] [id number] [facility] 2020-07-31 08:58:13 2020-07-31 10:44:17 Routine Visit Room, [facility] Hub[facility] 1.2.840.114 350.1.13.10 4.2.7.2.686 [id number] 134 [id number] [facility] 2020-07-31 00:00:00 2020-07-31 00:00:00 Orders Only Doctor Unassigned, [place] [facility] 1.2.840.114 350.1.13.10 4.2.7.2.686 [id number] [id number] [facility] 2020-07-28 09:50:00 2020-07-30 11:30:00 Hospital Encounter Thomas Huber Megan [facility] 1.2.840.114 350.1.13.10 4.2.7.2.686 [id number] [id number] [facility] 2020-07-28 00:00:00 2020-07-28 00:00:00 Telephone Thomas Huber [facility] 1.2.840.114 350.1.13.10 4.2.7.2.686 [id number] 134 [id number] [facility] 2020-07-28 00:00:00 2020-07-28 00:00:00 Telephone Thomas Huber [facility] 1.2.840.114 350.1.13.10 4.2.7.2.686 [id number] 134 [id number] [facility] 2020-07-28 00:00:00 2020-07-28 00:00:00 Telephone Thomas Huber [facility] 1.2.840.114 350.1.13.10 4.2.7.2.686 [id number] 134 [id number] [facility] 2020-07-27 16:44:00 2020-07-27 23:55:00 Hospital Encounter Thomas Huber [facility] 1.2.840.114 350.1.13.10 4.2.7.2.686 [id number] [facility] 2020-07-27 16:44:00 2020-07-27 23:55:00 Outpatient P THOMAS HUBER [facility] SHARYN [id number] [facility] 2020-07-27 14:50:23 2020-07-27 16:18:54 Routine Visit Room, [facility] Nst Zully Ren [facility] Building 1.2.840.114 350.1.13.10 4.2.7.2.686 [id number] 134 [id number] [facility] 2020-07-27 15:00:00 2020-07-27 15:00:00 Outpatient R [facility] [id number] [facility] 2020-07-24 09:34:57 2020-07-24 10:48:17 Routine Visit CecileThomas [facility] 1..840.114 350.1.13.10 4.2.7.2.686 [id number] 134 [id number] [facility] 2020-07-24 10:00:00 2020-07-24 10:00:00 Outpatient R [facility] [id number] [facility] 2020-07-21 00:00:00 2020-07-21 00:00:00 Orders Only Doctor Unassigned, [place] [facility] 1..840.114 350.1.13.10 4.2.7.2.686 [id number] [id number] [facility] 2020-07-21 00:00:00 2020-07-21 00:00:00 Case Management Thomas Huber [facility] 1..840.114 350.1.13.10 4.2.7.2.686 [id number] 134 [id number] [facility] 2020-07-17 08:00:00 2020-07-17 08:00:00 Outpatient R [facility] [id number] [facility] 2020-07-13 00:00:00 2020-07-13 00:00:00 Telephone Thomas Huber [facility] Building 1.2.840.114 350.1.13.10 4.2.7.2.686 [id number] 134 [id number] [facility] 2020-07-10 00:00:00 2020-07-10 00:00:00 Orders Only Doctor Unassigned, [place] [facility] 1.2.840.114 350.1.13.10 4.2.7.2.686 [id number] [id number] [facility] 2020-07-07 14:48:36 2020-07-07 15:18:36 Assisted Living Coordinator Visit Ultrasound, Adc Mfm Thomas Huber [facility] Building 1.2.840.114 350.1.13.10 4.2.7.2.686 [id number] 134 [id number] [facility] 2020-07-07 15:00:00 2020-07-07 15:00:00 Outpatient P [facility] [id number] [facility] 2020-07-03 13:00:47 2020-07-03 13:40:01 Routine Visit Thomas Huber Yosef [facility] Building 1.2.840.114 350.1.13.10 4.2.7.2.686 [id number] 134 [id number] [facility] 2020-07-03 12:51:19 2020-07-03 13:06:19 Assisted Living Coordinator Visit Pob, Adc Lab Main Thomas Huber [facility] Building 1.2.840.114 350.1.13.10 4.2.7.2.686 [id number] [facility] 2020-07-03 13:00:00 2020-07-03 13:00:00 Outpatient R BERNIE HUBEREN [facility] [id number] [facility] 2020-06-30 15:40:48 2020-06-30 16:10:48 Nurse Visit Visit, Adc Nurse Satish Walls [facility] Building 1.2.840.114 350.1.13.10 4.2.7.2.686 [id number] [facility] 2020-06-30 16:00:00 2020-06-30 16:00:00 Outpatient SATISH PETERSON [facility] [id number] [facility] 2020-06-26 12:05:00 2020-06-26 17:49:00 Hospital Encounter Thomas Huber [facility] 1.2.840.114 350.1.13.10 4.2.7.2.686 [id number] [facility] 2020-06-26 00:00:00 2020-06-26 00:00:00 Telephone Thomas Huber [facility] 1.2.840.114 350.1.13.10 4.2.7.2.686 [id number] 134 [id number] [facility] 2020-06-21 10:23:29 2020-06-21 10:38:29 Assisted Living Coordinator Visit Pob, Adc Lab Main Belloprimo Zully [facility] Building 1.2.840.114 350.1.13.10 4.2.7.2.686 [id number] [facility] 2020-06-21 09:04:16 2020-06-21 09:51:29 Routine Visit Zully Ren [facility] Building 1.2.840.114 350.1.13.10 4.2.7.2.686 [id number] 134 [id number] [facility] 2020-06-21 09:00:00 2020-06-21 09:00:00 Outpatient Frida GELA [facility] [id number] [facility] 2020-06-21 00:00:00 2020-06-21 00:00:00 Orders Only Doctor Unassigned, [place] [facility] 1.0.114 350.1.13.10 4.2.7.2.686 [id number] [id number] [facility] 2020-06-07 13:17:24 2020-06-07 14:20:00 Office Visit Jodi Hagen [facility] 1.20.114 350.1.13.10 4.2.7.2.686 [id number] 136 [id number] [facility] 2020-06-07 13:30:00 2020-06-07 13:30:00 Outpatient R XIAO [facility] [id number] [facility] 2020-06-05 08:57:30 2020-06-05 09:57:30 Assisted Living Coordinator Visit 1, [facility] Us Room [facility] 1.0.114 350.1.13.10 4.2.7.2.686 [id number] [facility] 2020-06-05 09:00:00 2020-06-05 09:00:00 Outpatient P [facility] [id number] [facility] 2020-05-24 09:41:08 2020-05-24 10:44:24 Routine Visit Thomas Huber [facility] 1.0.114 350.1.13.10 4.2.7.2.686 [id number] 134 [id number] [facility] 2020-05-24 09:45:00 2020-05-24 09:45:00 Outpatient R THOMAS HUBER [facility] [id number] [facility] 2020-05-24 00:00:00 2020-05-24 00:00:00 Orders Only Doctor Unassigned, [place] [facility] 1.840.114 350.1.13.10 4.2.7.2.686 [id number] [facility] 2020-05-18 13:45:00 2020-05-18 14:00:00 Telemedici ne Visit Alanna Graves [facility] DIRECTOR [facility] 1.2114 350.1.13.10 4.2.7.2.686 [id number] [facility] 2020-05-18 13:45:00 2020-05-18 13:45:00 Outpatient P [facility] [id number] [facility] 2020-05-16 06:48:00 2020-05-16 10:10:00 Hospital Encounter Thomas Huber [facility] 1..114 350.1.13.10 4.2.7.2.686 [id number] [facility] 2020-05-01 00:00:00 2020-05-01 00:00:00 Patient Secure Msg Thomas Huber [facility] 1.84.114 350.1.13.10 4.2.7.2.686 [id number] 134 [id number] [facility] 2020-04-26 09:55:06 2020-04-26 10:15:06 Laboratory Only Lab, Adc Fam Pob I Ivana Fernandez [facility] Office Building One 1.84.114 350.1.13.10 4.2.7.2.686 [id number] [facility] 2020-04-26 10:00:00 2020-04-26 10:00:00 Outpatient R [facility] [id number] [facility] 2020-04-26 09:40:00 2020-04-26 09:40:00 Outpatient R PERLITA THOMASON [facility] [id number] [facility] 2020-04-25 11:09:08 2020-04-25 11:46:35 Routine Visit Zully Ren [facility] 1..114 350.1.13.10 4.2.7.2.686 [id number] 134 [id number] [facility] 2020-04-25 11:15:00 2020-04-25 11:15:00 Outpatient Frida CAALZULLY SHIELDS [facility] [id number] [facility] 2020-04-24 09:00:59 2020-04-24 10:53:51 Assisted Living Coordinator Visit 1, [facility] Us Room [facility] 1.84114 350.1.13.10 4.2.7.2.686 [id number] [facility] 2020-04-24 09:15:00 2020-04-24 09:15:00 Outpatient P [facility] [id number] [facility] 2020-04-19 00:00:00 2020-04-19 00:00:00 Telephone HuberBernieen [facility] 1.840.114 350.1.13.10 4.2.7.2.686 [id number] 134 [id number] [facility] 2020-04-05 00:00:00 2020-04-05 00:00:00 Telephone Thomas Huber [facility] 1.84.114 350.1.13.10 4.2.7.2.686 [id number] 134 [id number] [facility] 2020-04-03 10:30:00 2020-04-03 10:30:00 Outpatient GARRY MATAMOROS [facility] [id number] [facility] 2020-04-03 10:00:14 2020-04-03 10:15:14 Telemedici ne Visit Alanna Graves Joseph W [facility] DIRECTOR [employer] [employer] 1.84.114 350.1.13.10 4.2.7.2.686 [id number] [facility] 2020-03-29 00:00:00 2020-03-29 00:00:00 Telephone Thomas Huber [facility] 1.2840.114 350.1.13.10 4.2.7.2.686 [id number] 134 [id number] [facility] 2020-03-28 10:36:42 2020-03-28 10:51:42 Assisted Living Coordinator Visit 2, Adc Lab Thomas Huber [facility] 1.2840.114 350.1.13.10 4.2.7.2.686 [id number] [facility] 2020-03-28 09:45:00 2020-03-28 09:45:00 Outpatient R [facility] [id number] [facility] 2020-03-27 14:52:43 2020-03-27 16:31:25 Office Visit Thomas Huber [facility] 1.2840.114 350.1.13.10 4.2.7.2.686 [id number] [facility] 2020-03-27 11:15:00 2020-03-27 11:15:00 Outpatient R ZULLY REN [facility] [id number] [facility] 2020-03-27 00:00:00 2020-03-27 00:00:00 Orders Only Doctor Unassigned, [place] [facility] 1.2840.114 350.1.13.10 4.2.7.2.686 [id number] [facility] 2020-03-24 00:00:00 2020-03-24 00:00:00 Telephone Thomas Huber [facility] 1.2840.114 350.1.13.10 4.2.7.2.686 [id number] 134 [id number] [facility] 2020-03-24 00:00:00 2020-03-24 00:00:00 Telephone Zully Ren [facility] 1.2.840.114 350.1.13.10 4.2.7.2.686 [id number] 134 [id number] [facility] 2020-03-22 08:50:58 2020-03-22 09:46:40 Routine Visit Zully Ren [facility] Navne[facility] 1.2.840.114 350.1.13.10 4.2.7.2.686 [id number] 134 [id number] [facility] 2020-03-22 09:15:00 2020-03-22 09:15:00 [facility] [id number] 2020-03-20 00:00:00 2020-03-20 00:00:00 Telephone Thomas Huber [facility] 1.2.840.114 350.1.13.10 4.2.7.2.686 [id number] 134 [id number] [facility] 2020-03-13 08:30:00 2020-03-13 08:30:00 Outpatient R THOMAS HUBER [facility] [id number] [facility] 2020-03-13 00:00:00 2020-03-13 00:00:00 Orders Only Doctor Unassigned, [place] [facility] 1.2840.114 350.1.13.10 4.2.7.2.686 [id number] [facility] 2020-03-08 10:13:22 2020-03-08 10:51:38 Routine Visit Zully Ren [facility] 1.2.840.114 350.1.13.10 4.2.7.2.686 [id number] [facility] 2020-03-08 10:15:00 2020-03-08 10:15:00 Outpatient R GELA [facility] [id number] [facility] 2020-03-08 00:00:00 2020-03-08 00:00:00 Telephone Thomas Huber [facility] 1.2.840.114 350.1.13.10 4.2.7.2.686 [id number] 134 [id number] [facility] 2020-03-06 00:00:00 2020-03-06 00:00:00 Telephone Thomas Huber [facility] 1.2.840.114 350.1.13.10 4.2.7.2.686 [id number] 134 [id number] [facility] 2020-02-29 00:00:00 2020-02-29 00:00:00 Telephone Thomas Huber [facility] [place] Nav[facility] 1.2.840.114 350.1.13.10 4.2.7.2.686 [id number] 134 [id number] [facility] 2020-02-28 09:13:47 2020-02-28 09:28:47 Assisted Living Coordinator Visit 2, Adc Lab Thomas Huber [facility] 1.2.840.114 350.1.13.10 4.2.7.2.686 [id number] [facility] 2020-02-28 08:29:25 2020-02-28 09:10:07 Routine Visit Thomas Huber [facility] [facility] 1.2.840.114 350.1.13.10 4.2.7.2.686 [id number] 134 [id number] [facility] 2020-02-28 08:30:00 2020-02-28 08:30:00 Outpatient R THOMAS HUBER [facility] [id number] [facility] 2020-02-28 00:00:00 2020-02-28 00:00:00 Orders Only Doctor Unassigned, [place] [facility] 1.2.840.114 350.1.13.10 4.2.7.2.686 [id number] [id number] [facility] 2020-02-16 00:00:00 2020-02-16 00:00:00 Orders Only Doctor Unassigned, [place] [facility] 1.2840.114 350.1.13.10 4.2.7.2.686 [id number] [facility] 2020-02-14 13:30:00 2020-02-14 13:30:00 Outpatient P [facility] [id number] [facility] 2020-02-10 08:45:00 2020-02-10 08:45:00 Outpatient R MARGOT SANDOVAL [facility] [id number] [facility] 2020-02-03 00:00:00 2020-02-03 00:00:00 Telephone Thomas Huber [facility] 1.2.114 350.1.13.10 4.2.7.2.686 [id number] 134 [id number] [facility] 2020-02-03 00:00:00 2020-02-03 00:00:00 Refill [facility] 1.2.114 350.1.13.10 4.2.7.2.686 [id number] 134 [id number] [facility] 2020-01-31 08:00:00 2020-01-31 08:00:00 Outpatient R [facility] [id number] [facility] 2020-01-31 00:00:00 2020-01-31 00:00:00 Telephone Margot Sandoval [facility] DIRECTOR [facility] 1.2.114 350.1.13.10 4.2.7.2.686 [id number] [facility] 2020-01-27 00:00:00 2020-01-27 00:00:00 Patient Secure Msg [facility] 1.2.114 350.1.13.10 4.2.7.2.686 [id number] 134 [id number] [facility] 2020-01-24 09:15:54 2020-01-24 09:30:54 Assisted Living Coordinator Visit 2, Adc Lab Thomas Huber [facility] 1.2840.114 350.1.13.10 4.2.7.2.686 [id number] [facility] 2020-01-24 08:03:13 2020-01-24 09:12:06 Initial Visit Thomas Huber [facility] 1.20.114 350.1.13.10 4.2.7.2.686 [id number] 134 [id number] [facility] 2020-01-24 08:00:00 2020-01-24 08:00:00 Outpatient R THOMAS HUBER [facility] [id number] [facility] 2020-01-24 00:00:00 2020-01-24 00:00:00 Orders Only Doctor Unassigned, [place] [facility] 1.0.114 350.1.13.10 4.2.7.2.686 [id number] [id number] [facility] 2020-01-24 00:00:00 2020-01-24 00:00:00 Telephone Thomas Huber [facility] 1.20.114 350.1.13.10 4.2.7.2.686 [id number] 134 [id number] [facility] 2020-01-19 10:00:00 2020-01-19 10:00:00 [id number] 2020-01-17 09:51:45 2020-01-17 10:06:45 Assisted Living Coordinator Visit Lab, Pato-Rmchp Margot Sandoval [facility] DIRECTOR [facility] 1.0.114 350.1.13.10 4.2.7.2.686 [id number] 107 [id number] [facility] 2020-01-17 09:51:45 2020-01-17 10:06:45 Assisted Living Coordinator Visit Lab, Ang-Rmchp [facility] DIRECTOR [facility] 1.284.114 350.1.13.10 4.2.7.2.686 [id number] 2020-01-17 08:15:00 2020-01-17 08:15:00 Outpatient R MARGOT SANDOVAL [facility] [id number] [facility] 2020-01-13 09:45:00 2020-01-13 11:18:39 Outpatient R MARGOT SANDOVAL [facility] [id number] [facility] 2020-01-13 09:53:02 2020-01-13 10:23:02 Initial Visit Margot Sandoval [facility] DIRECTOR [facility] & [facility]ILD [facility] 1.284.114 350.1.13.10 4.2.7.2.686 [id number] [facility] 2020-01-13 09:53:02 2020-01-13 10:23:02 Initial Visit Margot Sandoval [facility] DIRECTOR [facility] CHILD [facility] 1.284.114 350.1.13.10 4.2.7.2.686 [id number] 2020-01-13 09:45:00 2020-01-13 09:45:00 Outpatient R MARGOT SANDOVAL [facility] [id number] [facility] 2020-01-11 14:45:00 2020-01-11 18:12:00 Emergency Nancy Sandoval [facility] 1.284.114 350.1.13.10 4.2.7.2.686 [id number] [facility] 2020-01-11 14:45:00 2020-01-11 18:12:00 Emergency Nancy Sandoval [facility] 1.284.114 350.1.13.10 4.2.7.2.686 [id number] 2020-01-11 14:45:00 2020-01-11 14:45:00 Emergency X NANCY SANDVOAL [facility] ERT [id number] [facility] 2020-01-11 00:00:00 2020-01-11 00:00:[address] [facility] [id number] 350.1.13.10 4.2.7.2.686 [id number] [facility] 2020-01-11 00:00:00 2020-01-11 00:00:00 Nurse Triage [facility] [id number] 350.1.13.10 4.2.7.2.686 [id number] 2019-12-06 12:49:46 2019-12-06 14:26:00 Emergency [facility] [id number] 350.1.13.10 4.2.7.2.686 [id number] [facility] 2019-12-06 12:49:46 2019-12-06 14:26:00 Emergency [facility] [id number] 350.1.13.10 4.2.7.2.686 [id number] [id number] 2019-12-06 12:28:00 2019-12-06 12:28:00 Emergency X [facility] ERT [id number] [facility]
[2023-10-26 19:07] LABS: Absolute Basophils 0.1 K/uL (0-0.5); Absolute Eosinophils 0.1 K/uL (0-0.5); Absolute Lymphocytes (CBC) 1.8 K/uL (0.7-4.9); Absolute Monocytes 0.3 K/uL (0.1-1.3); Absolute Neutrophil 8.6 K/uL (1.8-8.0); Basophils % 0.8 % (0-1.3); Eosinophils % 0.5 % (0-4.4); Hematocrit 37.1 % (36.0-45.0); Hemoglobin 11.8 g/dL (12.0-15.0); Lymphocytes % 16.5 % (15.3-44.8); MCH 24.1 pg (27.0-35.0); MCHC 31.9 g/dL (32.0-36.0); MCV 75.5 fL (80-100); MPV 8.4 fL (7.6-11.3); Monocytes % 2.5 % (3.3-12.3); Neutrophils % 79.7 % (41.7-73.7); Nucleated Red Blood Cells % 0.1 % (0-0); Platelets 380 thou/uL (152-406); RBC Red Blood Cell Count 4.91 M/uL (3.86-4.86); Red Cell Distribution Width 17.6 % (12.1-15.2)
[2023-10-26 19:21] LABS: Anion Gap 7.5 mEq/L (5.0-15.0); Magnesium 2.1 mg/dL (1.6-2.4); Potassium 4.5 mEq/L (3.5-5.1); Troponin High Sensitivity 3.2 pg/mL (<58.9)
[2023-10-26] MEDS ORDERED: IPRATROPIUM BROM 0.5MG/2.5ML ONE (19:26)
[2023-10-26] MEDS ORDERED: ALBUTEROL 2.5 MG/3 ML NEB SOL ONE (19:26)
[2023-10-26] MEDS ORDERED: KETOROLAC 30 MG/ML INJ ONE (19:27)
--- NOTE | 2023-10-26 19:33 | RAD REPORT ---
EXAM DESCRIPTION: RAD - Chest Single View - 10/26/2023 7:22 pm CLINICAL HISTORY: CHEST PAIN COMPARISON: Chest Single View dated 11/17/2018; Abdomen 1 View (KUB) dated 08/30/2015 FINDINGS: Lines: None. Lungs: No evidence of edema or pneumonia. Pleural: No significant pleural effusions or pneumothorax. Cardiac: The heart size is within normal limits. Mediastinum: Within normal limits. Bones: No acute fractures. Other: None IMPRESSION: No acute cardiopulmonary disease.
--- NOTE | 2023-10-26 20:36 | EDPHYS ---
Physician Documentation [facility] Name: Zaina Roberson Age: 28 yrs Sex: Female : 1995 Arrival Date: 10/26/2023 Time: 18:15 Bed 4 Private MD: ED Physician Elliott Espinal HPI: 10/26 00:36 This 28 yrs old Female presents to ER via Ambulatory with complaints of Chest Pain. kb 00:36 Patient is a 28-year-old female who presents for cough, congestion, malaise, fatigue, kb hoarseness has been going on for a few days with chest pain that started an hour prior to arrival. States chest pain is worse with cough and deep breath. Denies any alleviating factors.. Historical: - Allergies: 10/25 18:23 NKDA; as6 - PMHx: 18:23 Kidney stone; as6 - PSHx: 18:23 Cholecystectomy; tubal ligation; as6 - Immunization history:: Adult Immunizations up to date. - Infectious Disease History:: Denies. - Social history:: Smoking status: Reported history of juuling and/or vaping. ROS: 10/26 00:35 Constitutional: As per HPI kb Exam: 00:35 Constitutional: This is a well developed, well nourished patient who is awake, alert, kb and in no acute distress. Head/Face: Normocephalic, atraumatic. ENT: Moist Mucous membranes Cardiovascular: Regular rate Respiratory: Respirations even and unlabored. No increased work of breathing. Talking in full sentences Abdomen/GI: Soft, non-tender. No distention Skin: Warm, dry with normal turgor. Normal color. MS/ Extremity: Pulses equal, no cyanosis. Neurovascular intact. Full, normal range of motion. Neuro: Awake and alert, GCS 15, oriented to person, place, time, and situation. Moves all extremities. Normal gait. 00:35 ENT: Voice: is hoarse, 01:00 ECG was reviewed by the Attending Physician. kb Vital Signs: 10/25 18:19 BP 137 / 96; Pulse 102; Resp 20 S; Temp 98.4; Pulse Ox 100% on R/A; Weight 145.15 kg as6 (R); Height 5 ft. 6 in. (R); Pain 10/10; 18:54 Pulse 84; Resp 20; Pulse Ox 99% on R/A; ld1 19:09 BP 128 / 84; Pulse 72; Resp 24; Pulse Ox 99% on R/A; jb4 20:57 BP 124 / 76; Pulse 74; Resp 18; Temp 98; Pulse Ox 98% ; kb3 18:19 Body Mass Index 51.65 (145.15 kg, 167.64 cm) as6 18:19 Pain Scale: Adult as6 MDM: 18:17 Patient medically screened. kb 10/26 00:36 Differential diagnosis: Arrhythmia, NC, pneumonia, viral illness. Data reviewed: vital kb signs, nurses notes. I considered the following discharge prescriptions or medication management in the emergency department I discussed and recommended Over The Counter medications, Antibiotics: At this time antibiotics are not recommended. Counseling: I had a detailed discussion with the patient and/or guardian regarding the historical points, exam findings, and any diagnostic results supporting the discharge/admit diagnosis, lab results, radiology results, the need for outpatient follow up, a family practitioner, to return to the emergency department if symptoms worsen or persist or if there are any questions or concerns that arise at home. 10/25 18:23 Order name: Basic Metabolic Panel; Complete Time: 19:28 kb 10/25 18:23 Order name: CBC with Diff; Complete Time: 19:13 kb 10/25 18:23 Order name: D-Dimer; Complete Time: 19:13 kb 10/25 18:23 Order name: Magnesium; Complete Time: 19:28 kb 10/25 18:23 Order name: NT PRO-BNP; Complete Time: 19:28 kb 10/25 18:23 Order name: Troponin HS; Complete Time: 19:28 kb 10/25 18:23 Order name: XRAY Chest (1 view); Complete Time: 19:38 kb 10/25 18:23 Order name: EKG; Complete Time: 18:24 kb 10/25 18:23 Order name: Cardiac monitoring; Complete Time: 18:44 kb 10/25 18:23 Order name: EKG - Nurse/Tech; Complete Time: 18:32 kb 10/25 18:23 Order name: IV Saline Lock; Complete Time: 18:58 kb 10/25 18:23 Order name: Labs collected and sent; Complete Time: 18:58 kb 10/25 18:23 Order name: O2 Per Protocol; Complete Time: 18:41 kb 10/25 18:23 Order name: O2 Sat Monitoring; Complete Time: 18:41 kb EC:00 Rate is 88 beats/min. Rhythm is regular. QRS [place] is Normal. NM interval is normal at kb 122 msec. QRS interval is normal at 70 msec. QT interval is normal at 392 msec. Administered Medications: 10/25 19:38 Drug: Ketorolac IVP 15 mg IVP once Route: IVP; Site: right antecubital; jb4 20:56 Follow up: Response: No adverse reaction kb3 19:38 Drug: Albuterol Inhalation 2.5 mg Inhalation once Route: Inhalation; jb4 20:56 Follow up: Response: No adverse reaction; Wheezing diminished kb3 19:38 Drug: Ipratropium Inhalation Aerosol 0.5 mg Inhalation once Route: Inhalation; jb4 20:56 Follow up: Response: No adverse reaction kb3 Disposition: 10/26 10:26 Co-signature as Attending Physician, Elliott Espinal MD I reviewed the patient's care rt provided by the Advanced Practice Provider and agree with the diagnosis and treatment plan. Disposition Summary: 10/26/23 20:36 Discharge Ordered Notes: Location: Home kb Condition: Stable kb Diagnosis - Acute upper respiratory infection, unspecified kb - Chest pain, unspecified kb Followup: kb - With: Emergency Department - When: As needed - Reason: Worsening of condition Followup: kb - With: Private Physician - When: 2 - 3 days - Reason: Recheck today's complaints, Continuance of care, Re-evaluation by your physician Discharge Instructions: - Discharge Summary Sheet kb - Nonspecific Chest Pain, Adult, [id number] kb - Upper Respiratory Infection, Adult, [id number] kb Forms: - Medication Reconciliation Form kb - Antibiotic Education kb - Prescription Opioid Use kb - Patient Portal Instructions kb - Leadership Thank You Letter kb Prescriptions: - albuterol sulfate 90 mcg/actuation Inhalation HFA Aerosol Inhaler - inhale 2 inhalation INHALATION route every 4-6 hours As needed as needed for kb shortness of breath or wheezing; 1 unit; Refills: 0, Product Selection Permitted - Prednisone 20 mg Oral Tablet - take 1 tablet ORAL route once daily for 5 days; 5 tablet; Refills: 0, Product kb Selection Permitted Signatures: Dispatcher [employer] Ana Duke FNP-C FNP-Jess Austen Frazier, RN RN jb4 Clinton Ingram RN RN as6 Elliott Espinal MD MD rt Stacey Bowens RN kb3 Corrections: (The following items were deleted from the chart) 10/25 18:24 18:24 BASIC METABOLIC PANEL+C.LAB.BRZ ordered. EDMS EDMS 18:24 18:24 CBC+H.LAB.BRZ ordered. EDMS EDMS 18:24 18:24 D-DIMER+COAG.LAB.BRZ ordered. EDMS EDMS 18:24 18:24 MAGNESIUM+C.LAB.BRZ ordered. EDMS EDMS 18:24 18:24 PROBNP+C.LAB.BRZ ordered. EDMS EDMS 18:24 18:24 Troponin High Sensitivity+C.LAB.BRZ ordered. EDMS EDMS
--- NOTE | 2023-10-26 20:36 | ER ---
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 Coronavirus screen: as6 At this time, the client does not indicate any symptoms associated with coronavirus-19. Ebola Screen: No symptoms or risks identified at this time. Initial Sepsis Screen: Does the patient meet any 2 criteria? No. Patient's initial sepsis screen is negative. Does the patient have a suspected source of infection? No. Patient's initial sepsis screen is negative. Risk Assessment: Do you want to hurt yourself or someone else? Patient reports no desire to harm self or others. Onset of symptoms was October 26, 2023. 18:19 Acuity: SAFIA 3 as6 18:19 Method Of Arrival: Ambulatory as6 Triage Assessment: 18:24 General: Appears uncomfortable, Behavior is cooperative, anxious. Pain: Complains of as6 pain in chest Quality of pain is described as crushing. Cardiovascular: Reports chest pain, shortness of breath, Chest pain quality is crushing, heaviness. Historical: - Allergies: 18:23 NKDA; as6 - PMHx: 18:23 Kidney stone; as6 - PSHx: 18:23 Cholecystectomy; tubal ligation; as6 - Immunization history:: Adult Immunizations up to date. - Infectious Disease History:: Denies. - Social history:: Smoking status: Reported history of juuling and/or vaping. Screenin:47 [facility] ED Fall Risk Assessment (Adult) History of falling in the last 3 months, kc6 including since admission No falls in past 3 months (0 pts) Confusion or Disorientation No (0 pts) Intoxicated or Sedated No (0 pts) Impaired Gait No (0 pts) Mobility Assist Device Used No (0 pt) Altered Elimination No (0 pt) Score/Fall Risk Level 0 - 2 = Low Risk. Abuse screen: Denies threats or abuse. Denies injuries from another. Nutritional screening: No deficits noted. Tuberculosis screening: No symptoms or risk factors identified. Assessment: 18:54 General: Appears in no apparent distress. comfortable, Behavior is calm, cooperative, ld1 appropriate for age. Pain: Complains of pain in chest Pain does not radiate. Pain currently is 8 out of 10 on a pain scale. Quality of pain is described as throbbing, Pain began suddenly, Is continuous. Neuro: Level of Consciousness is awake, alert, obeys commands, Oriented to person, place, time, situation. Cardiovascular: Capillary refill < 3 seconds Patient's skin is warm and dry. Cardiovascular: Rhythm is regular. Respiratory: Airway is patent Respiratory effort is even, unlabored. GI: Abdomen is round non-distended. : No signs and/or symptoms were reported regarding the genitourinary system. EENT: No signs and/or symptoms were reported regarding the EENT system. Derm: No signs and/or symptoms reported regarding the dermatologic system. Musculoskeletal: No signs and/or symptoms reported regarding the musculoskeletal system. 19:09 Reassessment: Patient appears in no apparent distress at this time. Patient and/or jb4 family updated on plan of care and expected duration. Pain level reassessed. Patient is alert, oriented x 3, equal unlabored respirations, skin warm/dry/pink. Respiratory: Reports cough that is non-productive, persistent Airway is patent Respiratory effort is even, unlabored. Vital Signs: 18:19 BP 137 / 96; Pulse 102; Resp 20 S; Temp 98.4; Pulse Ox 100% on R/A; Weight 145.15 kg as6 (R); Height 5 ft. 6 in. (R); Pain 10/10; 18:54 Pulse 84; Resp 20; Pulse Ox 99% on R/A; ld1 19:09 BP 128 / 84; Pulse 72; Resp 24; Pulse Ox 99% on R/A; jb4 20:57 BP 124 / 76; Pulse 74; Resp 18; Temp 98; Pulse Ox 98% ; kb3 18:19 Body Mass Index 51.65 (145.15 kg, 167.64 cm) as6 18:19 Pain Scale: Adult as6 ED Course: 18:17 Patient arrived in ED. im 18:17 Ana Curry F[facility]-C [facility]. kb 18:17 Elliott Espinal MD is Attending Physician. kb 18:19 Arm band placed on left wrist. as6 18:23 Triage completed. as6 18:32 EKG done, by ED staff, reviewed by Ana ESTRADA. as6 18:47 Patient has correct armband on for positive identification. Bed in low position. Call kc6 light in reach. Side rails up X 1. Client placed on continuous cardiac and pulse oximetry monitoring. NIBP monitoring applied. playground monitor on. Pillow given. 18:54 Xi Crowder, RN is Primary Nurse. ld1 19:00 No provider procedures requiring assistance completed. Inserted saline lock: 20 gauge kb3 in right antecubital area, using aseptic technique. 19:00 IV discontinued, intact, bleeding controlled, No redness/swelling at site. kb3 19:23 XRAY Chest (1 view) In Process Unspecified. EDMS 20:57 Provided Education on: Meds, follow up, smoking cessation. kb3 Administered Medications: 19:38 Drug: Ketorolac IVP 15 mg IVP once Route: IVP; Site: right antecubital; jb4 20:56 Follow up: Response: No adverse reaction kb3 19:38 Drug: Albuterol Inhalation 2.5 mg Inhalation once Route: Inhalation; jb4 20:56 Follow up: Response: No adverse reaction; Wheezing diminished kb3 19:38 Drug: Ipratropium Inhalation Aerosol 0.5 mg Inhalation once Route: Inhalation; jb4 20:56 Follow up: Response: No adverse reaction kb3 Medication: 20:57 VIS not applicable for this client. kb3 Outcome: 19:00 Discharged to home ambulatory, kb3 19:00 Condition: stable 19:00 Discharge instructions given to patient, Instructed on discharge instructions, follow up and referral plans. medication usage, Demonstrated understanding of instructions, follow-up care, medications, Prescriptions given X 2, 20:36 Discharge ordered by MD. kb 20:59 Patient left the ED. kb3 Signatures: Dispatcher [employer] EDMS Ana Curry FNP-C FNP-Ckb Bryson, James RN RN jb4 Xi Crowder, RN RN ld1 Clinton Ingram RN RN as6 Laura Quiroga RN RN kc6 Stacey Bowens RN RN kb3 Sangeeta Robles
[2023-10-26 21:17] VITALS: BP 124/76; TEMP 98; O2SAT 98
--- NOTE | 2023-10-28 14:17 | EKG ---
Test Date: 2023-10-26 Test Time: 18:26:32 Binding Dyer: MEASUREMENT RESULTS: Intervals: Rate: 88 FL: 122 QRSD: 70 QT: 324 QTc: 392 Turner: P: 29 FL: 122 QRS: 59 T: 22 INTERPRETIVE STATEMENTS: Normal sinus rhythm Nonspecific T wave abnormality Abnormal ECG Compared to ECG 11/17/2018 14:26:15 T-wave abnormality now present Sinus arrhythmia no longer present Electronically Signed On 10-28-23 14:12:45 CDT by Mehul Mayorga
== END 2023-10-26 20:59 | disposition home or self-care (01) ==
LOC: ER 18:15
DX: J06.9 Acute upper respiratory infection, unspecified (principal)
CPT/HCPCS: 93005; 85025; 80048; 36415; 83735; 85379; 84484; 83880; 71045; 96374; 99285; J7613; J7644

== ENCOUNTER 2024-08-19 17:48 | Emergency (ER) | payer OTHER ==
--- OUTSIDE RECORDS SUMMARY | 2024-08-19 17:59 | XMS REPORT | Continuity of Care Document ---
Author Name Unknown Address [address] [facility] [address] [place] [address] Organization [facility] [place] Address [address] [facility] [address] [place] [address] Care Team Providers Care Hplc Chemist Name Role Phone No , Pcp Primary Care Physician Unavailab THOMAS Bruce Attending Clinician Unavailable Pcp, Patient Does Not Have A Attending Clinician Demario Win MD Attending Clinician [phone] Robe Luis OD Attending Clinician [phone] Thomas Huber MD Attending Clinician [phone] Pob, Adc Lab Main Attending Clinician Unavailabl e Doctor Unassigned, [place] Attending Clinician U JODI Jones Attending Clinician Unavailable Nicho GUEVARA, Danette Snell Attending Clinician [phone] Marcial Muñoz CRNA Attending Clinician [phone] Poli Massey MD, Leonard Attending Clinician [phone] Only, Adc Test Attending Clinician Unavailable ABEL SHEPPARD Attending Clinician Unavail able ABEL SHEPPARD Attending Clinician Unavail able Jodi Hagen MD Attending Clinician [phone] Bridgett BEASLEY, Pita Attending Clinician [phone] PITA URIAS Attending Clinician Unavailable Abel Sheppard MD Attending Clinician [phone] Evan Orellana DO Attending Clinician [phone] Jeferson Campos MD Attending Clinician [phone] Celso Ch MD Attending Clinician [phone] CELSO CH Attending Clinician Unavailable CELSO CH Attending Clinician Unavailable Room, [facility] Attending Clinician Unavailable Ultrasound, [facility] Attending Clinician Unavaila vanessa Paul MD, Santillan Attending Clinician + Lisa Naidu MD Attending Clinician [phone] Zully Ren PA-C Attending Clinician [phone] Visit, [facility] Nurse Attending Clinician Unavailable Satish Walls MD Attending Clinician [phone] SATISH WALLS Attending Clinician Unavailable ZULLY REN Attending Clinician Unavailable 1, [facility] Room Attending Clinician Unavaila Alanna Beck Attending Clinician Unavailabl e Lab, [facility] Fam Pob I Attending Clinician Unavailab Ivana Ross Attending Clinician [phone] PERLITA THOMASON Attending Clinician Unavailable GARRY MENDEZ Attending Clinician Unavailable Garry Mendez MD Attending Clinician [phone] 2, [facility] Lab Attending Clinician Unavailable MARGOT SANDOVAL Attending Clinician UnavailMargot Samano Attending Clinician [phone] [facility], [facility]ician Unavailable Nancy Sandoval DO Attending Clinician [phone] NANCY SANDOVAL Attending Clinician Unavailab sofie Sheikh RN, Libia Cox Attending Clinician Unavaila Agustina Salguero Attending Clinician [phone] THOMAS HUBER Admitting Clinician Unavailable JEFERSON CAMPOS Admitting Clinician UnavailThomas Alvarez MD Admitting Clinician [phone] Beth BEASLEY, Jeferson Hernandez Admitting Clinician Lisa Naidu MD Admitting Clinician Payers Payer Name Policy Type Policy Number Effective Date Expirati on Date Source [employer] MEDICAID [id number] 2020 00:00:00 [place] [id number] 2020 00:00:00 Problems Condition Name Condition Details Condition Category Status Onset Date Resolution Date Last Treatment Date Treating Clinician Comments Source BMI 50.0-59.9, adult BMI 50.0-59.9, adult Disease Active 2022-06 00:00: 00 [facility] Dietary counseling Dietary counseling Disease Active 2022-06 00:00: 00 [facility] 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 VF unreliabl e, Retina is flat and intactRef to Neuro and Neuro-Oph [facility] Generalize d headaches Generalize d headaches Disease Active 2022-06 00:00: 00 Last Assessmen t & Plan: Formattin g of this note might be different from the original. Ref to Neuro for MRI [facility] Ocular hypertensi on, bilateral Ocular hypertensi on, bilateral Disease Active 2022-06 00:00: 00 Last Assessmen t & Plan: Formattin g of this note might be different from the original. Refer to OMD for evaluatio n due to high pressures [facility] Optic nerve swelling Optic nerve swelling Disease Active 2022-06 00:00: 00 Last Assessmen t & Plan: Formattin g of this note might be different from the original. 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 Disease Active 2-28 00:00: 00 [facility] Other headache syndrome Other headache syndrome Disease Active 2-27 00:00: 00 [facility] Chronic hypertensi on Chronic hypertensi on Disease Active 2-01 00:00: 00 [facility] Papanicola ou smear of cervix with low grade squamous intraepith elial lesion (LGSIL) Papanicola ou smear of cervix with low grade squamous intraepith elial lesion (LGSIL) Disease Active 8-31 00:00: 00 [facility] Morbid obesity with body mass index of 40.0-49.9 Morbid obesity with body mass index of 40.0-49.9 Disease Active 8-24 00:00: 00 [facility] Multiparit y Multiparit y Disease Active 8-18 00:00: 00 [facility] Allergies, Adverse Reactions, Alerts Allergy Name Allergy Type Status Severity Reaction(s) Onset Date Inactive Date Treating Clinician Comments Source NO KNOWN ALLERGIE S Drug Class Active [facility] Social History Social Habit Start Date Stop Date Quantity Comments Source ASSERTION [facility] History of tobacco use Cigarette Smoker [facility] Tobacco use and exposure 2023-03-26 00:00:00 2023-03-26 00:00:00 User of smokeless tobacco [facility] Tobacco Comment 2023-03-26 00:00:00 2023-03-26 00:00:00 Vape occasional [facility] Alcohol intake 2021-03-21 00:00:00 2021-03-21 00:00:00 Ex-drinker (finding) [facility] Exposure to SARS-CoV-2 (event) 2021-02-18 00:00:00 2021-03-20 10:03:00 Not sure [facility] History of Social function 2020-10-10 00:00:00 2020-10-10 00:00:00 [facility] Sex Assigned At 1995 00:00:00 1995 00:00:00 [facility] Smoking Status Start Date Stop Date Source Tobacco smoking consumption unknown [facility] Never smoked tobacco [facility] Ex-smoker 2020-01-13 00:00:00 2020-01-13 00:00:00 [facility] Medications Ordered Medication Name Filled Medication Name Start Date Stop Date Current Medication? Ordering Clinician Indication Dosage Frequency Signature (SIG) Comments Components Source Atogepant (Qulipta) 60 MG tablet 2022-06 00:00: 00 09-22 04:59 :00 No [id number] 60mg QD Take 60 mg by mouth 1 (one) time each day. [facility] SUMAtriptan (Imitrex) 50 MG tablet 2022-06 00:00: 00 05-26 05:59 :00 No [id number] 50mg Take 1 tablet (50 mg total) by mouth 1 (one) time if needed for migraine (may repeat x1). May repeat dose once in 2 hours if no relief. Do not exceed 2 doses in 24 hours. [facility] maalox:diph enhydrAMINE :lidocaine 2 % viscous 1:1:1 12-30 00:00: 00 03-21 00:00 :00 No [id number] 15mL Take 15 mL by mouth 4 (four) times daily as needed (pharyngit is). [facility] SERTraline (ZOLOFT) 25 mg tablet 5- 00:00: 00 Yes [id number] 25mg Take 1 tablet by mouth daily. [facility] vit calc,iron,f olic ( VITAMIN ORAL) -19 13:40: 23 09-18 00:00 :00 No Take by mouth. [facility] acetaminoph en-caff-but albital (ESGIC) per capsule 08-22 00:00: 00 12-30 00:00 :00 No [id number] 1{capsu le} Take 1 capsule by mouth every 4 (four) hours as needed for Pain. [facility] vitamin w/FA tablet 08-17 00:00: 03-21 00:00 :00 No [id number] 1{tbl} Take 1 tablet by mouth daily. [facility] vitamin w/FA tablet 08-17 00:00: 00 03-21 00:00 :00 No [id number] 1{tbl} Take 1 tablet by mouth daily. [facility] ibuprofen 600 mg tablet 08-17 00:00: 00 10-25 00:00 :00 No [id number] 600mg Take 1 tablet by mouth every 6 (six) hours as needed (Pain). Take with food or milk. [facility] ferrous sulfate 325 mg (65 mg iron) tablet 08-17 00:00: 00 09-27 00:00 :00 No [id number] 325mg Take 1 tablet by mouth 2 (two) times daily. [facility] docusate calcium 240 mg capsule 08-17 00:00: 00 09-18 00:00 :00 No [id number] 240mg Take 1 capsule by mouth once daily as needed for Constipati on. [facility] acetaZOLAMI DE 250 mg tablet 08-11 00:00: 00 09-18 00:00 :00 No [id number] 500mg Take 2 tablets by mouth 2 (two) times daily. [facility] proCHLORper azine 10 mg tablet 08-04 00:00: 00 10-25 00:00 :00 No [id number] 5mg Take 0.5 tablets by mouth every 6 (six) hours as needed (headache) . [facility] magnesium oxide 400 mg (241.3 mg magnesium) tablet 06-21 00:00: 00 09-18 00:00 :00 No [id number] 400mg Take 1 tablet by mouth daily. [facility] albuterol 90 mcg/actuati on inhaler 8-24 00:00: 00 09-18 00:00 :00 No [id number] 2{puff} Inhale 2 Puffs every 6 (six) hours as needed for Wheezing, Shortness of Breath, Bronchospa sm or Chest tightness. [facility] Immunizations Ordered Immunization Name Filled [...] Systolic blood pressure 2023-03-26 15:20:00 134 mm[Hg] [facility] Diastolic blood pressure 2023-03-26 15:20:00 89 mm[Hg] [facility] Heart rate 2023-03-26 15:20:00 92 /min [facility] Body height 2023-03-26 15:20:00 [facility]6 [facility] Body weight 2023-03-26 15:20:00 141[facility]976 [facility] BMI 2023-03-26 15:20:00 50[facility]52 [facility] Systolic blood pressure 2021-03-21 20:11:00 129 mm[Hg] [facility] Diastolic blood pressure 2021-03-21 20:11:00 87 mm[Hg] [facility] Heart rate 2021-03-21 20:11:00 88 /min [facility] Body temperature 2021-03-21 20:11:00 36.89 Crissy [facility] Respiratory rate 2021-03-21 20:11:00 18 /min [facility] Body height 2021-03-21 20:11:00 165.1 cm [facility] Body weight 2021-03-21 20:11:00 124.286 kg [facility] BMI 2021-03-21 20:11:00 45.60 kg/m2 [facility] Procedures Procedure Date / Time Performed Performing Clinicia n Source OCT, OPTIC NERVE - OU - BOTH EYES 2023-03-24 13:35:37 Robe Luis [facility] OCT, RETINA - OU - BOTH EYES 2023-03-24 13:35:36 [facility]ON[facility]ALES VISUAL FIELD - OU - BOTH EYES 2023-03-24 13:35:23 Robe Luis [facility] Encounters Start Date/Time End Date/Time Encounter Type Admission Type Attending [facility] Care Facility Care Department Encounter ID Source 2021-04-02 12:12:16 Emergency [facility] [id number] [facility] 2021-04-01 16:27:17 Outpatient R THOMAS HUBER [facility] TRANSITIONAL CARE NURSE [id number] [facility] 2021-04-01 06:10:40 Outpatient P [facility] SHARYN [id number] [facility] 2021-04-01 05:44:28 Outpatient P [facility] SHARY[facility] [id number] [facility] 2021-04-01 01:36:48 Outpatient [facility] SH[facility] [id number] [facility] 2021-03-31 19:31:52 Outpatient P [facility] SH[facility] [id number] [facility] 2021-03-31 19:22:14 Outpatient P [facility] SH[facility] [id number] [facility] 2021-03-31 11:20:46 Outpatient P [facility] SHARY[facility] [id number] [facility] 2021-03-31 11:16:36 Outpatient P [facility] SHARY[facility] [id number] [facility] 2023-07-11 00:00:00 2023-07-11 00:00:00 Patient Secure Msg Pcp, Patient Does Not Have A [facility] 1.840.114 350.1.13.10 4.2.7.2.686 [id number] [facility] 2023-03-26 10:30:00 2023-03-26 11:18:06 Consult Demario Win [facility] [place] [facility] 1.2.840.114 350.1.13.58 9.2.7.2.686 [id number] [facility] 2023-03-24 09:00:00 2023-03-24 14:16:28 Outpatient [facility] [id number] [facility] 2023-03-24 08:35:00 2023-03-24 11:43:42 Outpatient [facility] [id number] [facility] 2023-03-24 08:30:00 2023-03-24 11:43:21 Outpatient [facility] [id number] [facility] 2023-03-24 08:15:00 2023-03-24 09:22:32 Office Visit Luis Robe [facility] [address] [facility] 1.2.840.114 350.1.13.58 9.2.7.2.686 [id number] [facility] 2021-03-26 00:00:00 2021-03-26 00:00:00 Telephone Thomas Huber [facility] 1.2.840.114 350.1.13.10 4.2.7.2.686 [id number] [facility] 2021-03-21 16:11:30 2021-03-21 16:26:30 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 Pob, Adc Lab Main Thomas Huber [facility] 1.2.840.114 350.1.13.10 4.2.7.2.686 [id number] [facility] 2021-03-21 14:49:10 2021-03-21 15:45:16 Office Visit Thomas Huber [facility] 1.2.840.114 350.1.13.10 4.2.7.2.686 [id number] [facility] 2021-03-21 15:00:00 2021-03-21 15:00:00 Outpatient R THOMAS HUBER [facility] [id number] [facility] 2021-03-21 00:00:00 2021-03-21 00:00:00 Orders Only Doctor Unassigned, [place] [facility] 1.2.840.114 350.1.13.10 4.2.7.2.686 [id number] [facility] 2021-03-06 00:00:00 2021-03-06 00:00:00 Patient Secure [facility] 1.2.840.114 350.1.13.10 4.2.7.2.686 [id number] [facility] 2021-03-05 00:00:00 2021-03-05 00:00:00 Patient Secure Msg Thomas Huber [facility] BUILDING 1.2.840.114 350.1.13.10 4.2.7.2.686 [id number] [facility] 2021-01-24 08:15:00 2021-01-24 08:15:00 Outpatient JODI CARRINGTON [facility] [id number] [facility] 2020-12-30 13:10:00 2020-12-30 15:36:00 Emergency Danette Torre [facility] 1.2.840.114 350.1.13.10 4.2.7.2.686 [id number] [facility] 2020-11-23 09:30:00 2020-11-23 09:30:00 Outpatient R THOMAS HUBER [facility] [id number] [facility] 2020-10-25 14:39:08 2020-10-25 16:21:33 Office Visit Thomas Huber [facility] 1.2.840.114 350.1.13.10 4.2.7.2.686 [id number] [facility] 2020-10-25 15:00:00 2020-10-25 15:00:00 Outpatient R THOMAS HUBER [facility] [id number] [facility] 2020-10-20 00:00:00 2020-10-20 00:00:00 Case Management Thomas Huber [facility] 1.2.840.114 350.1.13.10 4.2.7.2.686 [id number] [facility] 2020-10-18 00:00:00 2020-10-18 00:00:00 Orders Only Doctor Unassigned, [place] [facility] 1.2.840.114 350.1.13.10 4.2.7.2.686 [id number] [facility] 2020-10-16 15:00:00 2020-10-16 15:00:00 Outpatient R THOMAS HUBER [facility] [id number] [facility] 2020-10-13 00:00:00 2020-10-13 00:00:00 Telephone Thomas Huber [facility] 1.2.840.114 350.1.13.10 4.2.7.2.686 [id number] [facility] 2020-10-12 00:00:00 2020-10-12 00:00:00 Telephone Thomas Huber [facility] 1.2.840.114 350.1.13.10 4.2.7.2.686 [id number] [facility] 2020-10-10 06:27:00 2020-10-10 10:28:00 Hospital Encounter Thomas Huber Yosef [facility] 1.2.840.114 350.1.13.10 4.2.7.2.686 [id number] [facility] 2020-10-10 06:27:00 2020-10-10 10:28:00 Outpatient R THOMAS HUBER [facility] TRANSITIONAL CARE NURSE [id number] [facility] 2020-10-10 07:30:00 2020-10-10 09:35:00 Surgery Thomas Huber [facility] [place] 1.2840.114 350.1.13.10 4.2.7.2.686 [id number] [facility] 2020-10-10 07:19:00 2020-10-10 08:45:00 Anesthesia Event Marcial Muñoz Leonard [facility] [place] 1.2840.114 350.1.13.10 4.2.7.2.686 [id number] [facility] 2020-10-09 08:15:53 2020-10-09 08:30:53 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 Pob, Adc Lab Main Thomas Huber [facility] Building 1.2840.114 350.1.13.10 4.2.7.2.686 [id number] [facility] 2020-10-09 08:14:50 2020-10-09 08:29:50 Laboratory Only Only, Adc Test Thomas Huber [facility] 1.2840.114 350.1.13.10 4.2.7.2.686 [id number] [facility] 2020-10-09 08:15:00 2020-10-09 08:15:00 Outpatient R THOMAS HUBER [facility] [id number] [facility] 2020-10-09 00:00:00 2020-10-09 00:00:00 Orders Only Doctor Unassigned, [place] [facility] 1.2840.114 350.1.13.10 4.2.7.2.686 [id number] [facility] 2020-10-06 00:00:00 2020-10-06 00:00:00 Telephone Thomas Huber [facility] Building 1.2840.114 350.1.13.10 4.2.7.2.686 [id number] [facility] 2020-10-03 09:40:00 2020-10-03 09:40:00 Outpatient ABEL PIZANO [facility] [id number] [facility] 2020-10-03 00:00:00 2020-10-03 00:00:00 Telephone Thomas Huber [facility] 1.2840.114 350.1.13.10 4.2.7.2.686 [id number] [facility] 2020-10-02 00:00:00 2020-10-02 00:00:00 Telephone Thomas Huber [facility] 1.2840.114 350.1.13.10 4.2.7.2.686 [id number] [facility] 2020-09-27 15:09:45 2020-09-27 16:42:32 Office Visit Thomas Huber [facility] 1.20.114 350.1.13.10 4.2.7.2.686 [id number] [facility] 2020-09-27 08:09:42 2020-09-27 09:39:41 Office Visit Jodi Hagen [facility] 1.114 350.1.13.10 4.2.7.2.686 [id number] [facility] 2020-09-27 08:15:00 2020-09-27 08:15:00 Outpatient JODI CARRINGTON [facility] [id number] [facility] 2020-09-27 00:00:00 2020-09-27 00:00:00 Orders Only Doctor Unassigned, [place] [facility] 1.114 350.1.13.10 4.2.7.2.686 [id number] [facility] 2020-09-21 14:15:57 2020-09-21 14:30:57 [facility] 1.2.840.114 350.1.13.10 4.2.7.2.686 [id number] [facility] 2020-09-21 14:15:00 2020-09-21 14:15:00 Outpatient R BRIDGETT [facility] [id number] [facility] 2020-09-21 00:00:00 2020-09-21 00:00:00 Telephone Bridgett [facility] Building 1.2.840.114 350.1.13.10 4.2.7.2.686 [id number] [facility] 2020-09-19 07:56:23 2020-09-19 23:59:00 Hospital Encounter Thomas Huber [facility] 1.2.840.114 350.1.13.10 4.2.7.2.686 [id number] [facility] 2020-09-19 08:00:00 2020-09-19 08:00:00 Outpatient R THOMAS HUBER [facility] [id number] [facility] 2020-09-18 12:58:14 2020-09-18 13:45:31 Routine Visit Thomas Huber [facility] Building 1.2.840.114 350.1.13.10 4.2.7.2.686 [id number] [facility] 2020-09-18 13:15:00 2020-09-18 13:15:00 Outpatient R THOMAS HUBER [facility] [id number] [facility] 2020-09-18 00:00:00 2020-09-18 00:00:00 Telephone Thomas Huber [facility] nal Building 1.2.840.114 350.1.13.10 4.2.7.2.686 [id number] [facility] 2020-09-11 13:00:00 2020-09-11 13:00:00 Outpatient R THOMAS HUBER [facility] [id number] [facility] 2020-08-28 09:49:56 2020-08-28 10:44:06 [facility] 1.840.114 350.1.13.10 4.2.7.2.686 [id number] [facility] 2020-08-28 10:00:00 2020-08-28 10:00:00 Outpatient ABEL PIZANO [facility] [id number] [facility] 2020-08-28 00:00:00 2020-08-28 00:00:00 Orders Only Doctor Unassigned, [place] [facility] 1.840.114 350.1.13.10 4.2.7.2.686 [id number] [facility] 2020-08-25 07:55:02 2020-08-25 09:02:52 Office Visit Jodi Hagen [facility] 1.840.114 350.1.13.10 4.2.7.2.686 [id number] [facility] 2020-08-25 08:00:00 2020-08-25 08:00:00 Outpatient R JODI HAGEN [facility] [id number] [facility] 2020-08-23 00:00:00 2020-08-23 00:00:00 [facility] 1.2.840.114 350.1.13.10 4.2.7.2.686 [id number] [facility] 2020-08-23 00:00:00 2020-08-23 00:00:00 Case Management Thomas Huber [facility] 1.2.840.114 350.1.13.10 4.2.7.2.686 [id number] [facility] 2020-08-22 00:00:00 2020-08-22 00:00:00 Telephone Thomas Huber [facility] 1.2.840.114 350.1.13.10 4.2.7.2.686 [id number] [facility] 2020-08-22 00:00:00 2020-08-22 00:00:00 Patient Outreach Evan Orellana [facility] 1.2.840.114 350.1.13.10 4.2.7.2.686 [id number] [facility] 2020-08-22 00:00:00 2020-08-22 00:00:00 Patient Secure Msg Doctor Unassigned, [place] [facility] 1.2.840.114 350.1.13.10 4.2.7.2.686 [id number] [facility] 2020-08-19 00:00:00 2020-08-19 00:00:00 Refill Thomas Huber [facility] 1.2.840.114 350.1.13.10 4.2.7.2.686 [id number] [facility] 2020-08-14 16:59:00 2020-08-17 11:45:00 Hospital Encounter Thomas Huber [facility] 1.2.840.114 350.1.13.10 4.2.7.2.686 [id number] [facility] 2020-08-17 00:00:00 2020-08-17 00:00:00 Case Management Thomas Huber [facility] 1.2.840.114 350.1.13.10 4.2.7.2.686 [id number] [facility] 2020-08-15 00:00:00 2020-08-15 00:00:00 [facility] 1.2.840.114 350.1.13.10 4.2.7.2.686 [id number] [facility] 2020-08-14 14:05:11 2020-08-14 16:10:05 Routine Visit Thomas Huber [facility] 1.2.840.114 350.1.13.10 4.2.7.2.686 [id number] [facility] 2020-08-14 14:30:00 2020-08-14 14:30:00 Outpatient R CECILE [facility] [id number] [facility] 2020-08-14 00:00:00 2020-08-14 00:00:00 Orders Only Doctor Unassigned, [place] [facility] 1.2.840.114 350.1.13.10 4.2.7.2.686 [id number] [facility] 2020-08-10 12:29:00 2020-08-11 21:17:00 Hospital Encounter Jeferson Campos [facility] 1.2.840.114 350.1.13.10 4.2.7.2.686 [id number] [facility] 2020-08-10 12:29:00 2020-08-11 21:17:00 Outpatient CELSO GREENWOOD [facility] SHARYN [id number] [facility] 2020-08-11 00:00:00 2020-08-11 00:00:00 Telephone [facility] 1.2.840.114 350.1.13.10 4.2.7.2.686 [id number] [facility] 2020-08-11 00:00:00 2020-08-11 00:00:00 Telephone Thomas Huber [facility] 1.2840.114 350.1.13.10 4.2.7.2.686 [id number] 134 [id number] [facility] 2020-08-11 00:00:00 2020-08-11 00:00:00 Telephone [facility] 1.2840.114 350.1.13.10 4.2.7.2.686 [id number] 134 [id number] [facility] 2020-08-10 09:00:00 2020-08-10 09:00:00 Outpatient R THOMAS HUBER [facility] [id number] [facility] 2020-08-10 00:00:00 2020-08-10 00:00:00 Case Management Thomas Huber [facility] 1.2840.114 350.1.13.10 4.2.7.2.686 [id number] 134 [id number] [facility] 2020-08-10 00:00:00 2020-08-10 00:00:00 Orders Only Doctor Unassigned, [place] [facility] 1.2840.114 350.1.13.10 4.2.7.2.686 [id number] [id number] [facility] 2020-08-09 14:34:33 2020-08-09 15:43:43 Office Visit Jodi Hagen [facility] 1.2840.114 350.1.13.10 4.2.7.2.686 [id number] 136 [id number] [facility] 2020-08-09 14:45:00 2020-08-09 14:45:00 Outpatient R JODI HAGEN [facility] [id number] [facility] 2020-08-07 13:12:16 2020-08-07 14:08:38 Office [facility] Building 1.2.840.114 350.1.13.10 4.2.7.2.686 [id number] [facility] [id number] [facility] 2020-08-07 13:15:00 2020-08-07 13:15:00 [facility] [id number] [facility] 2020-08-07 09:46:28 2020-08-07 10:52:33 Routine Visit Room, [facility] Thomas Huber [facility] Building 1.2.840.114 350.1.13.10 4.2.7.2.686 [id number] 134 [id number] [facility] 2020-08-04 14:50:34 2020-08-04 15:20:34 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 Ultrasound, [facility] Jacque Paz [facility] nal Building 1.2.840.114 350.1.13.10 4.2.7.2.686 [id number] 134 [id number] [facility] 2020-08-04 15:00:00 2020-08-04 15:00:00 Outpatient R [facility] [id number] [facility] 2020-08-04 00:00:00 2020-08-04 00:00:00 Case Management Cecile Thomas [facility] Building 1.2.840.114 350.1.13.10 4.2.7.2.686 [id number] 134 [id number] [facility] 2020-08-03 08:42:32 2020-08-03 10:10:58 Routine Visit Room, [facility] Thomas Huber [facility] Building 1.2.840.114 350.1.13.10 4.2.7.2.686 [id number] 134 [id number] [facility] 2020-08-03 09:00:00 2020-08-03 09:00:00 Outpatient [facility] [id number] [facility] 2020-08-02 00:00:00 2020-08-02 00:00:00 [facility] 1.2.840.114 350.1.13.10 4.2.7.2.686 [id number] 134 [id number] [facility] 2020-08-02 00:00:00 2020-08-02 00:00:00 Orders Only Doctor Unassigned, [place] [facility] 1.2.840.114 350.1.13.10 4.2.7.2.686 [id number] 009 [id number] [facility] 2020-07-31 11:15:27 2020-07-31 23:59:00 Hospital Encounter Thomas Huber [facility] 1.2.840.114 350.1.13.10 4.2.7.2.686 [id number] [facility] 2020-07-31 11:15:27 2020-07-31 23:59:00 [facility] [id number] [facility] 2020-07-31 08:58:13 2020-07-31 10:44:17 Routine Visit Room, [facility] Cecile [facility] Building 1.2.840.114 350.1.13.10 4.2.7.2.686 [id number] 134 [id number] [facility] 2020-07-31 00:00:00 2020-07-31 00:00:00 Orders Only Doctor Unassigned, [place] [facility] 1.2.840.114 350.1.13.10 4.2.7.2.686 [id number] 009 [id number] [facility] 2020-07-28 09:50:00 2020-07-30 11:30:00 Hospital Encounter Thomas Huber Megan [facility] 1.2.840.114 350.1.13.10 4.2.7.2.686 [id number] [id number] [facility] 2020-07-28 00:00:00 2020-07-28 00:00:00 Telephone Thomas Huber [facility] Professio nal Building 1.2.840.114 350.1.13.10 4.2.7.2.686 [id number] 134 [id number] [facility] 2020-07-28 00:00:00 2020-07-28 00:00:00 [facility]phone [facility] 1.2.840.114 350.1.13.10 4.2.7.2.686 [id number] 134 [id number] [facility] 2020-07-28 00:00:00 2020-07-28 00:00:00 Telephone [facility] Building 1.2.840.114 350.1.13.10 4.2.7.2.686 [id number] 134 [id number] [facility] 2020-07-27 16:44:00 2020-07-27 23:55:00 Hospital Encounter Thomas Huber [facility] 1.2.840.114 350.1.13.10 4.2.7.2.686 [id number] 083 [id number] [facility] 2020-07-27 16:44:00 2020-07-27 23:55:00 Outpatient P THOMAS HUBER [facility] SHARYN [id number] [facility] 2020-07-27 14:50:23 2020-07-27 16:18:54 Routine Visit [facility] Zully Ren [facility] 1..840.114 350.1.13.10 4.2.7.2.686 [id number] 134 [id number] [facility] 2020-07-27 15:00:00 2020-07-27 15:00:00 Outpatient R [facility] [id number] [facility] 2020-07-24 09:34:57 2020-07-24 10:48:17 Routine Visit Thomas Huber [facility] 1..840.114 350.1.13.10 4.2.7.2.686 [id number] 134 [id number] [facility] 2020-07-24 10:00:00 2020-07-24 10:00:00 Outpatient R [facility] [id number] [facility] 2020-07-21 00:00:00 2020-07-21 00:00:00 Orders Only Doctor Unassigned, [place] [facility] 1.840.114 350.1.13.10 4.2.7.2.686 [id number] 009 [id number] [facility] 2020-07-21 00:00:00 2020-07-21 00:00:00 [facility] 1..840.114 350.1.13.10 4.2.7.2.686 [id number] 134 [id number] [facility] 2020-07-17 08:00:00 2020-07-17 08:00:00 Outpatient R [facility] [id number] [facility] 2020-07-13 00:00:00 2020-07-13 00:00:00 Telephone Thomas Huber [facility] 1..840.114 350.1.13.10 4.2.7.2.686 [id number] 134 [id number] [facility] 2020-07-10 00:00:00 2020-07-10 00:00:00 Orders Only Doctor Unassigned, [place] [facility] 1.20.114 350.1.13.10 4.2.7.2.686 [id number] 009 [id number] [facility] 2020-07-07 14:48:36 2020-07-07 15:18:36 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 Ultrasound, Ad[facility] M[facility] Thomas Huber [facility] Building 1.284.114 350.1.13.10 4.2.7.2.686 [id number] 134 [id number] [facility] 2020-07-07 15:00:00 2020-07-07 15:00:00 Outpatient P [facility] [id number] [facility] 2020-07-03 13:00:47 2020-07-03 13:40:01 Routine Visit Thomas Huber [facility] Building 1.284.114 350.1.13.10 4.2.7.2.686 [id number] 134 [id number] [facility] 2020-07-03 12:51:19 2020-07-03 13:06:19 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 Pob, Adc Lab Main Thomas Huber [facility] Building 1.284.114 350.1.13.10 4.2.7.2.686 [id number] [facility] 2020-07-03 13:00:00 2020-07-03 13:00:00 Outpatient R CECILE [facility]OMAS [facility] [id number] [facility] 2020-06-30 15:40:48 2020-06-30 16:10:48 Nurse Visit Visit, Adc Nurse Satish Walls [facility] Building 1.2840.114 350.1.13.10 4.2.7.2.686 [id number] [facility] 2020-06-30 16:00:00 2020-06-30 16:00:00 Outpatient SATISH PETERSON [facility] [id number] [facility] 2020-06-26 12:05:00 2020-06-26 17:49:00 Hospital Encounter Thomas Huber [facility] 1.2.840.114 350.1.13.10 4.2.7.2.686 [id number] [facility] 2020-06-26 00:00:00 2020-06-26 00:00:00 Telephone Thomas Huber [facility] Building 1.2.840.114 350.1.13.10 4.2.7.2.686 [id number] 134 [id number] [facility] 2020-06-21 10:23:29 2020-06-21 10:38:29 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 Pob, Adc Lab Main [facility] Building 1.2.840.114 350.1.13.10 4.2.7.2.686 [id number] 353 [id number] [facility] 2020-06-21 09:04:16 2020-06-21 09:51:29 Routine Visit Gela Zully [facility] 1.2.840.114 350.1.13.10 4.2.7.2.686 [id number] 134 [id number] [facility] 2020-06-21 09:00:00 2020-06-21 09:00:00 [id number] 2020-06-21 00:00:00 2020-06-21 00:00:00 Orders Only Doctor Unassigned, [place] [facility] 1.2.840.114 350.1.13.10 4.2.7.2.686 [id number] [id number] [facility] 2020-06-07 13:17:24 2020-06-07 14:20:00 Office Visit Jodi Hagen [facility] 1..114 350.1.13.10 4.2.7.2.686 [id number] 136 [id number] [facility] 2020-06-07 13:30:00 2020-06-07 13:30:00 Outpatient R [facility] [id number] [facility] 2020-06-05 08:57:30 2020-06-05 09:57:30 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 1, [facility] Us Room Jeferson Campos [facility] 1.114 350.1.13.10 4.2.7.2.686 [id number] [facility] 2020-06-05 09:00:00 2020-06-05 09:00:00 Outpatient P [facility] [id number] [facility] 2020-05-24 09:41:08 2020-05-24 10:44:24 Routine Visit Thomas Huber [facility] 1.2.114 350.1.13.10 4.2.7.2.686 [id number] 134 [id number] [facility] 2020-05-24 09:45:00 2020-05-24 09:45:00 Outpatient R THOMAS HUBER [facility] [id number] [facility] 2020-05-24 00:00:00 2020-05-24 00:00:00 Orders Only Doctor Unassigned, [place] [facility] 1.20.114 350.1.13.10 4.2.7.2.686 [id number] [id number] [facility] 2020-05-18 13:45:00 2020-05-18 14:00:00 Telemedici ne Visit Star, Alanna [facility] 1..114 350.1.13.10 4.2.7.2.686 [id number] [facility] 2020-05-18 13:45:00 2020-05-18 13:45:00 Outpatient P [facility] [id number] [facility] 2020-05-16 06:48:00 2020-05-16 10:10:00 Hospital Encounter Thomas Huber [facility] 1..114 350.1.13.10 4.2.7.2.686 [id number] 083 [id number] [facility] 2020-05-01 00:00:00 2020-05-01 00:00:00 Patient Secure Msg Thomas Huber [facility] BUILDING 1..114 350.1.13.10 4.2.7.2.686 [id number] 134 [id number] [facility] 2020-04-26 09:55:06 2020-04-26 10:15:06 Laboratory Only Lab, Adc Fam Mateob Ivana Castaneda [facility] Office Building One 1.114 350.1.13.10 4.2.7.2.686 [id number] [facility] 2020-04-26 10:00:00 2020-04-26 10:00:00 Outpatient R [facility] [id number] [facility] 2020-04-26 09:40:00 2020-04-26 09:40:00 Outpatient R PERLITA THOMASON [facility] [id number] [facility] 2020-04-25 11:09:08 2020-04-25 11:46:35 Routine Visit Zully Ren [facility] Building 1..114 350.1.13.10 4.2.7.2.686 [id number] 134 [id number] [facility] 2020-04-25 11:15:00 2020-04-25 11:15:00 Outpatient Frida CAALZULLY SHIELDS [facility] [id number] [facility] 2020-04-24 09:00:59 2020-04-24 10:53:51 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 1, [facility] 1.840.114 350.1.13.10 4.2.7.2.686 [id number] [facility] 2020-04-24 09:15:00 2020-04-24 09:15:00 Outpatient P [facility] [id number] [facility] 2020-04-19 00:00:00 2020-04-19 00:00:00 Telephone Thomas Huber [facility] 1..840.114 350.1.13.10 4.2.7.2.686 [id number] 134 [id number] [facility] 2020-04-05 00:00:00 2020-04-05 00:00:00 Telephone Thomas Huber [facility] 1..840.114 350.1.13.10 4.2.7.2.686 [id number] 134 [id number] [facility] 2020-04-03 10:30:00 2020-04-03 10:30:00 Outpatient GARRY MATAMOROS [facility] [id number] [facility] 2020-04-03 10:00:14 2020-04-03 10:15:14 Telemedici ne Visit Alanna Graves Joseph W [facility] 1..840.114 350.1.13.10 4.2.7.2.686 [id number] [facility] 2020-03-29 00:00:00 2020-03-29 00:00:00 Telephone Huber, Thomas [facility] 1.114 350.1.13.10 4.2.7.2.686 [id number] 134 [id number] [facility] 2020-03-28 10:36:42 2020-03-28 10:51:42 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 2, Adc Lab Thomas Huber [facility] Building 1.2114 350.1.13.10 4.2.7.2.686 [id number] [facility] 2020-03-28 09:45:00 2020-03-28 09:45:00 Outpatient R [facility] [id number] [facility] 2020-03-27 14:52:43 2020-03-27 16:31:25 Office Visit Thomas Huber [facility] 1.114 350.1.13.10 4.2.7.2.686 [id number] 134 [id number] [facility] 2020-03-27 11:15:00 2020-03-27 11:15:00 Outpatient R GELA ZULLY [facility] [id number] [facility] 2020-03-27 00:00:00 2020-03-27 00:00:00 Orders Only Doctor Unassigned, [place] [facility] 1. 350.1.13.10 4.2.7.2.686 [id number] [id number] [facility] 2020-03-24 00:00:00 2020-03-24 00:00:00 Telephone Thomas Huber [facility] 1.114 350.1.13.10 4.2.7.2.686 [id number] 134 [id number] [facility] 2020-03-24 00:00:00 2020-03-24 00:00:00 Telephone Gela Zully [facility] Building 1.2.840.114 350.1.13.10 4.2.7.2.686 [id number] 134 [id number] [facility] 2020-03-22 08:50:58 2020-03-22 09:46:40 Routine Visit Zully Ren [facility] Professio nal Building 1.2.840.114 350.1.13.10 4.2.7.2.686 [id number] 134 [id number] [facility] 2020-03-22 09:15:00 2020-03-22 09:15:00 Outpatient R GELA [facility] [id number] [facility] 2020-03-20 00:00:00 2020-03-20 00:00:00 Telephone Thomas Huber [facility] Building 1.2.840.114 350.1.13.10 4.2.7.2.686 [id number] 134 [id number] [facility] 2020-03-13 08:30:00 2020-03-13 08:30:00 Outpatient R THOMAS HUBER [facility] [id number] [facility] 2020-03-13 00:00:00 2020-03-13 00:00:00 Orders Only Doctor Unassigned, [place] [facility] 1.2.840.114 350.1.13.10 4.2.7.2.686 [id number] [facility] 2020-03-08 10:13:22 2020-03-08 10:51:38 Routine Visit Zully Ren [facility] Building 1.2.840.114 350.1.13.10 4.2.7.2.686 [id number] 134 [id number] [facility] 2020-03-08 10:15:00 2020-03-08 10:15:00 Outpatient R GELA [facility] [id number] [facility] 2020-03-08 00:00:00 2020-03-08 00:00:00 Telephone Thomas Huber [facility] 1.2.840.114 350.1.13.10 4.2.7.2.686 [id number] 134 [id number] [facility] 2020-03-06 00:00:00 2020-03-06 00:00:00 Telephone Thomas Huber [facility] Amelia count includes the [facility] Building 1.2.840.114 350.1.13.10 4.2.7.2.686 [id number] 134 [id number] [facility] 2020-02-29 00:00:00 2020-02-29 00:00:00 Telephone Thomas Huber [facility] Amelia count includes the [facility] Building 1.2.840.114 350.1.13.10 4.2.7.2.686 [id number] 134 [id number] [facility] 2020-02-28 09:13:47 2020-02-28 09:28:47 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 2, Adc Lab Thomas Huber [facility] Building 1.2.840.114 350.1.13.10 4.2.7.2.686 [id number] [facility] 2020-02-28 08:29:25 2020-02-28 09:10:07 Routine Visit [facility] 1.2.840.114 350.1.13.10 4.2.7.2.686 [id number] 134 [id number] [facility] 2020-02-28 08:30:00 2020-02-28 08:30:00 Outpatient R THOMAS HUBER [facility] [id number] [facility] 2020-02-28 00:00:00 2020-02-28 00:00:00 Orders Only Doctor Unassigned, [place] [facility] 1.2.840.114 350.1.13.10 4.2.7.2.686 [id number] [id number] [facility] 2020-02-16 00:00:00 2020-02-16 00:00:00 Orders Only Doctor Unassigned, [place] [facility] 1.2840.114 350.1.13.10 4.2.7.2.686 [id number] [id number] [facility] 2020-02-14 13:30:00 2020-02-14 13:30:00 Outpatient P [facility] [id number] [facility] 2020-02-10 08:45:00 2020-02-10 08:45:00 Outpatient R MARGOT SANDOVAL [facility] [id number] [facility] 2020-02-03 00:00:00 2020-02-03 00:00:00 Telephone [facility] 1.284.114 350.1.13.10 4.2.7.2.686 [id number] 134 [id number] [facility] 2020-02-03 00:00:00 2020-02-03 00:00:00 Refill [facility] 1.284.114 350.1.13.10 4.2.7.2.686 [id number] 134 [id number] [facility] 2020-01-31 08:00:00 2020-01-31 08:00:00 Outpatient R [facility] [id number] [facility] 2020-01-31 00:00:00 2020-01-31 00:00:00 Telephone Margot Sandoval [facility] 1.20.114 350.1.13.10 4.2.7.2.686 [id number] 107 [id number] [facility] 2020-01-27 00:00:00 2020-01-27 00:00:00 Patient Secure Msg Thomas Huber [facility] PROFESSIO NAL BUILDING 1.2840.114 350.1.13.10 4.2.7.2.686 [id number] 134 [id number] [facility] 2020-01-24 09:15:54 2020-01-24 09:30:54 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 2, Adc Lab [facility] 1.2840.114 350.1.13.10 4.2.7.2.686 [id number] 353 [id number] [facility] 2020-01-24 08:03:13 2020-01-24 09:12:06 Initial Visit Thomas Huber [facility] 1.2840.114 350.1.13.10 4.2.7.2.686 [id number] 134 [id number] [facility] 2020-01-24 08:00:00 2020-01-24 08:00:00 [facility] [id number] [facility] 2020-01-24 00:00:00 2020-01-24 00:00:00 Orders Only Doctor Unassigned, [place] [facility] 1.840.114 350.1.13.10 4.2.7.2.686 [id number] [id number] [facility] 2020-01-24 00:00:00 2020-01-24 00:00:00 Telephone Thomas Huber [facility] 1.2840.114 350.1.13.10 4.2.7.2.686 [id number] 134 [id number] [facility] 2020-01-19 10:00:00 2020-01-19 10:00:00 [facility] [id number] [facility] 2020-01-17 09:51:45 2020-01-17 10:06:45 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 Lab, Pato-Rmchp Margot Sandoval [facility] 1.2840.114 350.1.13.10 4.2.7.2.686 [id number] 107 [id number] [facility] 2020-01-17 09:51:45 2020-01-17 10:06:45 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 Lab, Ang-Rmchp [facility] MATERNAL & CHILD [email or web address] 1.2.840.114 350.1.13.10 4.2.7.2.686 [id number] 2020-01-17 08:15:00 2020-01-17 08:15:00 Outpatient R MARGOT SANDOVAL [facility] [id number] [facility] 2020-01-13 09:45:00 2020-01-13 11:18:39 Outpatient R LORI MARGOT [facility] [id number] [facility] 2020-01-13 09:53:02 2020-01-13 10:23:02 Initial Visit Margot Sandoval [email or web address] 1.2.840.114 350.1.13.10 4.2.7.2.686 [id number] 107 [id number] [facility] 2020-01-13 09:53:02 2020-01-13 10:23:02 Initial Visit Margot Sandoval [facility] [[email or web address] 1.2.840.114 350.1.13.10 4.2.7.2.686 [id number] 107 [id number] 2020-01-13 09:45:00 2020-01-13 09:45:00 Outpatient R MARGOT SANDOVAL [facility] [id number] [facility] 2020-01-11 14:45:00 2020-01-11 18:12:00 Emergency Nancy Sandoval [facility] 1.2.840.114 350.1.13.10 4.2.7.2.686 [id number] [id number] [facility] 2020-01-11 14:45:00 2020-01-11 18:12:00 Emergency Nancy Sandoval [facility] 1.2.840.114 350.1.13.10 4.2.7.2.686 [id number] 084 [id number] 2020-01-11 14:45:00 2020-01-11 14:45:00 Emergency X NANCY SANDOVAL [facility] ERT [id number] [facility] 2020-01-11 00:00:00 2020-01-11 00:00:00 Nurse Triage [facility] 1.2.840.114 350.1.13.10 4.2.7.2.686 [id number] [facility] 2020-01-11 00:00:00 2020-01-11 00:00:00 Nurse Triage [facility] 1.2.840.114 350.1.13.10 4.2.7.2.686 [id number] [id number] 2019-12-06 12:49:46 2019-12-06 14:26:00 Emergency [facility] 1.2.840.114 350.1.13.10 4.2.7.2.686 [id number] 084 [id number] [facility] 2019-12-06 12:49:46 2019-12-06 14:26:00 Emergency [facility] 1.2.840.114 350.1.13.10 4.2.7.2.686 [id number] 2019-12-06 12:28:00 2019-12-06 12:28:00 Emergency X [facility] ERT [id number] [facility]
--- NOTE | 2024-08-19 19:17 | RAD REPORT ---
Procedure: Chest Single View HISTORY: Cough COMPARISON: 2023 FINDINGS: The lungs appear grossly clear. No significant pleural effusion noted. The heart is normal size. IMPRESSION: No acute abnormality is displayed. If patient's symptoms persist PA and lateral chest series would be recommended
[2024-08-19] MEDS ORDERED: IBUPROFEN 200 MG TAB PO ONE (19:42)
[2024-08-19] MEDS ORDERED: IBUPROFEN 400 MG TAB ONE (19:43)
[2024-08-19] MEDS ORDERED: BENZONATATE 100 MG CAP PO ONE (19:43)
[2024-08-19] MEDS ORDERED: ONDANSETRON 4 MG (ODT) TAB ONE (19:43)
[2024-08-19 19:57] LABS: Influenza A Ag Negative; Influenza B Ag Negative; SARS-CoV-2 Antigen Rapid Res Negative (Negative)
--- NOTE | 2024-08-19 20:05 | EDPHYS ---
Physician Documentation [facility] Name: Zaina Roberson Age: 29 yrs Sex: Female : 1995 Arrival Date: 08/19/2024 Time: 17:48 Bed 10 Private MD: ED Physician Nancy Rodriguez HPI: 08/19 18:47 This 29 yrs old Female presents to ER via Ambulatory with complaints of sw6 Nausea/Vomiting, Chest Pain, Breathing Difficulty. 18:47 The patient presents to the emergency department with Cough, congestion, shortness of sw6 breath and chest pain.. Onset: The symptoms/episode began/occurred yesterday. The patient presents from home for evaluation for chest pain, shortness of breath as well as cough and congestion that started yesterday. No sick contacts. No fevers or chills. She did use some nasal medication earlier today but reports it has not helped her. She does smoke but is trying to quit. No history of asthma or diabetes. No ear pain. No sore throat. Here for evaluation.. 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 - Infectious Disease History:: Denies. - Social history:: Smoking status: Reported history of juuling and/or vaping. ROS: 18:47 Constitutional: Negative for fever, chills, and weight loss, ENT: Negative for injury, sw6 pain, and discharge, Neck: Negative for injury, pain, and swelling, Abdomen/GI: Negative for abdominal pain, nausea, vomiting, diarrhea, and constipation, 18:47 Cardiovascular: Positive for chest pain, with cough, 18:47 Respiratory: Positive for cough, with no reported sputum, shortness of breath, 18:47 All other systems are negative, Exam: 18:47 Constitutional: This is a well developed, well nourished patient who is awake, alert, sw6 and in no acute distress. Neck: Trachea midline, no thyromegaly or masses palpated, and no cervical lymphadenopathy. Supple, full range of motion without nuchal rigidity, or vertebral point tenderness. No Meningismus. Cardiovascular: Regular rate and rhythm with a normal S1 and S2. No gallops, murmurs, or rubs. Normal PMI, no JVD. No pulse deficits. Respiratory: Lungs have equal breath sounds bilaterally, clear to auscultation and percussion. No rales, rhonchi or wheezes noted. No increased work of breathing, no retractions or nasal flaring. Abdomen/GI: Soft, non-tender, with normal bowel sounds. No distension or tympany. No guarding or rebound. No evidence of tenderness throughout. 18:47 Skin: Warm, dry with normal turgor. Normal color with no rashes, no lesions, and no evidence of cellulitis. MS/ Extremity: Pulses equal, no cyanosis. Neurovascular intact. Full, normal range of motion. Neuro: Awake and alert, GCS 15, oriented to person, place, time, and situation. Cranial nerves II-XII grossly intact. Motor strength 5/5 in all extremities. Sensory grossly intact. Cerebellar exam normal. Normal gait. 18:47 ENT: Mouth: is normal, no drooling, (-) trismus 19:24 ECG was reviewed by the Attending Physician. 6 Vital Signs: 18:40 BP 149 / 125; Pulse 97; Resp 18; Temp 98.6; Pulse Ox 100% ; Weight 119.75 kg; Height 5 iw ft. 6 in. ; Pain 8/10; 18:40 Body Mass Index 42.61 (119.75 kg, 167.64 cm) iw 18:40 Pain Scale: Adult iw MDM: 18:42 Medical Screening Exam initiated cp 18:47 Differential diagnosis: COVID, influenza, viral syndrome, pneumonia, reactive airway sw6 disease. Data reviewed: vital signs, nurses notes. 20:06 ED course: The patient is doing well here in the ER. Her chest x-ray shows no acute sw6 cardiopulmonary issues. Her viral swab is negative for COVID as well as influenza. She is feeling better after the medications given here today. Recommend supportive care at home with [id number] cough and cold medications as necessary. She remained stable here in the ER and is okay for discharge home with PCP follow-up. Also advised the patient to stop smoking.. 08/19 18:46 Order name: COVID-19 Ag + Flu A+B Ag; Complete Time: 20:02 sw6 08/19 20:02 Interpretation: Within normal limits. sw6 08/19 18:46 Order name: CXR XRAY; Complete Time: 19:53 sw6 08/19 19:53 Interpretation: No acute disease. sw6 08/19 18:46 Order name: EKG; Complete Time: 18:47 EC:24 Rate is 99 beats/min. Rhythm is regular. QRS [place] is Normal. CT interval is normal. QRS sw6 interval is normal. QT interval is normal. No Q waves. T waves are Normal. No ST changes noted. Administered Medications: 19:58 Drug: Ibuprofen PO 600 mg PO once Route: PO; ha1 20:25 Follow up: Response: No adverse reaction br2 19:58 Drug: Tessalon Perle PO 200 mg PO once Route: PO; ha1 20:25 Follow up: Response: No adverse reaction br2 19:58 Drug: Ondansetron Oral Disintegrating Tablet Oral Disintegrating Tablet 4 mg PO once ha1 Route: PO; 20:25 Follow up: Response: No adverse reaction br2 Disposition Summary: 08/19/24 20:05 Discharge Ordered Notes: Location: Home sw6 Problem: new sw6 Symptoms: have improved sw6 Condition: Stable sw6 Diagnosis - Acute upper respiratory infection, unspecified sw6 Discharge Instructions: - Discharge Summary Sheet sw6 - Upper Respiratory Infection, Adult sw6 - Upper Respiratory Infection, Adult, [id number] sw6 Forms: - Medication Reconciliation Form sw6 - Antibiotic Education sw6 - Prescription Opioid Use sw6 - Patient Portal Instructions sw6 - Leadership Thank You Letter 6 Prescriptions: - Tessalon Perles 100 mg Oral Capsule - take 1 capsule ORAL route every 8 hours As needed; 15 capsule; Refills: 0, sw6 Product Selection Permitted - Guaifenesin AC 10-100 mg/5 mL Oral Liquid - take 10 milliliters ORAL route every 4 hours As needed; 240 milliliter; sw6 Refills: 0, Product Selection Permitted Signatures: Dispatcher [employer] Olga Gasca, RN RN Young Mays PA PA cp Ayala, Heidy, RN RN ha1 Nancy Rodriguez MD MD 6 Yoselin Luis RN br2
--- NOTE | 2024-08-19 20:05 | ER ---
Nurse's Notes [facility] Name: Zaina Roberson Age: 29 yrs Sex: Female : 1995 Arrival Date: 08/19/2024 Time: 17:48 Bed 10 Private MD: Diagnosis: Acute upper respiratory infection, unspecified Presentation: 08/19 18:40 Chief complaint: Patient states: right sided chest pains and SOB yesterday and now I'm iw congested and have a sore throat and my head is spinning. Coronavirus screen: At this time, the client does not indicate any symptoms associated with coronavirus-19. Ebola Screen: No symptoms or risks identified at this time. Initial Sepsis Screen: Does the patient meet any 2 criteria? No. Patient's initial sepsis screen is negative. Does the patient have a suspected source of infection? No. Patient's initial sepsis screen is negative. Risk Assessment: Do you want to hurt yourself or someone else? Patient reports no desire to harm self or others. 18:40 Method Of Arrival: Ambulatory iw 18:40 Acuity: SAFIA 3 iw Triage Assessment: 20:29 General: Appears comfortable, Behavior is calm, cooperative. 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 - Infectious Disease History:: Denies. - Social history:: Smoking status: Reported history of juuling and/or vaping. Screenin:29 [facility] ED Fall Risk Assessment (Adult) History of falling in the last 3 months, br2 including since admission No falls in past 3 months (0 pts) Confusion or Disorientation No (0 pts) Intoxicated or Sedated No (0 pts) Impaired Gait No (0 pts) Mobility Assist Device Used No (0 pt) Altered Elimination No (0 pt) Score/Fall Risk Level 0 - 2 = Low Risk Oriented to surroundings. Abuse screen: Denies threats or abuse. Denies injuries from another. Nutritional screening: No deficits noted. Tuberculosis screening: No symptoms or risk factors identified. Assessment: 20:29 Reassessment: Patient and/or family updated on plan of care and expected duration. Pain br2 level reassessed. Patient states feeling better. Patient states symptoms have improved. Vital Signs: 18:40 BP 149 / 125; Pulse 97; Resp 18; Temp 98.6; Pulse Ox 100% ; Weight 119.75 kg; Height 5 iw ft. 6 in. ; Pain 8/10; 18:40 Body Mass Index 42.61 (119.75 kg, 167.64 cm) iw 18:40 Pain Scale: Adult ED Course: 17:51 Patient arrived in ED. al6 18:41 Triage completed. iw 18:42 Young Mays PA is PHCP. cp 18:42 Gurdeep Balderas MD is Attending Physician. cp 18:43 Nancy Rodriguez MD is Attending Physician. cp 19:11 CXR XRAY In Process Unspecified. EDMS 20:29 Patient has correct armband on for positive identification. Bed in low position. Call br2 light in reach. Side rails up X 1. Provided Education on: PLAN OF CARE. 20:29 Arm band placed on. br2 Administered Medications: 19:58 Drug: Ibuprofen PO 600 mg PO once Route: PO; ha1 20:25 Follow up: Response: No adverse reaction br2 19:58 Drug: Tessalon Perle PO 200 mg PO once Route: PO; ha1 20:25 Follow up: Response: No adverse reaction br2 19:58 Drug: Ondansetron Oral Disintegrating Tablet Oral Disintegrating Tablet 4 mg PO once ha1 Route: PO; 20:25 Follow up: Response: No adverse reaction br2 Outcome: 20:05 Discharge ordered by . sw6 20:29 Discharged to home ambulatory, br2 20:29 Condition: improved 20:29 Discharge instructions given to patient, Instructed on discharge instructions, follow up and referral plans. Demonstrated understanding of instructions, follow-up care, medications, Prescriptions given X 2, 20:30 Patient left the ED. br2 Signatures: Dispatcher [employer] EDMS Olga Rodriguez RN RN Young Mays PA PA cp Shira Bee RN RN ha1 Nancy Rodriguez MD MD sw6 Yoselin Luis RN RN br2 Stacey Reed al6 Corrections: (The following items were deleted from the chart) 18:41 18:40 Pain 8/10, Adult; iw iw
[2024-08-19 22:07] VITALS: BP 149/125; TEMP 98.6; O2SAT 100
--- NOTE | 2024-08-23 12:12 | EKG ---
Test Date: 2024-08-19 Test Time: 18:50:06 [employer] Solution Architect: TIKA MEASUREMENT RESULTS: Intervals: Rate: 99 TX: 120 QRSD: 66 QT: 330 QTc: 423 [place]: P: 20 TX: 120 QRS: 23 T: 10 INTERPRETIVE STATEMENTS: Normal sinus rhythm Low voltage QRS Borderline ECG Compared to ECG 10/26/2023 18:26:32 Low QRS voltage now present T-wave abnormality no longer present Electronically Signed On 08-23-24 12:03:46 CDT by Wade Botello
== END 2024-08-19 20:30 | disposition home or self-care (01) ==
LOC: ER 17:48
DX: J06.9 Acute upper respiratory infection, unspecified (principal); Z11.52 Encounter for screening for COVID-19
CPT/HCPCS: 36415; 71045; 99283; 87428; Q0162; 93005

== ENCOUNTER 2024-09-24 20:37 | Emergency (ER) | payer OTHER ==
--- OUTSIDE RECORDS SUMMARY | 2024-09-24 20:42 | XMS REPORT | Continuity of Care Document ---
Author Name Unknown Address [address] [facility] [address] [place] [address] Organization [facility] [place] Address [address] [facility] [address] [facility] [address] [place] [address] Care Team Providers Care Swedger Name Role Phone No , Pcp Primary Care Physician Unavailab THOMAS Bruce Attending Clinician Unavailable Pcp, Patient Does Not Have A Attending Clinician Demario Win MD Attending Clinician [phone] Robe Lius OD Attending Clinician [phone] Thomas Huber MD Attending Clinician [phone] Pob, Adc Lab Main Attending Clinician Unavailabl e Doctor Unassigned, [place] Attending Clinician U JODI Jones Attending Clinician Unavailable Nicho GUEVARA, Danette Snell Attending Clinician [phone] Marcial Muñoz CRNA Attending Clinician [phone] Poli Massey MD, Leonard Attending Clinician [phone] Only, Adc Test Attending Clinician Unavailable ABEL SHEPPARD Attending Clinician Unavail able ABEL SHEPPARD Attending Clinician Unavail able Jodi Hagen MD Attending Clinician [phone] Bridgett BEASLEY, Pita Attending Clinician [phone] PITA URIAS Attending Clinician Unavailable Silver BEASLEY, Abel Smith Attending Clinician [phone] Evan Orellana DO Attending Clinician [phone] Jeferson Campos MD Attending Clinician [phone] Celso Ch MD Attending Clinician [phone] CELSO CH Attending Clinician Unavailable CELSO CH Attending Clinician Unavailable Room, [facility] Attending Clinician Unavailable Ultrasound, [facility] Attending Clinician Unavaila vanessa Paul MD, Santillan Attending Clinician + Lisa Naidu MD Attending Clinician [phone] Zully Ren PA-C Attending Clinician [phone] Visit, [facility] Nurse Attending Clinician Unavailable Satish Walls MD Attending Clinician [phone] SATISH WALLS Attending Clinician Unavailable ZULLY REN Attending Clinician Unavailable 1, [facility] Room Attending Clinician Unavaila Alanna Beck Attending Clinician Unavailabl e Lab, [facility] Fam Pob I Attending Clinician Unavailab Ivana Ross Attending Clinician [phone] PERLITA THOMASON Attending Clinician Unavailable GARRY MENDEZ Attending Clinician Unavailable Garry Mendez MD Attending Clinician [phone] 2, [facility] Lab Attending Clinician Unavailable MARGOT SANDOVAL Attending Clinician UnavailMargot Samano Attending Clinician [phone] Lab, [facility] Attending Clinician Unavailable Nancy Sandoval DO Attending Clinician [phone] NANCY SANDOVAL Attending Clinician Unavailab sofie Sheikh RN, Libia Cox Attending Clinician Unavaila Agustina Salguero Attending Clinician [phone] THOMAS HUBER Admitting Clinician Unavailable JEFERSON CAMPOS Admitting Clinician Unavailcory Huber MD, Thomas Navas Admitting Clinician [phone] Beth BEASLEY, Jeferson Hernandez Admitting Clinician Lisa Naidu MD Admitting Clinician Payers Payer Name Policy Type Policy Number Effective Date Expirati on Date Source [employer] MEDICAID [id number] 2020 00:00:00 [place] [id number] 2020 00:00:00 Problems Condition Name Condition Details Condition Category Status Onset Date Resolution Date Last Treatment Date Treating Clinician Comments Source BMI 50.0-59.9, adult BMI 50.0-59.9, adult Disease Active 2022-06 00:00: 00 [facility] Dietary counseling Dietary counseling Disease Active 2022-06 00:00: 00 [facility] 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 VF unreliabl e, Retina is flat and intactRef to Neuro and Neuro-Oph [facility] Generalize d headaches Generalize d headaches Disease Active 2022-06 00:00: 00 Last Assessmen t & Plan: Formattin g of this note might be different from the original. Ref to Neuro for MRI [facility] Ocular hypertensi on, bilateral Ocular hypertensi on, bilateral Disease Active 2022-06 00:00: 00 Last Assessmen t & Plan: Formattin g of this note might be different from the original. Refer to OMD for evaluatio n due to high pressures [facility] Optic nerve swelling Optic nerve swelling Disease Active 2022-06 00:00: 00 Last Assessmen t & Plan: Formattin g of this note might be different from the original. 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 Disease Active 2-28 00:00: 00 [facility] Other headache syndrome Other headache syndrome Disease Active 2-27 00:00: 00 [facility] Chronic hypertensi on Chronic hypertensi on Disease Active 2-01 00:00: 00 [facility] Papanicola ou smear of cervix with low grade squamous intraepith elial lesion (LGSIL) Papanicola ou smear of cervix with low grade squamous intraepith elial lesion (LGSIL) Disease Active 8-31 00:00: 00 [facility] Morbid obesity with body mass index of 40.0-49.9 Morbid obesity with body mass index of 40.0-49.9 Disease Active 8-24 00:00: 00 [facility] Multiparit y Multiparit y Disease Active 8-18 00:00: 00 [facility] Allergies, Adverse Reactions, Alerts Allergy Name Allergy Type Status Severity Reaction(s) Onset Date Inactive Date Treating Clinician Comments Source NO KNOWN ALLERGIE S Drug Class Active [facility] Social History Social Habit Start Date Stop Date Quantity Comments Source ASSERTION [facility] History of tobacco use Cigarette Smoker [facility] Tobacco use and exposure 2023-03-26 00:00:00 2023-03-26 00:00:00 User of smokeless tobacco [facility] Tobacco Comment 2023-03-26 00:00:00 2023-03-26 00:00:00 Vape occasional [facility] Alcohol intake 2021-03-21 00:00:00 2021-03-21 00:00:00 Ex-drinker (finding) [facility] Exposure to SARS-CoV-2 (event) 2021-02-18 00:00:00 2021-03-20 10:03:00 Not sure [facility] History of Social function 2020-10-10 00:00:00 2020-10-10 00:00:00 [facility] Sex Assigned At 1995 00:00:00 1995 00:00:00 [facility] Smoking Status Start Date Stop Date Source Tobacco smoking consumption unknown [facility] Never smoked tobacco [facility] Ex-smoker 2020-01-13 00:00:00 2020-01-13 00:00:00 [facility] Medications Ordered Medication Name Filled Medication Name Start Date Stop Date Current Medication? Ordering Clinician Indication Dosage Frequency Signature (SIG) Comments Components Source Atogepant (Qulipta) 60 MG tablet 2022-06 00:00: 00 09-22 04:59 :00 No [id number] 60mg QD Take 60 mg by mouth 1 (one) time each day. [facility] SUMAtriptan (Imitrex) 50 MG tablet 2022-06 00:00: 00 05-26 05:59 :00 No [id number] 50mg Take 1 tablet (50 mg total) by mouth 1 (one) time if needed for migraine (may repeat x1). May repeat dose once in 2 hours if no relief. Do not exceed 2 doses in 24 hours. [facility] maalox:diph enhydrAMINE :lidocaine 2 % viscous 1:1:1 12-30 00:00: 00 03-21 00:00 :00 No [id number] 15mL Take 15 mL by mouth 4 (four) times daily as needed (pharyngit is). [facility] SERTraline (ZOLOFT) 25 mg tablet 10-25 00:00: 00 Yes [id number] 25mg Take 1 tablet by mouth daily. [facility] vit calc,iron,f olic ( VITAMIN ORAL) 19 13:40: 23 09-18 00:00 :00 No Take by mouth. [facility] acetaminoph en-caff-but albital (ESGIC) per capsule 08-22 00:00: 00 12-30 00:00 :00 No [id number] 1{capsu le} Take 1 capsule by mouth every 4 (four) hours as needed for Pain. [facility] vitamin w/FA tablet 08-17 00:00: 03-21 00:00 :00 No [id number] 1{tbl} Take 1 tablet by mouth daily. [facility] vitamin w/FA tablet 08-17 00:00: 00 03-21 00:00 :00 No [id number] 1{tbl} Take 1 tablet by mouth daily. [facility] ibuprofen 600 mg tablet 08-17 00:00: 00 10-25 00:00 :00 No [id number] 600mg Take 1 tablet by mouth every 6 (six) hours as needed (Pain). Take with food or milk. [facility] ferrous sulfate 325 mg (65 mg iron) tablet 08-17 00:00: 00 09-27 00:00 :00 No [id number] 325mg Take 1 tablet by mouth 2 (two) times daily. [facility] docusate calcium 240 mg capsule 08-17 00:00: 00 09-18 00:00 :00 No [id number] 240mg Take 1 capsule by mouth once daily as needed for Constipati on. [facility] acetaZOLAMI DE 250 mg tablet 08-11 00:00: 00 09-18 00:00 :00 No [id number] 500mg Take 2 tablets by mouth 2 (two) times daily. [facility] proCHLORper azine 10 mg tablet 08-04 00:00: 00 10-25 00:00 :00 No [id number] 5mg Take 0.5 tablets by mouth every 6 (six) hours as needed (headache) . [facility] magnesium oxide 400 mg (241.3 mg magnesium) tablet 06-21 00:00: 00 09-18 00:00 :00 No [id number] 400mg Take 1 tablet by mouth daily. [facility] albuterol 90 mcg/actuati on inhaler 8-24 00:00: 00 09-18 00:00 :00 No [id number] 2{puff} Inhale 2 Puffs every 6 (six) hours as needed for Wheezing, Shortness of Breath, Bronchospa sm or Chest tightness. [facility] Immunizations Ordered Immunization Name Filled Immunization Name Date Status Comments Source TDAP 2020-06-21 00:00:00 Completed [facility] TDAP 2020-06-21 00:00:00 Completed [facility] TDAP 2020-06-21 00:00:00 Completed [facility] TDAP Unknown Completed [facility] TDAP Unknown Completed [facility] TDAP Unknown Completed [facility] TDAP Unknown Completed [facility] Vital Signs Vital Name Observation Time Observation Value Comments S ource Systolic blood pressure 2023-03-26 15:20:00 134 mm[Hg] [facility] Diastolic blood pressure 2023-03-26 15:20:00 89 mm[Hg] [facility] Heart rate 2023-03-26 15:20:00 92 /min [facility] Body height 2023-03-26 15:20:00 [facility] Body weight 2023-03-26 15:20:00 [facility] 2023-03-26 15:20:00 50.52 kg/m2 [facility] Systolic blood pressure 2021-03-21 20:11:00 129 mm[Hg] [facility] Diastolic blood pressure 2021-03-21 20:11:00 87 mm[Hg] [facility] Heart rate 2021-03-21 20:11:00 88 /min [facility] Body temperature 2021-03-21 20:11:00 36.89 Crissy [facility] Respiratory rate 2021-03-21 20:11:00 18 /min [facility] Body height 2021-03-21 20:11:00 165.1 cm [facility] Body weight 2021-03-21 20:11:00 124.286 kg [facility] BMI 2021-03-21 20:11:00 45.60 kg/m2 [facility] Procedures Procedure Date / Time Performed Performing Clinicia n Source OCT, OPTIC NERVE - OU - BOTH EYES 2023-03-24 13:35:37 Robe Luis [facility] OCT, RETINA - OU - BOTH EYES 2023-03-24 13:35:36 [facility]ON[facility]AL[facility] VISUAL FIELD - OU - BOTH EYES 2023-03-24 13:35:23 Robe Luis [facility] Encounters Start Date/Time End Date/Time Encounter Type Admission Type Attending [facility] Care Facility Care Department Encounter ID Source 2021-04-02 12:12:16 Emergency [facility] [id number] [facility] 2021-04-01 16:27:17 Outpatient R THOMAS HUBER [facility] [id number] [facility] 2021-04-01 06:10:40 Outpatient P [facility] SHARYN [id number] [facility] 2021-04-01 05:44:28 Outpatient P [facility] SH[facility] [id number] [facility] 2021-04-01 01:36:48 Outpatient [facility] SH[facility] [id number] [facility] 2021-03-31 19:31:52 Outpatient P [facility] [id number] [facility] 2021-03-31 19:22:14 Outpatient P [facility] [id number] [facility] 2021-03-31 11:20:46 Outpatient P [facility] [id number] [facility] 2021-03-31 11:16:36 Outpatient P [facility] [id number] [facility] 2023-07-11 00:00:00 2023-07-11 00:00:00 Patient Secure Msg Pcp, Patient Does Not Have A [facility] 1.840.114 350.1.13.10 4.2.7.2.686 [id number] [facility] 2023-03-26 10:30:00 2023-03-26 11:18:06 Consult Demario Win [facility] 1.2.840.114 350.1.13.58 9.2.7.2.686 [id number] [facility] 2023-03-24 09:00:00 2023-03-24 14:16:28 Outpatient [facility] [id number] [facility] 2023-03-24 08:35:00 2023-03-24 11:43:42 Outpatient [facility] [id number] [facility] 2023-03-24 08:30:00 2023-03-24 11:43:21 Outpatient [facility] [id number] [facility] 2023-03-24 08:15:00 2023-03-24 09:22:32 Office Visit Luis, Robe UTP [address] [facility] 1.2.840.114 350.1.13.58 9.2.7.2.686 [id number] [facility] 2021-03-26 00:00:00 2021-03-26 00:00:00 Telephone Thomas Huber [facility] 1.2.840.114 350.1.13.10 4.2.7.2.686 [id number] [facility] 2021-03-21 16:11:30 2021-03-21 16:26:30 Cover Maker Visit Pob, Adc Lab Main Thomas Huber [facility] 1.2.840.114 350.1.13.10 4.2.7.2.686 [id number] [facility] 2021-03-21 14:49:10 2021-03-21 15:45:16 Office Visit Thomas Huber [facility] 1.2.840.114 350.1.13.10 4.2.7.2.686 [id number] [facility] 2021-03-21 15:00:00 2021-03-21 15:00:00 Outpatient R THOMAS HUBER [facility] [id number] [facility] 2021-03-21 00:00:00 2021-03-21 00:00:00 Orders Only Doctor Unassigned, [place] [facility] 1.2.840.114 350.1.13.10 4.2.7.2.686 [id number] [facility] 2021-03-06 00:00:00 2021-03-06 00:00:00 Patient Secure Msg [facility] 1.2.840.114 350.1.13.10 4.2.7.2.686 [id number] [facility] 2021-03-05 00:00:00 2021-03-05 00:00:00 Patient Secure Msg Thomas Huber [facility] 1.2.840.114 350.1.13.10 4.2.7.2.686 [id number] [facility] 2021-01-24 08:15:00 2021-01-24 08:15:00 Outpatient JODI CARRINGTON [facility] [id number] [facility] 2020-12-30 13:10:00 2020-12-30 15:36:00 Emergency Danette Torre [facility] 1.2.840.114 350.1.13.10 4.2.7.2.686 [id number] [facility] 2020-11-23 09:30:00 2020-11-23 09:30:00 Outpatient R THOMAS HUBER [facility] [id number] [facility] 2020-10-25 14:39:08 2020-10-25 16:21:33 Office Visit Thomas Huber [facility] 1.2.840.114 350.1.13.10 4.2.7.2.686 [id number] [facility] 2020-10-25 15:00:00 2020-10-25 15:00:00 Outpatient R THOMAS HUBER [facility] [id number] [facility] 2020-10-20 00:00:00 2020-10-20 00:00:00 Case Management Thomas Huber [facility] Building 1.2.840.114 350.1.13.10 4.2.7.2.686 [id number] [facility] 2020-10-18 00:00:00 2020-10-18 00:00:00 Orders Only Doctor Unassigned, [place] [facility] 1.2.840.114 350.1.13.10 4.2.7.2.686 [id number] [facility] 2020-10-16 15:00:00 2020-10-16 15:00:00 Outpatient R THOMAS HUBER [facility] [id number] [facility] 2020-10-13 00:00:00 2020-10-13 00:00:00 Telephone Thomas Huber [facility] Building 1.2.840.114 350.1.13.10 4.2.7.2.686 [id number] [facility] 2020-10-12 00:00:00 2020-10-12 00:00:00 Telephone Thomas Huber [facility] Building 1.2.840.114 350.1.13.10 4.2.7.2.686 [id number] [facility] 2020-10-10 06:27:00 2020-10-10 10:28:00 Hospital Encounter Thomas Huber Yosef [facility] 1.2.840.114 350.1.13.10 4.2.7.2.686 [id number] [facility] 2020-10-10 06:27:00 2020-10-10 10:28:00 Outpatient R THOMAS HUBER [facility] [id number] [facility] 2020-10-10 07:30:00 2020-10-10 09:35:00 Surgery Thomas Huber [facility] 1.2840.114 350.1.13.10 4.2.7.2.686 [id number] [facility] 2020-10-10 07:19:00 2020-10-10 08:45:00 Anesthesia Event Marcial Muñoz Leonard [facility] [place] 1.2.840.114 350.1.13.10 4.2.7.2.686 [id number] [facility] 2020-10-09 08:15:53 2020-10-09 08:30:53 Cover Maker Visit Pob, Adc Lab Main Thomas Huber [facility] 1.2840.114 350.1.13.10 4.2.7.2.686 [id number] [facility] 2020-10-09 08:14:50 2020-10-09 08:29:50 Laboratory Only Only, Adc Test Thomas Huber [facility] 1.2840.114 350.1.13.10 4.2.7.2.686 [id number] [facility] 2020-10-09 08:15:00 2020-10-09 08:15:00 Outpatient R THOMAS HUBER [facility] [id number] [facility] 2020-10-09 00:00:00 2020-10-09 00:00:00 Orders Only Doctor Unassigned, [place] [facility] 1.2840.114 350.1.13.10 4.2.7.2.686 [id number] [facility] 2020-10-06 00:00:00 2020-10-06 00:00:00 Telephone Thomas Huber [facility] Building 1.2840.114 350.1.13.10 4.2.7.2.686 [id number] [facility] 2020-10-03 09:40:00 2020-10-03 09:40:00 Outpatient BAEL PIZANO HOWARD [facility] [id number] [facility] 2020-10-03 00:00:00 2020-10-03 00:00:00 Telephone Thomas Huber [facility] 1.2840.114 350.1.13.10 4.2.7.2.686 [id number] [facility] 2020-10-02 00:00:00 2020-10-02 00:00:00 Telephone Thomas Huber [facility] 1.2840.114 350.1.13.10 4.2.7.2.686 [id number] [facility] 2020-09-27 15:09:45 2020-09-27 16:42:32 Office Visit Thomas Huber [facility] 1.2.114 350.1.13.10 4.2.7.2.686 [id number] [facility] 2020-09-27 08:09:42 2020-09-27 09:39:41 Office Visit Jodi Hagen [facility] 1.114 350.1.13.10 4.2.7.2.686 [id number] [facility] 2020-09-27 08:15:00 2020-09-27 08:15:00 Outpatient JODI CARRINGTON [facility] [id number] [facility] 2020-09-27 00:00:00 2020-09-27 00:00:00 Orders Only Doctor Unassigned, [place] [facility] 1.114 350.1.13.10 4.2.7.2.686 [id number] [facility] 2020-09-21 14:15:57 2020-09-21 14:30:57 [facility] 1..840.114 350.1.13.10 4.2.7.2.686 [id number] [facility] 2020-09-21 14:15:00 2020-09-21 14:15:00 Outpatient R [facility] [id number] [facility] 2020-09-21 00:00:00 2020-09-21 00:00:00 Telephone Bridgett [facility] Building 1..840.114 350.1.13.10 4.2.7.2.686 [id number] [facility] 2020-09-19 07:56:23 2020-09-19 23:59:00 Hospital Encounter Thomas Huber [facility] 1..840.114 350.1.13.10 4.2.7.2.686 [id number] [facility] 2020-09-19 08:00:00 2020-09-19 08:00:00 Outpatient R THOMAS HUBER [facility] [id number] [facility] 2020-09-18 12:58:14 2020-09-18 13:45:31 Routine Visit Thomas Huber [facility] Building 1..840.114 350.1.13.10 4.2.7.2.686 [id number] [facility] 2020-09-18 13:15:00 2020-09-18 13:15:00 Outpatient R THOMAS HBUER [facility] [id number] [facility] 2020-09-18 00:00:00 2020-09-18 00:00:00 [facility] 1.2.840.114 350.1.13.10 4.2.7.2.686 [id number] [facility] 2020-09-11 13:00:00 2020-09-11 13:00:00 Outpatient R THOMAS HUBER [facility] [id number] [facility] 2020-08-28 09:49:56 2020-08-28 10:44:06 [facility] 1.840.114 350.1.13.10 4.2.7.2.686 [id number] [facility] 2020-08-28 10:00:00 2020-08-28 10:00:00 Outpatient R ABEL SHEPPARD [facility] [id number] [facility] 2020-08-28 00:00:00 2020-08-28 00:00:00 Orders Only Doctor Unassigned, [place] [facility] 1.840.114 350.1.13.10 4.2.7.2.686 [id number] [facility] 2020-08-25 07:55:02 2020-08-25 09:02:52 Office Visit Jodi Hagen [facility] 1.840.114 350.1.13.10 4.2.7.2.686 [id number] [facility] 2020-08-25 08:00:00 2020-08-25 08:00:00 Outpatient R JODI HAGEN [facility] [id number] [facility] 2020-08-23 00:00:00 2020-08-23 00:00:00 Telephone Thomas Huber [facility] Professio [facility]al Building 1.2.840.114 350.1.13.10 4.2.7.2.686 [id number] [facility] 2020-08-23 00:00:00 2020-08-23 00:00:00 Case Management Thomas Huber [facility] 1.2.840.114 350.1.13.10 4.2.7.2.686 [id number] [facility] 2020-08-22 00:00:00 2020-08-22 00:00:00 Telephone Thomas Huber [facility] 1.2.840.114 350.1.13.10 4.2.7.2.686 [id number] [facility] 2020-08-22 00:00:00 2020-08-22 00:00:00 Patient Outreach Evan Orellana [facility] 1.2.840.114 350.1.13.10 4.2.7.2.686 [id number] [facility] 2020-08-22 00:00:00 2020-08-22 00:00:00 Patient Secure Msg Doctor Unassigned, [place] [facility] 1.2.840.114 350.1.13.10 4.2.7.2.686 [id number] [facility] 2020-08-19 00:00:00 2020-08-19 00:00:00 Refill Thomas Huber [facility] 1.2.840.114 350.1.13.10 4.2.7.2.686 [id number] [facility] 2020-08-14 16:59:00 2020-08-17 11:45:00 Hospital Encounter Thomas Huber [facility] 1.2.840.114 350.1.13.10 4.2.7.2.686 [id number] [facility] 2020-08-17 00:00:00 2020-08-17 00:00:00 Case Management Thomas Huber [facility] 1.2.840.114 350.1.13.10 4.2.7.2.686 [id number] [facility] 2020-08-15 00:00:00 2020-08-15 00:00:00 Telephone Thomas Huber [facility] 1.2.840.114 350.1.13.10 4.2.7.2.686 [id number] [facility] 2020-08-14 14:05:11 2020-08-14 16:10:05 Routine Visit Thomas Huber [facility] 1.2.840.114 350.1.13.10 4.2.7.2.686 [id number] [facility] 2020-08-14 14:30:00 2020-08-14 14:30:00 Outpatient R THOMAS HUBER [facility] [id number] [facility] 2020-08-14 00:00:00 2020-08-14 00:00:00 Orders Only Doctor Unassigned, [place] [facility] 1.2.840.114 350.1.13.10 4.2.7.2.686 [id number] [id number] [facility] 2020-08-10 12:29:00 2020-08-11 21:17:00 Hospital Encounter Jeferson Campos [facility] 1.2.840.114 350.1.13.10 4.2.7.2.686 [id number] [facility] 2020-08-10 12:29:00 2020-08-11 21:17:00 Outpatient CELSO [facility] SHARYN [id number] [facility] 2020-08-11 00:00:00 2020-08-11 00:00:00 Telephone [facility] 1.2.840.114 350.1.13.10 4.2.7.2.686 [id number] 134 [id number] [facility] 2020-08-11 00:00:00 2020-08-11 00:00:00 Telephone [facility] 1.2.840.114 350.1.13.10 4.2.7.2.686 [id number] 134 [id number] [facility] 2020-08-11 00:00:00 2020-08-11 00:00:00 Telephone Thomas Huber [facility] 1.2840.114 350.1.13.10 4.2.7.2.686 [id number] 134 [id number] [facility] 2020-08-10 09:00:00 2020-08-10 09:00:00 Outpatient R THOMAS HUBER [facility] [id number] [facility] 2020-08-10 00:00:00 2020-08-10 00:00:00 Case Management Thomas Huber [facility] 1.2840.114 350.1.13.10 4.2.7.2.686 [id number] 134 [id number] [facility] 2020-08-10 00:00:00 2020-08-10 00:00:00 Orders Only Doctor Unassigned, [place] [facility] 1.2840.114 350.1.13.10 4.2.7.2.686 [id number] [id number] [facility] 2020-08-09 14:34:33 2020-08-09 15:43:43 Office Visit Jodi Hagen [facility] 1.2840.114 350.1.13.10 4.2.7.2.686 [id number] [facility] 2020-08-09 14:45:00 2020-08-09 14:45:00 Outpatient R JODI HAGEN [facility] [id number] [facility] 2020-08-07 13:12:16 2020-08-07 14:08:38 Office Visit Pita Urias [facility] Medical Office Building 1.2.840.114 350.1.13.10 4.2.7.2.686 [id number] [facility] [id number] [facility] 2020-08-07 13:15:00 2020-08-07 13:15:00 Outpatient R [facility] [id number] [facility] 2020-08-07 09:46:28 2020-08-07 10:52:33 Routine Visit Room, [facility] Thomas Huber [facility] Building 1.2.840.114 350.1.13.10 4.2.7.2.686 [id number] 134 [id number] [facility] 2020-08-04 14:50:34 2020-08-04 15:20:34 Cover Maker Visit Ultrasound, [facility] Jacque Paz [facility] nal Building 1.2.840.114 350.1.13.10 4.2.7.2.686 [id number] 134 [id number] [facility] 2020-08-04 15:00:00 2020-08-04 15:00:00 Outpatient R [facility] [id number] [facility] 2020-08-04 00:00:00 2020-08-04 00:00:00 Case Management Thomas Huber [facility] Building 1.2.840.114 350.1.13.10 4.2.7.2.686 [id number] 134 [id number] [facility] 2020-08-03 08:42:32 2020-08-03 10:10:58 Routine Visit Room, [facility] 1.2.840.114 350.1.13.10 4.2.7.2.686 [id number] 134 [id number] [facility] 2020-08-03 09:00:00 2020-08-03 09:00:00 Outpatient R CECILE [facility] [id number] [facility] 2020-08-02 00:00:00 2020-08-02 00:00:00 [facility]phone [facility] 1.2.840.114 350.1.13.10 4.2.7.2.686 [id number] 134 [id number] [facility] 2020-08-02 00:00:00 2020-08-02 00:00:00 Orders Only Doctor Unassigned, [place] [facility] 1.2.840.114 350.1.13.10 4.2.7.2.686 [id number] [id number] [facility] 2020-07-31 11:15:27 2020-07-31 23:59:00 Hospital Encounter Thomas Huber [facility] 1.2.840.114 350.1.13.10 4.2.7.2.686 [id number] [facility] 2020-07-31 11:15:27 2020-07-31 23:59:00 Outpatient R CECILE [facility] [id number] [facility] 2020-07-31 08:58:13 2020-07-31 10:44:17 Routine Visit Room, [facility] Cecile [facility] Building 1.2.840.114 350.1.13.10 4.2.7.2.686 [id number] 134 [id number] [facility] 2020-07-31 00:00:00 2020-07-31 00:00:00 Orders Only Doctor Unassigned, [place] [facility] 1.2.840.114 350.1.13.10 4.2.7.2.686 [id number] [id number] [facility] 2020-07-28 09:50:00 2020-07-30 11:30:00 Hospital Encounter Thomas Huber Megan [facility] 1.2.840.114 350.1.13.10 4.2.7.2.686 [id number] 083 [id number] [facility] 2020-07-28 00:00:00 2020-07-28 00:00:00 Telephone Thomas Huber [facility] Professio nal Building 1.2.840.114 350.1.13.10 4.2.7.2.686 [id number] 134 [id number] [facility] 2020-07-28 00:00:00 2020-07-28 00:00:00 Telephone Thomas Huber [facility] Professio nal Building 1.2.840.114 350.1.13.10 4.2.7.2.686 [id number] 134 [id number] [facility] 2020-07-28 00:00:00 2020-07-28 00:00:00 [facility] 1.2.840.114 350.1.13.10 4.2.7.2.686 [id number] 134 [id number] [facility] 2020-07-27 16:44:00 2020-07-27 23:55:00 Hospital Encounter Thomas Huber [facility] 1.2.840.114 350.1.13.10 4.2.7.2.686 [id number] [id number] [facility] 2020-07-27 16:44:00 2020-07-27 23:55:00 Outpatient P THOMAS HUBER [facility] SHARYN [id number] [facility] 2020-07-27 14:50:23 2020-07-27 16:18:54 Routine Visit Room, [facility] Nst Zully Ren [facility] 1.2.840.114 350.1.13.10 4.2.7.2.686 [id number] 134 [id number] [facility] 2020-07-27 15:00:00 2020-07-27 15:00:00 Outpatient R [facility] [id number] [facility] 2020-07-24 09:34:57 2020-07-24 10:48:17 Routine Visit Thomas Huber [facility] 1..840.114 350.1.13.10 4.2.7.2.686 [id number] 134 [id number] [facility] 2020-07-24 10:00:00 2020-07-24 10:00:00 Outpatient R [facility] [id number] [facility] 2020-07-21 00:00:00 2020-07-21 00:00:00 Orders Only Doctor Unassigned, [place] [facility] 1.840.114 350.1.13.10 4.2.7.2.686 [id number] [id number] [facility] 2020-07-21 00:00:00 2020-07-21 00:00:00 Case Management [facility] 1.2.840.114 350.1.13.10 4.2.7.2.686 [id number] 134 [id number] [facility] 2020-07-17 08:00:00 2020-07-17 08:00:00 Outpatient R [facility] [id number] [facility] 2020-07-13 00:00:00 2020-07-13 00:00:00 Telephone Thomas Huber [facility] 1.2.840.114 350.1.13.10 4.2.7.2.686 [id number] 134 [id number] [facility] 2020-07-10 00:00:00 2020-07-10 00:00:00 Orders Only Doctor Unassigned, [place] [facility] 1.2840.114 350.1.13.10 4.2.7.2.686 [id number] [id number] [facility] 2020-07-07 14:48:36 2020-07-07 15:18:36 Cover Maker Visit Ultrasound, Adc Mfm Thomas Huber [facility] Building 1.2.114 350.1.13.10 4.2.7.2.686 [id number] 134 [id number] [facility] 2020-07-07 15:00:00 2020-07-07 15:00:00 Outpatient P [facility] [id number] [facility] 2020-07-03 13:00:47 2020-07-03 13:40:01 Routine Visit Thomas Huber [facility] Building 1.284.114 350.1.13.10 4.2.7.2.686 [id number] 134 [id number] [facility] 2020-07-03 12:51:19 2020-07-03 13:06:19 Cover Maker Visit Pob, Adc Lab Main Thomas Huber [facility] Building 1.2.114 350.1.13.10 4.2.7.2.686 [id number] [facility] 2020-07-03 13:00:00 2020-07-03 13:00:00 Outpatient R THOMAS HUBER [facility] [id number] [facility] 2020-06-30 15:40:48 2020-06-30 16:10:48 Nurse Visit Visit, Adc Nurse Satish Walls [facility] Building 1.2840.114 350.1.13.10 4.2.7.2.686 [id number] [facility] 2020-06-30 16:00:00 2020-06-30 16:00:00 Outpatient SATISH PETERSON [facility] [id number] [facility] 2020-06-26 12:05:00 2020-06-26 17:49:00 Hospital Encounter Thomas Huber [facility] 1.2.840.114 350.1.13.10 4.2.7.2.686 [id number] [facility] 2020-06-26 00:00:00 2020-06-26 00:00:00 Telephone Thomas Huber [facility] Building 1.2.840.114 350.1.13.10 4.2.7.2.686 [id number] 134 [id number] [facility] 2020-06-21 10:23:29 2020-06-21 10:38:29 Cover Maker Visit Pob, Adc Lab Main Gela [facility] Building 1.2.84.114 350.1.13.10 4.2.7.2.686 [id number] [facility] 2020-06-21 09:04:16 2020-06-21 09:51:29 Routine Visit Zully Ren [facility] Building 1.2.840.114 350.1.13.10 4.2.7.2.686 [id number] 134 [id number] [facility] 2020-06-21 09:00:00 2020-06-21 09:00:00 [facility] [id number] [facility] 2020-06-21 00:00:00 2020-06-21 00:00:00 Orders Only Doctor Unassigned, [place] [facility] 1.2840.114 350.1.13.10 4.2.7.2.686 [id number] [id number] [facility] 2020-06-07 13:17:24 2020-06-07 14:20:00 Office Visit Jodi Hagen [facility] 1.0.114 350.1.13.10 4.2.7.2.686 [id number] [facility] 2020-06-07 13:30:00 2020-06-07 13:30:00 Outpatient R PERCY [facility] [id number] [facility] 2020-06-05 08:57:30 2020-06-05 09:57:30 Cover Maker Visit 1, [facility] Us Room Jeferson Campos [facility] 1..114 350.1.13.10 4.2.7.2.686 [id number] [facility] 2020-06-05 09:00:00 2020-06-05 09:00:00 Outpatient P [facility] [id number] [facility] 2020-05-24 09:41:08 2020-05-24 10:44:24 Routine Visit Thomas Huber [facility] 1.20.114 350.1.13.10 4.2.7.2.686 [id number] 134 [id number] [facility] 2020-05-24 09:45:00 2020-05-24 09:45:00 Outpatient R THOMAS HUBER [facility] [id number] [facility] 2020-05-24 00:00:00 2020-05-24 00:00:00 Orders Only Doctor Unassigned, [place] [facility] 1.2840.114 350.1.13.10 4.2.7.2.686 [id number] [facility] 2020-05-18 13:45:00 2020-05-18 14:00:00 Telemedici ne Visit Alanna Graves [facility] PILOT FUEL [facility] 1..114 350.1.13.10 4.2.7.2.686 [id number] [facility] 2020-05-18 13:45:00 2020-05-18 13:45:00 Outpatient P [facility] [id number] [facility] 2020-05-16 06:48:00 2020-05-16 10:10:00 Hospital Encounter Thomas Huber [facility] 1..114 350.1.13.10 4.2.7.2.686 [id number] 083 [id number] [facility] 2020-05-01 00:00:00 2020-05-01 00:00:00 Patient Secure Msg Thomas Huber [facility] 1..114 350.1.13.10 4.2.7.2.686 [id number] 134 [id number] [facility] 2020-04-26 09:55:06 2020-04-26 10:15:06 Laboratory Only Lab, Adc Fam Pob Ivana Castaneda [facility] Office Building One 1.114 350.1.13.10 4.2.7.2.686 [id number] [facility] 2020-04-26 10:00:00 2020-04-26 10:00:00 Outpatient R [facility] [id number] [facility] 2020-04-26 09:40:00 2020-04-26 09:40:00 Outpatient R PERLITA THOMASON [facility] [id number] [facility] 2020-04-25 11:09:08 2020-04-25 11:46:35 Routine Visit Zully Ren [facility] Building 1.114 350.1.13.10 4.2.7.2.686 [id number] 134 [id number] [facility] 2020-04-25 11:15:00 2020-04-25 11:15:00 Outpatient Frida ZULLY REN [facility] [id number] [facility] 2020-04-24 09:00:59 2020-04-24 10:53:51 Cover Maker Visit 1, [facility] Us Room [facility] 1.84.114 350.1.13.10 4.2.7.2.686 [id number] [facility] 2020-04-24 09:15:00 2020-04-24 09:15:00 Outpatient P [facility] [id number] [facility] 2020-04-19 00:00:00 2020-04-19 00:00:00 Telephone Thomas Huber [facility] [place] [facility] 1.840.114 350.1.13.10 4.2.7.2.686 [id number] 134 [id number] [facility] 2020-04-05 00:00:00 2020-04-05 00:00:00 Telephone Thomas Huber [facility] [place] [facility] Building 1.84.114 350.1.13.10 4.2.7.2.686 [id number] 134 [id number] [facility] 2020-04-03 10:30:00 2020-04-03 10:30:00 Outpatient GARRY MATAMOROS [facility] [id number] [facility] 2020-04-03 10:00:14 2020-04-03 10:15:14 Telemedici ne Visit Alanna Graves Joseph W [facility] PILOT FUEL ENGINEER [facility] 1.84.114 350.1.13.10 4.2.7.2.686 [id number] [facility] 2020-03-29 00:00:00 2020-03-29 00:00:00 Telephone Thomas Huber [facility] 1.114 350.1.13.10 4.2.7.2.686 [id number] [facility] 2020-03-28 10:36:42 2020-03-28 10:51:42 Cover Maker Visit 2, Adc Lab Thomas Huber [facility] 1.2114 350.1.13.10 4.2.7.2.686 [id number] [facility] 2020-03-28 09:45:00 2020-03-28 09:45:00 Outpatient R [facility] [id number] [facility] 2020-03-27 14:52:43 2020-03-27 16:31:25 Office Visit Thomas Huber [facility] 1.114 350.1.13.10 4.2.7.2.686 [id number] 134 [id number] [facility] 2020-03-27 11:15:00 2020-03-27 11:15:00 Outpatient R ZULLY REN [facility] [id number] [facility] 2020-03-27 00:00:00 2020-03-27 00:00:00 Orders Only Doctor Unassigned, [place] [facility] 1. 350.1.13.10 4.2.7.2.686 [id number] [facility] 2020-03-24 00:00:00 2020-03-24 00:00:00 Telephone Thomas Huber [facility] 1..114 350.1.13.10 4.2.7.2.686 [id number] 134 [id number] [facility] 2020-03-24 00:00:00 2020-03-24 00:00:00 Telephone Gela Zully [facility] 1..114 350.1.13.10 4.2.7.2.686 [id number] 134 [id number] [facility] 2020-03-22 08:50:58 2020-03-22 09:46:40 Routine Visit Zully Ren [facility] Professio nal Building 1.2.840.114 350.1.13.10 4.2.7.2.686 [id number] 134 [id number] [facility] 2020-03-22 09:15:00 2020-03-22 09:15:00 Outpatient R GELA [facility] [id number] [facility] 2020-03-20 00:00:00 2020-03-20 00:00:00 Telephone Thomas Huber [facility] Building 1.2.840.114 350.1.13.10 4.2.7.2.686 [id number] 134 [id number] [facility] 2020-03-13 08:30:00 2020-03-13 08:30:00 Outpatient R THOMAS HUBER [facility] [id number] [facility] 2020-03-13 00:00:00 2020-03-13 00:00:00 Orders Only Doctor Unassigned, [place] [facility] 1.2.840.114 350.1.13.10 4.2.7.2.686 [id number] [id number] [facility] 2020-03-08 10:13:22 2020-03-08 10:51:38 Routine Visit Zully Ren [facility] Building 1.2.840.114 350.1.13.10 4.2.7.2.686 [id number] 134 [id number] [facility] 2020-03-08 10:15:00 2020-03-08 10:15:00 Outpatient R GELA [facility] [id number] [facility] 2020-03-08 00:00:00 2020-03-08 00:00:00 Telephone [facility] 1.2.840.114 350.1.13.10 4.2.7.2.686 [id number] 134 [id number] [facility] 2020-03-06 00:00:00 2020-03-06 00:00:00 Telephone [facility] 1.2.840.114 350.1.13.10 4.2.7.2.686 [id number] 134 [id number] [facility] 2020-02-29 00:00:00 2020-02-29 00:00:00 Telephone Thomas Huber [facility] [place] [facility] 1.2.840.114 350.1.13.10 4.2.7.2.686 [id number] 134 [id number] [facility] 2020-02-28 09:13:47 2020-02-28 09:28:47 Cover Maker Visit 2, Adc Lab Thomas Huber [facility] Building 1.2.840.114 350.1.13.10 4.2.7.2.686 [id number] [facility] 2020-02-28 08:29:25 2020-02-28 09:10:07 Routine Visit [facility] 1.2.840.114 350.1.13.10 4.2.7.2.686 [id number] 134 [id number] [facility] 2020-02-28 08:30:00 2020-02-28 08:30:00 Outpatient R THOMAS HUBER [facility] [id number] [facility] 2020-02-28 00:00:00 2020-02-28 00:00:00 Orders Only Doctor Unassigned, [place] [facility] 1.2.840.114 350.1.13.10 4.2.7.2.686 [id number] [id number] [facility] 2020-02-16 00:00:00 2020-02-16 00:00:00 Orders Only Doctor Unassigned, [place] [facility] 1.2840.114 350.1.13.10 4.2.7.2.686 [id number] [facility] 2020-02-14 13:30:00 2020-02-14 13:30:00 Outpatient P [facility] [id number] [facility] 2020-02-10 08:45:00 2020-02-10 08:45:00 Outpatient R MARGOT SANDOVAL [facility] [id number] [facility] 2020-02-03 00:00:00 2020-02-03 00:00:00 Tele[facility] 1.284.114 350.1.13.10 4.2.7.2.686 [id number] 134 [id number] [facility] 2020-02-03 00:00:00 2020-02-03 00:00:00 Refill [facility] 1.284.114 350.1.13.10 4.2.7.2.686 [id number] 134 [id number] [facility] 2020-01-31 08:00:00 2020-01-31 08:00:00 Outpatient R [facility] [id number] [facility] 2020-01-31 00:00:00 2020-01-31 00:00:00 Telephone Margot Sandoval [facility] PILOT FUEL [facility] 1.20.114 350.1.13.10 4.2.7.2.686 [id number] 107 [id number] [facility] 2020-01-27 00:00:00 2020-01-27 00:00:00 Patient Secure Msg Thomas Huber [facility] PROFESSIO NAL BUILDING 1.2840.114 350.1.13.10 4.2.7.2.686 [id number] 134 [id number] [facility] 2020-01-24 09:15:54 2020-01-24 09:30:54 Cover Maker Visit 2, Adc Lab [facility] 1.2840.114 350.1.13.10 4.2.7.2.686 [id number] 353 [id number] [facility] 2020-01-24 08:03:13 2020-01-24 09:12:06 Initial Visit Thomas Huber [facility] 1.20.114 350.1.13.10 4.2.7.2.686 [id number] 134 [id number] [facility] 2020-01-24 08:00:00 2020-01-24 08:00:00 [id number] [facility] 2020-01-24 00:00:00 2020-01-24 00:00:00 Orders Only Doctor Unassigned, [place] [facility] 1.20.114 350.1.13.10 4.2.7.2.686 [id number] [facility] 2020-01-24 00:00:00 2020-01-24 00:00:00 Telephone Thomas Huber [facility] 1.2840.114 350.1.13.10 4.2.7.2.686 [id number] 134 [id number] [facility] 2020-01-19 10:00:00 2020-01-19 10:00:00 [facility] [id number] [facility] 2020-01-17 09:51:45 2020-01-17 10:06:45 Cover Maker Visit Lab, Pato-Rmchp Margot Sandoval [facility] PILOT FUEL ENGINEER [facility]NAL [facility]ILD [facility] 1.20.114 350.1.13.10 4.2.7.2.686 [id number] [facility] 2020-01-17 09:51:45 2020-01-17 10:06:45 Cover Maker Visit Lab, Ang-Rmchp [facility] PILOT FUEL ENGINEER [facility] MATERNAL & CHILD [facility] 1.2.840.114 350.1.13.10 4.2.7.2.686 [id number] 2020-01-17 08:15:00 2020-01-17 08:15:00 Outpatient R MARGOT SANDOVAL [facility] [id number] [facility] 2020-01-13 09:45:00 2020-01-13 11:18:39 Outpatient R LORI MARGOT [facility] [id number] [facility] 2020-01-13 09:53:02 2020-01-13 10:23:02 Initial Visit Margot Sandoval [facility] PILOT FUEL ENGINEER [facility] CHILD [facility] 1.2.840.114 350.1.13.10 4.2.7.2.686 [id number] 107 [id number] [facility] 2020-01-13 09:53:02 2020-01-13 10:23:02 Initial Visit Margot Sandoval [facility] PILOT FUEL ENGINEER [facility] & CHILD [facility] 1.2.840.114 350.1.13.10 4.2.7.2.686 [id number] 2020-01-13 09:45:00 2020-01-13 09:45:00 Outpatient R MARGOT SANDOVAL [facility] [id number] [facility] 2020-01-11 14:45:00 2020-01-11 18:12:00 Emergency Nancy Sandoval [facility] 1.2.840.114 350.1.13.10 4.2.7.2.686 [id number] [id number] [facility] 2020-01-11 14:45:00 2020-01-11 18:12:00 Emergency Nancy Sandoval [facility] 1.2.840.114 350.1.13.10 4.2.7.2.686 [id number] 2020-01-11 14:45:00 2020-01-11 14:45:00 Emergency X NANCY SANDOVAL [facility] ERT [id number] [facility] 2020-01-11 00:00:00 2020-01-11 00:00:00 Nurse Triage [facility] [id number] 350.1.13.10 [id number] [id number] [facility] 2020-01-11 00:00:00 2020-01-11 00:00:00 Nurse Triage [facility] 1.2.840.114 350.1.13.10 4.2.7.2.686 [id number] 2019-12-06 12:49:46 2019-12-06 14:26:00 Emergency [facility] 1.2.840.114 350.1.13.10 4.2.7.2.686 [id number] [facility] 2019-12-06 12:49:46 2019-12-06 14:26:00 Emergency [facility] 1.2.840.114 350.1.13.10 4.2.7.2.686 [id number] 2019-12-06 12:28:00 2019-12-06 12:28:00 Emergency X [facility] ERT [id number] [facility]
[2024-09-24] MEDS ORDERED: HYDROCODONE/APAP 5/325 MG TAB ONE (20:48)
--- NOTE | 2024-09-24 22:38 | RAD REPORT ---
EXAMINATION: XR Foot Left 3 View CLINICAL INDICATION: Female, 29 years old. PAIN TECHNIQUE: 3 view radiographs of the left foot were obtained. COMPARISON: No prior exam. FINDINGS: No evidence of fracture or dislocation. Normal alignment. No evidence of arthropathy or oth er focal bone lesion. Soft tissues are unremarkable. Enthesopathy at the Achilles tendon attachment. No significant degenerative changes. IMPRESSION: No acute or significant abnormalities.
--- NOTE | 2024-09-24 23:14 | EDPHYS ---
Physician Documentation [facility] Name: Zaina Roberson Age: 29 yrs Sex: Female : 1995 Arrival Date: 09/24/2024 Time: 20:37 Bed 11 Private MD: ED Physician Gopi Crowder HPI: 09/24 20:54 This 29 yrs old Female presents to ER via Unassigned with complaints of Foot Injury. ms3 20:54 29-year-old female with no past medical history presents to the emergency department ms3 for left foot pain that began after tripping over concrete at 10:30 AM. Patient states the pain is an 8/10 and is worse with walking. Patient has taken Tylenol and ibuprofen without relief. Patient states in the fall she hurt her big toe pop.. COMPOSITION MIXER: 20:56 LMP 09/23/2024, unknown dd2 Historical: - Allergies: 20:56 NKDA; dd2 - PMHx: 20:56 Kidney stone; dd2 - PSHx: 20:56 Cholecystectomy; tubal ligation; dd2 - Immunization history:: Adult Immunizations up to date. - Infectious Disease History:: Denies. - Social history:: Smoking status: Reported history of juuling and/or vaping. ROS: 20:54 Constitutional: Negative for fever, and chills. Cardiovascular: Negative for chest ms3 pain, and palpitations. Respiratory: Negative for shortness of breath, cough, wheezing, and pleuritic chest pain, Abdomen/GI: Negative for abdominal pain, nausea, vomiting, diarrhea, and constipation, 20:54 MS/extremity: Positive for pain, of the Left foot, Exam: 20:54 Constitutional: This is a well developed, well nourished patient who is awake, alert, ms3 and in no acute distress. Cardiovascular: Regular rate and rhythm with a normal S1 and S2. No gallops, murmurs, or rubs. Normal PMI, no JVD. No pulse deficits. Respiratory: Lungs have equal breath sounds bilaterally, clear to auscultation and percussion. No rales, rhonchi or wheezes noted. No increased work of breathing, no retractions or nasal flaring. Abdomen/GI: Soft, non-tender, with normal bowel sounds. No distension or tympany. No guarding or rebound. No evidence of tenderness throughout. 20:54 Musculoskeletal/extremity: Extremities: noted in the Left medial midfoot distally: pain, tenderness, Vital Signs: 20:51 BP 153 / 106; Pulse 110; Resp 16; Temp 98.4; Pulse Ox 99% on R/A; Weight 107.5 kg; dd2 Height 5 ft. 6 in. ; Pain 8/10; 23:32 BP 144 / 90; Pulse 89; Resp 17 S; Temp 98.1(O); Pulse Ox 99% on R/A; lg3 20:51 Body Mass Index 38.25 (107.50 kg, 167.64 cm) dd2 20:51 Pain Scale: Adult dd2 MDM: 20:54 Medical Screening Exam initiated ms3 20:54 Differential diagnosis: fracture, sprain. ms3 09/25 02:39 Data reviewed: vital signs, nurses notes, radiologic studies, and as a result, I will ms3 discharge patient. I considered the following discharge prescriptions or medication management in the emergency department Medications were administered in the Emergency Department. See MAR. Counseling: I had a detailed discussion with the patient and/or guardian regarding the historical points, exam findings, and any diagnostic results supporting the discharge/admit diagnosis, radiology results, the need for outpatient follow up, to return to the emergency department if symptoms worsen or persist or if there are any questions or concerns that arise at home. Special discussion: I discussed with the patient/guardian in detail that at this point there is no indication for admission to the hospital. It is understood, however, that if the symptoms persist or worsen the patient needs to return immediately for re-evaluation. ED course: Discussed x-ray findings with patient. Patient placed in Ortho shoe and crutches were given. Patient to follow-up with podiatry in 2 to 3 days. Patient understands and agrees with plan. All questions were answered. Return precautions discussed include worsening symptoms, or any other concerns.. 09/24 20:54 Order name: Foot Left 3 View XRAY; Complete Time: 22:40 ms3 09/24 23:13 Order name: Post-op Orthopedic Shoe; Complete Time: 23:31 ms3 09/24 23:13 Order name: Crutches; Complete Time: 23:31 ms3 Administered Medications: 09/24 20:56 Drug: HYDROcodone-acetaminophen PO 5 mg-325 mg 1 tabs PO once Route: PO; lg3 23:31 Follow up: Response: No adverse reaction; Marked relief of symptoms lg3 Disposition Summary: 09/24/24 23:14 Discharge Ordered Notes: Location: Home ms3 Condition: Stable ms3 Diagnosis - Post operative bleeding ms3 - Pain in left foot ms3 Followup: ms3 - With: Jeovany Sol DPM - When: 2 - 3 days - Reason: Recheck today's complaints Discharge Instructions: - Discharge Summary Sheet ms3 - Foot Pain ms3 Forms: - Medication Reconciliation Form ms3 - Antibiotic Education ms3 - Prescription Opioid Use ms3 - Patient Portal Instructions ms3 - Leadership Thank You Letter ms3 Prescriptions: - Ibuprofen 600 mg Oral Tablet - take 1 tablet ORAL route every 6 hours As needed take with food; 30 tablet; ms3 Refills: 0, Product Selection Permitted Signatures: Dispatcher [employer] Rosie Nunez RN RN lg3 Gopi Crowder DO DO ms3 CATHIE LLOYD RN RN dd2
--- NOTE | 2024-09-24 23:14 | ER ---
Nurse's Notes [facility] Name: Zaina Roberson Age: 29 yrs Sex: Female : 1995 Arrival Date: 09/24/2024 Time: 20:37 Bed 11 Private MD: Diagnosis: Pain in left foot Presentation: 09/24 20:51 Chief complaint: Patient states: WAS AT WORK AND TRIPPED OVER CONCRETE, HEARD RT BIG dd2 TOE POP AND NOW DIFFICULTY AMBULATING ON RT FOOT. Coronavirus screen: At this time, the client does not indicate any symptoms associated with coronavirus-19. Ebola Screen: No symptoms or risks identified at this time. Initial Sepsis Screen: Does the patient meet any 2 criteria? No. Patient's initial sepsis screen is negative. Does the patient have a suspected source of infection? No. Patient's initial sepsis screen is negative. Risk Assessment: Do you want to hurt yourself or someone else? Patient reports no desire to harm self or others. Onset of symptoms was September 24, 2024. 20:51 Method Of Arrival: Ambulatory dd2 20:51 Acuity: SAFIA 3 dd2 Triage Assessment: 20:56 General: Appears in no apparent distress. uncomfortable, Behavior is calm, cooperative, dd2 appropriate for age. Pain: Complains of pain in right foot Pain does not radiate. Pain currently is 8 out of 10 on a pain scale. Musculoskeletal: Circulation, motion, and sensation intact. Range of motion: limited in RT FOOT, RT GREAT TOE Tenderness present in right foot. 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 - Infectious Disease History:: Denies. - Social history:: Smoking status: Reported history of juuling and/or vaping. Screenin:26 [facility] ED Fall Risk Assessment (Adult) History of falling in the last 3 months, me1 including since admission No falls in past 3 months (0 pts) Confusion or Disorientation No (0 pts) Intoxicated or Sedated No (0 pts) Impaired Gait No (0 pts) Mobility Assist Device Used No (0 pt) Altered Elimination No (0 pt) Score/Fall Risk Level 0 - 2 = Low Risk Maintained a safe environment, Provided non-skid footwear, Hourly rounding (assess needs \T\ fall precautionary measures) done. Abuse screen: Denies threats or abuse. Nutritional screening: No deficits noted. Tuberculosis screening: No symptoms or risk factors identified. Assessment: 21:26 General: Appears uncomfortable, well groomed, well developed, well nourished, Behavior me1 is calm, cooperative, appropriate for age, Reports WAS AT WORK AND TRIPPED OVER CONCRETE, HEARD RT BIG TOE POP AND NOW DIFFICULTY AMBULATING ON RT FOOT. Pain: Complains of pain in right foot Pain does not radiate. Pain currently is 8 out of 10 on a pain scale. Quality of pain is described as aching, Pain began suddenly, Is continuous, Aggravated by weight bearing. Neuro: Level of Consciousness is awake, alert, obeys commands, Oriented to person, place, time, situation, Appropriate for age. Cardiovascular: Patient's skin is warm and dry. Respiratory: Airway is patent Respiratory effort is even, unlabored, Respiratory pattern is regular, symmetrical. GI: No signs and/or symptoms were reported involving the gastrointestinal system. : No signs and/or symptoms were reported regarding the genitourinary system. EENT: No signs and/or symptoms were reported regarding the EENT system. Derm: Skin is intact, is healthy with good turgor, Skin is pink, warm \T\ dry. Musculoskeletal: Reports pain in right foot. Injury Description: WAS AT WORK AND TRIPPED OVER CONCRETE, HEARD RT BIG TOE POP AND NOW DIFFICULTY AMBULATING ON RT FOOT. 23:29 Reassessment: Patient appears in no apparent distress at this time. No changes from lg3 previously documented assessment. Patient and/or family updated on plan of care and expected duration. Pain level reassessed. Patient is alert, oriented x 3, equal unlabored respirations, skin warm/dry/pink. Patient states feeling better. Patient states symptoms have improved. Vital Signs: 20:51 BP 153 / 106; Pulse 110; Resp 16; Temp 98.4; Pulse Ox 99% on R/A; Weight 107.5 kg; dd2 Height 5 ft. 6 in. ; Pain 8/10; 23:32 BP 144 / 90; Pulse 89; Resp 17 S; Temp 98.1(O); Pulse Ox 99% on R/A; lg3 20:51 Body Mass Index 38.25 (107.50 kg, 167.64 cm) dd2 20:51 Pain Scale: Adult dd2 ED Course: 20:46 Patient arrived in ED. gm2 20:48 Gopi Crowder DO is Attending Physician. ms3 20:56 Triage completed. dd2 20:56 Arm band placed on left wrist. dd2 21:25 Kath Walker, RN is Primary Nurse. me1 21:26 Patient has correct armband on for positive identification. Bed in low position. Call me1 light in reach. Side rails up X2. Provided Education on: POC. Verbalized understanding. 21:26 No provider procedures requiring assistance completed. me1 21:35 Foot Left 3 View XRAY In Process Unspecified. EDMS 23:17 Jeovany Sol DPM is Referral Physician. ms3 23:29 Crutch training done. Ortho shoe applied to right foot. lg3 23:32 Patient did not have IV access during this emergency room visit. lg3 Administered Medications: 20:56 Drug: HYDROcodone-acetaminophen PO 5 mg-325 mg 1 tabs PO once Route: PO; lg3 23:31 Follow up: Response: No adverse reaction; Marked relief of symptoms lg3 Medication: 21:26 VIS not applicable for this client. me1 Outcome: 23:14 Discharge ordered by MD. ms3 23:32 Discharged to home ambulatory, with crutches, lg3 23:32 Condition: stable 23:32 Discharge instructions given to patient, Instructed on discharge instructions, follow up and referral plans. medication usage, crutch walking, Demonstrated understanding of instructions, follow-up care, medications, crutch walking, Prescriptions given X 1, 23:33 Patient left the ED. lg3 Signatures: Dispatcher [employer] EDMS Rosie Phillips RN RN lg3 Gopi Crowder DO DO ms3 Kath Walker, RN RN me1 Dara Quiroz gm2 CATHIE LLOYD RN RN dd2 Corrections: (The following items were deleted from the chart) 21:25 20:51 Chief complaint: Patient states: WAS AT WORK AND TRIPPED OVER CONCRETE, HEARD RT me1 BIG TOE POP AND NOW DIFFICULTY AMBULATING ON RT FOOT. dd2
[2024-09-25 01:13] VITALS: O2SAT 99
[2024-09-25 01:15] VITALS: BP 144/90; TEMP 98.1
== END 2024-09-24 23:33 | disposition home or self-care (01) ==
LOC: ER 20:37
DX: M79.672 Pain in left foot (principal); L76.22 Postprocedural hemorrhage of skin and subcutaneous tissue following other procedure
CPT/HCPCS: 99284